=== PATIENT | male | born 1990 | race Caucasian/White ===

== ENCOUNTER 2019-02-05 23:54 | Emergency (ER) | payer OTHER ==
[~2019-02-05] VITALS: Ht 172.7 cm; Wt 85.0 kg
[2019-02-05 23:59] VITALS: BP 125/68
== END 2019-02-06 00:14 | disposition left against medical advice (07) ==
LOC: M ED 23:54
DX: Z53.21 Procedure and treatment not carried out due to patient leaving prior to being seen by health care provider (principal)

== ENCOUNTER 2019-04-03 12:59 | Emergency (ER) | payer OTHER ==
[~2019-04-03] VITALS: Ht 172.7 cm; Wt 79.5 kg
[2019-04-03 12:59] VITALS: BP 148/67
[2019-04-03] MEDS ORDERED: SUBO8MIS SL (13:04)
[2019-04-03] MEDS ORDERED: CLON1TAB8 (13:04)
--- NOTE | 2019-04-03 15:29 | REP ---
ULTRASOUND RIGHT ANTECUBITAL FOSSA: Real-time sonographic evaluation of the right antecubital fossa performed in the area of redness and swelling. There is a complex fluid collection which may represent an abscess in the medial antecubital fossa measuring 2.9 x 2.0 x 4.2 cm. There is surrounding hyperemia with duplex Doppler evaluation. There is compression of the adjacent right basilic vein. Electronically Signed by Ricardo Jimenez MD 04/04/2019 09:14 A
[2019-04-03] MEDS ORDERED: LIDOCAINE 2% MDV 20 ML VIAL SC ONE (15:30)
[2019-04-03] MEDS ORDERED: BACT800T5 PO (15:52)
[2019-04-03] MEDS ORDERED: BACTRIM 160MG/800MG DS TAB PO ONE (16:00)
== END 2019-04-03 16:17 | disposition home or self-care (01) ==
LOC: M ED 12:59
DX: L02.413 Cutaneous abscess of right upper limb (principal); F15.20 Other stimulant dependence, uncomplicated

== ENCOUNTER 2019-05-12 14:38 | Emergency (ER) | payer OTHER ==
[~2019-05-12] VITALS: Ht 172.7 cm; Wt 65.9 kg
[~2019-05-12 14:38] MED LIST: BACT800T5 PO; CLON1TAB8; SUBO8MIS SL
[2019-05-12] MEDS ORDERED: NS 1,000 ML IV ONE ×3 (15:00→18:30)
[2019-05-12 15:06] LABS: HEMATOCRIT 38.4 % (42.0-52.0); HEMOGLOBIN 13.4 g/dl (13.5-17.5); MEAN CORPUSCULAR HEMOGLOBIN 29.6 pg (27.0-33.0); MEAN CORPUSCULAR HGB CONC 34.9 g/dl (32.0-36.5); MEAN CORPUSCULAR VOLUME 84.8 fl (80.0-96.0); PLATELET COUNT, AUTOMATED 201 10^3/uL (150-450); RED BLOOD COUNT 4.53 10^6/uL (4.30-6.10); WHITE BLOOD COUNT 9.5 10^3/uL (4.0-10.0)
[2019-05-12 15:44] LABS: ACETAMINOPHEN LEVEL < 2.0 UG/ML (10.0-30.0); ALBUMIN 3.6 GM/DL (3.2-5.2); ALT/SGPT 51 U/L (12-78); BILIRUBIN,TOTAL 0.6 MG/DL (0.2-1.0); BLOOD UREA NITROGEN 19 MG/DL (7-18); CALCIUM LEVEL 8.2 MG/DL (8.5-10.1); CARBON DIOXIDE LEVEL 31 MEQ/L (21-32); CHLORIDE LEVEL 108 MEQ/L (98-107); CPK CREATINE PHOSPHOKINASE 1388 U/L (39-308); ETHYL ALCOHOL (ETHANOL) < 0.003 % (0.000-0.010); GLOMERULAR FILTRATION RATE > 60.0 (>60); GLUCOSE, FASTING 94 MG/DL (70-100); POTASSIUM SERUM 3.9 MEQ/L (3.5-5.1); SALICYLATE LEVEL < 1.7 MG/DL (5.0-30.0); SODIUM LEVEL 142 MEQ/L (136-145); TOTAL PROTEIN 6.8 GM/DL (6.4-8.2)
[2019-05-12 18:00] VITALS: BP 126/66
[2019-05-12] MEDS ORDERED: METOPROLOL 5 MG/5 ML VIAL IV SCH (18:30)
[2019-05-12] MEDS ORDERED: NITROGLYCERIN 2% OINT 1 GM *U/D* PKT TOP ONE (18:30)
[2019-05-12] MEDS ORDERED: METOPROLOL TART 50 MG TAB PO ONE (18:30)
== END 2019-05-12 21:04 | disposition left against medical advice (07) ==
LOC: M ED 14:38
DX: F19.120 Other psychoactive substance abuse with intoxication, uncomplicated (principal); Z79.899 Other long term (current) drug therapy
CPT/HCPCS: 36415; 80053; 82550; 85027; 99284; G0480

== ENCOUNTER 2019-06-06 19:41 | Inpatient (IN) | payer OTHER ==
[~2019-06-06] VITALS: Ht 177.8 cm; Wt 71.2 kg
[2019-06-06] MEDS ORDERED: NALOXONE INJ 0.4 MG/1 ML VIAL (J2310) IV ONE (20:30)
[2019-06-06 20:47] LABS: BASO % 0.2 % (0.0-1.0); EOS # 0.1 10^3/uL (0.0-0.50); EOS % 0.7 % (0.0-3.0); HEMATOCRIT 37.6 % (42.0-52.0); HEMOGLOBIN 12.6 g/dl (13.5-17.5); LYMPH # 3.6 10^3/uL (1.5-6.5); LYMPH % 36.2 % (24.0-44.0); MEAN CORPUSCULAR HEMOGLOBIN 29.4 pg (27.0-33.0); MEAN CORPUSCULAR HGB CONC 33.5 g/dl (32.0-36.5); MEAN CORPUSCULAR VOLUME 87.6 fl (80.0-96.0); MONO # 0.6 10^3/uL (0.0-0.8); MONO % 5.9 % (0.0-5.0); NEUTROPHILS # 5.6 10^3/uL (1.8-7.7); NEUTROPHILS % 56.4 % (36.0-66.0); PLATELET COUNT, AUTOMATED 171 10^3/uL (150-450); RED BLOOD COUNT 4.29 10^6/uL (4.30-6.10); WHITE BLOOD COUNT 9.9 10^3/uL (4.0-10.0)
[2019-06-06] MEDS ORDERED: NALOXONE INJ 2 MG/2 ML SYRINGE (J2310) IV STA ×2 (20:51→20:58)
[2019-06-06] MEDS ORDERED: NALOXONE INJ 2 MG/2 ML SYRINGE (J2310) As Ordered ONE (20:52)
[2019-06-06 21:26] LABS: ACETAMINOPHEN LEVEL < 2.0 UG/ML (10.0-30.0); ALBUMIN 3.2 GM/DL (3.2-5.2); ALT/SGPT 175 U/L (12-78); BILIRUBIN,DIRECT 0.1 MG/DL (0.0-0.2); BILIRUBIN,TOTAL 0.2 MG/DL (0.2-1.0); BLOOD UREA NITROGEN 10 MG/DL (7-18); CALCIUM LEVEL 8.4 MG/DL (8.5-10.1); CARBON DIOXIDE LEVEL 28 MEQ/L (21-32); CHLORIDE LEVEL 108 MEQ/L (98-107); CPK CREATINE PHOSPHOKINASE 241 U/L (39-308); CREATININE FOR GFR 0.64 MG/DL (0.70-1.30); ETHYL ALCOHOL (ETHANOL) < 0.003 % (0.000-0.010); GLOMERULAR FILTRATION RATE > 60.0 (>60); GLUCOSE, FASTING 104 MG/DL (70-100); POTASSIUM SERUM 3.5 MEQ/L (3.5-5.1); SALICYLATE LEVEL < 1.7 MG/DL (5.0-30.0); SODIUM LEVEL 142 MEQ/L (136-145); TOTAL PROTEIN 6.3 GM/DL (6.4-8.2)
--- NOTE | 2019-06-06 21:55 | REPVR ---
EXAM: CT Head Without Contrast EXAM DATE/TIME: 06/06/19 (9:07pm) CLINICAL HISTORY: 29 year old male. Overdose. Altered mental status. TECHNIQUE: Imaging protocol: Computed tomography images of the head without contrast. Radiation optimization: All CT scans at this facility use at least one of these dose optimization techniques: automated exposure control; mA and/or kV adjustment per patient size (includes targeted exams where dose is matched to clinical indication); or iterative reconstruction. COMPARISON: No relevant prior studies available FINDINGS: Brain: Unremarkable. No acute hemorrhage. Unremarkable white matter. No mass effect. Ventricles: Normal. No ventriculomegaly. Bones/joints: Unremarkable. No acute fracture. Sinuses: No air-fluid levels. Ethmoid sinus membrane thickening. Mastoid air cells: Visualized mastoid air cells are well aerated. No mastoid effusion. Soft tissues: Unremarkable. IMPRESSION: No acute intracranial abnormality. Electronically signed by: Tammie Mark On 06/06/2019 21:55:30 PM
[2019-06-06 21:59] LABS: AMPHETAMINES LEVEL URINE POSITIVE (NEGATIVE); BARBITURATES URINE NEGATIVE (NEGATIVE); BENZODIAZEPINES URINE NEGATIVE (NEGATIVE); CANNABINOIDS URINE POSITIVE (NEGATIVE); COCAINE METABOLITE URINE POSITIVE (NEGATIVE); METHADONE URINE NEGATIVE (NEGATIVE); OPIATES URINE POSITIVE (NEGATIVE); PHENCYCLIDINE URINE NEGATIVE (NEGATIVE)
--- NOTE | 2019-06-06 22:07 | REPVR ---
EXAM: CT Cervical Spine Without Contrast EXAM DATE/TIME: 06/06/19 (9:08pm) CLINICAL HISTORY: 29 year old male. Overdose. Altered mental status. TECHNIQUE: Imaging protocol: Computed tomography images of the cervical spine without contrast. Coronal and sagittal reformatted images were created and reviewed. Radiation optimization: All CT scans at this facility use at least one of these dose optimization techniques: automated exposure control; mA and/or kV adjustment per patient size (includes targeted exams where dose is matched to clinical indication); or iterative reconstruction. COMPARISON: No relevant prior studies available FINDINGS: Vertebrae: No acute fracture. Normal alignment. Discs/Spinal canal/Neural foramina: No spinal stenosis. No neural foraminal narrowing. Soft tissues: Unremarkable. Lungs: Lung apices are normal. IMPRESSION: No acute findings. Electronically signed by: Tammie Mark On 06/06/2019 22:06:37 PM
[2019-06-06] MEDS ORDERED: NALOXONE INJ 2 MG/2 ML SYRINGE (J2310) ONE (23:15)
[2019-06-06] MEDS ORDERED: BUPR300T34 PO (23:17)
[2019-06-06] MEDS ORDERED: SUBO8MIS SL (23:17)
[2019-06-06] MEDS ORDERED: GABA600T4 PO (23:17)
[2019-06-06] MEDS ORDERED: TRAZ-189 PO (23:23)
[2019-06-06 23:45] VITALS: BP 101/55
[2019-06-06] MEDS ORDERED: NALOXONE INJ 2 MG/2 ML SYRINGE (J2310) IV ONE (23:45)
[2019-06-07] VITALS (7 sets, daily range): BP systolic 97–110; BP diastolic 50–60
--- NOTE | 2019-06-07 00:22 | HPEPDOC ---
[facility] Medical History & Physical Date of Admission Jun 06, 2019 Date of Service: Jun 06, 2019 Primary Care Physician: A Attending Physician: SALENA SANCHEZ MD History and Physical TIME OF SERVICE 1140PM CHIEF COMPLAINT: Altered mental status. HISTORY OF PRESENT ILLNESS: This is 29 yr old M who per discussion with the ED attending was brought to the hospital by EMS after he was found on the ground unresponsive. The patient is known to have have a history of polysubstance abuse, but after receiving 3 doses of Narcan the patient has not become more alert. The patient is intermittently arousable and is protecting his airway. REVIEW OF SYSTEMS: Unable to obtain because of patient has altered mental status PAST MEDICAL /SURGICAL HISTORY: Unable to obtain because of patient has altered status , but based on chart review and discussion with the ED attending. He has a history of polysubstance abuse including opiates, amphetamines, cocaine, and cannabinoids SOCIAL HISTORY: Polysubstance abuse FAMILY HISTORY: Unable to obtain because of patient's altered ALLERGIES: Please see below. HOME MEDICATIONS: Please see below. PHYSICAL EXAMINATION: VITAL SIGNS: Temperature 90.1, pulse 69, respiratory rate 16, blood pressure 97/51, pulse oximetry 100% on 2 L by nasal cannula GENERAL APPEARANCE: Well-nourished, well-developed, HEENT: Normocephalic, atraumatic, pupils are pinpoint, there is mild conjunctival injection, but no scleral icterus CARDIOVASCULAR: The heart is regular rate and rhythm. There are no murmurs, rubs or gallops LUNGS: There is normal air entry bilaterally, the lips are not cyanotic, the lungs are clear to auscultation bilaterally ABDOMEN: Bowel sounds are hypoactive, the abdomen is soft MUSCULOSKELETAL: There is no lower extremity edema INTEGUMENT: The patient is slightly diaphoretic and his face is slightly flushed NEUROLOGICAL: pupils are constricted PSYCHIATRIC: asleep but not arousable LABORATORY DATA: CBC is remarkable for hemoglobin of 12.6 with MCV of 87.6. Chemistries remarkable for a chloride of 108, glucose of 104, AST 41, ALT 175, alkaline phosphatase of 228, ammonia 54, and TSH of 4.0 to IMAGING: Chest x-ray is unremarkable CT of the head was unremarkable. CT of the cervical spine was unremarkable MICROBIOLOGY: Please see below. ASSESSMENT: Mr. Epstein is a 29 year old male the past medical history of polysubstance abuse who was admitted for management of altered mental status in the setting of intoxication. PLAN: 1. Altered mental status secondary to polysubstance abuse. Differential includes hepatic encephalopathy bc of elevated ammonia Tox screen reviewed Ammonia elevated Plan: Admit to ICU for frequent neuro checks/aspiration precautions/given additional dose of Narcan / start lactulose/IV fluids / hold Gabapentin 2. Transaminitis. Likely secondary to polysubstance abuse. Acetaminophen levels are normal. Plan: Trend LFTs, follow-up hepatitis panel & liver US. 3.Normocytic normochromic anemia. Possibly 2/2 anemia of chronic dz Plan: Follow-up stool occult and iron studies 4. Elevated TSH. Likely secondary to euthyroid sick syndrome. Plan follow up TFTs in the next 6 weeks with PCP DVT prophylaxis with enoxaparin. Disposition pending clinical course CC time 20 min Vital Signs Vital Signs Date Time Temp Pulse Resp B/P (MAP) Pulse Ox O2 Delivery O2 Flow Rate FiO2 06/06/19 23:15 67 14 99/57 (71) 100 Nasal Cannula 2.0 06/06/19 19:55 97.9 Laboratory Data Labs 24H Laboratory Tests 2 06/06/19 20:39: Immature Granulocyte % (Auto) 0.6, White Blood Count 9.9, Red Blood Count 4.29L, Hemoglobin 12.6L, Hematocrit 37.6L, Mean Corpuscular Volume 87.6, Mean Corpuscular Hemoglobin 29.4, Mean Corpuscular Hemoglobin Concent 33.5, Red Cell Distribution Width 13.2, Platelet Count 171, Neutrophils (%) (Auto) 56.4, Lymphocytes (%) (Auto) 36.2, Monocytes (%) (Auto) 5.9H, Eosinophils (%) (Auto) 0.7, Basophils (%) (Auto) 0.2, Neutrophils # (Auto) 5.6, Lymphocytes # (Auto) 3.6, Monocytes # (Auto) 0.6, Eosinophils # (Auto) 0.1, Basophils # (Auto) 0.0, Nucleated Red Blood Cells % (auto) 0.0, Anion Gap 6L, Glomerular Filtration Rate > 60.0, Calcium Level 8.4L, Aspartate Amino Transf (AST/SGOT) 41H, Alanine Aminotransferase (ALT/SGPT) 175H, Alkaline Phosphatase 228H, Total Bilirubin 0.2, Direct Bilirubin 0.1, Total Creatine Kinase 241, Total Protein 6.3L, Albumin 3.2, Albumin/Globulin Ratio 1.03, Thyroid Stimulating Hormone (TSH) 4.020H, Salicylates Level < 1.7L, Acetaminophen Level < 2.0L, Ethyl Alcohol Level < 0.003 06/06/19 20:57: Bedside Glucose (Misc Panel) 121H 06/06/19 21:03: Urine Color YELLOW, Urine Appearance HAZY, Urine pH 6.0, Urine Specific [place] 1.026, Urine Protein NEGATIVE, Urine Glucose (UA) NEGATIVE, Urine Ketones TRACEH, Urine Blood NEGATIVE, Urine Nitrite NEGATIVE, Urine Bilirubin NEGATIVE, Urine Urobilinogen 2.0H, Urine Leukocyte Esterase NEGATIVE, Urine WBC (Auto) 2, Urine RBC (Auto) 2, Urine Hyaline Casts (Auto) 0, Urine Bacteria (Auto) NEGATIVE, Urine Squamous Epithelial Cells 0, Urine Mucus (Auto) SMALL, Urine S perm (Auto) , Urine Amphetamines Screen POSITIVEH, Urine Benzodiazepines Screen NEGATIVE, Urine Opiates Screen POSITIVEH, Urine Methadone Screen NEGATIVE, Urine Barbiturates Screen NEGATIVE, Urine Phencyclidine Screen NEGATIVE, Urine Cocaine Metabolite Screen POSITIVEH, Urine Cannabinoids Screen POSITIVEH 06/06/19 21:22: POC pH (Misc Panel) 7.344L, POC Base Excess (Misc Panel) 1.0, POC Saturated Percent O2 (Misc) 96, POC pO2 (Misc Panel) 86.0, POC pCO2 (Misc Panel) 48.9H, POC HCO3 (Misc Panel) 26.6H, POC Total CO2 (Misc Panel) 28.0H 06/06/19 22:24: Ammonia 54H CBC/BMP Laboratory Tests 06/06/19 20:39 Red Blood Count 4.29 L, Mean Corpuscular Volume 87.6, Mean Corpuscular Hemoglobin 29.4, Mean Corpuscular Hemoglobin Concent 33.5, Red Cell Distribution Width 13.2, Neutrophils (%) (Auto) 56.4, Lymphocytes (%) (Auto) 36.2, Monocytes (%) (Auto) 5.9 H, Eosinophils (%) (Auto) 0.7, Basophils (%) (Auto) 0.2, Neutrophils # (Auto) 5.6, Lymphocytes # (Auto) 3.6, Monocytes # (Auto) 0.6, Eosinophils # (Auto) 0.1, Basophils # (Auto) 0.0 Home Medications Scheduled Buprenorphine HCl/Naloxone HCl (Suboxone 8 mg-2 mg Sl Film) 1 Each Film, 2 STRIP SL DAILY Bupropion HCl (Bupropion Xl) 300 Mg Tab.er.24h, 300 MG PO DAILY Gabapentin (Gabapentin) 600 Mg Tablet, 600 MG PO BID Scheduled PRN Trazodone HCl (Trazodone HCl) 100 Mg Tablet, 100 MG PO QHS PRN for SLEEP Allergies Coded Allergies: No Known Allergies (Unverified , 02/06/19) A-FIB/CHADSVASC A-FIB History Current/History of A-Fib/PAF?: No Current PO Anticoag Therapy: No SALENA SANCHEZ MD Jun 07, 2019 00:22
--- NOTE | 2019-06-07 00:55 | REP ---
Clinical: Drug overdose . Comparison: 12/23/2011 . Findings: The mediastinum and cardiac silhouette are stable and within normal limits for portable technique. The lung briscoe are clear without acute consolidation, effusion, or pneumothorax. Skeletal structures are intact. Impression: No acute cardiopulmonary process appreciated. Electronically Signed by Amari Lucas MD 06/07/2019 12:46 A
[2019-06-07] MEDS ORDERED: NS 1,000 ML IV SCH (03:15)
[2019-06-07 05:11] LABS: HEMATOCRIT 41.1 % (42.0-52.0); HEMOGLOBIN 13.6 g/dl (13.5-17.5); MEAN CORPUSCULAR HEMOGLOBIN 29.8 pg (27.0-33.0); MEAN CORPUSCULAR HGB CONC 33.1 g/dl (32.0-36.5); MEAN CORPUSCULAR VOLUME 89.9 fl (80.0-96.0); PLATELET COUNT, AUTOMATED 165 10^3/uL (150-450); RED BLOOD COUNT 4.57 10^6/uL (4.30-6.10)
[2019-06-07 08:02] LABS: FREE THYROXINE INDEX 2.8 % (1.4-3.8); THYROID STIMULATING HORMONE 0.857 uIU/ML (0.358-3.740); THYROXINE (T4) 9.2 UG/DL (4.5-12.0)
[2019-06-07 08:18] LABS: ALT/SGPT 163 U/L (12-78); BILIRUBIN,TOTAL 0.3 MG/DL (0.2-1.0); BLOOD UREA NITROGEN 10 MG/DL (7-18); CALCIUM LEVEL 8.4 MG/DL (8.5-10.1); CARBON DIOXIDE LEVEL 28 MEQ/L (21-32); CHLORIDE LEVEL 110 MEQ/L (98-107); CREATININE FOR GFR 0.67 MG/DL (0.70-1.30); FERRITIN 134 NG/ML (26-388); GLOMERULAR FILTRATION RATE > 60.0 (>60); GLUCOSE, FASTING 105 MG/DL (70-100); IRON (FE) 113 UG/DL (65-175); PERCENT SATURATION 48.7 % (19.7-50.0); POTASSIUM SERUM 4.3 MEQ/L (3.5-5.1); SODIUM LEVEL 143 MEQ/L (136-145); TOTAL IRON BINDING CAPACITY 232 UG/DL (250-450)
[2019-06-07] MEDS ORDERED: LACTULOSE 20 GM/30 ML SYRUP UD PO SCH (09:00)
[2019-06-07] MEDS ORDERED: ENOXAPARIN 40 MG/0.4 ML SYRINGE (J1650) SC SCH (09:00)
--- NOTE | 2019-06-07 10:50 | DS.PDOC ---
Discharge Summary General Date of Admission Jun 06, 2019 at 23:05 Date of Discharge 06/07/19 Discharge Summary PROCEDURES PERFORMED DURING STAY: [None]. ADMITTING DIAGNOSES: 1. drug intoxication DISCHARGE DIAGNOSES: 1. polysubstance abuse 2. drug intoxication COMPLICATIONS/CHIEF COMPLAINT: Altered Mental Status. HOSPITAL COURSE: This is 29 yr old M who was brought to the hospital by EMS after he was found on the ground unresponsive. The patient is known to have have a history of polysubstance abuse, but after receiving 3 doses of Narcan the patient still did not improve. The patient was intermittently arousable and was protecting his airway. He was admitted for further evaluation and treatment. O vernight no events were noted on telemetry. He was found to be awake, alert and oriented the following morning. He had not medical complaints. He stated he was 'partying' and then work up to find himself in the hospital. He was encouraged to remain for another day for observation, but opted to leave against medical advice. Risks were explained, and he voiced full understanding. DISCHARGE MEDICATIONS: Please see below. ALLERGIES: Please see below. PHYSICAL EXAM Vital Signs: See below General: NAD, lying comfortably in bed HEENT: NC/AT, EOMI, PERRL Lungs: CTA B/L Heart: +S1S2, RRR Abd: soft, NT, +BS Ext: no edema Neuro: no gross focal deficits Psych: AAOx3 LABORATORY DATA: Please see below. PROGNOSIS: guarded given history of medical non-compliance and substance abuse DISPOSITION: 07 Against Medical Advice. DISCHARGE INSTRUCTIONS: 1. enroll in drug rehab 2. abstain from drug abuse 3. follow up pcp as soon as possible TIME SPENT ON DISCHARGE: 35 minutes. Vital Signs/I&Os Vital Signs Date Time Temp Pulse Resp B/P (MAP) Pulse Ox O2 Delivery O2 Flow Rate FiO2 06/07/19 08:00 98.2 64 14 109/60 (76) 98 06/06/19 23:15 Nasal Cannula 2.0 I&O- Last 24 Hours up to 6 AM 06/07/19 06:00 Output Total 780 ml Balance -780 ml Laboratory Data Labs 24H Laboratory Tests 2 06/06/19 20:39: Immature Granulocyte % (Auto) 0.6, White Blood Count 9.9, Red Blood Count 4.29L, Hemoglobin 12.6L, Hematocrit 37.6L, Mean Corpuscular Volume 87.6, Mean Corpuscular Hemoglobin 29.4, Mean Corpuscular Hemoglobin Concent 33.5, Red Cell Distribution Width 13.2, Platelet Count 171, Neutrophils (%) (Auto) 56.4, Lymphocytes (%) (Auto) 36.2, Monocytes (%) (Auto) 5.9H, Eosinophils (%) (Auto) 0.7, Basophils (%) (Auto) 0.2, Neutrophils # (Auto) 5.6, Lymphocytes # (Auto) 3.6, Monocytes # (Auto) 0.6, Eosinophils # (Auto) 0.1, Basophils # (Auto) 0.0, Nucleated Red Blood Cells % (auto) 0.0, Anion Gap 6L, Glomerular Filtration Rate > 60.0, Calcium Level 8.4L, Aspartate Amino Transf (AST/SGOT) 41H, Alanine Aminotransferase (ALT/SGPT) 175H, Alkaline Phosphatase 228H, Total Bilirubin 0.2, Direct Bilirubin 0.1, Total Creatine Kinase 241, Total Protein 6.3L, Albumin 3.2, Albumin/Globulin Ratio 1.03, Thyroid Stimulating Hormone (TSH) 4.020H, Salicylates Level < 1.7L, Acetaminophen Level < 2.0L, Ethyl Alcohol Level < 0.003 06/06/19 20:57: Bedside Glucose (Misc Panel) 121H 06/06/19 21:03: Urine Color YELLOW, Urine Appearance HAZY, Urine pH 6.0, Urine Specific [place] 1.026, Urine Protein NEGATIVE, Urine Glucose (UA) NEGATIVE, Urine Ketones TRACEH, Urine Blood NEGATIVE, Urine Nitrite NEGATIVE, Urine Bilirubin NEGATIVE, Urine Urobilinogen 2.0H, Urine Leukocyte Esterase NEGATIVE, Urine WBC (Auto) 2, Urine RBC (Auto) 2, Urine Hyaline Casts (Auto) 0, Urine Bacteria (Auto) NEGATIVE, Urine Squamous Epithelial Cells 0, Urine Mucus (Auto) SMALL, Urine Sperm (Auto) , Urine Amphetamines Screen POSITIVEH, Urine Benzodiazepines Screen NEGATIVE, Urine Opiates Screen POSITIVEH, Urine Methadone Screen NEGATIVE, Urine Barbiturates Screen NEGATIVE, Urine Phencyclidine Screen NEGATIVE, Urine Cocaine Metabolite Screen POSITIVEH, Urine Cannabinoids Screen POSITIVEH 06/06/19 21:22: POC pH (Misc Panel) 7.344L, POC Base Excess (Misc Panel) 1.0, POC Saturated Percent O2 (Misc) 96, POC pO2 (Misc Panel) 86.0, POC pCO2 (Misc Panel) 48.9H, POC HCO3 (Misc Panel) 26.6H, POC Total CO2 (Misc Panel) 28.0H 06/06/19 22:24: Ammonia 54H 06/07/19 04:46: Nucleated Red Blood Cells % (auto) 0.0, Anion Gap 5L, Glomerular Filtration Rate > 60.0, Blood Urea Nitrogen 10, Creatinine 0.67L, Sodium Level 143, Potassium Level 4.3#, Chloride Level 110H, Carbon Dioxide Level 28, Calcium Level 8.4L, Aspartate Amino Transf (AST/SGOT) 38H, Alanine Aminotransferase (ALT/SGPT) 163H, Alkaline Phosphatase 237H, Total Bilirubin 0.3, Total Protein 6.0L, Albumin 3.0L, Iron Level 113, Total Iron Binding Capacity 232L, Transferrin % Saturation 48.7, Ferritin 134, Albumin/Globulin Ratio 1.00 06/07/19 07:15: Thyroid Stimulating Hormone (TSH) 0.857, Free Thyroxine Index 2.8, Thyroxine (T4) 9.2, Triiodothyronine (T3) Uptake 30L CBC/BMP Laboratory Tests 06/06/19 20:39 Red Blood Count 4.29 L, Mean Corpuscular Volume 87.6, Mean Corpuscular H emoglobin 29.4, Mean Corpuscular Hemoglobin Concent 33.5, Red Cell Distribution Width 13.2, Neutrophils (%) (Auto) 56.4, Lymphocytes (%) (Auto) 36.2, Monocytes (%) (Auto) 5.9 H, Eosinophils (%) (Auto) 0.7, Basophils (%) (Auto) 0.2, Neutrophils # (Auto) 5.6, Lymphocytes # (Auto) 3.6, Monocytes # (Auto) 0.6, Eosinophils # (Auto) 0.1, Basophils # (Auto) 0.0 06/07/19 04:46 Red Blood Count 4.57, Mean Corpuscular Volume 89.9, Mean Corpuscular Hemoglobin 29.8, Mean Corpuscular Hemoglobin Concent 33.1, Red Cell Distribution Width 13.2, Calcium Level 8.4 L, Aspartate Amino Transf (AST/SGOT) 38 H, Alanine Aminotransferase (ALT/SGPT) 163 H, Alkaline Phosphatase 237 H, Total Bilirubin 0.3, Total Protein 6.0 L, Albumin 3.0 L FSBS Laboratory Tests Test 06/06/19 20:57 Range/Units Bedside Glucose (Misc Panel) 121 70-105 MG/DL Microbiology Microbiology 06/07/19 Blood Culture, Received Pending 06/07/19 Blood Culture, Received Pending Discharge Medications Scheduled Buprenorphine HCl/Naloxone HCl (Suboxone 8 mg-2 mg Sl Film) 1 Each Film, 2 STRIP SL DAILY, (Reported) Bupropion HCl (Bupropion Xl) 300 Mg Tab.er.24h, 300 MG PO DAILY, (Reported) Gabapentin (Gabapentin) 600 Mg Tablet, 600 MG PO BID, (Reported) Scheduled PRN Trazodone HCl (Trazodone HCl) 100 Mg Tablet, 100 MG PO QHS PRN for SLEEP, (Reported) Allergies Coded Allergies: No Known Allergies (Unverified , 02/06/19) PATRICIA WHITE MD Jun 07, 2019 10:50
[2019-06-07 13:08] LABS: VITAMIN B12 LEVEL 1005 PG/ML (247-911)
[2019-06-07 13:09] LABS: FOLATE 17.4 NG/ML (>5.4)
[2019-06-07 13:19] LABS: HEPATITIS B SURFACE ANTIGEN NEGATIVE (NEGATIVE)
[2019-06-07 13:46] LABS: HEPATITIS B CORE ANTIBODY IGM NEGATIVE (NEGATIVE)
[2019-06-07 13:49] LABS: HEPATITIS A ANTIBODY IGM NEGATIVE (NEGATIVE)
[2019-06-07 13:53] LABS: HEPATITIS C VIRUS ABY INDEX > 11.0 INDEX (<0.8)
== END 2019-06-07 08:53 | disposition left against medical advice (07) | DRG 770 ==
LOC: M ED 19:41 → M ED INP 23:05 → M ICU 23:54
PROVIDERS: ADMIT Internal Medicine; ATTEND Internal Medicine
DX: F11.120 Opioid abuse with intoxication, uncomplicated (principal); F14.120 Cocaine abuse with intoxication, uncomplicated; F15.120 Other stimulant abuse with intoxication, uncomplicated; F12.120 Cannabis abuse with intoxication, uncomplicated; D64.9 Anemia, unspecified; E07.81 Sick-euthyroid syndrome; R41.82 Altered mental status, unspecified; Z79.899 Other long term (current) drug therapy

== ENCOUNTER 2019-08-12 19:49 | Emergency (ER) | payer MEDICAID, OTHER ==
[~2019-08-12] VITALS: Ht 172.7 cm; Wt 74.7 kg
[2019-08-12 19:49] VITALS: BP 133/77
[~2019-08-12 19:49] MED LIST changes: +BUPR300T34 PO; +GABA600T4 PO; +TRAZ-189 PO
[2019-08-12] MEDS ORDERED: ADACEL/BOOSTRIX VACCINE (DIPHTH/PERTUSS/ACELL/TETANUS)0.5ML SYR (90715) IM ONE (20:45)
[2019-08-12] MEDS ORDERED: BACT800T5 PO (21:21)
[2019-08-12] MEDS ORDERED: BACTRIM 160MG/800MG DS TAB As Ordered ONE (21:42)
[2019-08-12] MEDS ORDERED: BACTRIM 160MG/800MG DS TAB PO ONE (21:45)
--- NOTE | 2019-08-13 08:37 | REP ---
Left forearm: Two views. History: History of a needle breaking off in the left antecubital fossa area. Findings: Two views of the left forearm demonstrate two tiny metallic foreign bodies projected in the superficial antecubital soft tissues. These measure 6 mm in length each. They are compatible with metallic needle fragments. No soft tissue gas is seen. No bony abnormality is observed. Impression: There are two metallic foreign bodies in the antecubital soft tissues compatible with a broken needle fragments. Electronically Signed by Blair Mccullough MD 08/13/2019 11:26 A
--- NOTE | 2019-08-13 12:36 | ED PDOC ---
Post-Departure Follow-Up dr carpio faxed formal report of left forearm film for fu Kelsy Moncada MD Aug 13, 2019 12:36
== END 2019-08-12 21:58 | disposition home or self-care (01) ==
LOC: M ED 19:49
DX: S40.852A Superficial foreign body of left upper arm, initial encounter (principal); W46.0XXA Contact with hypodermic needle, initial encounter; Y92.9 Unspecified place or not applicable; Y93.89 Activity, other specified; Y99.9 Unspecified external cause status; F15.10 Other stimulant abuse, uncomplicated; F17.200 Nicotine dependence, unspecified, uncomplicated; Z79.899 Other long term (current) drug therapy

== ENCOUNTER 2019-09-04 12:11 | Emergency (ER) | payer MEDICAID ==
[~2019-09-04] VITALS: Ht 172.7 cm; Wt 81.8 kg
[2019-09-04 12:45] VITALS: BP 126/62
== END 2019-09-04 13:28 | disposition left against medical advice (07) ==
LOC: EDBD 12:11 → M ED 12:11
DX: R56.9 Unspecified convulsions (principal); F19.10 Other psychoactive substance abuse, uncomplicated; S00.81XA Abrasion of other part of head, initial encounter; S00.31XA Abrasion of nose, initial encounter; S00.512A Abrasion of oral cavity, initial encounter; W19.XXXA Unspecified fall, initial encounter; Y92.512 Supermarket, store or market as the place of occurrence of the external cause; F17.200 Nicotine dependence, unspecified, uncomplicated; Z79.899 Other long term (current) drug therapy

== ENCOUNTER 2019-09-10 05:14 | Emergency (ER) | payer MEDICAID ==
[~2019-09-10] VITALS: Ht 172.7 cm; Wt 77.3 kg
[2019-09-10 05:14] VITALS: BP 147/72
[~2019-09-10 05:14] MED LIST changes: +ROBA750T4 PO
[2019-09-10] MEDS ORDERED: PREGABALIN 75 MG CAP(LYRICA) PO ONE (06:00)
--- NOTE | 2019-09-10 08:16 | REP ---
Partial lumbar spine series: Three views. History: Pain. Comparison study: October 01, 2011. Findings: Lumbar vertebral body heights are preserved. There is an area of apparent radiolucent bone destruction involving the anterior superior third of the L5 vertebral body. There is degenerative disc disease at L4-5. Bilateral L4 spondylolysis is seen and there is a grade 1 L4-5 5 mm spondylolisthesis. The spondylolisthesis appears slightly more prominent today compared to the prior study although it is not new. The bony destruction in the anterior aspect of the L5 vertebral body is more pronounced. There is reactive sclerosis. The findings are most compatible with a limbus vertebra with intravertebral disc herniation from L4-5 into L5. Gradually progressive degenerative disc change. There is some sclerosis in the inferior endplate of L4 as well. No acute fracture or collapse is seen. Pedicles and posterior elements are intact. Sacrum and SI joints are unremarkable. 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 There is a bilateral L4 spondylolysis and a 5 mm grade 1 L4-5 spondylolisthesis. These changes have progressed since the 2010 prior study. They are not felt to be acute. No acute fracture is seen. Lumbar spine CT and/or MRI scanning would provide additional information about the neural foramina and neural elements. Electronically Signed by Blair Mccullough MD 09/10/2019 09:27 A
--- NOTE | 2019-09-12 17:35 | ED PDOC ---
Post-Departure Follow-Up certified letter sent to patient regarding radiology report Paula Arredondo MD Sep 12, 2019 17:35
== END 2019-09-10 06:15 | disposition home or self-care (01) ==
LOC: M ED 05:14
DX: S39.012A Strain of muscle, fascia and tendon of lower back, initial encounter (principal); X58.XXXA Exposure to other specified factors, initial encounter; Y92.89 Other specified places as the place of occurrence of the external cause; Q06.9 Congenital malformation of spinal cord, unspecified; Z79.891 Long term (current) use of opiate analgesic

== ENCOUNTER 2019-09-11 16:16 | Inpatient (IN) | payer OTHER ==
[~2019-09-11] VITALS: Ht 172.7 cm; Wt 76.0 kg
[2019-09-11 16:22] VITALS: BP 142/71
[2019-09-11] MEDS ORDERED: MAALOX 30 ML SUSP *UDC PO PRN (17:15)
[2019-09-11] MEDS ORDERED: VANCOMYCIN HCL 1 MG in IV FLUID PLACE HOLDER 1 EA IV SCH (17:15)
[2019-09-11] MEDS ORDERED: MOM 30ML SUSPENSION UDC PO PRN (17:15)
[2019-09-11] MEDS ORDERED: KETOROLAC 30 MG/ML VIAL (J1885) IV PRN (17:45)
[2019-09-11] MEDS ORDERED: PERCOCET 5MG/325MG TAB PO PRN (18:00)
--- NOTE | 2019-09-11 18:07 | HPEPDOC ---
[facility] Medical History & Physical Date of Admission Sep 11, 2019 Date of Service: Sep 11, 2019 Attending Physician: BERTO RODRIGUES MD History and Physical CHIEF COMPLAINT: Low back pain, sent by orthopedic HISTORY OF PRESENT ILLNESS: Giacomo Epstein is a 29-year-old male who presented to the hospital as a direct admission from the orthopedic surgery office. Patient states he began to have low back pain about 2-3 days ago when she woke up with. He reports that it's been a 10 out of 10 pain consistently throughout the past few days. He denies any alleviating factors. He states it is aggravated by moving in a direction, straining for bowel movement, and sometimes straining to urinate. He denies any radicular symptoms, including radiating pain down the legs, numbness or tingling down the legs, and paresthesias in the legs. He does state he feels his legs feel somewhat weak because of the pain. He denies any urinary incontinence or bowel incontinence. He states he has never had back pain like this before and denies any prior trauma involving his back. PAST MEDICAL HISTORY: None. PAST SURGICAL HISTORY: None SOCIAL HISTORY: Employment: Currently unemployed Tobacco use: Denies current use, states he "used to smoke years ago" ETOH: Denies current use, states he "used to drink a lot but hasn't in a long time" Illicit drug use: Denies use in the past 2 weeks; recent tox screen on 09/08/19 was positive for amphetamines, cocaine metabolites, and cannabinoids. FAMILY HISTORY: Noncontributory ALLERGIES: Please see below. REVIEW OF SYSTEMS: CONSTITUTIONAL: Denies fevers, chills, night sweats, fatigue, unexpected change in weight. HEENT: Denies change in vision, change in hearing. CARDIOVASCULAR: Denies chest pain, palpitations, shortness of breath, lightheadedness. RESPIRATORY: Denies dyspnea, cough, wheezing. GASTROINTESTINAL: Denies nausea, vomiting, abdominal pain, diarrhea, constipation, blood in stool. GENITOURINARY: Denies dysuria, urinary frequency, urinary urgency. SKIN: Denies rash, lesions. MUSCULOSKELETAL: Endorses lumbar back pain as described above. NEUROLOGICAL: Denies headache, dizziness, weakness. PSYCHIATRIC: Denies change in mood. HOME MEDICATIONS: Please see below. PHYSICAL EXAMINATION: VITAL SIGNS: See below GENERAL: Alert, appears secondary uncomfortable lying flat on the bed, in no ac phillip respiratory distress HEENT: Normocephalic, atraumatic, PERRLA, EOMI, moist mucous membranes NECK: Supple, trachea midline, no lymphadenopathy, no JVD CARDIOVASCULAR: Regular rate and rhythm, normal S1 and S2. No murmurs, rubs, or gallops RESPIRATORY: Clear to auscultation bilaterally with equal air entry bilaterally. No wheezing, rhonchi, or rales. ABDOMEN: Soft, nontender, nondistended, bowel sounds present, no masses or hepatosplenomegaly appreciated EXTREMITIES: No cyanosis or edema. Pulses 2+/4 in bilateral upper and lower extremities. SKIN: [place], warm, dry NEUROLOGIC: Alert and oriented 3 to person, place, and time. Cranial nerves 2- 12 grossly intact. Strength in hip flexion limited by pain bilaterally, otherwise no focal deficits appreciated PSYCHIATRIC: Mood and affect appropriate LABORATORY DATA: See below. IMAGING: Lumbar MRI done at [facility], report is in the patient's chart. MICROBIOLOGY: Please see below. ASSESSMENT: 29-year-old male with a history of IV drug use who presents with 2-3 days of severe low back pain and MRI evidence of discitis and osteomyelitis at the L4-L5 level. PLAN: 1. Low back pain 2/2 discitis and osteomyelitis - lab work pending including CBC and blood cultures x2 - lumbar MRI shows evidence of discitis and osteomyelitis at L4-L5 - start empiric antibiotics with vancomycin and ceftriaxone (day #1) - pain management with Percocet and tylenol, plan to de-escalate as his pain improves - ID consulted, appreciate their input and recommendations 2. Polysubstance abuse - denies use in the past 2 weeks - recent ED visit 09/08/19 for polysubstance abuse with positive tox screen - check urine tox screen and etoh level 3. Hx of Hepatitis C - transaminitis on prior admission (06/07/19), further work up positive for hep atitis C - liver profile pending - outpatient f/u for treatment DVT Prophylaxis: Teds and SCDs Disposition: IV antibiotics and pain control, pending ID consult for further recommendations Vital Signs Vital Signs Date Time Temp Pulse Resp B/P (MAP) Pulse Ox O2 Delivery O2 Flow Rate FiO2 09/11/19 16:22 101.2 81 18 142/71 (94) 100 Room Air Home Medications Scheduled Buprenorphine HCl/Naloxone HCl (Suboxone 8 mg-2 mg Sl Film) 1 Each Film, 2 STRIP SL DAILY Methocarbamol (Robaxin-750) 750 Mg Tablet, 1 TAB PO TID Allergies Coded Allergies: No Known Allergies (Unverified , 09/10/19) ATTENDING NOTE I have personally evaluated and examined the patient. Discussed with residents and student regarding plan of care and agree with the above assessment and plan. Vertebral osteomyelitis likely 2/2 IVDU. c/w IV abx and pain control. Fairly significant pain with movement. A-FIB/CHADSVASC A-FIB History Current/History of A-Fib/PAF?: No DENA TILLMAN PGY-1 Sep 11, 2019 18:07 BERTO RODRIGUES MD Sep 11, 2019 18:25
[2019-09-11 18:12] LABS: HEMATOCRIT 39.2 % (42.0-52.0); HEMOGLOBIN 12.9 g/dl (13.5-17.5); MEAN CORPUSCULAR HEMOGLOBIN 29.7 pg (27.0-33.0); MEAN CORPUSCULAR HGB CONC 32.9 g/dl (32.0-36.5); MEAN CORPUSCULAR VOLUME 90.1 fl (80.0-96.0); PLATELET COUNT, AUTOMATED 203 10^3/uL (150-450); RED BLOOD COUNT 4.35 10^6/uL (4.30-6.10); WHITE BLOOD COUNT 10.3 10^3/uL (4.0-10.0)
[2019-09-11] MEDS: PERCOCET 5MG/325MG TAB PO PRN (18:18)
[2019-09-11 18:35] LABS: ALT/SGPT 139 U/L (12-78); BILIRUBIN,TOTAL 0.3 MG/DL (0.2-1.0); BLOOD UREA NITROGEN 5 MG/DL (7-18); CALCIUM LEVEL 8.4 MG/DL (8.5-10.1); CARBON DIOXIDE LEVEL 24 MEQ/L (21-32); CHLORIDE LEVEL 108 MEQ/L (98-107); CREATININE FOR GFR 0.77 MG/DL (0.70-1.30); GLOMERULAR FILTRATION RATE > 60.0 (>60); GLUCOSE, FASTING 155 MG/DL (70-100); POTASSIUM SERUM 3.2 MEQ/L (3.5-5.1); SODIUM LEVEL 140 MEQ/L (136-145); TOTAL PROTEIN 7.3 GM/DL (6.4-8.2)
[2019-09-11] MEDS: cefTRIAXone SOD 2 GM in D5W MINI-BAG PLUS 50 ML IV SCH (19:08)
[2019-09-11] MEDS ORDERED: POTASSIUM CHLORIDE 10 MEQ SR TABLET PO ONE (19:45)
[2019-09-11 20:00] VITALS: BP 134/58
[2019-09-11] MEDS ORDERED: VANCOMYCIN HCL 1,000 MG, VIAL MATE ADAPTER 1 EACH in D5W 250 ML IV ONE (20:00)
[2019-09-11] MEDS: DOCUSATE SODIUM 100 MG CAP PO SCH (20:03)
[2019-09-11] MEDS: MORPHINE 4 MG/ML 1ML VIAL/SYRINGE (J2270) IV PRN (20:29)
[2019-09-11] MEDS ORDERED: VANCOMYCIN HCL 750 MG, VIAL MATE ADAPTER 1 EACH in D5W 250 ML IV ONE (21:00)
[2019-09-11] MEDS: ANALGESIC BALM CRM 120 GM TOP PRN (21:59)
[2019-09-11] MEDS ORDERED: KETOROLAC 30 MG/ML VIAL (J1885) IV ONE (22:45)
--- NOTE | 2019-09-11 23:27 | PHACANCOPD ---
PHARMACY VANCOMYCIN DOSING Pt Demographics Demographics Patient Age:29 , Weight:74.200 , Gender: male Adjusted Body Weight Events Past 24 Hours Events Past 24 Hours: NO: Dialysis, Diuretic Therapy, Change in CrCl, Fever, Elevation in WBC, Pending Diagnostics, Pending Procedures, Other Vancomycin Vancomycin indication: DISCITIS/OSTEOMYELITIS Vancomycin Target Ranges: 15-20 mcg/ml Vancomycin Load Y/N: Yes Load Dose Date Time Vancomycin Load Dose: 1.75GM Date: 09/11/19 Time: 20:00 Vancomycin Dose Date: 09/12/19. Current Vancomycin Dose: [1GM IV Q6H (02:00)] Intermittent Dosing?: No Labs Labs Laboratory Tests 09/11/19 17:59 Micro Microbiology 09/11/19 Blood Culture, Received Pending 09/11/19 Blood Culture, Received Pending Creatinine Clearance Date:09/11/19. Creatinine Clearance: [>60ml/min]. Pending Labs VANCO TROUGH 09/12/19 20:00 DOSE Assessment and Plan Maintaining Current Dose?: Yes Reason for dose change: No Dose Change Pharmacist Note Pharmacist Note Date: 09/11/19. PharmD note: 1.75GM VANCO LOAD DOSE 20:00 FOLLOWED BY 1GM IV Q6H STARTING AT 2AM 09/12 VANCO TROUGH SCHEDULED PRIOR TO MONDAY'S 20:00 DOSE PATRICIA HUITRON PHARMACY Sep 11, 2019 23:27
[2019-09-11 23:59] VITALS: BP 144/68
[2019-09-12] MEDS: PERCOCET 5MG/325MG TAB PO PRN ×3 (01:37→17:14)
[2019-09-12] MEDS: VANCOMYCIN HCL 1,000 MG, VIAL MATE ADAPTER 1 EACH in D5W 250 ML IV SCH ×4 (01:59→20:03)
[2019-09-12 04:00] VITALS: BP 144/75
[2019-09-12] MEDS: MORPHINE 4 MG/ML 1ML VIAL/SYRINGE (J2270) IV PRN (05:39)
[2019-09-12] MEDS: ANALGESIC BALM CRM 120 GM TOP PRN (05:40)
[2019-09-12 05:58] LABS: HEMATOCRIT 44.8 % (42.0-52.0); HEMOGLOBIN 14.4 g/dl (13.5-17.5); MEAN CORPUSCULAR HEMOGLOBIN 29.6 pg (27.0-33.0); MEAN CORPUSCULAR HGB CONC 32.1 g/dl (32.0-36.5); MEAN CORPUSCULAR VOLUME 92.2 fl (80.0-96.0); PLATELET COUNT, AUTOMATED 216 10^3/uL (150-450); RED BLOOD COUNT 4.86 10^6/uL (4.30-6.10); WHITE BLOOD COUNT 9.5 10^3/uL (4.0-10.0)
[2019-09-12 06:11] LABS: BLOOD UREA NITROGEN 3 MG/DL (7-18); CALCIUM LEVEL 8.8 MG/DL (8.5-10.1); CARBON DIOXIDE LEVEL 22 MEQ/L (21-32); CHLORIDE LEVEL 109 MEQ/L (98-107); GLOMERULAR FILTRATION RATE > 60.0 (>60); GLUCOSE, FASTING 91 MG/DL (70-100); POTASSIUM SERUM 3.9 MEQ/L (3.5-5.1); SODIUM LEVEL 139 MEQ/L (136-145)
[2019-09-12] MEDS: KETOROLAC 30 MG/ML VIAL (J1885) IV PRN ×3 (07:46→22:26)
[2019-09-12] MEDS: DOCUSATE SODIUM 100 MG CAP PO SCH ×2 (07:51→21:00)
[2019-09-12 08:00] VITALS: BP 144/66
[2019-09-12 11:46] VITALS: BP 145/64
--- NOTE | 2019-09-12 11:46 | IPNPDOC ---
Date Seen The patient was seen on 09/12/19. Progress Note SUBJECTIVE: Patient was seen and examined this morning laying comfortable in bed. He states his pain is improved from last night but still bothering him. He does think the K-pad helped as well as the medication overnight. He would like to get up to take a shower. He denies any additional complaints other than the back pain. All questions answered. OBJECTIVE PHYSICAL EXAMINATION: VITAL SIGNS: Please see below. GENERAL: Alert, appears comfortable lying flat on the bed, in no acute respira tory distress HEENT: Normocephalic, atraumatic, PERRLA, EOMI, moist mucous membranes NECK: Supple, trachea midline, no lymphadenopathy, no JVD CARDIOVASCULAR: Regular rate and rhythm, normal S1 and S2. No murmurs, rubs, or gallops RESPIRATORY: Clear to auscultation bilaterally with equal air entry bilaterally. No wheezing, rhonchi, or rales. ABDOMEN: Soft, nontender, nondistended, bowel sounds present, no masses or hepatosplenomegaly appreciated EXTREMITIES: No cyanosis or edema. Pulses 2+/4 in bilateral upper and lower extremities. SKIN: [place], warm, dry NEUROLOGIC: Alert and oriented 3 to person, place, and time. Cranial nerves 2- 12 grossly intact. Strength in hip flexion limited by pain bilaterally, otherwise no focal deficits appreciated PSYCHIATRIC: Mood and affect appropriate LABORATORY DATA, MICROBIOLOGY: Please see below. IMAGING: Lumbar MRI done at [facility], report is in the patient's chart. ASSESSMENT: 29-year-old male with a history of IV drug use who presents with 2-3 days of severe low back pain and MRI evidence of discitis and osteomyelitis at the L4-L5 level. PLAN: 1. Low back pain 2/2 discitis and osteomyelitis - CBC showed slight leukocytosis initially but is improved today, blood cultures x2 pending - lumbar MRI shows evidence of discitis and osteomyelitis at L4-L5 - start empiric antibiotics with vancomycin and ceftriaxone (day #2) - pain management with Percocet, Toradol, tylenol, and k-pad; plan to de- escalate as his pain improves - ID consulted, appreciate their input and recommendations 2. Polysubstance abuse - denies use in the past 2 weeks - recent ED visit 09/08/19 for polysubstance abuse with positive tox screen - etoh level negative, urine tox screen pending 3. Hx of Hepatitis C - transaminitis on prior admission (06/07/19), further work up positive for hepatitis C - liver profile shows elevated ALT and alk phos, continue to trend - outpatient f/u for treatment DVT Prophylaxis: Teds and SCDs Disposition: IV antibiotics and pain control, pending ID consult for further recommendations ATTENDING NOTE I have personally evaluated and examined the patient. Discussed with residents and student regarding plan of care and agree with the above assessment and plan. VS, I&O, 24H, Fishbone Vital Signs/I&O Vital Signs Date Time Temp Pulse Resp B/P (MAP) Pulse Ox O2 Delivery O2 Flow Rate FiO2 09/12/19 09:54 18 09/12/19 08:00 98.5 67 144/66 (92) 97 Room Air I&O- Last 24 Hours up to 6 AM 09/12/19 06:00 Intake Total 2225 ml Output Total 950 ml Balance 1275 ml Laboratory Data 24H LABS Laboratory Tests 2 09/11/19 17:59: Nucleated Red Blood Cells % (auto) 0.0, Anion Gap 8, Glomerular Filtration Rate > 60.0, Calcium Level 8.4L, Total Bilirubin 0.3, Aspartate Amino Transf (AST/SGOT) 34, Alanine Aminotransferase (ALT/SGPT) 139H, Alkaline Phosphatase 124H, Total Protein 7.3, Albumin 3.0L, Albumin/Globulin Ratio 0.70L, Ethyl A lcohol Level < 0.003 09/12/19 05:36: Nucleated Red Blood Cells % (auto) 0.0, Anion Gap 8, Glomerular Filtration Rate > 60.0, Calcium Level 8.8 CBC/BMP Laboratory Tests 09/11/19 17:59 09/12/19 05:36 Microbiology Microbiology 09/11/19 Blood Culture, Received Pending 09/11/19 Blood Culture, Received Pending DENA TILLMAN PGY-1 Sep 12, 2019 11:46 BERTO RODRIGUES MD Sep 12, 2019 13:40
[2019-09-12 12:01] LABS: ALBUMIN 2.9 GM/DL (3.2-5.2); ALT/SGPT 143 U/L (12-78); BILIRUBIN,DIRECT 0.1 MG/DL (0.0-0.2); BILIRUBIN,TOTAL 0.4 MG/DL (0.2-1.0); TOTAL PROTEIN 7.5 GM/DL (6.4-8.2)
[2019-09-12] MEDS: ACETAMINOPHEN TAB 650MG DOSE (2X325MG) PO PRN ×2 (12:31→19:37)
[2019-09-12 16:00] VITALS: BP 129/61
--- NOTE | 2019-09-12 16:32 | ECHO ---
DATE OF PROCEDURE: 09/12/2019 REFERRING PHYSICIAN: Dr. Derick Blair INDICATION: Bacteremia. HEIGHT: 173 cm WEIGHT: 75 kg 2D MEASUREMENTS: Aortic root: 3.1 cm Left atrium: 3.7 cm Left ventricle diastole: 5.0 cm Left ventricle systole: 3.5 cm Ventricular septum: 1.15 cm Posterior wall: 0.99 cm Inferior vena cava: 1.8 cm (more than 50% respiratory variation) DOPPLER MEASUREMENTS: Aortic valve velocity: 166 cm/s LVOT velocity: 141 cm/s LVOT VTI: 28.9 cm Very mild mitral regurgitation. No aortic regurgitation. Mitral E velocity: 98.5 cm/s Mitral A velocity: 52.6 cm/s Mitral deceleration time: 303 milliseconds Trace tricuspid regurgitation. Mild pulmonic regurgitation. Pulmonary acceleration time: 148 milliseconds MITRAL ANNULAR TISSUE DOPPLER: E prime septal: 12.3 cm/s E prime lateral: 16.1 cm/s DESCRIPTION: Rhythm was sinus. Image quality was good. This was a 2D, M-mode, color flow Doppler and pulse wave Doppler examination and included mitral annular tissue Doppler. CONCLUSIONS: 1. Normal echocardiogram Doppler. 2. No vegetations seen. 3. Normal left ventricle systolic function. Left ventricular ejection fraction (LVEF) 69% (3D). Normal LV internal dimensions and wall thickness. No regional wall motion abnormalities of the left ventricle.
[2019-09-12 16:50] LABS: AMPHETAMINES LEVEL URINE NEGATIVE (NEGATIVE); BARBITURATES URINE NEGATIVE (NEGATIVE); BENZODIAZEPINES URINE NEGATIVE (NEGATIVE); CANNABINOIDS URINE POSITIVE (NEGATIVE); COCAINE METABOLITE URINE NEGATIVE (NEGATIVE); METHADONE URINE NEGATIVE (NEGATIVE); OPIATES URINE POSITIVE (NEGATIVE); PHENCYCLIDINE URINE NEGATIVE (NEGATIVE)
[2019-09-12] MEDS: cefTRIAXone SOD 2 GM in D5W MINI-BAG PLUS 50 ML IV SCH (19:01)
[2019-09-12 20:00] VITALS: BP 131/79
--- NOTE | 2019-09-12 23:53 | CR ---
DATE OF CONSULTATION: 09/12/2019 INFECTIOUS DISEASE CONSULTATION Asked to consult by hospitalist service for discitis and intravenous (IV) drug user. HISTORY OF PRESENT ILLNESS: Giacomo is a 29-year-old gentleman with a history of IV drug abuse whose last use was about a week ago, mostly using amphetamines. He developed severe back pain about 3 days prior to admission. The patient came to the emergency room on September 10 complaining of severe back pain. He was given some muscle relaxant, discharged home. The patient stated his pain was so excruciating that he came back. He denied any radicular symptoms. It is at L4-L5 where he has a previous history of fracture from wrestling in 2009. He had fever when admitted to the hospital. He had no urinary incontinence. No bowel incontinence. The patient states the pain is uncontrollable. He has been with his significant other for the past 5 years. She has not been using IV drugs recently, but she is 9 weeks with his kid. PAST MEDICAL HISTORY: Hepatitis C diagnosed in May of 2019. The patient did not know that he tested positive. History of polysubstance abuse, including IV heroin and crystal meth. The patient had not been using heroin because he had Suboxone. He has been to two rehabs in the past 3 months, the last one at [facility]. He left against medical advice. SOCIAL HISTORY: He is unemployed. He does not smoke cigarettes. He quit using alcohol. He uses IV drugs, amphetamines, smokes pot and was on maintenance Suboxone through Dr. Castaneda. FAMILY HISTORY: Nonrevealing. ALLERGIES: No known drug allergies. MEDICATIONS - Suboxone 8/2 mg two strips daily - Robaxin 750 mg by mouth three times a day LABORATORY DATA: He has had elevated liver tests since April of 2019. HIV 2012 was negative, was not recently done. Hepatitis A IgM negative, B surface antigen negative, B core IgM negative. Hepatitis C antibody positive with positive RNA. Urine toxicology (tox) screen was positive for opiates and cannabinoids on 09/12/2019 and was positive for amphetamines and cocaine on 09/08/2019. MRI was positive for discitis at L4-5. That was done at [facility]. Lumbar x-ray showed L4-L5 5 mm spondylolisthesis, more prominent compared to previous exams. Bony destruction in the anterior aspect of the L5 vertebral body with reactive sclerosis. The findings are most compatible with a limbus vertebra and disc herniation. PHYSICAL EXAM: He is a healthy-looking gentleman in moderate discomfort just from walking around and sitting. Maximum temperature (T max) was 101.2 on 09/11/2019. Heart: Normal S1, S2. No murmurs, rubs or gallops. Lungs are clear. No wheezes, rales, or rhonchi. Abdomen is soft, nontender. No hepatosplenomegaly. Extremities: No clubbing, cyanosis or edema. Calves: No tenderness. Skin: No rashes. Multiple tattoos. He has a sclerosed painful tender vein in his right antecubital area. Back: L4-L5 significant tenderness. No paraspinal tenderness. Motor: Extremities upper and lower extremity strength normal. IMPRESSION: This is a 29-year-old IV drug user with a history of hepatitis C, polysubstance abuse including heroin, crystal meth, who presented with acute discitis of L4-L5 with a previous history of lumbar fracture to that same area. The patient has Gram-positive bacteremia with Gram-positive cocci in chains in one out of three blood cultures. The patient is currently on vancomycin and IV Rocephin, which is appropriate coverage. PLAN: Please obtain the report of MRI from [facility]. Obtain CBC, CRP, sed rate. He patient will need 6 weeks of IV antibiotics. He will need a peripherally inserted central catheter (PICC) line placement. Please obtain mental health counseling for drug addiction and anxiety disorder. The patient states that he uses crystal meth due to his severe anxiety. Echocardiogram transthoracic was done. Did not show any vegetations, normal ejection fraction. Add HIV serology, hepatitis A antibody, hepatitis B surface antibody and vaccinate as needed. The patient is a drug user and will need hepatitis A vaccine before discharge. MTDD
--- NOTE | 2019-09-12 23:57 | PHACANCOPD ---
PHARMACY VANCOMYCIN DOSING Pt Demographics Demographics Patient Age:29 , Weight:75.000 , Gender: male Adjusted Body Weight Vancomycin Vancomycin indication: DISCITIS/OSTEOMYELITIS Vancomycin Target Ranges: 15-20 mcg/ml Vancomycin Load Y/N: Yes Load Dose Date Time Vancomycin Load Dose: 1.75GM Date: 09/11/19 Time: 20:00 Vancomycin Dose Date: 09/12/19. Vancomycin Dose: [1GM IV Q6H (14:00)] Intermittent Dosing?: No Labs Labs Laboratory Tests Test 09/12/19 18:46 Vancomycin Level Trough 15.6 UG/ML (10.0-20.0) Laboratory Tests 09/12/19 05:36 Micro Microbiology 09/12/19 Blood Culture, Received Pending 09/11/19 Blood Culture - Preliminary, Resulted 09/11/19 Blood Culture - Preliminary, Resulted No growth after 24 hours . All specim... Creatinine Clearance Date:09/11/19. Creatinine Clearance: [>60ml/min]. Assessment and Plan Maintaining Current Dose?: Yes Reason for dose change: No Dose Change Pharmacist Note Pharmacist Note Date: 09/12/19. PharmD note: VANCOMYCIN 1GM IV Q6H STARTING AT 2AM 09/12/19 RESULTED IN A VANCO TROUGH = 15.6 mcg/ml. WE WILL CONTINUE WITH HIS CURRENT REGIMEN GOAL 15-20 mcg/ml. PATRICIA HUITRON PHARMACY Sep 12, 2019 23:57
[2019-09-13] VITALS: BP 126/56
[2019-09-13] MEDS: VANCOMYCIN HCL 1,000 MG, VIAL MATE ADAPTER 1 EACH in D5W 250 ML IV SCH ×4 (01:59→21:27)
[2019-09-13] MEDS: PERCOCET 5MG/325MG TAB PO PRN ×4 (02:00→20:43)
[2019-09-13 04:00] VITALS: BP 132/60
[2019-09-13] MEDS: KETOROLAC 30 MG/ML VIAL (J1885) IV PRN ×3 (04:42→18:27)
[2019-09-13 05:53] LABS: HEMATOCRIT 39.3 % (42.0-52.0); MEAN CORPUSCULAR HEMOGLOBIN 29.2 pg (27.0-33.0); MEAN CORPUSCULAR HGB CONC 31.6 g/dl (32.0-36.5); MEAN CORPUSCULAR VOLUME 92.5 fl (80.0-96.0); PLATELET COUNT, AUTOMATED 216 10^3/uL (150-450); RED BLOOD COUNT 4.25 10^6/uL (4.30-6.10); WHITE BLOOD COUNT 6.4 10^3/uL (4.0-10.0)
[2019-09-13 06:02] LABS: HEMOGLOBIN 12.4 g/dl (13.5-17.5)
[2019-09-13 06:22] LABS: ERYTHROCYTE SEDIMENTATION RATE 44 mm/hr (0-15)
[2019-09-13 06:26] LABS: BLOOD UREA NITROGEN 9 MG/DL (7-18); C REACTIVE PROTEIN QUANTITATIV 4.94 MG/DL (0.00-0.30); CALCIUM LEVEL 8.3 MG/DL (8.5-10.1); CARBON DIOXIDE LEVEL 30 MEQ/L (21-32); CHLORIDE LEVEL 107 MEQ/L (98-107); CREATININE FOR GFR 0.61 MG/DL (0.70-1.30); GLOMERULAR FILTRATION RATE > 60.0 (>60); GLUCOSE, FASTING 97 MG/DL (70-100); POTASSIUM SERUM 4.5 MEQ/L (3.5-5.1); SODIUM LEVEL 140 MEQ/L (136-145)
[2019-09-13 08:00] VITALS: BP 134/67
[2019-09-13] MEDS: DOCUSATE SODIUM 100 MG CAP PO SCH ×2 (08:15→20:43)
--- NOTE | 2019-09-13 10:00 | IPNPDOC ---
Date Seen The patient was seen on 09/13/19. Progress Note SUBJECTIVE: Patient was seen and examined this morning laying comfortable in bed. He states his pain is improved from last night but still bothering him. He does think the K-pad helped as well as the medication overnight. He would like to get up to take a shower. He denies any additional complaints other than the back pain. All questions answered. OBJECTIVE PHYSICAL EXAMINATION: VITAL SIGNS: Please see below. GENERAL: Alert, appears comfortable lying flat on the bed, in no acute respira tory distress HEENT: Normocephalic, atraumatic, PERRLA, EOMI, moist mucous membranes NECK: Supple, trachea midline, no lymphadenopathy, no JVD CARDIOVASCULAR: Regular rate and rhythm, normal S1 and S2. No murmurs, rubs, or gallops RESPIRATORY: Clear to auscultation bilaterally with equal air entry bilaterally. No wheezing, rhonchi, or rales. ABDOMEN: Soft, nontender, nondistended, bowel sounds present, no masses or hepatosplenomegaly appreciated EXTREMITIES: No cyanosis or edema. Pulses 2+/4 in bilateral upper and lower extremities. SKIN: [place], warm, dry NEUROLOGIC: Alert and oriented 3 to person, place, and time. Cranial nerves 2- 12 grossly intact. Strength in hip flexion limited by pain bilaterally, otherwise no focal deficits appreciated PSYCHIATRIC: Mood and affect appropriate LABORATORY DATA, MICROBIOLOGY: Please see below. IMAGING: Lumbar MRI done at [facility], report is in the patient's chart. ASSESSMENT: 29-year-old male with a history of IV drug use who presents with 2-3 days of severe low back pain and MRI evidence of discitis and osteomyelitis at the L4-L5 level. PLAN: 1. Low back pain 2/2 discitis and osteomyelitis - CBC showed slight leukocytosis initially but is improved today, blood cultures x2 pending - lumbar MRI shows evidence of discitis and osteomyelitis at L4-L5 - continue empiric antibiotics with vancomycin and ceftriaxone (day #3 of 42) - pain management with Percocet, morphine, tylenol, and k-pad; plan to de- escalate as his pain improves - ID consulted, appreciate their input and recommendations - Pt will likely need PICC placement for fpc IV antibiotics 2. Bacteremia - One blood culture positive for gram positive cocci in chains, second blood culture negative at 24 hrs, repeat blood culture pending - Continue vancomycin and ceftriaxone as above - Echocardiogram negative for vegetations 3. Polysubstance abuse - denies use in the past 2 weeks - recent ED visit 09/08/19 for polysubstance abuse with positive tox screen - etoh level negative, urine tox screen positive for cannabinoids and opiates (pt given opiates in hospital prior to urine being collected) - HIV, Hep B, and Hep A labs pending 4. Hx of Hepatitis C - transaminitis on prior admission (06/07/19), further work up positive for hepatitis C - liver profile shows elevated ALT and alk phos, continue to trend - outpatient f/u for treatment - Needs Hep A vaccine prior to discharge DVT Prophylaxis: Teds and SCDs Disposition: IV antibiotics and pain control ATTENDING NOTE I have personally evaluated and examined the patient. Discussed with residents and student regarding plan of care and agree with the above assessment and plan. VS, I&O, 24H, Fishbone Vital Signs/I&O Vital Signs Date Time Temp Pulse Resp B/P (MAP) Pulse Ox O2 Delivery O2 Flow Rate FiO2 09/13/19 08:14 16 Room Air 09/13/19 08:00 97.4 61 134/67 (89) 98 I&O- Last 24 Hours up to 6 AM 09/13/19 06:00 Intake Total 1940 ml Output Total 300 ml Balance 1640 ml Laboratory Data 24H LABS Laboratory Tests 2 09/12/19 16:10: Urine Opiates Screen POSITIVEH, Urine Methadone Screen NEGATIVE, Urine Barbiturates Screen NEGATIVE, Urine Phencyclidine Screen NEGATIVE, Urine Amphetamines Screen NEGATIVE, Urine Benzodiazepines Screen NEGATIVE, Urine Cocaine Metabolite Screen NEGATIVE, Urine Cannabinoids Screen POSITIVEH 09/12/19 18:46: Vancomycin Level Trough 15.6 09/13/19 05:40: Nucleated Red Blood Cells % (auto) 0.0, Erythrocyte Sedimentation Rate 44H, Anion Gap 3L, Glomerular Filtration Rate > 60.0, Calcium Level 8.3L, C-Reactive Protein, Quantitative 4.94H CBC/BMP Laboratory Tests 09/13/19 05:40 Microbiology Microbiology 09/12/19 Blood Culture, Received Pending 09/11/19 Blood Culture - Preliminary, Resulted 09/11/19 Blood Culture - Preliminary, Resulted No growth after 24 hours . All specim... DENA TILLMAN PGY-1 Sep 13, 2019 10:00 BERTO RODRIGUES MD Sep 13, 2019 15:58
[2019-09-13] MEDS ORDERED: SLF 3 ML SYR IV PRN (11:15)
[2019-09-13 12:00] VITALS: BP 132/59
--- NOTE | 2019-09-13 13:07 | IPN ---
DATE: 09/13/2019 Giacomo is doing a little better today. He had no fever today. His back pain continues to be severe. No nausea, vomiting or diarrhea. No abdominal pain. LABS: White count was 10.3 on admission, today was 6.4, hemoglobin 12.4, hematocrit 39.3, platelets 216, ESR 44, sodium 140, potassium 4.5, chloride 107, bicarb 30, BUN 9, creatinine 0.61, glucose 97, calcium 8.3, CRP 4.94. Vancomycin trough is 15.6. Urine drug screen positive for opiates and cannabinoids. Blood culture 1 out of 3 is positive for gram-positive cocci in chains. ID is still pending. MRI was reviewed with Dr. Mccullough and Dr. Garcia and consistent with L4-L5 discitis. No paraspinal or epidural abscess. On physical exam temperature is a 97.4, pulse 61, respirations 18, blood pressure 134/ 67, O2 sat 98% on room air. Heart: Normal S1-S2. No murmurs, rubs or gallops. Lungs are clear. No wheezes, rales, or rhonchi. Abdomen: Soft, nontender. Back: L4-L5 tenderness. Extremities: Normal range of motion. The patient has no urinary incontinence. IMPRESSION: 1. Discitis L4-L5 with gram positive cocci in chains on blood culture. 2. History of IV drug use with recent use about a week ago. 3. Hepatitis C new diagnosis May 2019. Hepatitis A antibody and B surface antibody were obtained to see if the patient needs vaccination for hepatitis A since he is at high risk of hepatitis A as there is an outbreak in [facility]. PLAN: Continue IV vancomycin and Rocephin until results of blood cultures available. We will de-escalate depending on results of blood culture. There is no data on dalbavancin to use with discitis, at this point I would continue with IV antibiotic and further treatment will be challenging with recent history of IV drug use and the need for a PICC line and prolonged IV antibiotic. This will be discussed as the patient clinically improves.
[2019-09-13] MEDS: SLF 3 ML SYR IV SCH ×2 (13:24→20:44)
[2019-09-13] MEDS ORDERED: MORPHINE 4 MG/ML 1ML VIAL/SYRINGE (J2270) IV PRN (14:30)
[2019-09-13 16:00] VITALS: BP 140/65
[2019-09-13] MEDS: ACETAMINOPHEN TAB 650MG DOSE (2X325MG) PO PRN (16:23)
[2019-09-13] MEDS ORDERED: POLYVINYL ALCOHOL OPHTH SOLN 15 ML(LIQUITEARS) OU PRN (17:30)
[2019-09-13] MEDS: cefTRIAXone SOD 2 GM in D5W MINI-BAG PLUS 50 ML IV SCH (17:42)
[2019-09-13 20:00] VITALS: BP 122/64
[2019-09-14] VITALS: BP 116/58
[2019-09-14] MEDS: KETOROLAC 30 MG/ML VIAL (J1885) IV PRN ×4 (00:38→18:12)
[2019-09-14] MEDS: VANCOMYCIN HCL 1,000 MG, VIAL MATE ADAPTER 1 EACH in D5W 250 ML IV SCH ×4 (02:23→19:34)
[2019-09-14] MEDS: PERCOCET 5MG/325MG TAB PO PRN ×4 (02:46→22:20)
[2019-09-14 02:55] VITALS: BP 126/62
[2019-09-14] MEDS: SLF 3 ML SYR IV SCH ×3 (05:23→19:33)
[2019-09-14 06:00] VITALS: BP 125/61
[2019-09-14 06:55] LABS: HEMATOCRIT 38.9 % (42.0-52.0); HEMOGLOBIN 12.5 g/dl (13.5-17.5); MEAN CORPUSCULAR HEMOGLOBIN 29.6 pg (27.0-33.0); MEAN CORPUSCULAR HGB CONC 32.1 g/dl (32.0-36.5); PLATELET COUNT, AUTOMATED 248 10^3/uL (150-450); RED BLOOD COUNT 4.23 10^6/uL (4.30-6.10); WHITE BLOOD COUNT 6.4 10^3/uL (4.0-10.0)
[2019-09-14 07:13] LABS: ERYTHROCYTE SEDIMENTATION RATE 43 mm/hr (0-15)
[2019-09-14 07:20] LABS: BLOOD UREA NITROGEN 8 MG/DL (7-18); C REACTIVE PROTEIN QUANTITATIV 3.98 MG/DL (0.00-0.30); CALCIUM LEVEL 8.5 MG/DL (8.5-10.1); CARBON DIOXIDE LEVEL 30 MEQ/L (21-32); CHLORIDE LEVEL 108 MEQ/L (98-107); GLOMERULAR FILTRATION RATE > 60.0 (>60); GLUCOSE, FASTING 96 MG/DL (70-100); POTASSIUM SERUM 4.3 MEQ/L (3.5-5.1); SODIUM LEVEL 141 MEQ/L (136-145); VANCOMYCIN LEVEL TROUGH 14.3 UG/ML (10.0-20.0)
[2019-09-14] MEDS: DOCUSATE SODIUM 100 MG CAP PO SCH ×2 (07:44→21:00)
--- NOTE | 2019-09-14 10:00 | IPNPDOC ---
Date Seen The patient was seen on 09/14/19. Progress Note SUBJECTIVE: Patient was seen and examined this morning laying comfortable in bed. He states his pain has improved and he feels the Toradol helps the most because it works fast and helps with the swelling. He was somewhat constipated yesterday but was able to have a BM without complication. OBJECTIVE PHYSICAL EXAMINATION: VITAL SIGNS: Please see below. GENERAL: Alert, appears comfortable lying flat on the bed, in no acute respiratory distress HEENT: Normocephalic, atraumatic, PERRLA, EOMI, moist mucous membranes NECK: Supple, trachea midline, no lymphadenopathy, no JVD CARDIOVASCULAR: Regular rate and rhythm, normal S1 and S2. No murmurs, rubs, or gallops RESPIRATORY: Clear to auscultation bilaterally with equal air entry bilaterally. No wheezing, rhonchi, or rales. ABDOMEN: Soft, nontender, nondistended, bowel sounds present, no masses or hepatosplenomegaly appreciated EXTREMITIES: No cyanosis or edema. Pulses 2+/4 in bilateral upper and lower extremities. SKIN: [place], warm, dry NEUROLOGIC: Alert and oriented 3 to person, place, and time. Cranial nerves 2- 12 grossly intact. Strength in hip flexion limited by pain bilaterally, otherwise no focal deficits appreciated PSYCHIATRIC: Mood and affect appropriate LABORATORY DATA, MICROBIOLOGY: Please see below. IMAGING: Lumbar MRI done at [facility], report is in the patient's chart. ASSESSMENT: 29-year-old male with a history of IV drug use who presents with 2-3 days of severe low back pain and MRI evidence of discitis and osteomyelitis at the L4-L5 level. PLAN: 1. 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 Bacteremia - One blood culture positive for gram positive cocci in chains, second blood culture negative at 24 hrs, repeat blood culture pending - Continue vancomycin and ceftriaxone as above - Echocardiogram negative for vegetations 3. Polysubstance abuse - denies use in the past 2 weeks - recent ED visit 09/08/19 for polysubstance abuse with positive tox screen - etoh level negative, urine tox screen positive for cannabinoids and opiates (pt given opiates in hospital prior to urine being collected) - HIV test negative. Hep B and Hep A labs pending - complicates d/c with PICC for nursing home abx use 4. Hx of Hepatitis C - transaminitis on prior admission (06/07/19), further work up positive for hepatitis C - liver profile shows elevated ALT and alk phos, continue to trend - outpatient f/u for treatment - Needs Hep A vaccine prior to discharge DVT Prophylaxis: Teds and SCDs Disposition: IV antibiotics and pain control ATTENDING NOTE I have personally evaluated and examined the patient. Discussed with residents and student regarding plan of care and agree with the above assessment and plan. VS, I&O, 24H, Fishbone Vital Signs/I&O Vital Signs Date Time Temp Pulse Resp B/P (MAP) Pulse Ox O2 Delivery O2 Flow Rate FiO2 09/14/19 08:47 16 09/14/19 06:00 98.4 65 125/61 (82) 99 Room Air I&O- Last 24 Hours up to 6 AM 09/14/19 06:00 Intake Total 1170 ml Output Total 200 ml Balance 970 ml Laboratory Data 24H LABS Laboratory Tests 2 09/14/19 06:45: Nucleated Red Blood Cells % (auto) 0.0, Erythrocyte Sedimentation Rate 43H, Anion Gap 3L, Glomerular Filtration Rate > 60.0, Calcium Level 8.5, C-Reactive Protein, Quantitative 3.98H, Vancomycin Level Trough 14.3 CBC/BMP Laboratory Tests 09/14/19 06:45 Microbiology Microbiology 09/14/19 Blood Culture, Received Pending 09/12/19 Blood Culture - Preliminary, Resulted No growth after 24 hours . All specim... 09/11/19 Blood Culture - Final, Complete Granulicatella Adiacens 09/11/19 Blood Culture - Preliminary, Resulted No Growth after 48 hours. All Specime... DENA TILLMAN PGY-1 Sep 14, 2019 10:00 BERTO RODRIGUES MD Sep 14, 2019 14:28
[2019-09-14] MEDS: ACETAMINOPHEN TAB 650MG DOSE (2X325MG) PO PRN ×2 (10:38→16:14)
[2019-09-14 12:07] LABS: HEPATITIS A IgG TOTAL Positive (Negative)
[2019-09-14 14:00] VITALS: BP 147/68
[2019-09-14] MEDS: cefTRIAXone SOD 2 GM in D5W MINI-BAG PLUS 50 ML IV SCH (18:12)
[2019-09-14 22:00] VITALS: BP 137/62
[2019-09-15] MEDS: VANCOMYCIN HCL 1,000 MG, VIAL MATE ADAPTER 1 EACH in D5W 250 ML IV SCH ×4 (01:35→19:47)
[2019-09-15] MEDS: KETOROLAC 30 MG/ML VIAL (J1885) IV PRN ×2 (02:59→09:45)
[2019-09-15 06:00] VITALS: BP 138/62
[2019-09-15] MEDS: SLF 3 ML SYR IV SCH ×3 (06:23→22:35)
[2019-09-15] MEDS: PERCOCET 5MG/325MG TAB PO PRN ×3 (06:23→19:47)
[2019-09-15 06:37] LABS: HEMOGLOBIN 12.3 g/dl (13.5-17.5); MEAN CORPUSCULAR HEMOGLOBIN 29.5 pg (27.0-33.0); MEAN CORPUSCULAR HGB CONC 32.4 g/dl (32.0-36.5); MEAN CORPUSCULAR VOLUME 91.1 fl (80.0-96.0); PLATELET COUNT, AUTOMATED 272 10^3/uL (150-450); RED BLOOD COUNT 4.17 10^6/uL (4.30-6.10); WHITE BLOOD COUNT 6.9 10^3/uL (4.0-10.0)
[2019-09-15 07:05] LABS: BLOOD UREA NITROGEN 8 MG/DL (7-18); CALCIUM LEVEL 9.1 MG/DL (8.5-10.1); CARBON DIOXIDE LEVEL 31 MEQ/L (21-32); CHLORIDE LEVEL 105 MEQ/L (98-107); CREATININE FOR GFR 0.64 MG/DL (0.70-1.30); GLOMERULAR FILTRATION RATE > 60.0 (>60); GLUCOSE, FASTING 97 MG/DL (70-100); POTASSIUM SERUM 4.2 MEQ/L (3.5-5.1); SODIUM LEVEL 140 MEQ/L (136-145)
[2019-09-15] MEDS: DOCUSATE SODIUM 100 MG CAP PO SCH ×2 (07:38→19:59)
[2019-09-15 14:00] VITALS: BP 137/63
[2019-09-15] MEDS: MORPHINE 2 MG/ML 1ML VIAL (J2270) IV PRN ×3 (14:14→22:34)
[2019-09-15] MEDS: cefTRIAXone SOD 2 GM in D5W MINI-BAG PLUS 50 ML IV SCH (17:14)
--- NOTE | 2019-09-15 17:16 | IPNPDOC ---
Date Seen The patient was seen on 09/15/19. Progress Note SUBJECTIVE: Patient still complains of pain, relieves with morphine. Appear progressively more comfortable each day however. Afebrile overnight, WBC 6.9. OBJECTIVE PHYSICAL EXAMINATION: VITAL SIGNS: Please see below. General: Mild to moderate distress, Alert Eyes: Normal sclera, EOMI, MIKI HENT: Atraumatic, neck supple, moist mucous membranes Cardiovascular: Normal rate, normal rhythm. Pulmonary: Clear to auscultation b/l, no wheezing GI: Soft, nontender, nondistended Skin: Warm and dry Neuro: CN grossly intact. No focal deficits. Strengths equal b/l. Psych: oriented x 3 LABORATORY DATA, IMAGING STUDIES, MICROBIOLOGY: Please see below. DVT prophylaxis ordered?: Lovenox PLAN: 1. Discitis and osteomyelitis - c/w empiric abx. pending culture sensitivity. - ID following. Would need prolong IV abx but home treatment with PICC may not be ideal due to hx IV drug use. - Check with ID regarding Dalvance infusion if possible? - Pain control. ECHO negative for vegetations. 2. Polysubstance abuse - denies use in the past 2 weeks - recent ED visit 09/08/19 for polysubstance abuse with positive tox screen - etoh level negative, urine tox screen positive for cannabinoids and opiates (pt given opiates in hospital prior to urine being collected) 3. Hx of Hepatitis C - transaminitis on prior admission (06/07/19), further work up positive for hepatitis C - liver profile shows elevated ALT and alk phos, continue to trend - outpatient f/u for treatment - Needs Hep A vaccine prior to discharge 4. Hep A ab + - No symptoms suggestive of active infection. - Likely immune due to previous exposure or vaccination? DVT Prophylaxis: Lovenox and SCDs Dispo: Likely can be discharged once pain is controlled and if outpatient treatment can be arranged VS, I&O, 24H, Fishbone Vital Signs/I&O Vital Signs Date Time Temp Pulse Resp B/P (MAP) Pulse Ox O2 Delivery O2 Flow Rate FiO2 09/15/19 14:24 20 09/15/19 14:00 98.5 87 137/63 (87) 98 Room Air I&O- Last 24 Hours up to 6 AM 09/15/19 06:00 Intake Total 3160 ml Output Total 200 ml Balance 2960 ml Laboratory Data 24H LABS Laboratory Tests 2 09/15/19 05:43: Nucleated Red Blood Cells % (auto) 0.0, Anion Gap 4L, Glomerular Filtration Rate > 60.0, Calcium Level 9.1 09/15/19 06:32: Methicillin-Resist S.aureus DNA PCR NOT DETECTED CBC/BMP Laboratory Tests 09/15/19 05:43 Microbiology Microbiology 09/14/19 Blood Culture - Preliminary, Resulted No growth after 24 hours . All specim... 09/12/19 Blood Culture - Preliminary, Resulted No Growth after 72 hours. All specime... 09/11/19 Blood Culture - Final, Complete Granulicatella Adiacens 09/11/19 Blood Culture - Preliminary, Resulted No Growth after 72 hours. All specime... BERTO RODRIGUES MD Sep 15, 2019 17:16
[2019-09-15] MEDS: ENOXAPARIN 40 MG/0.4 ML SYRINGE (J1650) SC SCH (20:00)
[2019-09-15] MEDS: ACETAMINOPHEN TAB 650MG DOSE (2X325MG) PO PRN (21:26)
[2019-09-15 22:00] VITALS: BP 139/61
[2019-09-16] MEDS: ACETAMINOPHEN TAB 650MG DOSE (2X325MG) PO PRN ×2 (01:38→05:52)
[2019-09-16] MEDS: VANCOMYCIN HCL 1,000 MG, VIAL MATE ADAPTER 1 EACH in D5W 250 ML IV SCH ×3 (01:57→14:49)
[2019-09-16] MEDS: MORPHINE 2 MG/ML 1ML VIAL (J2270) IV PRN ×4 (02:45→17:48)
[2019-09-16] MEDS: PERCOCET 5MG/325MG TAB PO PRN ×4 (04:10→23:09)
[2019-09-16] MEDS: SLF 3 ML SYR IV SCH ×3 (05:53→20:08)
[2019-09-16 06:00] VITALS: BP 135/65
[2019-09-16 06:13] LABS: HEMATOCRIT 39.7 % (42.0-52.0); HEMOGLOBIN 12.7 g/dl (13.5-17.5); MEAN CORPUSCULAR HEMOGLOBIN 29.5 pg (27.0-33.0); MEAN CORPUSCULAR VOLUME 92.1 fl (80.0-96.0); PLATELET COUNT, AUTOMATED 290 10^3/uL (150-450); RED BLOOD COUNT 4.31 10^6/uL (4.30-6.10); WHITE BLOOD COUNT 7.9 10^3/uL (4.0-10.0)
[2019-09-16 06:43] LABS: BLOOD UREA NITROGEN 15 MG/DL (7-18); CALCIUM LEVEL 9.4 MG/DL (8.5-10.1); CARBON DIOXIDE LEVEL 31 MEQ/L (21-32); CHLORIDE LEVEL 105 MEQ/L (98-107); CREATININE FOR GFR 0.77 MG/DL (0.70-1.30); GLOMERULAR FILTRATION RATE > 60.0 (>60); GLUCOSE, FASTING 110 MG/DL (70-100); POTASSIUM SERUM 4.2 MEQ/L (3.5-5.1); SODIUM LEVEL 141 MEQ/L (136-145)
[2019-09-16] MEDS: DOCUSATE SODIUM 100 MG CAP PO SCH ×2 (09:00→20:07)
[2019-09-16] MEDS ORDERED: MIRALAX *UNIT DOSE* 17GM PACKET PO PRN (11:00)
--- NOTE | 2019-09-16 11:18 | IPNPDOC ---
Text Note Date of Service The patient was seen on 09/16/19. NOTE SUBJECTIVE: Mr Epstein is seen at bedside, he is up and walking around. He states that his pain was better controlled with Toradol, as the relief he gets from morphine is short-lived. He tolerates physical exam well, and his only complaint is that he is constipated. He would like some miralax. OBJECTIVE PHYSICAL EXAMINATION: VITAL SIGNS: Please see below. General: No acute distress, does seem uncomfortable, is walking around freely. Eyes: Normal sclera, anicteric HEENT: Atraumatic/normocephalic, neck supple, moist mucous membranes Cardiovascular: Regular rate and rhythm, no murmurs/gallops/rubs Pulmonary: Clear to auscultation bilaterally, no wheezes/rhonchi/rubs GI: Hypoactive bowel sounds, soft, nontender, nondistended Skin: Warm and dry Neuro: CN grossly intact. No focal deficits. Strengths equal b/l. Psych: oriented x 3 LABORATORY DATA, IMAGING STUDIES, MICROBIOLOGY: Please see below. DVT prophylaxis ordered: Lovenox, ambulates ad yamilex PLAN: 1. Discitis and osteomyelitis - on vancomycin 1 g q6h, rocephin 2 g q24h - Dr. Vasquez (ID) following. Would need prolong IV abx but home treatment with PICC may not be ideal due to hx IV drug use. - Dominick has no data to support use in discitis - Pain control: Toradol 10 mg TID, Morphine 2 mg q6h prn, Percocet 1-2 tabs q6h prn - ECHO negative for vegetations. 2. Polysubstance abuse - denies use in the past 2 weeks - recent ED visit 09/08/19 for polysubstance abuse with positive tox screen - etoh level negative, urine tox screen positive for cannabinoids and opiates (pt given opiates in hospital prior to urine being collected) - complicating d/c planning 3. Hx of Hepatitis C - transaminitis on prior admission (06/07/19), further work up positive for hepatitis C - liver profile showed elevated transaminases - outpatient f/u for treatment - Needs Hep A vaccine prior to discharge 4. Hep A ab + - No symptoms suggestive of active infection. - Likely immune due to previous exposure or vaccination? Dispo: Likely can be discharged once pain is controlled and if outpatient treatment can be arranged VS,Fishbone, I+O VS, Fishbone, I+O Laboratory Tests 09/16/19 05:46 Vital Signs Date Time Temp Pulse Resp B/P (MAP) Pulse Ox O2 Delivery O2 Flow Rate FiO2 09/16/19 10:34 16 Room Air 09/16/19 06:00 98.2 73 135/65 (88) 99 I&O- Last 24 Hours up to 6 AM 09/16/19 06:00 Intake Total 2750 ml Output Total 1275 ml Balance 1475 ml GME ATTESTATION GME ATTESTATION My faculty preceptor for this patient encounter was physically present during the encounter and was fully available. All aspects of the patient interview, examination, medical decision making process, and medical care plan development were reviewed and approved by the faculty preceptor. The faculty preceptor is aware and concurs with the plan as stated in the body of this note and will attest to such by his/her cosignature. GME ATTESTATION GME ATTESTATION My faculty preceptor for this patient encounter was physically present during the encounter and was fully available. All aspects of the patient interview, examination, medical decision making process, and medical care plan development were reviewed and approved by the faculty preceptor. The faculty preceptor is aware and concurs with the plan as stated in the body of this note and will attest to such by his/her cosignature. ATTENDING NOTE Patient was seen and examined by me this morning with the residents. Agree with the above assessment and plan ZACK DON DO Sep 16, 2019 11:18 SERENA KUMAR MD Sep 16, 2019 17:15
[2019-09-16] MEDS: KETOROLAC TROMETHAMINE 10 MG TAB PO SCH ×3 (12:05→20:08)
[2019-09-16 14:00] VITALS: BP 125/60
[2019-09-16] MEDS: cefTRIAXone SOD 2 GM in D5W MINI-BAG PLUS 50 ML IV SCH (17:03)
[2019-09-16] MEDS: ENOXAPARIN 40 MG/0.4 ML SYRINGE (J1650) SC SCH (20:08)
[2019-09-16] MEDS ORDERED: IBUPROFEN 400 MG TAB PO ONE (20:45)
[2019-09-16 22:00] VITALS: BP 144/65
[2019-09-17] MEDS: MORPHINE 2 MG/ML 1ML VIAL (J2270) IV PRN ×3 (01:09→16:03)
[2019-09-17] MEDS: ACETAMINOPHEN TAB 650MG DOSE (2X325MG) PO PRN ×2 (03:15→17:29)
[2019-09-17] MEDS: SLF 3 ML SYR IV SCH ×3 (05:06→22:23)
[2019-09-17 06:00] VITALS: BP 128/54
[2019-09-17] MEDS: PERCOCET 5MG/325MG TAB PO PRN ×3 (06:18→18:31)
--- NOTE | 2019-09-17 06:24 | IPN ---
DATE OF VISIT: 09/16/2019 Giacoom continues complaining of significant low back pain. He states the pain is slightly better with Toradol but still he is just ambulating around only the room. He also has been constipated and taking MiraLax. He has been afebrile. Temperature is 98.7. He has not had a fever in 48 hours, pulse 78, respirations 17, blood pressure 125/60, O2 sat 99% on room air. HEART: Normal S1-S2. No murmurs, rubs or gallops. LUNGS: Lungs are clear. No wheezes or rhonchi. ABDOMEN: Soft, nontender. No visceromegaly. EXTREMITIES: No clubbing, cyanosis or edema. Motor strength is normal. Lumbosacral tenderness at L4-5. LABORATORY DATA: CRP is 3.98. Blood cultures one out of four had granulated Granulicatella adiacens. IMPRESSION: 1. Acute diskitis at L4-5 on intravenous (IV) Rocephin and vancomycin. The patient will need six weeks of IV antibiotic but is not a candidate for a PICC line. Dalvance may be an option later when the patient is clinically improved but first should rule out also endocarditis. Transthoracic echocardiogram was negative but I would suggest obtaining a transesophageal echocardiogram (MALIHA) in case he would like to de-escalate him to chronic oral antibiotics once clinically stable. 2. Granulicatella bacteremia. This is a nutritional variant Streptococci which has been associated with endocarditis. Suggest obtaining a MALIHA to rule out endocarditis in case we de-escalate him to oral antibiotics and at some point. 3. Polysubstance abuse. Mostly recently with crystal meth but also has a history of heroin abuse. 4. History of hepatitis C with slight abnormalities in liver function tests (LFTs). The patient is hepatitis A and B immune, hepatitis A IgG positive, hepatitis B surface antibody positive and does not need vaccination. PLAN: Obtain transesophageal echocardiogram. Continue IV Rocephin 2 grams every 24. Discontinue IV vancomycin and monitor CBC, CRP, ESR weekly. Further discharge plan will depend on clinical improvement and MALIHA results.
[2019-09-17 06:37] LABS: HEMATOCRIT 38.7 % (42.0-52.0); HEMOGLOBIN 12.3 g/dl (13.5-17.5); MEAN CORPUSCULAR HEMOGLOBIN 28.8 pg (27.0-33.0); MEAN CORPUSCULAR HGB CONC 31.8 g/dl (32.0-36.5); MEAN CORPUSCULAR VOLUME 90.6 fl (80.0-96.0); PLATELET COUNT, AUTOMATED 290 10^3/uL (150-450); RED BLOOD COUNT 4.27 10^6/uL (4.30-6.10)
[2019-09-17] MEDS: KETOROLAC TROMETHAMINE 10 MG TAB PO SCH ×3 (07:57→22:08)
[2019-09-17] MEDS: DOCUSATE SODIUM 100 MG CAP PO SCH ×3 (07:57→21:00)
--- NOTE | 2019-09-17 11:55 | IPNPDOC ---
Text Note Date of Service The patient was seen on 09/17/19. NOTE SUBJECTIVE: Mr Epstein is seen at bedside, he is up and walking around. He states that his pain is better controlled with Toradol/morphine combination. He tolerates physical exam well, and his constipation is relieved with miralax. He will be getting a MALIHA by Dr. Johnson this afternoon, and is NPO right now. OBJECTIVE PHYSICAL EXAMINATION: VITAL SIGNS: Please see below. General: No acute distress, somewhat stiff, is walking around freely. Eyes: Normal sclera, anicteric HEENT: Atraumatic/normocephalic, neck supple, moist mucous membranes Cardiovascular: Regular rate and rhythm, no murmurs/gallops/rubs Pulmonary: Clear to auscultation bilaterally, no wheezes/rhonchi/rubs GI: Hypoactive bowel sounds, soft, nontender, nondistended Skin: Warm and dry Neuro: No focal deficits Psych: cooperative, answering questions appropriately LABORATORY DATA, IMAGING STUDIES, MICROBIOLOGY: Please see below. DVT prophylaxis ordered: Lovenox, ambulates ad yamilex PLAN: 1. Discitis and osteomyelitis - Rocephin 2 g q24h - Dr. Vasquez (ID) following. Would need prolong IV abx but home treatment with PICC may not be ideal due to hx IV drug use. - Dalvance has no data to support use in discitis, but may be considered for outpatient treatment if MALIHA is negative - Pain control: Toradol 10 mg TID, Morphine 2 mg q8h prn, Percocet 1-2 tabs q6h prn - Transthoracic ECHO negative for vegetations, MALIHA this afternoon with Dr. Johnson 2. Polysubstance abuse - denies use in the past 2 weeks - recent ED visit 09/08/19 for polysubstance abuse with positive tox screen - etoh level negative, urine tox screen positive for cannabinoids and opiates (pt given opiates in hospital prior to urine being collected) - complicating d/c planning 3. Hx of Hepatitis C - transaminitis on prior admission (06/07/19), further work up positive for hepatitis C - liver profile showed elevated transaminases - outpatient f/u for treatment - Needs Hep A vaccine prior to discharge 4. Hep A ab + - No symptoms suggestive of active infection. - Likely immune due to previous exposure or vaccination? Dispo: Likely can be discharged once pain is controlled and if outpatient treatment can be arranged VS,Fishbone, I+O VS, Fishbone, I+O Laboratory Tests 09/17/19 05:56 Vital Signs Date Time Temp Pulse Resp B/P (MAP) Pulse Ox O2 Delivery O2 Flow Rate FiO2 09/17/19 08:14 16 09/17/19 06:00 98.2 64 128/54 (78) 98 Room Air I&O- Last 24 Hours up to 6 AM 09/17/19 05:59 Intake Total 2630 ml Output Total 600 ml Balance 2030 ml GME ATTESTATION GME ATTESTATION My faculty preceptor for this patient encounter was physically present during the encounter and was fully available. All aspects of the patient interview, examination, medical decision making process, and medical care plan development were reviewed and approved by the faculty preceptor. The faculty preceptor is aware and concurs with the plan as stated in the body of this note and will attest to such by his/her cosignature. GME ATTESTATION GME ATTESTATION My faculty preceptor for this patient encounter was physically present during the encounter and was fully available. All aspects of the patient interview, examination, medical decision making process, and medical care plan development were reviewed and approved by the faculty preceptor. The faculty preceptor is aw are and concurs with the plan as stated in the body of this note and will attest to such by his/her cosignature. ATTENDING NOTE Patient was seen and examined by me this morning with the residents. Agree with the above assessment and plan ZACK DON D.O. Sep 17, 2019 11:55 SERENA KUMAR MD Sep 17, 2019 13:50
[2019-09-17 14:00] VITALS: BP 126/68
[2019-09-17] MEDS: cefTRIAXone SOD 2 GM in D5W MINI-BAG PLUS 50 ML IV SCH (17:29)
[2019-09-17] MEDS ORDERED: RAMELTEON 8 MG TAB (ROZEREM) PO PRN (19:45)
[2019-09-17] MEDS ORDERED: PROPOFOL 200 MG/20 ML VIAL As Ordered ONE ×2 (19:54→20:22)
[2019-09-17] MEDS ORDERED: LIDOCAINE 2% INJ 100 MG/5 ML SDV (FOR ANES.) As Ordered ONE (19:54)
[2019-09-17] MEDS ORDERED: fentaNYL 100 MCG/2 ML INJECTION (J3010) As Ordered ONE (19:54)
[2019-09-17] MEDS ORDERED: MIDAZOLAM INJ 2 MG/2 ML VIAL (J2250) As Ordered ONE (19:54)
[2019-09-17] MEDS ORDERED: LIDOCAINE VISCOUS 2% SOLN 15ML UDC As Ordered ONE (20:10)
[2019-09-17] MEDS ORDERED: PHENYLephrine HCL 500 MCG/5 ML (100MCG/ML) SYRINGE (J2370) As Ordered ONE (20:28)
[2019-09-17 21:15] VITALS: BP 107/60
[2019-09-17 21:45] VITALS: BP 133/59
[2019-09-17] MEDS: ENOXAPARIN 40 MG/0.4 ML SYRINGE (J1650) SC SCH (22:08)
--- NOTE | 2019-09-17 22:21 | T-ECHO ---
DATE OF PROCEDURE: 09/17/2019 REFERRING PHYSICIAN: Dr. Kimmy Cody INDICATION: Granulicatella adiacens bacteremia. PREPROCEDURE DIAGNOSIS: Granulicatella adiacens bacteremia. POSTPROCEDURE DIAGNOSIS: Granulicatella adiacens bacteremia. FINDINGS: Normal transesophageal echocardiogram. No vegetations. PROCEDURE PERFORMED: Transesophageal echocardiogram. PROCEDURE PERFORMED BY: Geoffrey Johnson MD STONECUTTER HAND: None. IV SEDATION: Propofol IV per ARBORIST. COMPLICATIONS: None. DESCRIPTION OF PROCEDURE: Patient received viscous lidocaine to gargle and swallow at the start of the procedure. After receiving adequate IV sedation with propofol, esophageal intubation was accomplished by Dr. Johnson without difficulty using a Shraddha 3D transesophageal echocardiogram scope. Rhythm was sinus. The left and right ventricles were normal in size and systolic function and without regional wall motion abnormalities. Left ventricle ejection fraction was 60% by visual estimate. Atria appeared normal in size. Atrial septum was intact anatomically and by color flow Doppler. No masses or thrombi were seen within the atria or their appendages. Pulmonary vein flow in the left upper pulmonary vein was normal by pulse wave Doppler. Aortic valve was 3-cusp and was structurally and functionally normal. Mitral and tricuspid valves and pulmonic valves were all structurally and functionally normal. No regurgitation from any of the cardiac valves. No vegetations on any of the cardiac valves. No pericardial effusion. Distal aortic arch and descending thoracic aorta were normal. CONCLUSIONS: 1. Normal transesophageal echocardiogram. 2. No vegetations.
[2019-09-17] MEDS ORDERED: LR 1,000 ML IV SCH (22:45)
[2019-09-17] MEDS ORDERED: ONDANSETRON 4MG/2ML VIAL (J2405) IV PRN (22:45)
[2019-09-17 23:00] VITALS: BP 129/60
[2019-09-18] VITALS (8 sets, daily range): BP systolic 124–135; BP diastolic 58–70
[2019-09-18] MEDS: MORPHINE 2 MG/ML 1ML VIAL (J2270) IV PRN ×3 (00:22→18:27)
[2019-09-18] MEDS: PERCOCET 5MG/325MG TAB PO PRN ×3 (02:56→20:06)
[2019-09-18] MEDS: SLF 3 ML SYR IV SCH ×3 (05:13→20:06)
[2019-09-18 06:26] LABS: HEMATOCRIT 36.9 % (42.0-52.0); HEMOGLOBIN 11.9 g/dl (13.5-17.5); MEAN CORPUSCULAR HEMOGLOBIN 29.8 pg (27.0-33.0); MEAN CORPUSCULAR HGB CONC 32.2 g/dl (32.0-36.5); MEAN CORPUSCULAR VOLUME 92.3 fl (80.0-96.0); PLATELET COUNT, AUTOMATED 305 10^3/uL (150-450); WHITE BLOOD COUNT 7.7 10^3/uL (4.0-10.0)
--- NOTE | 2019-09-18 07:22 | IPNPDOC ---
Text Note Date of Service The patient was seen on 09/18/19. NOTE SUBJECTIVE: Mr Epstein is seen at bedside. He states that he is willing to try ibuprofen with morphine instead of Toradol. He is okay decreasing his Percocet to every 8 hours. He is no longer constipated. MALIHA by Dr. Johnson was negative for vegetations. He was cleared by physical therapy. OBJECTIVE PHYSICAL EXAMINATION: VITAL SIGNS: Please see below. General: No acute distress, somewhat stiff, is walking around freely. Eyes: Normal sclera, anicteric HEENT: Atraumatic/normocephalic, neck supple, moist mucous membranes Cardiovascular: Regular rate and rhythm, no murmurs/gallops/rubs Pulmonary: Clear to auscultation bilaterally, no wheezes/rhonchi/rubs GI: Hypoactive bowel sounds, soft, nontender, nondistended Skin: Warm and dry Neuro: No focal deficits Psych: cooperative, answering questions appropriately LABORATORY DATA, IMAGING STUDIES, MICROBIOLOGY: Please see below. DVT prophylaxis ordered: Lovenox, ambulates ad yamilex PLAN: 1. Discitis and osteomyelitis - MALIHA negative for vegetations - Rocephin 2 g q24h - Dr. Vasquez (ID) following. Would need prolong IV abx but home treatment with PICC may not be ideal due to hx IV drug use. - Dominick prior authorization will have to be done prior to discharge if outpatient therapy is considered - Pain control: Ibuprofen 800 mg TID, Morphine 2 mg q8h prn, Percocet 1-2 tabs q8h prn; trying to wean down narcotics but it is difficult secondary to back pain from discitis 2. Polysubstance abuse - denies use in the past 2 weeks - recent ED visit 09/08/19 for polysubstance abuse with positive tox screen - etoh level negative, urine tox screen positive for cannabinoids and opiates (pt given opiates in hospital prior to urine being collected) - complicating d/c planning, as his pain is currently being controlled with narcotics and he has a history of IV drug abuse 3. Hx of Hepatitis C - transaminitis on prior admission (06/07/19), further work up positive for hepatitis C - liver profile showed elevated transaminases - outpatient f/u for treatment 4. Hep A ab + - No symptoms suggestive of active infection. - Likely immune due to previous exposure or vaccination Dispo: Anticipate extended stay. Likely can be discharged once pain is controlled off narcotics and if outpatient treatment can be arranged VS,Fishbone, I+O VS, Fishbone, I+O Laboratory Tests 09/18/19 05:29 Vital Signs Date Time Temp Pulse Resp B/P (MAP) Pulse Ox O2 Delivery O2 Flow Rate FiO2 09/18/19 06:00 97.9 71 16 135/58 (83) 99 Room Air I&O- Last 24 Hours up to 6 AM0 09/18/19 05:59 Intake Total 1350 ml Output Total 0 ml Balance 1350 ml GME ATTESTATION GME ATTESTATION My faculty preceptor for this patient encounter was physically present during the encounter and was fully available. All aspects of the patient interview, examination, medical decision making process, and medical care plan development were reviewed and approved by the faculty preceptor. The faculty preceptor is aware and concurs with the plan as stated in the body of this note and will attest to such by his/her cosignature. GME ATTESTATION GME ATTESTATION My faculty preceptor for this patient encounter was physically present during the encounter and was fully available. All aspects of the patient interview, examination, medical decision making process, and medical care plan development were reviewed and approved by the faculty preceptor. The faculty preceptor is aware and concurs with the plan as stated in the body of this note and will attest to such by his/her cosignature. ATTENDING NOTE Patient was seen and examined by me this morning with the residents. Agree with the above assessment and plan ZACK DON D.O. Sep 18, 2019 07:22 SERENA KUMAR MD Sep 18, 2019 14:24
[2019-09-18] MEDS: DOCUSATE SODIUM 100 MG CAP PO SCH ×2 (09:00→21:00)
--- NOTE | 2019-09-18 09:27 | IPN ---
DATE: 09/17/2019 He is doing better. He is able to move and get into a sitting position in a much more comfortable manner. He states Toradol and morphine combination works well. His constipation has improved. He has no nausea, vomiting or diarrhea. No fever or chills. No abdominal pain. He is scheduled for transesophageal echocardiogram (MALIHA) today and is starving as he is nothing by mouth (n.p.o.). On physical exam, temperature is 98.6, pulse 71, respirations 18, blood pressure 126/68, oxygen saturation 100% on room air. Heart: Normal S1 and S2. No murmurs, rubs or gallops. Lungs are clear. No wheezes, rales or rhonchi. Abdomen: Soft. Nontender. No hepatosplenomegaly. Extremities: No clubbing, cyanosis or edema. Back: L4-5 tenderness and some paraspinal tenderness as well. Left axillary adenopathy, slightly tender. No boils. No erythema. LABS: White count 7, hemoglobin 12.3, hematocrit 38.7 and platelets 290. Sodium 140, potassium 4.2, chloride 105, bicarbonate 31, BUN 15, creatinine 0.7, glucose 110, calcium 9.4. Blood cultures one out of four positive for Granulicatella. IMPRESSION: 1. L4-5 diskitis with culture positive for Granulicatella on IV Rocephin, currently day #7. 2. Granulicatella bacteremia. MALIHA was scheduled to rule out endocarditis. 3. History of polysubstance abuse, including heroin and crystal meth, but most recently crystal meth has been the problem. 4. Hepatitis C. Will need to be treated as an outpatient. The patient was diagnosed in May 2019. If patient has persistent viremia by November, which would be six months from initial diagnosis, then the patient will be offered treatment. Hepatitis A antibody positive. Does not need vaccination. Hepatitis B antibody positive. HIV negative. PLAN: Continue IV Rocephin. Would suggest at least 2 weeks of IV antibiotics and then may consider doing Dalvance as an outpatient for 2 more doses if transesophageal echocardiogram does not show evidence of endocarditis. MTDD
[2019-09-18] MEDS: IBUPROFEN 800 MG TAB PO PRN ×2 (11:07→20:05)
[2019-09-18] MEDS: ACETAMINOPHEN TAB 650MG DOSE (2X325MG) PO PRN (15:18)
[2019-09-18] MEDS: cefTRIAXone SOD 2 GM in D5W MINI-BAG PLUS 50 ML IV SCH (17:08)
[2019-09-18] MEDS: ENOXAPARIN 40 MG/0.4 ML SYRINGE (J1650) SC SCH (20:04)
[2019-09-18] MEDS ORDERED: diphenhydrAMINE INJ 50MG/ML VIAL (J1200) IV PRN (21:00)
[2019-09-19 02:00] VITALS: BP 117/49
[2019-09-19] MEDS ORDERED: KETOROLAC 30 MG/ML VIAL (J1885) IV ONE (03:15)
[2019-09-19] MEDS: MORPHINE 2 MG/ML 1ML VIAL (J2270) IV PRN ×2 (03:37→11:45)
[2019-09-19] MEDS: IBUPROFEN 800 MG TAB PO PRN ×2 (04:50→15:42)
[2019-09-19] MEDS: SLF 3 ML SYR IV SCH ×3 (04:50→22:11)
[2019-09-19] MEDS: PERCOCET 5MG/325MG TAB PO PRN ×3 (04:58→22:12)
[2019-09-19 06:00] VITALS: BP 130/60
[2019-09-19] MEDS: DOCUSATE SODIUM 100 MG CAP PO SCH ×2 (07:37→22:10)
[2019-09-19] MEDS ORDERED: diphenhydrAMINE 25 MG CAP PO PRN (08:30)
[2019-09-19] MEDS: ACETAMINOPHEN TAB 650MG DOSE (2X325MG) PO PRN (10:12)
--- NOTE | 2019-09-19 11:12 | IPNPDOC ---
Text Note Date of Service The patient was seen on 09/19/19. NOTE SUBJECTIVE: Mr Epstein is seen at bedside. He states his pain is well controlled on his current medication. He denies fevers or chills, he is moving his bowels regularly without diarrhea. He denies shortness of breath. The Benadryl helped him sleep last night. His only complaint is that he feels like his legs are twitching at night. OBJECTIVE PHYSICAL EXAMINATION: VITAL SIGNS: Please see below. General: No acute distress, lying in bedcbc. Eyes: Normal sclera, anicteric HEENT: Atraumatic/normocephalic, neck supple, moist mucous membranes Cardiovascular: Regular rate and rhythm, no murmurs/gallops/rubs Pulmonary: Clear to auscultation bilaterally, no wheezes/rhonchi/rubs GI: Normoactive bowel sounds, soft, nontender, nondistended Skin: Warm and dry Extremities: No clubbing cyanosis or edema. Muscle strength 5 out of 5 bilaterally Neuro: No fasciculations, lower extremity reflexes intact bilaterally, no changes to sensation. Psych: cooperative, answering questions appropriately LABORATORY DATA, IMAGING STUDIES, MICROBIOLOGY: Please see below. DVT prophylaxis ordered: Lovenox, ambulates ad yamilex PLAN: 1. Discitis and osteomyelitis, day #07/13 inpatient antibiotics - MALIHA negative for vegetations - Rocephin 2 g q24h - Dr. Vasquez (ID) following. Would need prolong IV abx but home treatment with PICC may not be ideal due to hx IV drug use. - Dalvance prior authorization will have to be done prior to discharge if outpatient therapy is considered - Pain control: Ibuprofen 800 mg TID, Morphine 2 mg q8h prn, Percocet 1-2 tabs q 8h prn; trying to wean down narcotics but it is difficult secondary to back pain from discitis 2. Polysubstance abuse - denies use in the past 2 weeks - recent ED visit 09/08/19 for polysubstance abuse with positive tox screen - etoh level negative, urine tox screen positive for cannabinoids and opiates (pt given opiates in hospital prior to urine being collected) - complicating d/c planning, as his pain is currently being controlled with narcotics and he has a history of IV drug abuse 3. Hx of Hepatitis C - transaminitis on prior admission (06/07/19), further work up positive for hepatitis C - liver profile showed elevated transaminases - outpatient f/u for treatment 4. Hep A ab + - No symptoms suggestive of active infection. - Likely immune due to previous exposure or vaccination 5. ?restless legs - Will evaluate with CBC, BMP, ferritin, and magnesium to see if there are any abnormalities - Advised to continue stretching, and to see if the restless legs are relieved by getting up and walking around Dispo: Anticipate extended stay. Likely can be discharged once pain is controlled off narcotics and if outpatient treatment can be arranged VS,Fishbone, I+O VS, Fishbone, I+O Vital Signs Date Time Temp Pulse Resp B/P (MAP) Pulse Ox O2 Delivery O2 Flow Rate FiO2 09/19/19 06:00 98.4 85 17 130/60 (83) 99 Room Air I&O- Last 24 Hours up to 6 AM 09/19/19 06:00 Intake Total 2510 ml Balance 2510 ml GME ATTESTATION GME ATTESTATION My faculty preceptor for this patient encounter was physically present during the encounter and was fully available. All aspects of the patient interview, examination, medical decision making process, and medical care plan development were reviewed and approved by the faculty preceptor. The faculty preceptor is aware and concurs with the plan as stated in the body of this note and will attest to such by his/her cosignature. GME ATTESTATION GME ATTESTATION My faculty preceptor for this patient encounter was physically present during the encounter and was fully available. All aspects of the patient interview, examination, medical decision making process, and medical care plan development were reviewed and approved by the faculty preceptor. The faculty preceptor is aware and concurs with the plan as stated in the body of this note and will attest to such by his/her cosignature. ATTENDING NOTE Patient was seen and examined by me this morning with the residents. Agree with the above assessment and plan ZACK DON D.O. Sep 19, 2019 11:12 SERENA KUMAR MD Sep 19, 2019 16:36
[2019-09-19 14:00] VITALS: BP 126/59
[2019-09-19] MEDS: cefTRIAXone SOD 2 GM in D5W MINI-BAG PLUS 50 ML IV SCH (18:19)
[2019-09-19 22:00] VITALS: BP 124/54
[2019-09-19] MEDS: ENOXAPARIN 40 MG/0.4 ML SYRINGE (J1650) SC SCH (22:10)
[2019-09-20] VITALS: BP 124/54
[2019-09-20 02:00] VITALS: BP 124/54
[2019-09-20 02:33] LABS: AMPHETAMINES LEVEL URINE NEGATIVE (NEGATIVE); BARBITURATES URINE NEGATIVE (NEGATIVE); BENZODIAZEPINES URINE POSITIVE (NEGATIVE); CANNABINOIDS URINE NEGATIVE (NEGATIVE); COCAINE METABOLITE URINE NEGATIVE (NEGATIVE); METHADONE URINE NEGATIVE (NEGATIVE); OPIATES URINE POSITIVE (NEGATIVE); PHENCYCLIDINE URINE NEGATIVE (NEGATIVE)
[2019-09-20] MEDS: SLF 3 ML SYR IV SCH ×3 (05:44→21:10)
[2019-09-20] MEDS: IBUPROFEN 800 MG TAB PO PRN ×2 (05:46→13:17)
[2019-09-20 06:00] VITALS: BP 139/84
[2019-09-20 06:03] LABS: HEMATOCRIT 36.1 % (42.0-52.0); HEMOGLOBIN 11.6 g/dl (13.5-17.5); MEAN CORPUSCULAR HEMOGLOBIN 29.6 pg (27.0-33.0); MEAN CORPUSCULAR HGB CONC 32.1 g/dl (32.0-36.5); MEAN CORPUSCULAR VOLUME 92.1 fl (80.0-96.0); PLATELET COUNT, AUTOMATED 337 10^3/uL (150-450); RED BLOOD COUNT 3.92 10^6/uL (4.30-6.10); WHITE BLOOD COUNT 12.6 10^3/uL (4.0-10.0)
[2019-09-20 06:37] LABS: BLOOD UREA NITROGEN 23 MG/DL (7-18); CALCIUM LEVEL 9.6 MG/DL (8.5-10.1); CARBON DIOXIDE LEVEL 28 MEQ/L (21-32); CHLORIDE LEVEL 109 MEQ/L (98-107); CREATININE FOR GFR 0.82 MG/DL (0.70-1.30); FERRITIN 196 NG/ML (26-388); GLOMERULAR FILTRATION RATE > 60.0 (>60); GLUCOSE, FASTING 99 MG/DL (70-100); MAGNESIUM LEVEL 1.8 MG/DL (1.8-2.4); POTASSIUM SERUM 3.9 MEQ/L (3.5-5.1); SODIUM LEVEL 142 MEQ/L (136-145)
[2019-09-20 07:48] LABS: C REACTIVE PROTEIN QUANTITATIV 0.63 MG/DL (0.00-0.30)
[2019-09-20] MEDS: DOCUSATE SODIUM 100 MG CAP PO SCH ×2 (08:00→21:00)
[2019-09-20] MEDS ORDERED: FLUoxetine 10 MG CAP PO SCH (09:00)
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
[2019-09-20] MEDS: PERCOCET 5MG/325MG TAB PO PRN ×2 (09:58→18:09)
[2019-09-20] MEDS ORDERED: MORPHINE 2 MG/ML 1ML VIAL (J2270) IV PRN (11:00)
[2019-09-20] MEDS ORDERED: hydrOXYzine 10 MG TAB PO PRN (11:00)
[2019-09-20 14:00] VITALS: BP 137/70
[2019-09-20] MEDS: GABAPENTIN 300 MG CAP PO SCH ×2 (17:33→21:09)
[2019-09-20] MEDS: buPROPion **XL** TABLET 150MG (WELLBUTRIN XL) PO SCH ×2 (17:33→21:09)
[2019-09-20] MEDS: cefTRIAXone SOD 2 GM in D5W MINI-BAG PLUS 50 ML IV SCH (17:34)
[2019-09-20] MEDS: ENOXAPARIN 40 MG/0.4 ML SYRINGE (J1650) SC SCH (21:00)
[2019-09-20 22:00] VITALS: BP 136/76
[2019-09-21] MEDS: PERCOCET 5MG/325MG TAB PO PRN ×2 (03:36→11:25)
[2019-09-21] MEDS: GABAPENTIN 300 MG CAP PO SCH ×3 (05:51→21:17)
[2019-09-21] MEDS: SLF 3 ML SYR IV SCH ×3 (05:52→21:18)
[2019-09-21 06:00] VITALS: BP 130/59
[2019-09-21] MEDS ORDERED: IBUPROFEN 400 MG TAB PO PRN (09:30)
[2019-09-21] MEDS: IBUPROFEN 400 MG TAB PO PRN ×2 (09:48→21:17)
--- NOTE | 2019-09-21 11:44 | IPNPDOC ---
Text Note Date of Service The patient was seen on 09/21/19. NOTE SUBJECTIVE: Mr Epstein is seen at bedside. He was able to tolerate gabapentin in place of IV morphine overnight. He states that he had a good night's sleep. He would like to starting to decrease his Percocet on Monday. Dr. Williamson from psychiatry will be seeing him today. He denies fevers, chills, cough, sputum production, nausea, vomiting. He has had some loose stools, but no explosive or watery diarrhea. OBJECTIVE PHYSICAL EXAMINATION: VITAL SIGNS: Please see below. General: No acute distress, lying in bed. Eyes: Normal sclera, anicteric HEENT: Atraumatic/normocephalic, neck supple, moist mucous membranes Cardiovascular: Regular rate and rhythm, no murmurs/gallops/rubs Pulmonary: Clear to auscultation bilaterally, no wheezes/rhonchi/rubs GI: Normoactive bowel sounds, soft, nontender, nondistended Skin: Warm and dry Extremities: No clubbing cyanosis or edema. Muscle strength 5 out of 5 bilaterally Neuro: No fasciculations, lower extremity reflexes intact bilaterally, no changes to sensation. Psych: cooperative, answering questions appropriately LABORATORY DATA, IMAGING STUDIES, MICROBIOLOGY: Please see below. DVT prophylaxis ordered: Lovenox, ambulates ad yamilex PLAN: 1. Discitis and osteomyelitis, day #11 inpatient antibiotics - MALIHA negative for vegetations - Rocephin 2 g q24h - Dr. Vasquez (ID) following. Would need prolong IV abx but home treatment with PICC may not be ideal due to hx IV drug use. - Dominick prior authorization will have to be done prior to discharge if outpatient therapy is considered - Pain control: Ibuprofen 400 mg BIDP, Percocet 2 tabs q8h prn; trying to wean down narcotics but it is difficult secondary to back pain from discitis; not a candidate for epidural due to contraindication for discitis; Gabapentin 600 mg TID - Will start with Wellbutrin 300 mg daily at bedtime and gabapentin 600 mg 3 times a day. Should this work, we can start to decrease his Percocet on Monday, and then try to alternate the gabapentin with ibuprofen 2. Polysubstance abuse - denies use in the past 2 weeks - recent ED visit 09/08/19 for polysubstance abuse with positive tox screen - Visitors limited as new UDS positive for opiates and benzodiazepines, repeat U. tox to be done today - complicating d/c planning, as his pain is currently being controlled with narcotics and he has a history of IV drug abuse 3. Hx of Hepatitis C - transaminitis on prior admission (06/07/19), further work up positive for hepatitis C - liver profile showed elevated transaminases - outpatient f/u for treatment 4. Hep A ab + - No symptoms suggestive of active infection. - Likely immune due to previous exposure or vaccination 5. ?restless legs v withdrawal symptoms - CBC, BMP, ferritin, and magnesium within normal limits - Advised to continue stretching 6. Leukocytosis - likely secondary to pain - CRP trending down, on IV rocephin 7. Anxiety - complicated by history of substance abuse - continue gabapentin, wellbutrin, and hydroxyzine - Dr. Williamson from psychiatry consulted, appreciate her help Dispo: Anticipate extended stay. Likely can be discharged once pain is controlled off narcotics and if outpatient treatment can be arranged VS,Fishbone, I+O VS, Fishbone, I+O Vital Signs Date Time Temp Pulse Resp B/P (MAP) Pulse Ox O2 Delivery O2 Flow Rate FiO2 09/21/19 11:25 18 Room Air 09/21/19 06:00 97.7 67 130/59 (82) 96 I&O- Last 24 Hours up to 6 AM 09/21/19 06:00 Intake Total 2642 ml Output Total 0 ml Balance 2642 ml GME ATTESTATION GME ATTESTATION My faculty preceptor for this patient encounter was physically present during the encounter and was fully available. All aspects of the patient interview, examination, medical decision making process, and medical care plan development were reviewed and approved by the faculty preceptor. The faculty preceptor is aware and concurs with the plan as stated in the body of this note and will attest to such by his/her cosignature. GME ATTESTATION E ATTESTATION My faculty preceptor for this patient encounter was physically present during the encounter and was fully available. All aspects of the patient interview, examination, medical decision making process, and medical care plan development were reviewed and approved by the faculty preceptor. The faculty preceptor is aware and concurs with the plan as stated in the body of this note and will attest to such by his/her cosignature. ATTENDING NOTE Patient was seen and examined by me this morning with the residents. Agree with the above assessment and plan ZACK DON D.O. Sep 21, 2019 11:44 SERENA KUMAR MD Sep 21, 2019 14:09
[2019-09-21] MEDS: buPROPion **XL** TABLET 150MG (WELLBUTRIN XL) PO SCH (12:49)
[2019-09-21 14:00] VITALS: BP 120/68
[2019-09-21] MEDS: hydrOXYzine 50 MG TAB PO PRN (15:52)
[2019-09-21] MEDS: ACETAMINOPHEN TAB 650MG DOSE (2X325MG) PO PRN (16:01)
[2019-09-21] MEDS: ACETAMINOPH W/CODEINE #3 TAB UD PO PRN (17:32)
[2019-09-21] MEDS: cefTRIAXone SOD 2 GM in D5W MINI-BAG PLUS 50 ML IV SCH (17:33)
[2019-09-21] MEDS: LACTOBACILLUS ACIDOPHILUS CAP (BACID) PO SCH (17:33)
[2019-09-21] MEDS: ENOXAPARIN 40 MG/0.4 ML SYRINGE (J1650) SC SCH (20:26)
[2019-09-21] MEDS: QUEtiapine FUMARATE 200 MG TAB PO SCH (21:17)
[2019-09-21 22:00] VITALS: BP 121/70
[2019-09-22] MEDS: ACETAMINOPH W/CODEINE #3 TAB UD PO PRN ×2 (00:13→06:25)
[2019-09-22 06:00] VITALS: BP 124/72
[2019-09-22] MEDS: GABAPENTIN 300 MG CAP PO SCH ×3 (06:25→21:02)
[2019-09-22] MEDS: SLF 3 ML SYR IV SCH ×3 (06:25→22:31)
[2019-09-22] MEDS: LACTOBACILLUS ACIDOPHILUS CAP (BACID) PO SCH ×2 (08:10→18:56)
[2019-09-22] MEDS: buPROPion **XL** TABLET 150MG (WELLBUTRIN XL) PO SCH (08:10)
--- NOTE | 2019-09-22 11:37 | IPN ---
DATE OF SERVICE: 09/22/2019 Patient complains of 8/10 pain not alleviated by Tylenol #3. Says that he has chronic pain that usually responds to Tylenol #3 but this does not touch it at all. Patient is requesting for Percocet 2 tablets every 4 hours to be resumed. He also says that he is currently homeless, does not have a job and currently unemployed. His boss says that he can work back at the [employer] shop. Patient was living at [facility] previously and says that, "there is a lot of drug use up there". He says that his mother and her boyfriend are "alcoholics", and does not want to stay with them. His brother just had a baby. He is unsure whether they would want him to be around at their residence. Patient still has 3 more days of antibiotics left for a total of 14 days intravenous antibiotics for discitis with plans for two doses of Dalvance as an outpatient to be arranged by an infusion unit. Patient [facility] (PFS) to be consulted both for being homeless and for emergency housing as well as preauthorization for Dalvance. PHYSICAL EXAMINATION: Temperature 97.6, pulse 76, respiratory rate 18, blood pressure 1124/72, 92% on room air. Generally patient is awake, alert, oriented to person, place and time. Answers questions appropriately. Lungs are clear to auscultation. No wheezing, rales or rhonchi. Heart: S1, S2 sinus rhythm. No murmurs, rubs or gallops. Abdomen is soft, nontender, nondistended. Positive bowel sounds. Extremities: No cyanosis, clubbing or pitting edema. Patient has L3, L4, L5 tenderness on palpation. No gait abnormalities. LABORATORY DATA: 09/20/2019 labs have been reviewed. ASSESSMENT/PLAN: This is a 29-year-old male who presented with low back pain for 2-3 days seen at orthopaedic surgery, was straining for a bowel movement and attempting to urinate. He complains of leg weakness and was found to have fever on admission and discitis at L4-L5 where he had a previous history of fracture from wrestling in 2009. Patient is an IV drug user with history of hepatitis C, polysubstance abuse including heroin and crystal meth, admitted for acute discitis of L4-5, previous history of lumbar fracture in the same area. The patient was on vancomycin currently on IV Rocephin for 2 weeks with plans for IV Dalvance infusion times two as an outpatient. Transesophageal echo was negative. 1. Discitis with blood culture positive for Granulicatella adiacens currently on day #11 of IV ceftriaxone to continue for a total of 14 days. Patient is to have IV Dalvance infusion as an outpatient times two as soon as the transesophageal echo was negative. The patient's pain is not well controlled at this time with Tylenol #3 every 4 hours as needed and is requesting for Percocet to be given. He does have a history of prior IV drug use, heroin abuse in the past. 2. Homelessness: PFS to be consulted to arrange for residence as an outpatient. 3. History of IV drug use: Currently on ibuprofen refusing Tylenol #3. ? MTDD
[2019-09-22] MEDS ORDERED: PERCOCET 5MG/325MG TAB PO ONE (12:00)
[2019-09-22] MEDS: hydrOXYzine 50 MG TAB PO PRN ×2 (13:03→20:52)
[2019-09-22 14:00] VITALS: BP 126/70
[2019-09-22] MEDS: IBUPROFEN 400 MG TAB PO PRN (15:09)
[2019-09-22] MEDS: PERCOCET 5MG/325MG TAB PO PRN ×2 (16:05→20:52)
[2019-09-22] MEDS: cefTRIAXone SOD 2 GM in D5W MINI-BAG PLUS 50 ML IV SCH (18:55)
[2019-09-22] MEDS: ANALGESIC BALM CRM 120 GM TOP PRN (20:51)
[2019-09-22] MEDS: QUEtiapine FUMARATE 200 MG TAB PO SCH (20:52)
[2019-09-22] MEDS: ENOXAPARIN 40 MG/0.4 ML SYRINGE (J1650) SC SCH (20:57)
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
[2019-09-22] MEDS ORDERED: SODIUM CHLORIDE NASAL 0.65% SPRAY BTL (OCEAN) PRN (21:45)
[2019-09-22 22:00] VITALS: BP 128/71
[2019-09-23] MEDS: IBUPROFEN 400 MG TAB PO PRN ×2 (01:36→21:37)
[2019-09-23] MEDS: ANALGESIC BALM CRM 120 GM TOP PRN (01:36)
[2019-09-23] MEDS: PERCOCET 5MG/325MG TAB PO PRN ×5 (02:18→22:53)
[2019-09-23 06:00] VITALS: BP 122/74
[2019-09-23] MEDS: SLF 3 ML SYR IV SCH ×3 (06:01→21:37)
[2019-09-23] MEDS: GABAPENTIN 300 MG CAP PO SCH ×3 (06:32→21:37)
[2019-09-23] MEDS: LACTOBACILLUS ACIDOPHILUS CAP (BACID) PO SCH ×2 (07:52→18:14)
[2019-09-23] MEDS: buPROPion **XL** TABLET 150MG (WELLBUTRIN XL) PO SCH (07:52)
[2019-09-23] MEDS: hydrOXYzine 50 MG TAB PO PRN (07:58)
--- NOTE | 2019-09-23 09:48 | IPNPDOC ---
Text Note Date of Service The patient was seen on 09/23/19. NOTE SUBJECTIVE: Mr Epstein is seen at bedside. He is tolerating percocet 5/325 Q4H PRN, ibuprofen 400 mg twice a day, and gabapentin 600 mg every 8 hours. He rates his pain as a 6 out of 10, but is still able to walk and get around. He would like to start decreasing his Percocet tomorrow to 1 tab 5/325 Q6H, at that time will increase his Motrin again. His anxiety/PTSD is stable with Seroquel 200 mg daily at bedtime, Atarax 50 mg every 6 hours when necessary, gabapentin 600 mg Q8H, and Wellbutrin 300 mg every morning. He denies fevers, chills, cough, sputum production, nausea, vomiting. He has had some loose stools, but no explosive or watery diarrhea. OBJECTIVE PHYSICAL EXAMINATION: VITAL SIGNS: Please see below. General: No acute distress, lying in bed. Eyes: Normal sclera, anicteric HEENT: Atraumatic/normocephalic, neck supple, moist mucous membranes Cardiovascular: Regular rate and rhythm, no murmurs/gallops/rubs Pulmonary: Clear to auscultation bilaterally, no wheezes/rhonchi/rubs GI: Normoactive bowel sounds, soft, nontender, nondistended Skin: Warm and dry Extremities: No clubbing cyanosis or edema. Muscle strength 5 out of 5 bilatera lly Neuro: No fasciculations, lower extremity reflexes intact bilaterally, no changes to sensation. Psych: cooperative, answering questions appropriately LABORATORY DATA, IMAGING STUDIES, MICROBIOLOGY: Please see below. DVT prophylaxis ordered: Lovenox, ambulates ad yamilex PLAN: 1. Discitis and osteomyelitis, day #13 inpatient antibiotics - MALIHA negative for vegetations - Rocephin 2 g q24h - Dr. Vasquez (ID) following. Would need prolong IV abx but home treatment with PICC not be ideal due to hx IV drug use. - Dalvance prior authorization initiated, plan is for 2 weekly doses of Dalvance outpatient to be arranged by the infusion unit - Pain control: Ibuprofen 400 mg BIDP, Percocet 1 tabs q4h prn; trying to wean down narcotics but it is difficult secondary to back pain from discitis; not a candidate for epidural due to contraindication for discitis; Gabapentin 600 mg TID 2. Polysubstance abuse - denies use in the past 2 weeks - recent ED visit 09/08/19 for polysubstance abuse with positive tox screen - Visitors limited as new UDS positive for opiates and benzodiazepines - complicating d/c planning, as his pain is currently being controlled with narcotics and he has a history of IV drug abuse 3. Hx of Hepatitis C - transaminitis on prior admission (06/07/19), further work up positive for hepatitis C - liver profile showed elevated transaminases - outpatient f/u for treatment 4. Hep A ab + - No symptoms suggestive of active infection. - Likely immune due to previous exposure or vaccination 5. ?restless legs v withdrawal symptoms - CBC, BMP, ferritin, and magnesium within normal limits - Advised to continue stretching 6. Leukocytosis - likely secondary to pain - CRP trending down, on IV rocephin 7. Anxiety - complicated by history of substance abuse - continue gabapentin, wellbutrin, and hydroxyzine; Seroquel 200 mg at night - Dr. Williamson from psychiatry consulted, appreciate her help Dispo: Hopefully can be discharged Monday or , pending being able to wean off narcotics and have adequate pain control. PFS working on outpatient [facility] prior authorization MEDICAL ATTENDING PHYSICIAN ADDENDUM: I have independently interviewed and examined the patient, and agree with the physical findings, assessment, and management plan as documented above by my Resident physician. VS,Fishbone, I+O VS, Fishbone, I+O Vital Signs Date Time Temp Pulse Resp B/P (MAP) Pulse Ox O2 Delivery O2 Flow Rate FiO2 09/23/19 07:05 18 09/23/19 06:00 98.0 84 122/74 (90) 100 09/22/19 22:00 Room Air I&O- Last 24 Hours up to 6 AM 09/23/19 06:00 Intake Total 2899 ml Balance 2899 ml GME ATTESTATION GME ATTESTATION My faculty preceptor for this patient encounter was physically present during the encounter and was fully available. All aspects of the patient interview, examination, medical decision making process, and medical care plan development were reviewed and approved by the faculty preceptor. The faculty preceptor is aware and concurs with the plan as stated in the body of this note and will attest to such by his/her cosignature. ZACK DON D.O. Sep 23, 2019 09:48 ALYSON FRIAS MD Sep 23, 2019 16:25
[2019-09-23 14:00] VITALS: BP 123/74
[2019-09-23] MEDS: cefTRIAXone SOD 2 GM in D5W MINI-BAG PLUS 50 ML IV SCH (18:14)
[2019-09-23] MEDS: ENOXAPARIN 40 MG/0.4 ML SYRINGE (J1650) SC SCH (21:00)
[2019-09-23] MEDS: QUEtiapine FUMARATE 200 MG TAB PO SCH (21:37)
[2019-09-23 22:00] VITALS: BP 134/76
[2019-09-24] MEDS: PERCOCET 5MG/325MG TAB PO PRN ×3 (04:28→19:54)
[2019-09-24] MEDS: GABAPENTIN 300 MG CAP PO SCH ×3 (05:39→21:19)
[2019-09-24] MEDS: SLF 3 ML SYR IV SCH ×3 (05:40→21:19)
[2019-09-24 05:45] VITALS: BP 119/60
[2019-09-24] MEDS: buPROPion **XL** TABLET 150MG (WELLBUTRIN XL) PO SCH (07:57)
[2019-09-24] MEDS: LACTOBACILLUS ACIDOPHILUS CAP (BACID) PO SCH ×2 (07:57→17:30)
[2019-09-24] MEDS: ACETAMINOPHEN TAB 650MG DOSE (2X325MG) PO PRN (07:58)
--- NOTE | 2019-09-24 08:58 | IPN ---
DATE: 09/23/2019 Giacomo is doing great. He was seen walking outside his room around the nurses station. He is dressed. He feels anxious to go home. He has been afebrile. No nausea, vomiting or diarrhea. No abdominal pain. He has been afebrile since admission except for one low grade temperature on 09/12/2019. LABORATORY DATA: White count 12.6, hemoglobin 11.6, hematocrit 36.1. Sodium 142, potassium 4.9, chloride 109, bicarb 28, BUN 23, creatinine 0.82, glucose 99, calcium 9.6, magnesium 1.8, ferritin 196, CRP 0.63 down from 4.94. AST and ALT were last done on 09/12/2019 at 37 and 143. IMPRESSION: 1. L4-L5 diskitis with culture positive for Granulicatella on IV Rocephin, doing very well. The patient currently is day number 13 of IV antibiotics. Transesophageal echocardiogram (MALIHA) negative. No evidence of endocarditis. Plan to discharge the patient home by Monday if we can have Dalvance approved at a dose of 1.5 grams IV to be given on 2 days, 09/25 and 10/04, 1.5 grams by 10 days. 2. Hepatitis C with hepatitis A antibody positive, hepatitis B surface antibody positive. The patient immune hepatitis A and B. HIV negative. Further hepatitis C workup will be done as an outpatient. 3. History of IV drug abuse and anxiety disorder, doing much better with bupropion, hydroxyzine and gabapentin, which has also helped with his pain. The patient was seen by mental health, Dr. Williamson. PLAN: Continue with IV Rocephin. Hopefully, the patient can be discharged tomorrow to receive Dalvance on 09/25 and 10/04. Followup labs, CBC, CRP, ESR, basic on those days. Follow up with Dr. Vasquez in 2-3 weeks.
--- NOTE | 2019-09-24 09:51 | IPNPDOC ---
Text Note Date of Service The patient was seen on 09/24/19. NOTE SUBJECTIVE: Mr Epstein is seen at bedside. He is tolerating percocet 5/325 Q4H PRN, ibuprofen 400 mg twice a day, and gabapentin 600 mg every 8 hours. He rates his pain as a 6 out of 10, but is still able to walk and get around. His anxiety/PTSD is stable with Seroquel 200 mg daily at bedtime, Atarax 50 mg every 6 hours when necessary, gabapentin 600 mg Q8H, and Wellbutrin 300 mg every morning. He is sleeping well and has a good appetite. He denies fevers, chills, cough, sputum production, nausea, vomiting. He has had some loose stools, but no explosive or watery diarrhea. He does endorse that his girlfriend visited after visiting hours last night, and he states that she most likely had done meth. She was thrown out of the hospital at 0400 this morning, per nursing staff. He states that he no longer wants to go live with her upon discharge, he admits that he is homeless, and he would like us to find somewhere for him to live. OBJECTIVE PHYSICAL EXAMINATION: VITAL SIGNS: Please see below. General: No acute distress, walking around the room. Then sitting up and eating breakfast. Eyes: Normal sclera, anicteric HEENT: Atraumatic/normocephalic, neck supple, moist mucous membranes Cardiovascular: Regular rate and rhythm, no murmurs/gallops/rubs Pulmonary: Clear to auscultation bilaterally, no wheezes/rhonchi/rubs GI: Normoactive bowel sounds, soft, nontender, nondistended Skin: Warm and dry Extremities: No clubbing cyanosis or edema. Muscle strength 5 out of 5 bilaterally Neuro: No fasciculations, lower extremity reflexes intact bilaterally, no changes to sensation. Psych: cooperative, answering questions appropriately LABORATORY DATA, IMAGING STUDIES, MICROBIOLOGY: Please see below. DVT prophylaxis ordered: Lovenox, ambulates ad yamilex PLAN: 1. Discitis and osteomyelitis, day #14 inpatient antibiotics - MALIHA negative for vegetations - Rocephin 2 g q24h - Dr. Vasquez (ID) following. Would need prolong IV abx but home treatment with PICC not be ideal due to hx IV drug use. - Dalvance prior authorization initiated, plan is for weekly doses of Dalvance outpatient in the infusion unit, hopefully 09/25 and 10/04 if prior authorization can be obtained - Pain control: Ibuprofen 600 mg TIDP, Percocet 1 tabs q8h prn; trying to wean down narcotics but it is difficult secondary to back pain from discitis; not a candidate for epidural due to contraindication for discitis; Gabapentin 600 mg TID; baclofen 5 mg 3 times a day when necessary 2. Polysubstance abuse - denies use in the past 2 weeks - recent ED visit 09/08/19 for polysubstance abuse with positive tox screen - Visitors limited as new UDS positive for opiates and benzodiazepines - complicating d/c planning, as his pain is currently being controlled with narcotics and he has a history of IV drug abuse 3. Hx of Hepatitis C - transaminitis on prior admission (06/07/19), further work up positive for hepatitis C - liver profile showed elevated transaminases - outpatient f/u for treatment 4. Hep A ab + - No symptoms suggestive of active infection. - Likely immune due to previous exposure or vaccination 5. ?restless legs v withdrawal symptoms - CBC, BMP, ferritin, and magnesium within normal limits - Better with Seroquel - Advised to continue stretching 6. Leukocytosis - likely secondary to pain - CRP trending down, on IV rocephin 7. Anxiety - complicated by history of substance abuse - continue gabapentin, wellbutrin, and hydroxyzine; Seroquel 200 mg at night - Dr. Williamson from psychiatry consulted, appreciate her help Dispo: Hopefully can be discharged Monday or , pending being able to wean off narcotics and have adequate pain control. PFS working on outpatient Dalvance prior authorization VS,Fishbone, I+O VS, Fishbone, I+O Vital Signs Date Time Temp Pulse Resp B/P (MAP) Pulse Ox O2 Delivery O2 Flow Rate FiO2 09/24/19 05:45 98.0 84 18 119/60 (79) 96 Room Air I&O- Last 24 Hours up to 6 AM 09/24/19 06:00 Intake Total 1500 ml Balance 1500 ml GME ATTESTATION GME ATTESTATION My faculty preceptor for this patient encounter was physically present during the encounter and was fully available. All aspects of the patient interview, examination, medical decision making process, and medical care plan development were reviewed and approved by the faculty preceptor. The faculty preceptor is aware and concurs with the plan as stated in the body of this note and will attest to such by his/her cosignature. ATTENDING NOTE I have personally evaluated and examined the patient. Discussed with residents and student regarding plan of care and agree with the above assessment and plan. ZACK DON D.O. Sep 24, 2019 09:51 BERTO RODRIGUES MD Sep 24, 2019 18:23
[2019-09-24] MEDS ORDERED: PERCOCET 5MG/325MG TAB PO PRN (12:00)
[2019-09-24] MEDS: hydrOXYzine 50 MG TAB PO PRN ×2 (12:14→20:18)
[2019-09-24] MEDS: IBUPROFEN 600 MG TAB PO PRN ×2 (13:08→22:24)
[2019-09-24 14:00] VITALS: BP 127/73
[2019-09-24] MEDS: BACLOFEN 5MG PER 1/2 TABLET PO PRN ×2 (14:48→22:24)
[2019-09-24] MEDS: cefTRIAXone SOD 2 GM in D5W MINI-BAG PLUS 50 ML IV SCH (17:30)
[2019-09-24] MEDS: ENOXAPARIN 40 MG/0.4 ML SYRINGE (J1650) SC SCH (21:00)
[2019-09-24] MEDS: QUEtiapine FUMARATE 200 MG TAB PO SCH (21:19)
[2019-09-24 22:00] VITALS: BP 130/70
[2019-09-25] MEDS: PERCOCET 5MG/325MG TAB PO PRN (03:54)
[2019-09-25] MEDS: GABAPENTIN 300 MG CAP PO SCH (05:47)
[2019-09-25] MEDS: SLF 3 ML SYR IV SCH (05:47)
[2019-09-25 06:00] VITALS: BP 126/69
[2019-09-25 06:23] LABS: BASO # 0.1 10^3/uL (0.0-0.2); BASO % 0.8 % (0.0-1.0); EOS # 0.2 10^3/uL (0.0-0.5); EOS % 3.2 % (0.0-3.0); HEMOGLOBIN 12.8 g/dl (13.5-17.5); LYMPH # 2.2 10^3/uL (1.5-5.0); MEAN CORPUSCULAR HEMOGLOBIN 29.8 pg (27.0-33.0); MEAN CORPUSCULAR VOLUME 93.2 fl (80.0-96.0); MONO # 0.5 10^3/uL (0.0-0.8); MONO % 8.6 % (0.0-5.0); NEUTROPHILS # 3.1 10^3/uL (1.5-8.5); NEUTROPHILS % 49.9 % (36.0-66.0); PLATELET COUNT, AUTOMATED 305 10^3/uL (150-450); RED BLOOD COUNT 4.29 10^6/uL (4.30-6.10); WHITE BLOOD COUNT 6.2 10^3/uL (4.0-10.0)
[2019-09-25 07:06] LABS: ERYTHROCYTE SEDIMENTATION RATE 27 mm/hr (0-15)
[2019-09-25] MEDS ORDERED: PERCOCET 5MG/325MG TAB PO PRN (08:30)
[2019-09-25] MEDS: buPROPion **XL** TABLET 150MG (WELLBUTRIN XL) PO SCH (09:18)
[2019-09-25] MEDS: LACTOBACILLUS ACIDOPHILUS CAP (BACID) PO SCH (09:18)
[2019-09-25] MEDS: IBUPROFEN 600 MG TAB PO PRN (09:20)
[2019-09-25] MEDS ORDERED: GABA-843 PO (09:27)
[2019-09-25] MEDS ORDERED: QUET200T2 PO (09:27)
[2019-09-25] MEDS ORDERED: HYDR50TA70 PO (09:27)
[2019-09-25] MEDS ORDERED: IBUP-1022 PO (09:27)
[2019-09-25] MEDS ORDERED: BUPR150T3 PO (09:27)
[2019-09-25] MEDS ORDERED: BACL10TA2 PO (09:27)
--- NOTE | 2019-09-25 12:29 | DSES ---
DATE OF ADMISSION: 09/11/2019 DATE OF DISCHARGE: 09/25/2019 DISCHARGE DIAGNOSES: 1. Discitis, potential osteomyelitis. 2. Polysubstance abuse. 3. History of hepatitis C. 4. Hepatitis A antibody positive. 5. Anxiety. CONSULTANTS: 1. Dr. Jeramy Vasquez, infectious disease. 2. Dr. Steve Calles, psychiatry. 3. Pharmacy for vancomycin dosing. HOSPITAL COURSE: This is a 29-year-old male who presented to the hospital as a direct admission from the orthopedic surgery office. He began to have low back pain about two was 3 days prior to admission and reported it to be a 10/10 consistent throughout those days without any alleviating factors. It was aggravated by moving in any direction straining for a bowel movement and sometimes straining to urinate. There were no radicular symptoms, numbness or tingling down the legs, nor paresthesias. He felt somewhat weak in the legs because of the pain but denies any urinary or bowel incontinence. Lumbar MRI done at [facility] showed discitis and osteomyelitis at the L4- 5 level. He was admitted to [facility] for blood cultures and empiric antibiotics with vancomycin and Rocephin as well as pain management. He had a history of hepatitis C from a prior admission so he was subsequently tested for HIV, hepatitis A and hepatitis B. Transthoracic echocardiogram was done and did not show any vegetations, normal ejection fraction. One of his initial blood cultures grew Granulicatella adiacens. Repeat blood cultures were negative. Serology for hepatitis showed a positive hepatitis A antibody, hepatitis B antibody was negative, HIV was not detected and Staphylococcus aureus (MRSA) was not detected. Vancomycin was discontinued as MRSA was not detected. The transesophageal echocardiogram was performed which was negative for vegetations as well. The patient's discharge planning was complicated by his history of drug abuse. He has a history of polysubstance abuse including IV heroin and crystal meth. He also admitted to a history of being addicted to Suboxone. He has been to two rehabs in the last 3 months, the last one was at [facility] where he left against medical advice. He completed a 14-day course of IV antibiotics and prior authorization was obtained for outpatient DALVANCE to be infused weekly for 2 weeks at our IV infusion center. It was deemed because of his history of polysubstance abuse, that he would not be a candidate for outpatient therapy through a peripherally inserted central catheter (PICC) line as there is a risk of IV drug use with that. He is able to be weaned off of head narcotics for pain control and his pain is currently found to be stable on ibuprofen gabapentin and baclofen. Psychiatry was also consulted for his history of addiction as well as severe anxiety. PHYSICAL EXAMINATION: VITALS: Temperature 97.6, pulse 67 and regular, respiratory rate 15, blood pressure 126/69, pulse oximetry 99% on room air. GENERAL: Young adult male in no acute distress, slightly stiff when getting up to walk around the room. Able to move freely. EYES: Normal, sclera anicteric. HEENT: Atraumatic, normocephalic. NECK: Supple, no jugular venous distention (JVD). CARDIOVASCULAR: Regular rate and rhythm. No murmurs, gallops or rubs. LUNGS: Clear to auscultation bilaterally. No wheezes, rhonchi or rales. GI: Normoactive bowel sounds, soft, nontender, nondistended. SKIN: Warm and dry. No rashes or lesions. EXTREMITIES: No clubbing, cyanosis or edema. Muscle strength 5/5 bilaterally. NEURO: No fasciculations, lower extremity reflexes are intact bilaterally. No changes to sensation. PSYCH: Cooperative, answering questions appropriately. Affect full. No agitation noted. LABORATORY DATA: Upon discharge CBC showed a WBC 6.2, hemoglobin 12.8, hematocrit of 40, platelets 305 with an ESR of 27, decreased from his highest on 09/13/2019 at 44. CRP: 0.69 decreased from its highest from 09/11/2019 which was 8.24. Serology: Hepatitis A antibody positive, hepatitis B antigen negative, hepatitis B core IgM antibody negative, hepatitis B surface antibody at 213. HIV antibody and antigen negative, MRSA and not detected. Micro: 1/2 blood cultures from 09/11/2019 positive for Granulicatella adiacens Repeat blood cultures were negative. Echocardiograms, both transthoracic and transesophageal, negative for vegetations. DISCHARGE MEDICATIONS: - baclofen 10 mg by mouth three times a day as needed - Wellbutrin 300 mg by mouth every morning - gabapentin 600 mg by mouth every 8 hours as needed - hydroxyzine 50 mg by mouth every 6 hours as needed for anxiety - Ibuprofen and 600 mg by mouth every 8 hours as needed for pain - quetiapine 100 mg by mouth nightly for sleep. Stop medications include methocarbamol and Suboxone. FOLLOWUP: The patient is to establish with a primary care provider within the next week. He should be seen by Dr. Vasquez in 2 weeks. He was discharge directly to the IV infusion unit for DALVANCE therapy, and has a script for a CBC, CRP and sed rate for both today's visit and next week's visit. He is homeless so he will report after his infusion to department of psychiatric social worker supervisor (DSS) for emergency housing. 35 minutes spent coordinating care for discharge. I have personally evaluated and examined the patient. Discussed with residents and student regarding plan of care and agree with the above assessment and discharge plan. CALISTA
--- NOTE | 2019-09-25 13:58 | IPN ---
DATE: 09/24/2019 Giacomo is doing much better. He is moving better. His pain has decreased. He is taking three Percocet a day along with muscle relaxant and gabapentin 600 mg every 8 hours. He feels his anxiety is better and sleeping well with Seroquel 200 mg at bedtime. He has no nausea, vomiting, diarrhea. No abdominal pain. He has bilateral lower muscular pain around lumbar, L4-5. He is anxious to go home before Thanksgiving. PHYSICAL EXAMINATION: Temperature is 98.9, pulse 79, respirations 20, blood pressure 127/73, oxygen saturation 96% on room air. Heart: Normal S1, S2. No murmurs, rubs, or gallops. Lungs are clear. No wheezes, rales, or rhonchi. Abdomen soft, nontender. No hepatosplenomegaly. Back: Mild lumbosacral and paraspinal tenderness at L4-5. Extremities: No edema. No clubbing or cyanosis. Motor strength normal. Last labs were done on September 20. White count 12.6 and CRP 0.63. IMPRESSION: 1. Discitis, L4-L5 with culture positive for Granulicatella. Patient clinically improved on intravenous (IV) Rocephin 2 grams every 24 hours. Dalvance has been approved through the infusion company, [employer] and could be infused at home on Monday, but the patient wants to be discharged home tomorrow. This could be done at the infusion unit tomorrow or so he does not have to spend another 3 days in the hospital. 2. Polysubstance abuse, currently on Percocet every 8 hours. The patient would like to followup at [facility] for Suboxone. 3. Hepatitis C. This will be treated as an outpatient by the infectious disease clinic. PLAN: The patient could have an appointment at my office in a couple weeks for followup on discitis. He will be discharged home on Dalvance at 1.5 grams to be given the next day after discharge, and the second dose will be given 10 days later. Monitor complete blood count (CBC), C-reactive protein (CRP) in [address] Vasquez's office in 2 weeks. I will not be available for the next 5 days.
== END 2019-09-25 12:47 | disposition home or self-care (01) | DRG 347 ==
LOC: M PCU 16:20 → M MSPAV 09-14 02:53
PROVIDERS: ADMIT Student in an Organized Health Care Education/Training Program; ATTEND Student in an Organized Health Care Education/Training Program
PROC: B246ZZ4 Ultrasonography of Right and Left Heart, Transesophageal (ICD-10-PCS; principal; 2019-09-17 17:00)
DX: M46.46 Discitis, unspecified, lumbar region (principal); M86.9 Osteomyelitis, unspecified; F19.90 Other psychoactive substance use, unspecified, uncomplicated; B19.20 Unspecified viral hepatitis C without hepatic coma; F11.10 Opioid abuse, uncomplicated; F13.10 Sedative, hypnotic or anxiolytic abuse, uncomplicated; R78.81 Bacteremia; F41.9 Anxiety disorder, unspecified; Z59.0 Homelessness; Z79.899 Other long term (current) drug therapy; Z91.82 Personal history of military deployment

== ENCOUNTER → 2019-09-11 | Outpatient (REF) | payer OTHER ==
[2019-09-11 16:13] LABS: BASO % 0.2 % (0.0-1.0); EOS % 0.2 % (0.0-3.0); HEMATOCRIT 42.6 % (42.0-52.0); HEMOGLOBIN 13.7 g/dl (13.5-17.5); LYMPH # 2.3 10^3/uL (1.5-5.0); LYMPH % 20.3 % (24.0-44.0); MEAN CORPUSCULAR HEMOGLOBIN 29.8 pg (27.0-33.0); MEAN CORPUSCULAR HGB CONC 32.2 g/dl (32.0-36.5); MEAN CORPUSCULAR VOLUME 92.6 fl (80.0-96.0); MONO # 1.1 10^3/uL (0.0-0.8); MONO % 9.6 % (0.0-5.0); NEUTROPHILS # 7.9 10^3/uL (1.5-8.5); NEUTROPHILS % 69.3 % (36.0-66.0); PLATELET COUNT, AUTOMATED 226 10^3/uL (150-450); WHITE BLOOD COUNT 11.4 10^3/uL (4.0-10.0)
[2019-09-11 16:39] LABS: ERYTHROCYTE SEDIMENTATION RATE 32 mm/hr (0-15)
== END ==
LOC: M LABDRAW1 15:42
PROVIDERS: ATTEND Orthopaedic Surgery
DX: M54.5 Low back pain (principal)

== ENCOUNTER 2019-09-25 14:49 | Outpatient (CLI) | payer OTHER ==
[~2019-09-25] VITALS: Ht 172.7 cm; Wt 76.0 kg
[~2019-09-25 14:49] MED LIST changes: +BACL10TA2 PO; +BUPR150T3 PO; +GABA-843 PO; +HYDR50TA70 PO; +IBUP-1022 PO; +QUET200T2 PO
[2019-09-25 15:09] VITALS: BP 158/76
[2019-09-25] MEDS ORDERED: DALBAVANCIN 1,500 MG in D5W 250 ML IV ONE (16:00)
[2019-09-25 16:20] VITALS: BP 137/89
== END 2019-09-25 16:20 | disposition home or self-care (01) ==
LOC: M INFU 14:49
PROVIDERS: ATTEND Obstetrics & Gynecology
DX: M46.40 Discitis, unspecified, site unspecified (principal)
CPT/HCPCS: 96365; J0875

== ENCOUNTER → 2019-10-04 | Outpatient (CLI) | payer OTHER | LOC: M OUTALCOH 08:42 | PROVIDERS: ATTEND Psychiatry & Neurology Psychiatry | DX: F11.20 Opioid dependence, uncomplicated (principal) ==

== ENCOUNTER → 2019-10-10 | Outpatient (CLI) | payer OTHER ==
[2019-10-10 14:29] LABS: BASO % 0.3 % (0.0-1.0); EOS # 0.1 10^3/uL (0.0-0.5); EOS % 1.9 % (0.0-3.0); LYMPH % 41.6 % (24.0-44.0); MEAN CORPUSCULAR HEMOGLOBIN 29.9 pg (27.0-33.0); MEAN CORPUSCULAR HGB CONC 33.3 g/dl (32.0-36.5); MEAN CORPUSCULAR VOLUME 89.6 fl (80.0-96.0); MONO # 0.6 10^3/uL (0.0-0.8); MONO % 8.6 % (0.0-5.0); NEUTROPHILS # 3.4 10^3/uL (1.5-8.5); NEUTROPHILS % 47.2 % (36.0-66.0); PLATELET COUNT, AUTOMATED 204 10^3/uL (150-450); RED BLOOD COUNT 4.69 10^6/uL (4.30-6.10); WHITE BLOOD COUNT 7.2 10^3/uL (4.0-10.0)
[2019-10-10 14:50] LABS: ERYTHROCYTE SEDIMENTATION RATE 12 mm/hr (0-15)
[2019-10-10 14:55] LABS: ALBUMIN 3.9 GM/DL (3.2-5.2); ALT/SGPT 231 U/L (12-78); BILIRUBIN,TOTAL 0.3 MG/DL (0.2-1.0); BLOOD UREA NITROGEN 12 MG/DL (7-18); C REACTIVE PROTEIN QUANTITATIV < 0.30 MG/DL (0.00-0.30); CALCIUM LEVEL 9.6 MG/DL (8.5-10.1); CARBON DIOXIDE LEVEL 30 MEQ/L (21-32); CHLORIDE LEVEL 100 MEQ/L (98-107); GLOMERULAR FILTRATION RATE > 60.0 (>60); GLUCOSE, FASTING 100 MG/DL (70-100); POTASSIUM SERUM 4.1 MEQ/L (3.5-5.1); SODIUM LEVEL 139 MEQ/L (136-145); TOTAL PROTEIN 8.1 GM/DL (6.4-8.2)
== END ==
LOC: M PLALAB 11:45
PROVIDERS: ATTEND Internal Medicine Infectious Disease
DX: M46.46 Discitis, unspecified, lumbar region (principal); B19.20 Unspecified viral hepatitis C without hepatic coma

== ENCOUNTER 2019-10-28 08:00 | Outpatient (RCR) | payer OTHER | END 2019-10-29 | LOC: M OUTALCOH 08:00 | PROVIDERS: ATTEND Psychiatry & Neurology Psychiatry | DX: F11.20 Opioid dependence, uncomplicated (principal); F15.20 Other stimulant dependence, uncomplicated; F16.20 Hallucinogen dependence, uncomplicated; F17.200 Nicotine dependence, unspecified, uncomplicated ==

== ENCOUNTER → 2019-11-08 | Outpatient (CLI) | payer OTHER ==
[~2019-11-08] MED LIST changes: -BUPR300T34 PO; +BUPR300T92 PO
== END ==
LOC: M PLALAB 14:18
PROVIDERS: ATTEND Advanced Practice Midwife
DX: Z13.79 Encounter for other screening for genetic and chromosomal anomalies (principal)

== ENCOUNTER 2019-11-21 14:58 | Outpatient (RCR) | payer OTHER | END 2019-11-29 | LOC: M OUTALCOH 14:58 → EEVIPCON 14:58 | PROVIDERS: ATTEND Psychiatry & Neurology Psychiatry | DX: F11.20 Opioid dependence, uncomplicated (principal); F15.20 Other stimulant dependence, uncomplicated; F16.20 Hallucinogen dependence, uncomplicated; F17.200 Nicotine dependence, unspecified, uncomplicated ==

== ENCOUNTER → 2019-12-12 | Outpatient (CLI) | payer OTHER ==
[2019-12-12 18:47] LABS: ALBUMIN 4.9 GM/DL (3.2-5.2); BILIRUBIN,DIRECT 0.1 MG/DL (0.0-0.2); BILIRUBIN,TOTAL 0.3 MG/DL (0.2-1.0); TOTAL PROTEIN 8.3 GM/DL (6.4-8.2)
== END ==
LOC: M PLALAB 14:33
PROVIDERS: ATTEND Internal Medicine Infectious Disease
DX: B18.2 Chronic viral hepatitis C (principal)

== ENCOUNTER → 2020-03-11 | Outpatient (REF) | payer OTHER ==
[2020-03-11 16:00] LABS: ALBUMIN 4.3 GM/DL (3.2-5.2); ALT/SGPT 21 U/L (12-78); BILIRUBIN,TOTAL 0.4 MG/DL (0.2-1.0); BLOOD UREA NITROGEN 13 MG/DL (7-18); CALCIUM LEVEL 9.6 MG/DL (8.5-10.1); CARBON DIOXIDE LEVEL 35 MEQ/L (21-32); CHLORIDE LEVEL 103 MEQ/L (98-107); CREATININE FOR GFR 0.74 MG/DL (0.70-1.30); GLOMERULAR FILTRATION RATE > 60.0 (>60); GLUCOSE, FASTING 92 MG/DL (70-100); POTASSIUM SERUM 4.5 MEQ/L (3.5-5.1); SODIUM LEVEL 140 MEQ/L (136-145); TOTAL PROTEIN 7.6 GM/DL (6.4-8.2)
[2020-03-16 08:08] LABS: HEPATITIS C QUANTITATION HCV Not Detected IU/mL (.)
== END ==
LOC: M SFHCPLAZ 13:44
PROVIDERS: ATTEND Hospitalist
DX: B18.2 Chronic viral hepatitis C (principal)

== ENCOUNTER 2020-08-29 18:39 | Inpatient (IN) | payer OTHER ==
[~2020-08-29] VITALS: Ht 172.7 cm; Wt 71.2 kg
[2020-08-29] MEDS ORDERED: GABA600T4 PO (19:00)
[2020-08-29] MEDS ORDERED: SULF1TAB93 PO (19:00)
[2020-08-29] MEDS ORDERED: CLON1TAB8 PO (19:00)
[2020-08-29] MEDS ORDERED: BUPR1SUB5 SL (19:00)
[2020-08-29 20:24] LABS: AMPHETAMINES LEVEL URINE POSITIVE (NEGATIVE); BARBITURATES URINE NEGATIVE (NEGATIVE); BENZODIAZEPINES URINE POSITIVE (NEGATIVE); CANNABINOIDS URINE POSITIVE (NEGATIVE); COCAINE METABOLITE URINE NEGATIVE (NEGATIVE); METHADONE URINE NEGATIVE (NEGATIVE); OPIATES URINE NEGATIVE (NEGATIVE); PHENCYCLIDINE URINE NEGATIVE (NEGATIVE)
[2020-08-29] MEDS ORDERED: ACETAMINOPHEN TAB 650MG DOSE (2X325MG) PO PRN (21:45)
[2020-08-29] MEDS ORDERED: traZODone 50 MG TAB PO PRN (21:45)
[2020-08-29] MEDS ORDERED: MOM 30ML SUSPENSION UDC PO PRN (21:45)
[2020-08-29] MEDS ORDERED: MAALOX 30 ML SUSP *UDC PO PRN (21:45)
[2020-08-29 22:24] LABS: HEMOGLOBIN 13.6 g/dl (13.5-17.5); MEAN CORPUSCULAR HEMOGLOBIN 29.6 pg (27.0-33.0); MEAN CORPUSCULAR HGB CONC 32.4 g/dl (32.0-36.5); MEAN CORPUSCULAR VOLUME 91.5 fl (80.0-96.0); PLATELET COUNT, AUTOMATED 284 10^3/uL (150-450); RED BLOOD COUNT 4.59 10^6/uL (4.30-6.10); WHITE BLOOD COUNT 9.5 10^3/uL (4.0-10.0)
[2020-08-29 23:03] LABS: ACETAMINOPHEN LEVEL < 2.0 UG/ML (10.0-30.0); ALBUMIN 4.2 GM/DL (3.2-5.2); ALT/SGPT 33 U/L (12-78); BILIRUBIN,DIRECT 0.1 MG/DL (0.0-0.2); BILIRUBIN,TOTAL 0.3 MG/DL (0.2-1.0); BLOOD UREA NITROGEN 15 MG/DL (7-18); CALCIUM LEVEL 8.9 MG/DL (8.5-10.1); CARBON DIOXIDE LEVEL 34 MEQ/L (21-32); CHLORIDE LEVEL 103 MEQ/L (98-107); CREATININE FOR GFR 0.87 MG/DL (0.70-1.30); ETHYL ALCOHOL (ETHANOL) < 0.003 % (0.000-0.010); GLOMERULAR FILTRATION RATE > 60.0 (>60); GLUCOSE, FASTING 65 MG/DL (70-100); POTASSIUM SERUM 4.4 MEQ/L (3.5-5.1); SALICYLATE LEVEL < 1.7 MG/DL (5.0-30.0); SODIUM LEVEL 140 MEQ/L (136-145); TOTAL PROTEIN 7.6 GM/DL (6.4-8.2)
[2020-08-30] MEDS: BUPRENORPHINE/NALOXONE 8-2MG SUBLINGUAL TABLET(SUBOXONE) SL SCH (09:14)
[2020-08-30] MEDS: NICOTINE 21MG/24HR 1 EA TRANSDERMAL TD SCH (09:14)
[2020-08-30] MEDS ORDERED: PILL CUTTER 1 EACH XX PRN (09:30)
[2020-08-30 09:34] VITALS: BP 127/59
--- NOTE | 2020-08-30 10:15 | HPEPDOC ---
[facility] Medical History & Physical Date of Admission Aug 29, 2020 Date of Service: Aug 30, 2020 Primary Care Physician: SAMRA CEBALLOS DO History and Physical CHIEF COMPLAINT: Bizarre behavior and drug abuse HISTORY OF PRESENT ILLNESS: And patient was brought into the emergency department by [facility] Police. Apparently he had been acting bizarrely and yelling at [id number], therefore the police was called. He admits to using crystal meth and taking Ativan yesterday. CODE STATUS: Full code PAST MEDICAL HISTORY: IV Drug abuse Hepatitis C status post treatment with Epclusa Discitis Anxiety Tobacco abuse PAST SURGICAL HISTORY: None SOCIAL HISTORY: Denies alcohol use, but admits to tobacco and illicit drug use FAMILY HISTORY: No pertinent family history REVIEW OF SYSTEMS: Constitutional: Patient denies fevers, chills, night sweats, recent weight gain/loss. HEENT: Patient denies blurred or double vision, transient visual disturbances, postnasal drip, epistaxis, sore throat, difficulty chewing or swallowing food. Cardiovascular: Patient denies chest discomfort/pain, palpitations, exertional dyspnea, orthopnea, edema of the extremities, claudication. Respiratory: Patient denies dyspnea, wheezing, cough, hemoptysis, sputum production. Gastrointestinal: Patient denies nausea, vomiting, diarrhea, constipation, abdominal pain, melena, hematochezia, hematemesis, jaundice. Integument: Complaining of erythema and induration on the left medial elbow, he admits that this is a place of recent IV drug use. PHYSICAL EXAMINATION: General: Awake, alert, oriented 3. He does not appear to be in any acute distress. He does seem to have pressured speech. HEENT: Head normocephalic atraumatic, conjunctiva are pink, sclera are nonicteric, buccal mucosa is pink and moist with no lesions in the oropharynx. Hearing is grossly intact to conversation. Respiratory: Clear to auscultation bilaterally with no wheezes, rales, or rhonchi. Cardiovascular: Regular rate and rhythm, with no rubs, gallops, or murmur. Abdomen: Soft, nontender, nondistended, no hepatosplenomegaly appreciated. Bowel sounds present. Extremities: 2+ pulses in the radial and dorsalis pedis bilaterally. No evidence of clubbing or cyanosis. ASSESSMENT/PLAN: Bizarre behavior, drug abuse -Management per recommendations from the psychiatry team Left elbow cellulitis - Bactrim 160/800 one tab by mouth twice a day initiated as an outpatient on 08/25/2020 with instructions to continue for 7 days. I have put in 3 additional days in [employer], he should get his last dose in the evening of 09/01/2020 Vital Signs Vital Signs Date Time Temp Pulse Resp B/P (MAP) Pulse Ox O2 Delivery O2 Flow Rate FiO2 08/30/20 09:34 98.5 58 18 127/59 (81) 08/29/20 19:24 96 Room Air Laboratory Data Labs 24H Laboratory Tests 2 08/29/20 19:42: Urine Opiates Screen NEGATIVE, Urine Methadone Screen NEGATIVE, Urine Barbiturates Screen NEGATIVE, Urine Phencyclidine Screen NEGATIVE, Urine Amphetamines Screen POSITIVEH, Urine Benzodiazepines Screen POSITIVEH, Urine Cocaine Metabolite Screen NEGATIVE, Urine Cannabinoids Screen POSITIVEH 08/29/20 19:45: Nucleated Red Blood Cells % (auto) 0.0, Anion Gap 3L, Glomerular Filtration Rate > 60.0, Calcium Level 8.9, Total Bilirubin 0.3, Direct Bilirubin 0.1, Aspartate Amino Transf (AST/SGOT) 30, Alanine Aminotransferase (ALT/SGPT) 33, Alkaline Phosphatase 96, Total Protein 7.6, Albumin 4.2, Albumin/Globulin Ratio 1.2, Thyroid Stimulating Hormone (TSH) 2.610, Salicylates Level < 1.7L, Acetaminophen Level < 2.0L, Ethyl Alcohol Level < 0.003 CBC/BMP Laboratory Tests 08/29/20 19:45 Home Medications Scheduled Buprenorphine HCl/Naloxone HCl (Buprenorphin-Naloxon 8-2 mg Sl) 1 Each Tab.subl, 2.5 FILM SL DAILY Gabapentin (Gabapentin) 600 Mg Tablet, 600 MG PO DAILY Sulfamethoxazole/Trimethoprim (Sulfamethoxazole-Tmp Ds Tablet) 1 Each Tablet, 1 TAB PO BID started 08/25/20 x 7 days Scheduled PRN Clonazepam (Clonazepam) 1 Mg Tablet, 1 MG PO BIDP PRN for ANXIETY/AGITATION Allergies Coded Allergies: No Known Allergies (Unverified , 09/10/19) A-FIB/CHADSVASC A-FIB History Current/History of A-Fib/PAF?: No KATLIN BRANDT DO Aug 30, 2020 10:15
[2020-08-30] MEDS: BACTRIM 160MG/800MG DS TAB PO SCH ×2 (10:42→21:25)
[2020-08-30] MEDS: OLANZapine ORAL DISINTEGRATING TAB 5MG PO PRN ×2 (14:03→21:25)
--- NOTE | 2020-08-30 15:01 | MHHPEPDOC ---
[facility] History & Physical History and Physical DATE OF ADMISSION: Aug 29, 2020 at 21:43 HPI: Giacomo was admitted to the inpatient mental health unit after reportedly heckling [id number] on Halloween evening, while high on methamphetamine. He reports to have lost his young child that he had been proud of when seen last several months ago. And since this event, he relapsed into significant drug use. He appeared to be upset as he wasnt met with earlier and stated that he was tired and wanted to sleep. MEDICATIONS: He required treatment for abscesses from various injections. Hes currently not on any medications. There has been some reports that hes taking Adderall and other medications, but unclear if they are prescribed to him. MEDICAL HISTORY: Hes known to be previous addiction patient, which seems to have relapsed on significant methamphetamine. His past medical history consists of significant addiction, no notable history of mental health, and distant interactions with psychiatry. FAMILY HISTORY: His family history is non-contributory. SOCIAL HISTORY - LIVING SITUATION: Hes currently from girlfriend, unclear if employed, and multiple drug use problems, including opioids, methamphetamine, and others. Objective Appearance: Hes sleeping comfortably. Behavior: He appeared to be mildly circumstantial, but otherwise was pleasant. Mildly irritable. Judgement: Unclear. Insight: Unclear. 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 Hes at a higher risk for dying of overdose due to his significant drug use. Observe him without any extra medication. Continue on Buprenorphine once hes sober. Treatment priorities are (1) altered thoughts and (2) substance use. Estimated length of stay is 1-3 days. Vital Signs Vital Signs Date Time Temp Pulse Resp B/P (MAP) Pulse Ox O2 Delivery O2 Flow Rate FiO2 08/30/20 09:34 98.5 58 18 127/59 (81) 08/29/20 19:24 96 Room Air Laboratory Data 24H Labs Laboratory Tests 2 08/29/20 19:42: Urine Opiates Screen NEGATIVE, Urine Methadone Screen NEGATIVE, Urine Barbiturates Screen NEGATIVE, Urine Phencyclidine Screen NEGATIVE, Urine Amphetamines Screen POSITIVEH, Urine Benzodiazepines Screen POSITIVEH, Urine Cocaine Metabolite Screen NEGATIVE, Urine Cannabinoids Screen POSITIVEH 08/29/20 19:45: Nucleated Red Blood Cells % (auto) 0.0, Anion Gap 3L, Glomerular Filtration Rate > 60.0, Calcium Level 8.9, Total Bilirubin 0.3, Direct Bilirubin 0.1, Aspartate Amino Transf (AST/SGOT) 30, Alanine Aminotransferase (ALT/SGPT) 33, Alkaline Phosphatase 96, Total Protein 7.6, Albumin 4.2, Albumin/Globulin Ratio 1.2, Thyroid Stimulating Hormone (TSH) 2.610, Salicylates Level < 1.7L, Acetaminophen Level < 2.0L, Ethyl Alcohol Level < 0.003 CBC/BMP Laboratory Tests 08/29/20 19:45 Medications Scheduled Buprenorphine HCl/Naloxone HCl (Buprenorphin-Naloxon 8-2 mg Sl) 1 Each Tab.subl, 2.5 FILM SL DAILY for addiction Nicotine (Nicotine Patch) 21 Mg Patch.td24, 1 PATCH TD DAILY for tobacco Sulfamethoxazole/Trimethoprim (Sulfamethoxazole-Tmp Ds Tablet) 1 Each Tablet, 1 TAB PO BID for infection started 08/25/20 x 7 days Allergies Coded Allergies: No Known Allergies (Unverified , 09/10/19) VARGHESE EDWARDS DO Aug 30, 2020 15:01
[2020-08-30 16:27] VITALS: BP 134/60
[2020-08-31 06:42] VITALS: BP 117/73
[2020-08-31] MEDS: BACTRIM 160MG/800MG DS TAB PO SCH (09:25)
[2020-08-31] MEDS: NICOTINE 21MG/24HR 1 EA TRANSDERMAL TD SCH (09:25)
[2020-08-31] MEDS: BUPRENORPHINE/NALOXONE 8-2MG SUBLINGUAL TABLET(SUBOXONE) SL SCH (09:26)
--- NOTE | 2020-08-31 10:09 | MHDSPDOC ---
[facility] Discharge Summary Discharge Summary DATE OF ADMISSION: Aug 29, 2020 at 21:43 DATE OF DISCHARGE:Aug 31, 2020 at 13:35 DISCHARGE DIAGNOSES: F43.9 Reaction to severe stress, unspecified F43.20 Adjustment disorder, unspecified F15.10 Other stimulant abuse, uncomplicated CONSULTANTS INVOLVED:[ None (basic hospitalist screening)] REASON FOR ADMISSION & TREATMENT AND PROGRESS ON THE UNIT : The patient was admitted to the inpatient mental health year and after having altered thoughts after using methamphetamine. He still Had some psychotic symptoms in the ER. I was admitted with immense caution. He is observed for 48 hours for his psychosis, spontaneously resolved without any major issues. He returned to his normal mental status exam. He was cooperative for the most part but did not want to sign releases as he felt it felt that it was he was ashamed of his Presentation at didn't want to involve anyone else in his care. MEDICATIONS: He currently sees Dr. Eubanks and a refill of his Buprenorphine was given. DISCHARGE ASSESSMENT:[improved] Legal status considerations: The patient at the time of discharge did not meet criteria for involuntary admission/extension due to having a [normal] mental status exam, [fair] insight into the situation, They are engaged in the discharge process, as well as being friendly and amenable in behavioral control and havent been engaging in any observed concerning behavior or ideation recently. They decline voluntary extension/admission at this time and must be discharged in good racquel, as Im unable to make a case for holding the patient against their will. They may have historical risk factors of admissions and other interactions with psychiatry however, those are not modifiable from a clinical perspective. The patient will need to be discharged in good racquel. MENTAL STATUS EXAMINATION ON DISCHARGE: [General: Well dressed with good hygiene Speech: Spontaneous and fluid Thought processes: Linear and logical Thought content: Future orientated Abstract reasoning, and computation: Intact Description of associations: Intact Description of abnormal or psychotic thoughts:Denies any suicidal or homicidal ideation. Denies any auditory or visual hallucinations. Does not appear to be responding to internal stimuli. Does not appear to be endorsing any bizarre or paranoid ideation. Judgment: fair Insight: fair Orientation: Alert and orientated 3 Recent and remote memory: Intact Attention span and concentration: Intact Fund of knowledge: Adequate Mood: "okay" Affect: Euthymic with a full range] PLAN/FOLLOWUP ARRANGEMENTS: Follow up appointments made (PCP and MH in 5 days of D/C date) and safety plan completed. Safety Planning aspects completed prior to discharge [Medication supplies limited to 7 days with 4 refills to prevent accumulation to OD] Offered to help arrange, however patient 14 does not have many in his life, advocated patient to increase social supports [RN reviewed crisis hotline information and other aspects to empower patient to access care in interim before next appointment.] The amount of time spent in the coordination of care for this patient was a pproximately 30 minutes. Vital Signs/I&Os Vital Signs Date Time Temp Pulse Resp B/P (MAP) Pulse Ox O2 Delivery O2 Flow Rate FiO2 08/31/20 06:42 97.1 64 12 117/73 (88) Room Air 08/29/20 19:24 96 Medications Scheduled Buprenorphine HCl/Naloxone HCl (Buprenorphin-Naloxon 8-2 mg Sl) 1 Each Tab.subl, 2.5 FILM SL DAILY for addiction for 7 Days, #15 Nicotine (Nicotine Patch) 21 Mg Patch.td24, 1 PATCH TD DAILY for tobacco for 30 Days, #30 Sulfamethoxazole/Trimethoprim (Sulfamethoxazole-Tmp Ds Tablet) 1 Each Tablet, 1 TAB PO BID for infection for 2 Days, #4 started 08/25/20 x 7 days Allergies Coded Allergies: No Known Allergies (Unverified , 09/10/19) VARGHESE EDWARDS DO Aug 31, 2020 10:09
[2020-08-31] MEDS ORDERED: SULF1TAB93 PO (10:53)
[2020-08-31] MEDS ORDERED: NICO21PAT TD (10:53)
[2020-08-31] MEDS ORDERED: BUPR1SUB5 SL (10:53)
== END 2020-08-31 13:35 | disposition home or self-care (01) | DRG 755 ==
LOC: M ED 18:39 → M ED INP 21:43 → M PSY 22:53
PROVIDERS: ADMIT Psychiatry & Neurology Addiction Medicine; ATTEND Psychiatry & Neurology Addiction Medicine
DX: F43.20 Adjustment disorder, unspecified (principal); F11.10 Opioid abuse, uncomplicated; F41.9 Anxiety disorder, unspecified; F17.200 Nicotine dependence, unspecified, uncomplicated; L03.114 Cellulitis of left upper limb; F15.10 Other stimulant abuse, uncomplicated; Z79.899 Other long term (current) drug therapy

== ENCOUNTER 2020-10-01 09:03 | Emergency (ER) | payer OTHER ==
[~2020-10-01] VITALS: Ht 172.7 cm; Wt 73.6 kg
[~2020-10-01 09:03] MED LIST changes: +BUPR1SUB5 SL; +CLON1TAB8 PO; +NICO21PAT TD; +SULF1TAB93 PO
[2020-10-01 09:04] VITALS: BP 141/76
[2020-10-01] MEDS ORDERED: SERT25TA21 PO (09:13)
[2020-10-01] MEDS ORDERED: BUPR300T92 PO (09:13)
[2020-10-01] MEDS ORDERED: GABA600T4 PO (09:13)
[2020-10-01] MEDS ORDERED: CLON1TAB8 (09:13)
== END 2020-10-01 09:56 | disposition home or self-care (01) ==
LOC: M ED 09:03
DX: F41.9 Anxiety disorder, unspecified (principal); F19.10 Other psychoactive substance abuse, uncomplicated; F17.200 Nicotine dependence, unspecified, uncomplicated; Z79.899 Other long term (current) drug therapy

== ENCOUNTER 2020-10-01 15:25 | Emergency (ER) | payer OTHER ==
[~2020-10-01] VITALS: Ht 172.7 cm; Wt 77.3 kg
[~2020-10-01 15:25] MED LIST changes: +BUPR300T92; +GABA600T4; +SERT25TA21
[2020-10-01 15:26] VITALS: BP 131/100
== END 2020-10-01 15:39 | disposition left against medical advice (07) ==
LOC: M ED 15:25
DX: Z53.21 Procedure and treatment not carried out due to patient leaving prior to being seen by health care provider (principal)

== ENCOUNTER 2020-10-03 21:00 | Inpatient (IN) | payer OTHER ==
[~2020-10-03] VITALS: Ht 172.7 cm; Wt 75.1 kg
[~2020-10-03 21:00] MED LIST changes: -BUPR300T92; -GABA600T4; -SERT25TA21; +SERT25TA21 PO
[2020-10-03 21:49] LABS: HEMATOCRIT 38.6 % (42.0-52.0); HEMOGLOBIN 13.1 g/dl (13.5-17.5); MEAN CORPUSCULAR HEMOGLOBIN 29.8 pg (27.0-33.0); MEAN CORPUSCULAR HGB CONC 33.9 g/dl (32.0-36.5); MEAN CORPUSCULAR VOLUME 87.9 fl (80.0-96.0); PLATELET COUNT, AUTOMATED 220 10^3/uL (150-450); RED BLOOD COUNT 4.39 10^6/uL (4.30-6.10); WHITE BLOOD COUNT 7.1 10^3/uL (4.0-10.0)
[2020-10-03 22:14] LABS: ACETAMINOPHEN LEVEL < 2.0 UG/ML (10.0-30.0); ALBUMIN 3.8 GM/DL (3.2-5.2); ALT/SGPT 35 U/L (12-78); BILIRUBIN,DIRECT 0.1 MG/DL (0.0-0.2); BILIRUBIN,TOTAL 0.5 MG/DL (0.2-1.0); BLOOD UREA NITROGEN 15 MG/DL (7-18); CALCIUM LEVEL 8.6 MG/DL (8.5-10.1); CARBON DIOXIDE LEVEL 31 MEQ/L (21-32); CHLORIDE LEVEL 106 MEQ/L (98-107); CREATININE FOR GFR 0.76 MG/DL (0.70-1.30); ETHYL ALCOHOL (ETHANOL) < 0.003 % (0.000-0.010); GLOMERULAR FILTRATION RATE > 60.0 (>60); GLUCOSE, FASTING 92 MG/DL (70-100); POTASSIUM SERUM 3.7 MEQ/L (3.5-5.1); SALICYLATE LEVEL < 1.7 MG/DL (5.0-30.0); SODIUM LEVEL 141 MEQ/L (136-145)
[2020-10-03] MEDS ORDERED: BUPRENORPHINE/NALOXONE 8-2MG SUBLINGUAL TABLET(SUBOXONE) SL ONE (22:15)
[2020-10-03 22:24] LABS: AMPHETAMINES LEVEL URINE POSITIVE (NEGATIVE); BARBITURATES URINE NEGATIVE (NEGATIVE); BENZODIAZEPINES URINE NEGATIVE (NEGATIVE); CANNABINOIDS URINE POSITIVE (NEGATIVE); COCAINE METABOLITE URINE NEGATIVE (NEGATIVE); METHADONE URINE NEGATIVE (NEGATIVE); OPIATES URINE NEGATIVE (NEGATIVE); PHENCYCLIDINE URINE NEGATIVE (NEGATIVE)
[2020-10-03] MEDS ORDERED: BUPR1SUB35 PO (22:34)
[2020-10-03] MEDS ORDERED: SUBO8MIS SL (23:31)
[2020-10-03] MEDS ORDERED: MED REC COMMENT (23:33)
[2020-10-04] MEDS ORDERED: MAALOX 30 ML SUSP *UDC PO PRN (00:45)
[2020-10-04] MEDS ORDERED: MOM 30ML SUSPENSION UDC PO PRN (00:45)
[2020-10-04] MEDS ORDERED: traZODone 50 MG TAB PO PRN (00:45)
[2020-10-04] MEDS ORDERED: ACETAMINOPHEN TAB 650MG DOSE (2X325MG) PO PRN (00:45)
[2020-10-04] MEDS ORDERED: OLANZapine ORAL DISINTEGRATING TAB 5MG PO PRN (00:45)
[2020-10-04] MEDS ORDERED: CEPHALEXIN 500 MG CAP PO SCH (01:15)
[2020-10-04] MEDS ORDERED: BOOSTRIX/ADACEL VACCINE (DIPHTH/PERTUSS/ACELL/TETANUS) 0.5ML SYR IM ONE (01:15)
[2020-10-04] MEDS: CEPHALEXIN 500 MG CAP PO ONE ×2 (01:16→02:05)
[2020-10-04 02:28] VITALS: BP 126/62
[2020-10-04] MEDS ORDERED: BUPRENORPHINE/NALOXONE 8-2MG SUBLINGUAL TABLET(SUBOXONE) SL SCH (09:00)
[2020-10-04] MEDS: GABAPENTIN 300 MG CAP PO SCH ×3 (09:43→20:41)
[2020-10-04] MEDS: SERTRALINE HCL 25 MG TABLET PO SCH (09:43)
[2020-10-04] MEDS: NICOTINE 21MG/24HR 1 EA TRANSDERMAL TD SCH (09:44)
[2020-10-04] MEDS: buPROPion **XL** TABLET 150MG (WELLBUTRIN XL) PO SCH (09:44)
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
--- NOTE | 2020-10-04 16:10 | MHIPNPDOC ---
[facility] Progress Note Progress Note DATE OF SERVICE: 10/04/20 The patient is a 30 year old male with h/o anxiety, depression, personal problems ans substance abuse who was admitted last night after he was found to be psychotic at the ED. He is now threatening staff and according to staff he has been inappropriate, he has been venting his anger saying he is going to f.....everyone up. I have spoken with him and told him he is not going to be discharged if he continues to threat other people and because I think he is a threat to himself at this time also. He might be experiencing cravings and for that reason, he probably wants to leave. I had considered letting him go but then I re considered that possibility and I decided not to discharge him. He had signed papers ( PALOMO's) to the Nurses and he had said he could go and stay with Vince, the Nurses spoke with Vince and he said he had o problems having him at home but then, I decided not to let him go because he is very impulsive and he has been threatening others. I have ordered 10 mgs of Haldol, 2 mgs of Ativan and 50 mgs of Benadryl so that he can calm down. Vital Signs Vital Signs Date Time Temp Pulse Resp B/P (MAP) Pulse Ox O2 Delivery O2 Flow Rate FiO2 10/04/20 02:28 97.7 58 16 126/62 (83) 98 Room Air Laboratory Data 24H Labs Laboratory Tests 2 10/03/20 21:25: Nucleated Red Blood Cells % (auto) 0.0, Anion Gap 4L, Glomerular Filtration Rate > 60.0, Calcium Level 8.6, Total Bilirubin 0.5, Direct Bilirubin 0.1, Aspartate Amino Transf (AST/SGOT) 42H, Alanine Aminotransferase (ALT/SGPT) 35, Alkaline Phosphatase 83, Total Protein 7.0, Albumin 3.8, Albumin/Globulin Ratio 1.2, Thyr oid Stimulating Hormone (TSH) 1.350, Salicylates Level < 1.7L, Urine Opiates Screen NEGATIVE, Urine Methadone Screen NEGATIVE, Acetaminophen Level < 2.0L, Urine Barbiturates Screen NEGATIVE, Urine Phencyclidine Screen NEGATIVE, Urine Amphetamines Screen POSITIVEH, Urine Benzodiazepines Screen NEGATIVE, Urine Cocaine Metabolite Screen NEGATIVE, Urine Cannabinoids Screen POSITIVEH, Ethyl Alcohol Level < 0.003 10/03/20 23:29: Coronavirus (COVID-19)(PCR) NEGATIVE CBC/BMP Laboratory Tests 10/03/20 21:25 Current Medications Current Medications Medications (Trade) Dose Ordered Sig/Tiffanie Route PRN Reason Start Time Stop Time Status Last Admin Dose Admin Acetaminophen (Tylenol Tab) 650 mg Q6HP PRN PO HEADACHE or DISCOMFORT 10/04/20 00:45 Al Hydrox/Mg Hydrox/Simethicone (Mylanta) 30 ml Q4HP PRN PO HEARTBURN/INDIGESTION 10/04/20 00:45 Buprenorphine/ Naloxone (Suboxone 8/2mg) 1 tab QAM SL 10/04/20 09:00 10/04/20 09:44 Bupropion HCl (Wellbutrin Xl) 300 mg DAILY PO 10/04/20 09:00 10/04/20 09:44 Cephalexin Monohydrate (Keflex) 500 mg Q6H PO 10/04/20 01:15 Cancel Gabapentin (Neurontin) 600 mg TID PO 10/04/20 09:00 10/04/20 09:43 Home Med (Med Rec Complete!) ASDIRECTED XX 10/03/20 23:45 10/03/20 23:35 DC Magnesium Hydroxide (Milk Of Magnesia) 30 ml DAILYPRN PRN PO CONSTIPATION 10/04/20 00:45 Nicotine (Nicoderm Cq 21mg) 1 patch DAILY TD 10/04/20 09:00 10/04/20 09:44 Olanzapine (ZyPREXA ZYDIS) 5 mg Q6HP PRN PO anxiety/aggitation 10/04/20 00:45 Sertraline HCl (Zoloft) 25 mg DAILY PO 10/04/20 09:00 10/04/20 09:43 Trazodone HCl (Desyrel) 50 mg QHSP PRN PO INSOMNIA 10/04/20 00:45 Allergies Coded Allergies: No Known Allergies (Unverified , 09/10/19) ROSAURA EARLY MD Oct 04, 2020 16:10
[2020-10-04] MEDS ORDERED: diphenhydrAMINE 50MG CAP PO ONE (16:15)
[2020-10-04] MEDS ORDERED: LORazepam 2 MG TAB PO ONE (16:15)
[2020-10-04 17:55] VITALS: BP 137/64
[2020-10-04] MEDS ORDERED: BUPRENORPHINE/NALOXONE 8-2MG SUBLINGUAL TABLET(SUBOXONE) SL ONE (20:15)
[2020-10-05 06:32] VITALS: BP 134/60
[2020-10-05] MEDS: GABAPENTIN 300 MG CAP PO SCH (08:49)
[2020-10-05] MEDS: NICOTINE 21MG/24HR 1 EA TRANSDERMAL TD SCH (08:49)
[2020-10-05] MEDS: buPROPion **XL** TABLET 150MG (WELLBUTRIN XL) PO SCH (08:49)
[2020-10-05] MEDS: SERTRALINE HCL 25 MG TABLET PO SCH (08:50)
[2020-10-05] MEDS ORDERED: BUPRENORPHINE/NALOXONE 8-2MG SUBLINGUAL TABLET(SUBOXONE) SL SCH (09:00)
--- NOTE | 2020-10-05 09:55 | MHIPNPDOC ---
[facility] Progress Note Progress Note DATE OF SERVICE: 10/05/20 HISTORY: . VITAL SIGNS: See below. NEW TEST RESULTS: . CURRENT MEDICATIONS: See below. MENTAL STATUS EXAMINATION: Patient is a -year old male, who is . Speech: Is . Language skills are . Thought processes including: . Thought content: . Abstract reasoning, and computation: . Description of associ ations: . Description of abnormal or psychotic thoughts: . Judgment: . Insight: [very limited, good, fair. poor]. Orientation: . Recent and remote memory: . Attention span and concentration: . Language: . Fund of knowledge: . Mood: . Affect: . DIAGNOSES: 1. . 2. . 3. . ASSESSMENT: MANAGEMENT PLAN: . TIME SPENT: minutes. Vital Signs Vital Signs Date Time Temp Pulse Resp B/P (MAP) Pulse Ox O2 Delivery O2 Flow Rate FiO2 10/05/20 06:32 97.9 54 18 134/60 (84) 10/04/20 17:55 100 Room Air Current Medications Current Medications Medications (Trade) Dose Ordered Sig/Tiffanie Route PRN Reason Start Time Stop Time Status Last Admin Dose Admin Acetaminophen (Tylenol Tab) 650 mg Q6HP PRN PO HEADACHE or DISCOMFORT 10/04/20 00:45 Al Hydrox/Mg Hydrox/Simethicone (Mylanta) 30 ml Q4HP PRN PO HEARTBURN/INDIGESTION 10/04/20 00:45 Buprenorphine/ Naloxone (Suboxone 8/2mg) 1 tab QAM SL 10/04/20 09:00 10/04/20 20:07 DC 10/04/20 09:44 Buprenorphine/ Naloxone (Suboxone 8/2mg) 3 tab QAM SL 10/05/20 09:00 10/05/20 08:50 Bupropion HCl (Wellbutrin Xl) 300 mg DAILY PO 10/04/20 09:00 10/05/20 08:49 Cephalexin Monohydrate (Keflex) 500 mg Q6H PO 10/04/20 01:15 Cancel Gabapentin (Neurontin) 600 mg TID PO 10/04/20 09:00 10/05/20 08:49 Home Med (Med Rec Complete!) ASDIRECTED XX 10/03/20 23:45 10/03/20 23:35 DC Magnesium Hydroxide (Milk Of Magnesia) 30 ml DAILYPRN PRN PO CONSTIPATION 10/04/20 00:45 Nicotine (Nicoderm Cq 21mg) 1 patch DAILY TD 10/04/20 09:00 10/05/20 08:49 Olanzapine (ZyPREXA ZYDIS) 5 mg Q6HP PRN PO anxiety/aggitation 10/04/20 00:45 Sertraline HCl (Zoloft) 25 mg DAILY PO 10/04/20 09:00 10/04/20 09:43 Trazodone HCl (Desyrel) 50 mg QHSP PRN PO INSOMNIA 10/04/20 00:45 Allergies Coded Allergies: No Known Allergies (Unverified , 09/10/19) VARGHESE EDWARDS DO Oct 05, 2020 09:55
[2020-10-05] MEDS ORDERED: VITAMIN D (CHOLECALCIFEROL) 400 INTERNATIONAL UNITS TAB PO ONE (12:00)
[2020-10-05] MEDS ORDERED: BUPR1SUB5 SL (13:21)
--- NOTE | 2020-10-06 08:20 | MHDSPDOC ---
[facility] Discharge Summary Discharge Summary DATE OF ADMISSION: Oct 04, 2020 at 00:36 DATE OF DISCHARGE: Oct 05, 2020 at 13:25 DISCHARGE DIAGNOSES: Adjustment disorder with disruption mood and conduct Substance-induced psychosis Methamphetamine use disorder severe Opioid use disorder severe CONSULTANTS INVOLVED:[ None (basic hospitalist screening)] REASON FOR ADMISSION & TREATMENT AND PROGRESS ON THE UNIT : The patient was admitted to the inpatient mental health unit after injecting Jamee, he had relapsed on stimulants and Jamee as he has done prior. The patient was admitted and started on Suboxone and his home medications he was notably distorted and psychotic likely secondary to his methamphetamine as he has presented prior. He was initially triaged for discharge as he generally resolved but became quite irritable and menacing when his 24 mg of Suboxone was not restarted, once this had been restarted he was generally fairly nice and engaged in had returned to an mental status exam that was approximately normal for him, I had previously treated him in the outpatient addiction clinic and he demonstrated improved insight, engaging with us in safety planning and was able to select a option, I had offered for him to stay longer in order to see about getting him to residential or rehab, however he declined but was open to going straight to [facility] from our unit in order to get engaged with residential such as a half-way house and then go to live with his friend of which we made contact with reporting that he could live with him for short time. The patient definitely has a significant substance abuse history, but it appears that he is returned to a generally engaged person, encourage patient to engage more with treatment as he generally does fairly well when he is sober. DISCHARGE ASSESSMENT[improved] Legal status considerations: The patient at the time of discharge did not meet criteria for involuntary admission/extension due to having a [normal] mental status exam, [fair] insight into the situation, They are engaged in the discharge process, as well as being friendly and amenable in behavioral control and havent been engaging in any observed concerning behavior or ideation recently. They decline voluntary extension/admission at this time and must be discharged in good racquel, as Im unable to make a case for holding the patient against their will. They may have historical risk factors of admissions and other interactions with psychiatry however, those are not modifiable from a clinical perspective. The patient will need to be discharged in good racquel. MENTAL STATUS EXAMINATION ON DISCHARGE: [General: Well dressed with good hygiene Speech: Spontaneous and fluid Thought processes: Linear and logical Thought content: Future orientated Abstract reasoning, and computation: Intact Description of associations: Intact Description of abnormal or psychotic thoughts:Denies any suicidal or homicidal ideation. Denies any auditory or visual hallucinations. Does not appear to be responding to internal stimuli. Does not appear to be endorsing any bizarre or paranoid ideation. Judgment: fair Insight: fair Orientation: Alert and orientated 3 Recent and remote memory: Intact Attention span and concentration: Intact Fund of knowledge: Adequate Mood: "okay" Affect: Euthymic with a full range] PLAN/FOLLOWUP ARRANGEMENTS: Follow up appointments made (PCP and MH in 5 days of D/C date) and safety plan completed. Safety Planning aspects completed prior to discharge [Medication supplies limited to 7 days with 4 refills to prevent accumulation to OD]-7-day supply sent to the Suboxone with the understanding that he would need to follow-up with Dr. Eubanks [Friend contact completed, educated on safe practices, instructed on removal and mitigation of dangerous means] [RN reviewed crisis hotline information and other aspects to empower patient to access care in interim before next appointment.] Straight to [facility] in order to facilitate him getting into a half-way house and engaging in long-term substance use treatment,, continue to advocate for patient to return for further treatment and to even consider long-acting injectable such as Vivitrol and Sublocade due to his difficulties with relapsing. The amount of time spent in the coordination of care for this patient was approximately 30 minutes. Vital Signs/I&Os Vital Signs Date Time Temp Pulse Resp B/P (MAP) Pulse Ox O2 Delivery O2 Flow Rate FiO2 10/05/20 06:32 97.9 54 18 134/60 (84) 10/04/20 17:55 100 Room Air Medications Scheduled Buprenorphine HCl/Naloxone HCl (Suboxone 8 mg-2 mg Sl Film) 1 Each Film, 3 FILM SL QAM, (Reported) Buprenorphine HCl/Naloxone HCl (Buprenorphin-Naloxon 8-2 mg Sl) 1 Each Tab.subl, 3 TAB SL QAM for opioid for 7 Days, #21 Bupropion HCl (Bupropion Xl) 300 Mg Tab.er.24h, 300 MG PO DAILY, (Reported) Gabapentin (Gabapentin) 600 Mg Tablet, 600 MG PO TID, (Reported) Sertraline HCl (Sertraline HCl) 25 Mg Tablet, 25 MG PO DAILY, (Reported) Miscellaneous Medications [Med Rec Comment] , (Reported) USED EXTERNAL MED HISTORY, UNABLE TO VERIFY WITH PATIENT Allergies Coded Allergies: No Known Allergies (Unverified , 09/10/19) VARGHESE EDWARDS DO Oct 06, 2020 08:20
[2020-10-06] MEDS ORDERED: VITAMIN D (CHOLECALCIFEROL) 400 INTERNATIONAL UNITS TAB PO SCH (09:00)
== END 2020-10-05 13:25 | disposition home or self-care (01) | DRG 755 ==
LOC: M ED 21:00 → M ED INP 10-04 00:36 → M PSY 10-04 02:31
PROVIDERS: ADMIT Psychiatry & Neurology Psychiatry; ATTEND Psychiatry & Neurology Addiction Medicine
DX: F43.25 Adjustment disorder with mixed disturbance of emotions and conduct (principal); F15.259 Other stimulant dependence with stimulant-induced psychotic disorder, unspecified; F17.200 Nicotine dependence, unspecified, uncomplicated; F11.20 Opioid dependence, uncomplicated; Z81.1 Family history of alcohol abuse and dependence; Z79.899 Other long term (current) drug therapy

== ENCOUNTER 2020-11-12 12:46 | Inpatient (IN) | payer OTHER ==
[~2020-11-12] VITALS: Ht 172.7 cm; Wt 82.1 kg
[~2020-11-12 12:46] MED LIST changes: -BUPR150T3 PO; +BUPR150T4 PO; +BUPR1SUB35 PO; +GABA-282 PO; -GABA-843 PO; +MED REC COMMENT
[2020-11-12 14:11] LABS: BASO % 0.1 % (0.0-1.0); EOS % 0.2 % (0.0-3.0); HEMOGLOBIN 13.7 g/dl (13.5-17.5); LYMPH # 1.5 10^3/uL (1.5-5.0); LYMPH % 13.7 % (24.0-44.0); MEAN CORPUSCULAR HEMOGLOBIN 30.9 pg (27.0-33.0); MEAN CORPUSCULAR HGB CONC 34.3 g/dl (32.0-36.5); MEAN CORPUSCULAR VOLUME 90.3 fl (80.0-96.0); MONO # 0.9 10^3/uL (0.0-0.8); MONO % 8.4 % (0.0-5.0); NEUTROPHILS # 8.2 10^3/uL (1.5-8.5); NEUTROPHILS % 77.1 % (36.0-66.0); PLATELET COUNT, AUTOMATED 171 10^3/uL (150-450); RED BLOOD COUNT 4.43 10^6/uL (4.30-6.10); WHITE BLOOD COUNT 10.7 10^3/uL (4.0-10.0)
[2020-11-12 15:18] LABS: ERYTHROCYTE SEDIMENTATION RATE 38 mm/hr (0-15)
[2020-11-12] MEDS ORDERED: LIDOCAINE 5% (LIDODERM) PATCH TD ONE (16:15)
[2020-11-12] MEDS ORDERED: KETOROLAC 30 MG/ML 1ML VIAL IV ONE (16:15)
[2020-11-12] MEDS ORDERED: PROHANCE 279.3MG/ML 15ML VIAL As Ordered ONE (18:34)
--- NOTE | 2020-11-12 20:25 | REPVR ---
PROCEDURE INFORMATION: Exam: MR Lumbar Spine Without and With Contrast. Exam date and time: 11/12/2020 7:19 PM Age: 30 years old Clinical indication: Low back pain; Additional info: Low back pain, R/O discitis/osteomyelitis TECHNIQUE: Imaging protocol: Multiplanar magnetic resonance images of the lumbar spine without and with intravenous contrast. Contrast material: PROHANCE; Contrast volume: 15 ml; Contrast route: INTRAVENOUS (IV); COMPARISON: HI Spine, Lumbosacral, partial 09/10/2019 5:36 AM FINDINGS: Limitations: Patient motion. Vertebrae: See "Discs/Spinal canal/Neural foramina" finding. Spinal cord: The conus is poorly assessed but appears to be at the L1 level. Discs/Spinal canal/Neural foramina: There is increased signal on the STIR and T2 weighted sequences in the L4 and L5 vertebral bodies as well as in the anterior aspect of the intervening disc space which is markedly narrowed. There is a grade 1 anterior spondylolisthesis at the L4-L5 level which is due to bilateral L4 pars spondylolysis. There is no spinal canal stenosis or neural foraminal narrowing in the lower thoracic spine through the L3-L4 level. There is also no evidence of neural compromise at L5-S1. There is no significant spinal canal stenosis at the L4-L5 level. The neural foramen appear patent. There appears to be dilatation of the venous plexus in the ventral spinal canal. There is increased signal surrounding the left facet joint. Series 801, image 1 frame 11. There is also increased intensity along the lateral margins of the vertebral bodies at the L4-L5 level/medial margin of both psoas muscles. Series 801, image 1 frame 10. Detail is quite limited due to patient motion. Enhancement is seen in the L4 and L5 vertebra without significant enhancement in the intervening disc. Series 901, image 1 frame 6. There is enhancement along the posterior margin of L4 and to a lesser degree L5 and S1 which could be due to epidural abscess but is more likely due to dilatation of the venous plexus. Soft tissues: As above. IMPRESSION: Findings are likely due to discitis osteomyelitis at the L4-L5 level superimposed on degeneration associated with grade 1 spondylolisthesis due to bilateral L4 pars spondylolysis. There appears to be enhancement along the margins of the L4 and L5 vertebral bodies and medial margins of both psoas muscles. No obvious psoas abscesses however detail is very limited. The increased intensity and enhancement also appears to be in the pre sacral soft tissues and surrounding the left L4-L5 facet joint. The images cannot be adequately assessed for possible epidural abscess however no definite abscess is identified. Electronically signed by: Valery Shelton On 11/12/2020 20:24:56 PM
[2020-11-12] MEDS ORDERED: cefTRIAXone SOD 1 GM in D5W MINI-BAG PLUS 50 ML IV ONE (21:00)
[2020-11-12] MEDS ORDERED: diazePAM 5MG TABLET PO ONE (21:00)
[2020-11-12] MEDS ORDERED: VANCOMYCIN HCL 1,500 MG in D5W 250 ML IV ONE (21:00)
[2020-11-12] MEDS ORDERED: **NOTE PATIENT COMMENT** MISC XX SCH (21:00)
[2020-11-12] MEDS ORDERED: VANCOMYCIN HCL 750 MG, VIAL MATE ADAPTER 1 EACH in D5W 250 ML IV ONE ×6 (22:00)
--- OUTSIDE RECORDS SUMMARY | 2020-11-12 23:42 | CCD ---
Author Author Giacomo Renner Organization Unknown Address [address] [place] [address] Phone Care Team Providers Care Assistant Art Director Name Role Phone Penny Renner PCP Allergies, Adverse Reactions, Alerts No Data in Section Problem List No Data in Section Medications No Data in Section Social History Social History Element Description Concept Effective Date Smoking Status Unknown if ever smoked [id number] Immunizations No Data in Section Vital Signs No Data in Section Procedures Date Concept Id Description Targeted Site Concept Targeted Site Concept Type 09/04/2020 07154 Extended Individual Psychotherapy - 45 min CPT Patient has no history of implantable de vices Encounters Encounter Start Date End Date Encounter Type Description Diagnosis Di agnosis Desc Location Author First Name Author Last Name Npid Taxonomy Cod e Taxonomy Desc Phone Number Location Addr1 Location Addr2 Location [facility] Location Sta te Location Zip [id number] 09/04/2020 09/04/2020 30717 Extended Individual Psych otherapy - [address] 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
--- OUTSIDE RECORDS SUMMARY | 2020-11-12 23:42 | CCD ---
Author Author Giacomo Renner Organization Unknown Address [address] [place] [address] Phone Care Team Providers Care Mineral Resources Inspector Name Role Phone Penny Renner PCP Allergies, Adverse Reactions, Alerts No Data in Section Problem List No Data in Section Medications No Data in Section Social History Social History Element Description Concept Effective Date Smoking Status Unknown if ever smoked [id number] Immunizations No Data in Section Vital Signs No Data in Section Procedures Date Concept Id Description Targeted Site Concept Targeted Site Concept Type 09/04/2020 68479 Extended Individual Psychotherapy - 45 min CPT Patient has no history of implantable de vices Encounters Encounter Start Date End Date Encounter Type Description Diagnosis Di agnosis Desc Location Author First Name Author Last Name Npid Taxonomy Cod e Taxonomy Desc Phone Number Location Addr1 Location Addr2 Location [facility] Location Sta te Location Zip [id number] 09/04/2020 09/04/2020 17099 Extended Individual Psych otherapy - 45 min [facility] Penny [phone] [id number] Sports Editor [phone] [address] [facility] [address] [place] [phone] Plan of Treatment No Data in Section Lab Results No Data in Section Instructions No Data in Section Insurance Providers Insurance Id Policy Effective Date Policy Thru Date Company N [employer] [id number] 2020 FISH - MEDICA ID MANAGED
--- OUTSIDE RECORDS SUMMARY | 2020-11-12 23:42 | CCD | Continuity of Care Document ---
Author Author Giacomo PAIZ NP Organization Unknown Address [address] [place] [address] Phone [phone] Problems Description No Information Available Social History Type Date Description Comments Sex Unknown Tobacco Use Start: Unknown Light tobacco smoker (10 or fewe r cigarettes/day) Smoking Status Reviewed: 10/14/20 Light tobacco smoker (10 or fewer cigarettes/day) Allergies, Adverse Reactions, Alerts Description No Known Drug Allergies Medications Active Medications SIG Qnty Indications Ordering Provide r Date Buprenorphine Hydrochloride/Naloxone Hyd rochloride 8-2mg Film 3 sl every day [id number] 6units F11.20 Estrella Paiz NP 10/14/2020 Nicotine Transdermal System Step 1 21mg/24HR Patches 24HR use every day as directed 14units F17.210 Estrella Paiz NP 10/14/2020 Immunizations Description No Information Available Vital Signs Description No Information Available Results Description No Information Available Procedures Description No Information Available Medical Devices Description No Information Available Encounters Type Date Location Provider Dx Diagnosis Office Visit 10/14/2020 10:20a [facility] Estrella Paiz NP F11.20 Opioid dependence, uncomplicated F17.210 Nicotine dependence, cigaret jonathan, uncomplicated B18.2 Chronic viral hepatitis C Z13.31 Encounter for screening for depression Assessments Date Code Description Provider 10/14/2020 F11.20 Opioid dependence, uncomplicated Estrella Paiz NP 10/14/2020 F17.210 Nicotine dependence, cigarettes, uncomplicated Estrella Paiz NP 10/14/2020 B18.2 Chronic viral hepatitis C Estrella Paiz NP 10/14/2020 Z13.31 Encounter for screening for depr ession Estrella Paiz NP Plan of Treatment 10/14/2020 - Estrella Paiz NP* F11.20 Opioid dependence, uncomplicated* New Medication:* Buprenorphine Hydrochloride/Naloxone Hydrochloride 8-2 mg - 3 sl every day [id number] * Comments:* I spent 15 minutes discussing goals of therapy, short term bridge program, importance of engaging in counseling, having prescriber to transition to, expectation of taking medication as ordered, expectation of not using any substances, weekly visits, weekly urines, engage in therapy, and using coping skills. Plan: outpatient treatment at [facility], daily dose starting 10/16/2020. New patient. Urine was obtained for drug toxicity screen today. Has taken 24 mg of Suboxone per day in the past and has tolerated well without any side effects. My recommendation is to start on Suboxone 24 mg per day for 2 days. Patient was advised to take the Suboxone consistently at the same time every day. Start MAT at [facility] 10/16/2020.Reviewed instructions for use of SL strip. Patient was advised to moisten the mouth with water before inserting strip and to keep the strip under the tongue until it dissolves. Advised to avoid drinking fluids, eating, or smoking for about 20 minutes after dose.ACID FILLER reviewed * F17.210 Nicotine dependence, cigarettes, uncomplicated* New Medication:* Nicotine Transdermal System Step 1 21 mg/24HR - use every day as directed * Comments:* Reports that he has used nicotine replacement patches in the past with some success, would like to try again. Has found that the 21 mg patch to start works best. * B18.2 Chronic viral hepatitis C* Comments:* Encouraged return to regular MAT at [facility] with counseling to resume recovery and avoid another exposure to HepC. * Z13.31 Encounter for screening for depression Functional Status Description No Information Available Mental Status Description No Information Available Referrals Description No Information Available
--- OUTSIDE RECORDS SUMMARY | 2020-11-12 23:42 | CCD | Continuity of Care Document ---
Author Author Giacomo SEAY M.D. Organization Unknown Address [address] [place] [address] Phone [phone] Problems Description No Information Available Social History Type Date Description Comments Sex Unknown Allergies, Adverse Reactions, Alerts Description No Known Drug Allergies Medications Description No Active Medications Immunizations Description No Information Available Vital Signs Date Vital Result Comment 07/29/2019 8:41am BP Systolic 150 mmHg BP Diastolic 78 mmHg Heart Rate 65 /min Respiratory Rate 18 /min Body Temperature 98.4 F Weight 156.00 lb 11/17/2016 9:02am BP Systolic 159 mmHg BP Diastolic 81 mmHg Heart Rate 67 /min Respiratory Rate 18 /min Body Temperature 98.1 F Weight 186.00 lb Results Description No Information Available Procedures Description No Information Available Medical Devices Description No Information Available Encounters Description No Information Available Assessments Description No Information Available Plan of Treatment No Information Available Functional Status Description No Information Available Mental Status Description No Information Available Referrals Description No Information Available
--- OUTSIDE RECORDS SUMMARY | 2020-11-12 23:42 | CCD | Continuity of Care Document ---
Author Author Giacomo DANIELS M.D. Organization Unknown Address [address] [place] [address] Phone [phone] Problems Description No Information Available Social History Type Date Description Comments Sex Unknown Allergies, Adverse Reactions, Alerts Description No Known Drug Allergies Medications Active Medications SIG Qnty Indications Ordering Provide r Date Sertraline HCL 25mg Tablets 1 by mouth every morning 30tabs Geoffrey Daniels M.D. 10/26/2020 Bupropion Hydrochloride ER (XL) 300mg Tablets ER 24HR 1 tab by mouth every day every morning 30tabs Geoffrey Pyle M.D. 10/26/2020 Gabapentin 300mg Capsules 3 caps po bid x 7 days, 2 caps po bid x 7 days, 1 cap po bid x 7 days, 1 cap po daily x 7 days- stop 91caps Geoffrey Daniels M.D. 10/26/2020 Immunizations Description No Information Available Vital Signs Date Vital Result Comment 10/21/2020 8:50am BP Systolic 128 mmHg BP Diastolic 85 mmHg Heart Rate 77 /min Weight 163.00 lb 07/29/2019 8:41am BP Systolic 150 mmHg BP Diastolic 78 mmHg Heart Rate 65 /min Respiratory Rate 18 /min Body Temperature 98.4 F Weight 156.00 lb Results Description No Information Available Procedures Description No Information Available Medical Devices Description No Information Available Encounters Description No Information Available Assessments Description No Information Available Plan of Treatment No Information Available Functional Status Description No Information Available Mental Status Description No Information Available Referrals Description No Information Available
--- OUTSIDE RECORDS SUMMARY | 2020-11-12 23:42 | CCD | Continuity of Care Document ---
Author Author Giacomo PAIZ NP Organization Unknown Address [address] [place] [address] Phone [phone] Problems Description No Information Available Social History Type Date Description Comments Sex Unknown Allergies, Adverse Reactions, Alerts Description No Known Drug Allergies Medications Active Medications SIG Qnty Indications Ordering Provide r Date Buprenorphine Hydrochloride/Naloxone Hyd rochloride 8-2mg Film 3 sl every day [id number] 6units F11.20 Estrella Paiz NP 10/14/2020 Nicotine [...] Description No Information Available Plan of Treatment 10/14/2020 - Estrella Paiz NP* All * New Medication:* Buprenorphine Hydrochloride/Naloxone Hydrochloride 8-2 mg - 3 sl every day [id number] * Nicotine Transdermal System Step 1 21 mg/24HR - use every day as directed Functional Status Description No Information Available Mental Status Description No Information Available Referrals Description No Information Available
--- OUTSIDE RECORDS SUMMARY | 2020-11-12 23:42 | CCD | Continuity of Care Document ---
Author Author Giacomo DANIELS M.D. Organization Unknown Address [address] [place] [address] Phone [phone] Problems Description No Information Available Social History [...] Available Vital Signs Date Vital Result Comment 10/28/2020 10:06am BP Systolic 152 mmHg BP Diastolic 90 mmHg Heart Rate 70 /min Respiratory Rate 18 /min Body Temperature 99.3 F Weight 163.00 lb 10/21/2020 8:50am BP Systolic 128 mmHg BP Diastolic 85 mmHg Heart Rate 77 /min Weight 163.00 lb Results Description No Information Available Procedures Description No Information Available Medical Devices Description No Information Available Encounters Description No Information Available Assessments Description No Information Available Plan of Treatment No Information Available Functional Status Description No Information Available Mental Status Description No Information Available Referrals Description No Information Available
--- OUTSIDE RECORDS SUMMARY | 2020-11-12 23:42 | CCD ---
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 Active 13194417 Problem Hx MRSA infection Z86.14 Active 043716796 Problem Depression, unspecified depression type F32.9 Active 49259177 Problem Cigarette nicotine dependence without complication F17.210 Active 24381044 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 Active 1461 118473721 Problem Chronic hepatitis C without hepatic coma B18.2 Active 723437627 Problem Anxiety F41.9 Active 93161472 Problem Acute hepatitis C virus infection without hepatic coma B17.10 Active 98033399 ALLERGIES No Known Allergies ENCOUNTERS from 1990 to 2020-09-04 Encounter Location Date Provider Diagnosis [facility] Resident [address] [place] [address] Aug, Felipe Bush IMMUNIZATIONS No Information SOCIAL HISTORY Tobacco Use: Social History Observation Description Date Details (start date - stop date) Current Smoker Sex Assigned At : Social History Observation Description Sex Assigned At Unknown Education: Question Answer Notes Level of Education: Finished High School Audit Question Answer Notes Total Score: 0 Interpretation: Alcohol Education Language: Question Answer Notes Languages spoken: Congolese Yazdanism: Question Answer Notes Yazdanism 08 Rastafari Sexual Hx: Question Answer Notes Had sex in the last 12 months (vaginal, oral, or anal)? Yes with Women only Drug and Alcohol Question Answer Notes Total Score: 0 Interpretation: No problems reported Alcohol Screening: Question Answer Notes Did you have a drink containing alcohol in the past year? No Points 0 Interpretation Negative Tobacco Use: Question Answer Notes Are you a: current smoker Patient counseled on the dangers of tobacco use and urged to quit: 12/24/2019 How many cigarettes a day do you smoke? 11-20 Are you interested in quitting? Not ready to quit Counseled the patient on smoking effects, education provided 12/24/2019 REASON FOR REFERRAL No Information VITAL SIGNS No information MEDICATIONS Medication SIG (Take, Route, Frequency, Duration) Start Date En d Date Status Venlafaxine HCl 75 MG 1 tablet with food Orally Once a day February, Active Clonazepam 0.5 MG 1 tablet Orally bid prn MDD #2 for 14 day(s) 18 2019 Active Venlafaxine HCl 37.5 MG 1 tablet with food Orally Once a day for 7 day(s) February, Active Gabapentin 600 MG 1 tablet Orally Once a day for 30 day(s) Active PROCEDURES No Information RESULTS No Results REASON FOR VISIT no showed MEDICAL (GENERAL) HISTORY Type Description Date Medical History Hepatitis C chronic treated with Epclusa for 12 weeks Medical History Discitis Medical History Hx IVDU Medical History Anxiety Medical History Tobacco Abuse Surgical History No Surgical history information Hospitalization History Discitis 08/2019 Goals Section No Information Health Concerns No Information MEDICAL EQUIPMENT No Information MENTAL STATUS No Information FUNCTIONAL STATUS No Information ASSESSMENTS No Information PLAN OF TREATMENT No Information Insurance Providers Payer Name Payer Address Payer Phone Insured Name Patient Relati onship to Insured Coverage Start Date Coverage End Date [facility] CORPOR[facility]S [facility] [id number] [phone] GILDA HAMEED self
--- OUTSIDE RECORDS SUMMARY | 2020-11-12 23:43 | CCD ---
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 99929989 Problem Hx MRSA infection Z86.14 Active 379296817 Problem Depression, unspecified depression type F32.9 Active 25462410 Problem Cigarette nicotine dependence without complication F17.210 Active 52553453 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 Active 1461 817246847 Problem Chronic hepatitis C without hepatic coma B18.2 Active 802512063 Problem Anxiety F41.9 Active 70096163 Problem Acute hepatitis C virus infection without hepatic coma B17.10 Active 51033764 ALLERGIES No Known Allergies ENCOUNTERS from 1990 to 2020-09-01 Encounter Location Date Provider Diagnosis [address] [address] Jul, Felipe Bush Screening for STD (sexually transmitted disease) Z11.3 IMMUNIZATIONS No Information SOCIAL HISTORY Tobacco Use: Social History Observation Description Date Details (start date - stop date) Current Smoker Sex Assigned At : Social History Observation Description Sex Assigned At Unknown Education: Question Answer Notes Level of Education: Finished High School Audit Question Answer Notes Total Score: 0 Interpretation: Alcohol Education Language: Question Answer Notes Languages spoken: Italian Rastafarian: Question Answer Notes Rastafarian 08 Muslim Sexual Hx: Question Answer Notes Had sex [...] food Orally Once a day February, Active Venlafaxine HCl 37.5 MG 1 tablet with food Orally Once a day for 7 day(s) February, Active Gabapentin 600 MG 1 tablet Orally Once a day for 30 day(s) Active Clonazepam 0.5 MG 1 tablet Orally bid prn MDD #2 for 14 day(s) 18 2019 Active PROCEDURES No Information RESULTS No Results REASON FOR VISIT lab order MEDICAL (GENERAL) HISTORY Type Description Date Medical History Hepatitis C chronic treated with Epclusa for 12 weeks Medical History Discitis Medical History Hx IVDU Medical History Anxiety Medical History Tobacco Abuse Surgical History No Surgical history information Hospitalization History Discitis 08/2019 Goals Section No Information Health Concerns No Information MEDICAL EQUIPMENT No Information MENTAL STATUS No Information FUNCTIONAL STATUS No Information ASSESSMENTS Encounter Date Diagnosis Notes Jul, Screening for STD (sexually transmitted disease) (ICD-10 - Z11.3) PLAN OF TREATMENT Medication Medication Name Sig Start Date Stop Date Venlafaxine HCl 75 MG 1 tablet with food Orally Once a day 2019 Gabapentin 600 MG 1 tablet Orally Once a day for 30 day(s) Clonazepam 0.5 MG 1 tablet Orally bid prn MDD #2 for 14 day(s) 1 Apr, Treatment Notes Test Name Order Date HIV 1&2 ANTIBODY SCREEN 2020-09-01 Next Appt Details Provider Name:Felipe Bsuh, 03:00:00 PM, [address] [facility], [place], [address], Insurance Providers Payer Name Payer Address Payer Phone Insured Name Patient Relati onship to Insured Coverage Start Date Coverage End Date [facility] [employer] DE[employer] [address] [place], [place] [id number] GILDA HAMEED self
--- OUTSIDE RECORDS SUMMARY | 2020-11-12 23:43 | CCD ---
Author Author [facility] Organization [facility] Address Unknown Phone Unavailable Care Team Providers Care Claim Administrator Name Role Phone PATRICIA, L CARLYN IT SECURITY MANAGER Unavailable Unavailable PATRICIA, L CARLYN IT SECURITY MANAGER Unavailable Unavailable PATRICIA, L CARLYN IT SECURITY MANAGER Unavailable Unavailable PATRICIA, L CARLYN IT SECURITY MANAGER Unavailable Unavailable PATRICIA, L CARLYN IT SECURITY MANAGER Unavailable Unavailable PATRICIA, L CARLYN IT SECURITY MANAGER Unavailable Unavailable PATRICIA, L CARLYN IT SECURITY MANAGER Unavailable Unavailable PATRICIA, L CARLYN IT SECURITY MANAGER Unavailable Unavailable PATRICIA, L CARLYN IT SECURITY MANAGER Unavailable Unavailable PATRICIA, L CARLYN IT SECURITY MANAGER Unavailable Unavailable PATRICIA, L CARLYN IT SECURITY MANAGER Unavailable Unavailable PATRICIA, L CARLYN IT SECURITY MANAGER Unavailable Unavailable PATRICIA, L CARLYN IT SECURITY MANAGER Unavailable Unavailable PATRICIA, L CARLYN IT SECURITY MANAGER Unavailable Unavailable PATRICIA, L CARLYN IT SECURITY MANAGER Unavailable Unavailable PETROFF, DEXTER PA Unavailable Unavailable PETROFF, DEXTER PA Unavailable Unavailable PETROFF, DEXTER PA Unavailable Unavailable PETROFF, DEXTER PA Unavailable Unavailable PETROFF, DEXTER PA Unavailable Unavailable PETROFF, DEXTER PA Unavailable Unavailable PETROFF, DEXTER PA Unavailable Unavailable PETROFF, DEXTER PA Unavailable Unavailable Scordo, M Christiana PA Unavailable Unavailable Scordo, M Christiana PA Unavailable Unavailable Scordo, M Christiana PA Unavailable Unavailable Scordo, M Christiana PA Unavailable Unavailable Scordo, M Christiana PA Unavailable Unavailable Scordo, M Christiana PA Unavailable Unavailable Scordo, M Christiana PA Unavailable Unavailable Scordo, M Christiana PA Unavailable Unavailable Scordo, M Christiana PA Unavailable Unavailable Scordo, M Christiana PA Unavailable Unavailable Scordo, M Christiana PA Unavailable Unavailable Scordo, M Christiana PA Unavailable Unavailable Scordo, M Christiana PA Unavailable Unavailable Scordo, M Christiana PA Unavailable Unavailable Scordo, M Christiana PA Unavailable Unavailable Scordo, M Christiana PA Unavailable Unavailable Scordo, M Christiana PA Unavailable Unavailable Scordo, M Christiana PA Unavailable Unavailable Scordo, M Christiana PA Unavailable Unavailable Scordo, M Christiana PA Unavailable Unavailable Scordo, M Christiana PA Unavailable Unavailable Scordo, M Christiana PA Unavailable Unavailable Scordo, M Christiana PA Unavailable Unavailable Scordo, M Christiana PA Unavailable Unavailable Scordo, M Christiana PA Unavailable Unavailable Scordo, M Christiana PA Unavailable Unavailable Scordo, M Christiana PA Unavailable Unavailable Scordo, M Christiana PA Unavailable Unavailable Scordo, M Christiana PA Unavailable Unavailable Scordo, M Christiana PA Unavailable Unavailable Scordo, M Christiana PA Unavailable Unavailable Scordo, M Christiana PA Unavailable Unavailable Scordo, M Christiana PA Unavailable Unavailable Scordo, M Christiana PA Unavailable Unavailable Scordo, M Christiana PA Unavailable Unavailable Scordo, M Christiana PA Unavailable Unavailable Scordo, M Christiana PA Unavailable Unavailable Scordo, M Christiana PA Unavailable Unavailable Scordo, M Christiana PA Unavailable Unavailable Scordo, M Christiana PA Unavailable Unavailable CEBALLOS, T SAMRA DO Unavailable Unavailable CEBALLOS, T SAMRA DO Unavailable Unavailable CEBALLOS, T SAMRA DO Unavailable Unavailable CEBALLOS, T SAMRA DO Unavailable Unavailable CEBALLOS, T SAMRA DO Unavailable Unavailable CEBALLOS, T SAMRA DO Unavailable Unavailable CEBALLOS, T SAMRA DO Unavailable Unavailable CEBALLOS, T SAMRA DO Unavailable Unavailable CEBALLOS, T SAMRA DO Unavailable Unavailable CEBALLOS, T SAMRA DO Unavailable Unavailable CEBALLOS, T SAMRA DO Unavailable Unavailable CEBALLOS, T SAMRA DO Unavailable Unavailable CEBALLOS, T SAMRA DO Unavailable Unavailable CEBALLOS, T SAMRA DO Unavailable Unavailable Berry, E Estrella Unavailable Unavailable Berry, E Estrella Unavailable Unavailable Berry, E Estrella Unavailable Unavailable Berry, E Estrella Unavailable Unavailable Berry, E Estrella Unavailable Unavailable Berry, E Estrella Unavailable Unavailable Berry, E Estrella Unavailable Unavailable Berry, E Estrella Unavailable Unavailable Berry, E Estrella Unavailable Unavailable Berry, E Estrella Unavailable Unavailable Berry, E Estrella Unavailable Unavailable Berry, E Estrella Unavailable Unavailable Berry, E Estrella Unavailable Unavailable Berry, E Estrella Unavailable Unavailable Berry, E Estrella Unavailable Unavailable Penny Redmond Unavailable JERROD, LEVY GRIGGSIC PA Unavailable Unavailable JERROD, LEVY SHON PA Unavailable Unavailable JERROD, LEVY SHON PA Unavailable Unavailable JERROD, LEVY SHON PA Unavailable Unavailable JERROD, LEVY SHON PA Unavailable Unavailable JERROD, LEVY SHON PA Unavailable Unavailable JERROD, LEVY SHON PA Unavailable Unavailable JERROD, LEVY SHON PA Unavailable Unavailable JERROD, LEVY SHON PA Unavailable Unavailable JERROD, LEVY SHON PA Unavailable Unavailable JERROD, LEVY SHON PA Unavailable Unavailable JERROD, LEVY SHON PA Unavailable Unavailable JERROD, LEVY SHON PA Unavailable Unavailable JERROD, LEVY SHON PA Unavailable Unavailable JERROD, LEVY SHON PA Unavailable Unavailable JERROD, LEVY SHON PA Unavailable Unavailable JERROD, LEVY SHON PA Unavailable Unavailable JERROD, LEVY SHON PA Unavailable Unavailable JERROD, LEVY SHON PA Unavailable Unavailable JERROD, LEVY SHON PA Unavailable Unavailable JERROD, LEVY SHON PA Unavailable Unavailable Jarad Vasquez MD Unavailable Unavailable Jarad Vasquez MD Unavailable Unavailable Jarad Vasquez MD Unavailable Unavailable Jarad Vasquez MD Unavailable Unavailable Jarad Vasquez MD Unavailable Unavailable Jarad Vasquez MD Unavailable Unavailable Jarad Vasquez MD Unavailable Unavailable Jarad Vasquez MD Unavailable Unavailable Jarad Vasquez MD Unavailable Unavailable Jarad Vasquez MD Unavailable Unavailable Jarad Vasquez MD Unavailable Unavailable Jarad Vasquez MD Unavailable Unavailable Jarad Vasquez MD Unavailable Unavailable Jarad Vasquez MD Unavailable Unavailable Jarad Vasquez MD Unavailable Unavailable Jarad Vasquez MD Unavailable Unavailable Jaard Vasquez MD Unavailable Unavailable Jarad Vasquez MD Unavailable Unavailable Jarad Vasquez MD Unavailable Unavailable Jarad Vasquez MD Unavailable Unavailable Jarad Vasquez MD Unavailable Unavailable Jarad Vasquez MD Unavailable Unavailable Jarad Vasquez MD Unavailable Unavailable Jarad Vasquez MD Unavailable Unavailable Jarad Vasquez MD Unavailable Unavailable Jarad Vasquez MD Unavailable Unavailable Jarad Vasquez MD Unavailable Unavailable Jarad Vasquez MD Unavailable Unavailable Jarad Vasquez MD Unavailable Unavailable Jarad Vasquez MD Unavailable Unavailable Jarad Vasquez MD Unavailable Unavailable Jarad Vasquez MD Unavailable Unavailable Jarad Vasqeuz MD Unavailable Unavailable Jarad Vasquez MD Unavailable Unavailable Jarad Vasquez MD Unavailable Unavailable Jarad Vasquez MD Unavailable Unavailable Jarad Vasquez MD Unavailable Unavailable Jarad Vasquez MD Unavailable Unavailable Jarad Vasquez MD Unavailable Unavailable Jarad Vasquez MD Unavailable Unavailable Jarad Vasquez MD Unavailable Unavailable Jarad Vasquez MD Unavailable Unavailable Jarad Vasquez MD Unavailable Unavailable Jarad Vasquez MD Unavailable Unavailable Jarad Vasquez MD Unavailable Unavailable Jarad Vasquez MD Unavailable Unavailable Jarad Vasquez MD Unavailable Unavailable Jarad Vasquez MD Unavailable Unavailable Jarad Vasquez MD Unavailable Unavailable Jarad Vasquez MD Unavailable Unavailable Jarad Vasquez MD Unavailable Unavailable Jarad Vasquez MD Unavailable Unavailable Jarad Vasquez MD Unavailable Unavailable VALDES, M HELENA Unavailable Unavailable Scordo, M Christiana PA Unavailable Unavailable Scordo, M Christiana PA Unavailable Unavailable Scordo, M Christiana PA Unavailable Unavailable Scordo, M Christiana PA Unavailable Unavailable Scordo, M Christiana PA Unavailable Unavailable Scordo, M Christiana PA Unavailable Unavailable Scordo, M Christiana PA Unavailable Unavailable Scordo, M Christiana PA Unavailable Unavailable Scordo, M Christiana PA Unavailable Unavailable Scordo, M Christiana PA Unavailable Unavailable Scordo, M Christiana PA Unavailable Unavailable Scordo, M Christiana PA Unavailable Unavailable Scordo, M Christiana PA Unavailable Unavailable Scordo, M Christiana PA Unavailable Unavailable Scordo, M Christiana PA Unavailable Unavailable Scordo, M Christiana PA Unavailable Unavailable Scordo, M Christiana PA Unavailable Unavailable Scordo, M Christiana PA Unavailable Unavailable Scordo, M Christiana PA Unavailable Unavailable Scordo, M Christiana PA Unavailable Unavailable Scordo, M Christiana PA Unavailable Unavailable Scordo, M Christiana PA Unavailable Unavailable Scordo, M Christiana PA Unavailable Unavailable Scordo, M Christiana PA Unavailable Unavailable Scordo, M Christiana PA Unavailable Unavailable Scordo, M Christiana PA Unavailable Unavailable Scordo, M Christiana PA Unavailable Unavailable Scordo, M Christiana PA Unavailable Unavailable Scordo, M Christiana PA Unavailable Unavailable Scordo, M Christiana PA Unavailable Unavailable Scordo, M Christiana PA Unavailable Unavailable Scordo, M Christiana PA Unavailable Unavailable Scordo, M Christiana PA Unavailable Unavailable Scordo, M Christiana PA Unavailable Unavailable Scordo, M Christiana PA Unavailable Unavailable Scordo, M Christiana PA Unavailable Unavailable Scordo, M Christiana PA Unavailable Unavailable Scordo M Christiana PA Unavailable Unavailable Scordo M Christiana PA Unavailable Unavailable Jarred M Christiana PA Unavailable Unavailable Zayda KIM MD Unavailable Unavailable Zayda KIM MD Unavailable Unavailable Zayda KIM MD Unavailable Unavailable Zayda KIM MD Unavailable Unavailable Zayda KIM MD Unavailable Unavailable Zayda KIM MD Unavailable Unavailable Zayda KIM MD Unavailable Unavailable Zayda KIM MD Unavailable Unavailable Zayda KIM MD Unavailable Unavailable Zayda KIM MD Unavailable Unavailable Zayda KIM MD Unavailable Unavailable Zayda KIM MD Unavailable Unavailable Zayda KIM MD Unavailable Unavailable Zayda KIM MD Unavailable Unavailable Zayda KIM MD Unavailable Unavailable Zayda KIM MD Unavailable Unavailable Zayda KIM MD Unavailable Unavailable Zayda KIM MD Unavailable Unavailable Zayda KIM MD Unavailable Unavailable Zayda KIM MD Unavailable Unavailable Zayda KIM MD Unavailable Unavailable Zayda KIM MD Unavailable Unavailable Zayda KIM MD Unavailable Unavailable Zayda KIM MD Unavailable Unavailable Zayda KIM MD Unavailable Unavailable Zayda KIM MD Unavailable Unavailable Zayda KIM MD Unavailable Unavailable Zayda KIM MD Unavailable Unavailable Zayda KIM MD Unavailable Unavailable Zayda KIM MD Unavailable Unavailable Zayda KIM MD Unavailable Unavailable Zayda KIM MD Unavailable Unavailable Zayda KIM MD Unavailable Unavailable Zayda KIM MD Unavailable Unavailable Zayda KIM MD Unavailable Unavailable Zayda KIM MD Unavailable Unavailable Zayda KIM MD Unavailable Unavailable Zayda KIM MD Unavailable Unavailable Zayda KIM MD Unavailable Unavailable Zayda KIM MD Unavailable Unavailable Zayda KIM MD Unavailable Unavailable Zayda KIM MD Unavailable Unavailable Zayda KIM MD Unavailable Unavailable Zayda KIM MD Unavailable Unavailable Zayda KIM MD Unavailable Unavailable Zayda KIM MD Unavailable Unavailable Zayda KIM MD Unavailable Unavailable Zayda KIM MD Unavailable Unavailable Zayda KIM MD Unavailable Unavailable Zayda KIM MD Unavailable Unavailable Zayda KIM MD Unavailable Unavailable Zayda KIM MD Unavailable Unavailable Zayda KIM MD Unavailable Unavailable Zayda KIM MD Unavailable Unavailable Zayda KIM MD Unavailable Unavailable Zayda KIM MD Unavailable Unavailable Zayda KIM MD Unavailable Unavailable Zayda KIM MD Unavailable Unavailable Zayda KIM MD Unavailable Unavailable Zayda KIM MD Unavailable Unavailable Zayda KIM MD Unavailable Unavailable Zayda KIM MD Unavailable Unavailable Zayda KIM MD Unavailable Unavailable Zayda KIM MD Unavailable Unavailable Zayda KIM MD Unavailable Unavailable Zayda KIM MD Unavailable Unavailable Zayda KIM MD Unavailable Unavailable Zayda KIM MD Unavailable Unavailable Zayda KIM MD Unavailable Unavailable Zayda KIM MD Unavailable Unavailable Zayda KIM MD Unavailable Unavailable Zayda KIM MD Unavailable Unavailable Zayda KIM MD Unavailable Unavailable Zayda KIM MD Unavailable Unavailable Zayda KIM MD Unavailable Unavailable Zayda KIM MD Unavailable Unavailable Zayda KIM MD Unavailable Unavailable Zayda KIM MD Unavailable Unavailable Zayda KIM MD Unavailable Unavailable Zayda KIM MD Unavailable Unavailable Zayda KIM MD Unavailable Unavailable Zayda KMI MD Unavailable Unavailable Zayda KIM MD Unavailable Unavailable TURRIN, JERRY Unavailable Unavailable TURRIN, JERRY Unavailable Unavailable TURRIN, JERRY Unavailable Unavailable TURRIN, JERRY Unavailable Unavailable PATRICIA, D CARLYN DO Unavailable Unavailable PATRICIA, D CARLYN DO Unavailable Unavailable PATRICIA, D CARLYN DO Unavailable Unavailable PATRICIA, D CARLYN DO Unavailable Unavailable PATRICIA, D CARLYN DO Unavailable Unavailable PATRICIA, D CARLYN DO Unavailable Unavailable PATRICIA, D CARLYN DO Unavailable Unavailable PATRICIA, D CARLYN DO Unavailable Unavailable PATRICIA, D CARLYN DO Unavailable Unavailable PATRICIA, D CARLYN DO Unavailable Unavailable PATRICIA, D CARLYN DO Unavailable Unavailable PATRICIA, D CARLYN DO Unavailable Unavailable PATRICIA, D CARLYN DO Unavailable Unavailable PATRICIA, D CARLYN DO Unavailable Unavailable PATRICIA, D CARLYN DO Unavailable Unavailable PATRICIA, D CARLYN DO Unavailable Unavailable PATRICIA, D CARLYN DO Unavailable Unavailable PATRICIA, D CARLYN DO Unavailable Unavailable PATRICIA, D CARLYN DO Unavailable Unavailable PATRICIA, D CARLYN DO Unavailable Unavailable PATRICIA, D CARLYN DO Unavailable Unavailable PTARICIA, D CARLYN DO Unavailable Unavailable Link, Jair PA Unavailable Unavailable Link, Jair PA Unavailable Unavailable Link, Jair PA Unavailable Unavailable Link, Jair PA Unavailable Unavailable Link, Jair PA Unavailable Unavailable Link, Jair PA Unavailable Unavailable Link, Jair PA Unavailable Unavailable Link, Jair PA Unavailable Unavailable Link, Jair PA Unavailable Unavailable Link, Jair PA Unavailable Unavailable Link, Jair PA Unavailable Unavailable Link, Jair PA Unavailable Unavailable Re-disclosure Warning The records that you are about to access may contain information from federally-assisted alcohol or drug abuse programs. If such information is present, then the following federally mandated warning applies: This information has been disclosed to you from records protected by federal confidentiality rules (42 CFR part 2). The federal rules prohibit you from making any further disclosure of this information unless further disclosure is expressly permitted by the written consent of the person to whom it pertains or as otherwise permitted by 42 CFR part 2. A general authorization for the release of medical or other information is NOT sufficient for this purpose. The Federal rules restrict any use of the information to criminally investigate or prosecute any alcohol or drug abuse patient.The records that you are about to access may contain highly sensitive health information, the redisclosure of which is protected by Article 27-F of the [facility] Public Health law. If you continue you may have access to information: Regarding HIV / AIDS; Provided by facilities licensed or operated by the [facility] Office of Mental Health; or Provided by the [facility] Office for People With Developmental Disabilities. If such information is present, then the following [facility] mandated warning applies: This information has been disclosed to you from confidential records which are protected by state law. State law prohibits you from making any further disclosure of this information without the specific written consent of the person to whom it pertains, or as otherwise permitted by law. Any unauthorized further disclosure in violation of state law may result in a fine or fdc sentence or both. A general authorization for the release of medical or other information is NOT sufficient authorization for further disc losure. Encounters Encounter Providers Location Date Indications Data Source(s ) Outpatient Attender: Estrella Diaz 10/14/2020 09:20:00 AM EST [facility] ([facility]) Outpatient Attender: CARLYN PATRICIA DOAttender: CARLYN KIM IT SECURITY MANAGER ER-LAB-PNP 09/19/2020 12:51:00 PM [facility] Emergency Attender: SHON GONG EMERGENCY ROOM-ER 09/11/2020 11:57:00 AM EST - 09/11/2020 12:35:00 PM [facility] Patient discharged. Extended Individual Psychotherapy - 45 min Attender: Eliza Redmond [facility] 09/04/2020 09:00:00 AM EST - 09/04/2020 09:00:00 AM EST [facility] ([facility] Outpatient Attender: MACKENZIE LEON 09/04/2020 12:02:04 A M EST [facility] Attender: Penny Redmond 09/04/2020 12:00:00 AM EST [facility] ([facility]) Unknown [address] [facility] [address] 09/03/2020 12:00:00 AM EST [facility]1 ([facility]) Unknown [address] [facility] [place] [address] 08/28/2020 12:00:00 AM EDT eCW1 ([facility]) Emergency Attender: JERRY Manningant: SAMRA SOLIMAN DO 08/25/2020 06:05:00 AM EDT - 08/25/2020 06:55:00 AM EDT [facility] Patient discharged. Outpatient Attender: HELENA VALDES 07/16/2020 11:00:00 AM [facility] Emergency Attender: DEXTER GONG 2019 05:29:00 PM EDT - 06/13/2020 05:59:00 PM EDT [facility] Patient discharged. Unknown [address] [facility] [place] [address] 05/21/2020 12:00:00 AM EDT eCW1 ([facility]) Unknown [address] [facility] [place] [address] 05/18/2020 12:00:00 AM EDT eCW1 ([facility]) [facility] [address] [facility] [address] 05/18/2020 12:00:00 AM EDT [facility]CW1 ([facility]) Unknown [address] [facility] [place] [address] 05/16/2020 12:00:00 AM EDT [facility]CW1 ([facility]) Unknown [address] [facility] [place] [address] 05/11/2020 12:00:00 AM EDT eCW1 ([facility]) Outpatient Attender: MACKENZIE LEON 04/07/2020 07:38:46 P M EDT [facility] Unknown [address] [facility] [address] 03/31/2020 12:00:00 AM EDT eCW1 ([facility]) [facility] Resident [address] [place] [phone] 03/26/2020 12:00:00 AM EDT eCW1 ([facility]) [facility] [address] [place] [address] N [place] [address] 03/20/2020 12:00:00 AM EDT eCW1 ([facility]) [facility] [address] [place] [address] Y [address] 03/18/2020 12:00:00 AM EDT eCW1 ([facility]) [facility] G[facility] Resident [address] [place] [phone] 03/06/2020 12:00:00 AM EDT eCW1 ([facility]) [facility] G[facility] Resident [address] [place] [phone] 02/27/2020 12:00:00 AM EDT eCW1 ([facility]) [facility] [address] [place] [address] Y [address] 02/20/2020 12:00:00 AM EDT eCW1 ([facility]) [address] [place] [address] 02/20/2020 12:00:00 AM EDT eCW1 ([facility]) [facility] GME Resident [address] [place] [phone] 02/12/2020 12:00:00 AM EDT eCW1 ([facility]) [facility] [address] [facility] [address] 02/10/2020 12:00:00 AM EDT eCW1 ([facility]) [facility] [address] [place] [address] Y [address] 02/10/2020 12:00:00 AM EDT eCW1 ([facility]) [facility] GME Resident [address] [place] [phone] 02/06/2020 12:00:00 AM EDT eCW1 ([facility]) [facility] [address] [facility] [address] 01/31/2020 12:00:00 AM EDT eCW1 ([facility]) [facility] [address] [place] [address] Y [address] 01/31/2020 12:00:00 AM EDT eCW1 ([facility]) [facility] GME Resident [address] [place] [phone] 01/17/2020 12:00:00 AM EDT eCW1 ([facility]) Outpatient Attender: Jeramy Brooks tender: Jair Link PAConsultant: SAMRA CEBALLOS DO 12/31/2019 10:20:00 AM EST - 12/31/2019 11:2 0:00 AM EST [facility] [address] [facility] [place] [address] 12/24/2019 12:00:00 AM EST eCW1 ([facility]) Outpatient Attender: MACKENZIE LEON 12/03/2019 04:08:01 P M EST [facility] [address] [facility] [place] [address] 12/03/2019 12:00:00 AM EST eCW1 ([facility]) [facility] [place] [address] [facility], [facility] [address] 12/03/2019 12:00:00 AM EST eCW1 ([facility]) Outpatient Attender: Jair GONG 11/26 12:06:00 PM EST - 11/26/2019 12:06:00 PM [facility] Outpatient Attender: MACKENZIE KIM MD FP 11/25/2019 02:41:01 P [facility] [place] [address] [facility] [address] 11/25/2019 12:00:00 AM EST eCW1 ([facility]) [facility] [address] [place] [address] 11/21/2019 12:00:00 AM EST eCW1 ([facility]) Outpatient Attender: MACKENZIE KIM MD 11/15/2019 03:28:00 P M [facility] Outpatient Attender: Christiana GONG 11/11 05:20:00 PM EST - 11/11/2019 05:20:00 PM [facility] Outpatient Attender: Christiana GONG [facility] 11/11 04:15:00 PM EST [facility] Outpatient Attender: MACKENZIE LEON 11/08/2019 02:39:00 P M [facility] [place] [address] [facility] [address] 11/05/2019 12:00:00 AM EST eCW1 ([facility]) Outpatient Attender: Christiana GONG 11/04 04:32:00 PM EST - 11/04/2019 04:32:00 PM [facility] Outpatient Attender: Christiana GONG [facility] 11/04 03:45:00 PM EST [facility] ([facility] Outpatient Attender: MACKENZIE LEON 11/04/2019 10:21:00 A M [facility] Outpatient Attender: MACKENZIE KIM MD 10/31/2019 09:13:00 A [facility] [address] [facility] [address] 10/31/2019 12:00:00 AM EST eCW1 ([facility]) [facility] [address] [facility] [place] [address] 10/10/2019 12:00:00 AM EST eCW1 ([facility]) [facility] [address] [place] [address], [place] [address] 10/07/2019 12:00:00 AM EST eCW1 ([facility]) Outpatient Attender: MACKENZIE KIM MD 10/06/2019 12:00:[address] [facility] Outpatient Attender: MACKENZIE KIM MD 10/06/2019 12:00:[address] [facility] Outpatient Attender: MACKENZIE KIM MD 10/06/2019 11:46:[address] [facility] Outpatient Attender: MACKENZIE KIM MD 10/04/2019 04:21:[address] [facility] Outpatient Attender: MACKENZIE KIM MD 10/04/2019 02:08:[address] [facility] Outpatient Attender: MACKENZIE KIM MD 10/04/2019 02:07:[address] [facility] Outpatient Attender: MACKENZIE KIM MD 10/04/2019 01:50:[address] [facility] Outpatient Attender: MACKENZIE KIM MD 10/04/2019 01:48:[address] [facility] Outpatient Attender: MACKENZIE KIM MD 10/04/2019 01:45:[address] [facility] Outpatient Attender: MACKENZIE KIM MD 10/02/2019 10:32:[address] [facility] Outpatient Attender: MACKENZIE KIM MD 09/20/2019 08:02:[address] [facility] Medications Medication Brand Name Start Date Product Form Dose Route Admi nistrative Instructions Pharmacy Instructions Status Indications Reaction Description Data Source(s) 24 HR Bupropion Hydrochloride 300 MG Extended Release Oral Tablet Bupropion Hydrochloride ER (XL) 10/26/2020 12:00:00 AM EST ORAL a ctive MED[facility] ([facility]) Sertraline 25 MG Oral Tablet Sertraline HCL 10/26/2020 12:00:00 AM EST ORAL active [facility] ([facility]) gabapentin 300 MG Oral Capsule Gabapentin 10/26/2020 12:00:00 AM EST ORAL active [facility] ([facility]) 21 mg/24 hr 10/14/2020 12:00:00 AM EST patch 24 hour 14 APPLY ONE PATCH TO THE SKIN EVERY DAY DIRECTED APPLY ONE PATCH TO THE SKIN EVERY DAY DIRECTED SOLD: 10/14/2020 [facility] 24 HR Nicotine 0.875 MG/HR Transdermal Patch Nicotine Transd ermal System Step 1 10/14/2020 12:00:00 AM EST active MED[facility] ([facility]) Buprenorphine 8 MG / Naloxone 2 MG Oral Strip Buprenor phine Hydrochloride/Naloxone Hydrochloride 10/14/2020 12:00:00 AM EST SUBLINGUAL active MED[facility] ([facility]) 8-2 mg 10/14/2020 12:00:00 AM EST film 6 PLACE THREE FILMS UNDER THE TONGUE EVERY DAY MAXIMUM DAILY DOSE = 3 PLACE THREE FILMS UNDER THE TONGUE EVERY DAY MAXIMUM DAILY DOSE = 3 SOLD: 10/14/2020 [facility] 8-2 mg 10/05/2020 12:00:00 AM EST tablet, sublingual 21 PLACE THREE TABLETS UNDER THE TONGUE EVERY MORNING MAXIMUM DAILY DOSE = THREE TABLETS PLACE THREE TABLETS UNDER THE TONGUE EVERY MORNING MAXIMUM DAILY DOSE = THREE TABLETS SOLD: 10/05/2020 [facility] 24 HR Bupropion Hydrochloride 300 MG Extended Release Oral T ablet BUPROPION HCL 09/25/2020 12:00:00 AM EST tablet extended release 24 hr 10 TAKE ONE TABLET BY MOUTH EVERY DAY IN THE MORNING TAKE ONE TABLET BY MOUTH EVERY DAY IN MORNING SOLD: 09/26/2020 [facility] 8-2 mg 09/25/2020 12:00:00 AM EST film 30 PLACE THREE FILMS UNDER THE TONGUE EVERY DAY IN THE MORNING MAXIMUM DAILY DOSE = 3 PLACE THREE FILMS UNDER THE TONGUE EVERY DAY IN THE MORNING MAXIMUM DAILY DOSE = 3 SOLD: 09/26/2020 [facility] 600 mg 09/25/2020 12:00:00 AM EST tablet 30 TAKE ONE TABLET BY MOUTH THREE TIMES A DAY TAKE ONE TABLET BY MOUTH THREE TIMES A DAY SOLD: 09/26/2020 [facility] 8-2 mg 09/15/2020 12:00:00 AM EST film 17 PLACE TWO AND ONE-HALF FILMS UNDER THE TONGUE EVERY DAY MAXIMUM DAILY DOSE = 2 & 1/[address] TWO AND ONE-HALF FILMS UNDER THE TONGUE EVERY DAY MAXIMUM DAILY DOSE = 2 & 1/2 FILMS SOLD: 09/15/2020 [facility] 1 mg 09/03/2020 12:00:00 AM EST tablet 10 TAKE ONE TABLET BY MOUTH TWICE A DAY - MAXIMUM DAILY DOSE = 2 TAKE ONE TABLET BY MOUTH TWICE A DAY - M AXIMUM DAILY DOSE = 2 SOLD: 09/04/[address] [facility] 8-2 mg 08/27/2020 12:00:00 AM EDT film 17 PLACE 2 AND 1/2 FILM STRIPS UNDER THE TONGUE TO DISSOLVE MAXIMUM DAILY DOSE = 2 AND 1/[address] 2 AND 1/2 FILM STRIPS UNDER THE TONGUE TO DISSOLVE MAXIMUM DAILY DOSE = 2 AND 1/2 FILMS SOLD: 08/27/2020 [facility] Sulfamethoxazole 800 MG / Trimethoprim 160 MG Oral Tab let 800-160 mg SULFAMETHOXAZOLE/TRIMETHOPRIM 08/25/2020 12:00:00 AM EDT tablet 14 TAKE ONE TABLET BY MOUTH TWICE A DAY TAKE ONE TABLET BY MOUTH TWICE A DAY SOLD: 08/25/2020 [facility] 1 mg 07/29/2020 12:00:00 AM EDT tablet 28 TAKE ONE TABLET BY MOUTH TWICE A DAY , MAXIMUM DAILY DOSE = 2 TABLETS TAKE ONE TABLET BY MOUTH TWICE A DAY , MAXIMUM DAILY DOSE = 2 TABLETS SOLD: 07/29/2020 [facility] 8-2 mg 07/29/2020 12:00:00 AM EDT film 70 DISSOLVE 2 & 1/2 FILM STRIPS UNDER THE TONGUE ONCE DAILY , MAXIMUM DAILY DOSE = 2 & 1/2 FILM STRIPS DISSOLVE 2 & 1/2 FILM STRIPS UNDER THE TONGUE ONCE DAILY , MAXIMUM DAILY DOSE = 2 & 1/2 FILM STRIPS SOLD: 07/29/2020 [facility] 8-2 mg 07/01/2020 12:00:00 AM EDT film 70 PLACE 2 & 1/2 FILMS UNDER THE TONGUE EVERY DAY - MAXIMUM DAILY DOSE = 2 & 1/[address] 2 & 1/2 FILMS UNDER THE TONGUE EVERY DAY - MAXIMUM DAILY DOSE = 2 & 1/2 FILMS SOLD: 07/01/2020 [facility] 2 mg 07/01/2020 12:00:00 AM EDT tablet 28 TAKE ONE TABLET BY MOUTH TWICE A DAY - MAXIMUM DAILY DOSE = 2 TAKE ONE TABLET BY MOUTH TWICE A DAY - M ELENA DAILY DOSE = 2 SOLD: 07/01/[address] [facility] 1 mg 06/08/2020 12:00:00 AM EDT tablet 12 TAKE 1/2 TABLET BY MOUTH TWO TIMES A DAY NEEDED , MAXIMUM DAILY DOSE = 1 TABLET TAKE 1/2 TABLET BY MOUTH TWO TIMES A DAY NEEDED , MAXIMUM DAILY DOSE = 1 TABLET SOLD: 06/08/2020 [facility] 8-2 mg 06/03/2020 12:00:00 AM EDT film 70 PLACE 2 & 1/2 FILMS UNDER THE TONGUE EVERY DAY - MAXIMUM DAILY DOSE = 2 & 1/[address] 2 & 1/2 FILMS UNDER THE TONGUE EVERY DAY - MAXIMUM DAILY DOSE = 2 & 1/2 FILMS SOLD: 06/03/2020 [facility] 0.5 mg 05/17/2020 12:00:00 AM EDT tablet 28 TAKE ONE TABLET BY MOUTH TWICE A DAY NEEDED MAXIMUM DAILY DOSE = 2 TAKE ONE TABLET BY MOUTH TWICE A DAY NEEDED MAXIMUM DAILY DOSE = 2 SOLD: 05/17/2020 [facility] Clonazepam 0.5 MG Oral Tablet Clonazepam 0.5 MG 05/16/2020 12:00:00 AM EDT 1.0 {tablet} active Clonazepam 0.5 MG eCW1 ([facility]) Clonazepam 0.5 MG Oral Tablet Clonazepam 0.5 MG 05/16/2020 12:00:00 AM EDT 1.0 {tablet} active Clonazepam 0.5 MG eCW1 ([facility]) Clonazepam 0.5 MG Oral Tablet Clonazepam 0.5 MG 05/16/2020 12:00:00 AM EDT 1.0 {tablet} active Clonazepam 0.5 MG eCW1 ([facility]) Clonazepam 0.5 MG Oral Tablet Clonazepam 0.5 MG 05/16/2020 12:00:00 AM EDT 1.0 {tablet} active Clonazepam 0.5 MG eCW1 ([facility]) Clonazepam 0.5 MG Oral Tablet Clonazepam 0.5 MG 05/16/2020 12:00:00 AM EDT 1.0 {tablet} active Clonazepam 0.5 MG eCW1 ([facility]) Clonazepam 0.5 MG Oral Tablet Clonazepam 0.5 MG 05/16/2020 12:00:00 AM EDT 1.0 {tablet} active Clonazepam 0.5 MG eCW1 ([facility]) 0.25 mg 05/12/2020 12:00:00 AM EDT tablet,disintegrating [address] ONE TABLET ON TONGUE AND ALLOW TO DISSOLVE 30 MINUTES BEFORE BEDTIME TWO TIMES DAILY - MAXIMUM DAILY DOSE = [address] ONE TABLET ON TONGUE AND ALLOW TO DISSOLVE 30 MINUTES BEFORE BEDTIME TWO TIMES DAILY - MAXIMUM DAILY DOSE = 2 TABLETS SOLD: 05/12/2020 [facility] 8-2 mg 05/07/2020 12:00:00 AM EDT film 70 DISSOLVE TWO AND ONE-HALF FILMS UNDER THE TONGUE ONCE DAILY MAXIMUM DAILY DOSE = 2 & 1/2 DISSOLVE TWO AND ONE- HALF FILMS UNDER THE TONGUE ONCE DAILY MAXIMUM DAILY DOSE = 2 & 1/2 SOLD: 05/07/2020 [facility] 600 mg 05/01/2020 12:00:00 AM EDT tablet 30 TAKE ONE TABLET BY MOUTH EVERY DAY TAKE ONE TABLET BY MOUTH EVERY DAY SOLD: 08/12/2020 [facility] 600 mg 05/01/2020 12:00:00 AM EDT tablet 30 TAKE ONE TABLET BY MOUTH EVERY DAY TAKE ONE TABLET BY MOUTH EVERY DAY SOLD: 05/01/2020 [facility] Clonazepam 0.25 MG Disintegrating Oral Tablet Clonazepam 0.2 5 MG 04/09/2020 12:00:00 AM EDT active Clonazep am 0.25 MG eCW1 ([facility]) 0.25 mg 04/09/2020 12:00:00 AM EDT tablet,disintegrating [address] ONE TABLET UNDER THE TONGUE AND ALLOW TO DISSOLVE , 30 MINUTES BEFORE BEDTIME TWO TIMES A DAY NEEDED MAXIMUM DAILY DOSE = [address] ONE TABLET UNDER THE TONGUE AND AL LOW TO DISSOLVE , 30 MINUTES BEFORE BEDTIME TWO TIMES A DAY NEEDED MAXIMUM DAILY DOSE = 1 SOLD: 04/13/2020 [facility] 8-2 mg 04/09/2020 12:00:00 AM EDT film 70 PLACE TWO AND ONE-HALF FILMS UNDER TONGUE ONCE DAILY MAXIMUM DAILY DOSE = 2&1/[address] TWO AND ONE-HALF FILMS UNDER TONGUE ONCE DAILY MAXIMUM DAILY DOSE = 2&1/2 FILMS SOLD: 04/09/2020 [facility] venlafaxine 75 MG Oral Tablet VENLAFAXINE HCL 04/02/2020 12:00:00 A M EDT tablet 30 TAKE ONE TABLET BY MOUTH EVERY DAY WITH FOOD TAKE ONE TABLET BY MOUTH EVERY DAY WITH FOOD SOLD: 04/02/2020 [facility] 600 mg 04/02/2020 12:00:00 AM EDT tablet 30 TAKE ONE TABLET BY MOUTH EVERY DAY TAKE ONE TABLET BY MOUTH EVERY DAY SOLD: 04/02/2020 [facility] 8-2 mg 03/13/2020 12:00:00 AM EDT film 70 DISSOLVE 2 & 1/2 FILMS IN MOUTH ONCE DAILY MAXIMUM DAILY DOSE = 2 & 1/2 DISSOLVE 2 & 1/2 FILMS IN MOUTH ONCE DAILY MAXIMUM DAILY DOSE = 2 & 1/2 SOLD: 03/13/2020 [facility] venlafaxine 37.5 MG Oral Tablet VENLAFAXINE HCL 03/07/2020 12:00 :00 AM EDT tablet 7 TAKE ONE TABLET BY MOUTH EVERY D AY WITH FOOD TAKE ONE TABLET BY MOUTH EVERY DAY WITH FOOD SOLD: 03/11/2020 [facility] venlafaxine 75 MG Oral Tablet VENLAFAXINE HCL 03/07/2020 12:00:00 A M EDT tablet 30 TAKE ONE TABLET BY MOUTH EVERY DAY WITH FOOD TAKE ONE TABLET BY MOUTH EVERY DAY WITH FOOD SOLD: 03/11/2020 [facility] venlafaxine 37.5 MG Oral Tablet Venlafaxine HCl 37.5 MG Venl afaxine HCl 37.5 MG 03/06/2020 12:00:00 AM EDT 1.0 {tablet_with_food} active Venlafaxine HCl 37.5 MG eCW1 ([facility]) venlafaxine 37.5 MG Oral Tablet Venlafaxine HCl 37.5 MG Venl afaxine HCl 37.5 MG 03/06/2020 12:00:00 AM EDT 1.0 {tablet_with_food} active Venlafaxine HCl 37.5 MG eCW1 ([facility]) venlafaxine 75 MG Oral Tablet Venlafaxine HCl 75 MG Venlafax ine HCl 75 MG 03/06/2020 12:00:00 AM EDT 1.0 {tablet_with_food} active Venlafaxine HCl 75 MG eCW1 ([facility]) venlafaxine 37.5 MG Oral Tablet Venlafaxine HCl 37.5 MG Venl afaxine HCl 37.5 MG 03/06/2020 12:00:00 AM EDT 1.0 {tablet_with_food} active Venlafaxine HCl 37.5 MG eCW1 ([facility]) venlafaxine 75 MG Oral Tablet Venlafaxine HCl 75 MG Venlafax ine HCl 75 MG 03/06/2020 12:00:00 AM EDT 1.0 {tablet_with_food} active Venlafaxine HCl 75 MG eCW1 ([facility]) venlafaxine 75 MG Oral Tablet Venlafaxine HCl 75 MG Venlafax ine HCl 75 MG 03/06/2020 12:00:00 AM EDT 1.0 {tablet_with_food} active Venlafaxine HCl 75 MG eCW1 ([facility]) venlafaxine 75 MG Oral Tablet Venlafaxine HCl 75 MG Venlafax ine HCl 75 MG 03/06/2020 12:00:00 AM EDT active 1 tablet with food eCW1 ([facility]) venlafaxine 37.5 MG Oral Tablet Venlafaxine HCl 37.5 MG Venl afaxine HCl 37.5 MG 03/06/2020 12:00:00 AM EDT active 1 tablet with food eCW1 ([facility]) venlafaxine 37.5 MG Oral Tablet Venlafaxine HCl 37.5 MG Venl afaxine HCl 37.5 MG 03/06/2020 12:00:00 AM EDT 1.0 {tablet_with_food} active Venlafaxine HCl 37.5 MG eCW1 ([facility]) venlafaxine 37.5 MG Oral Tablet Venlafaxine HCl 37.5 MG Venl afaxine HCl 37.5 MG 03/06/2020 12:00:00 AM EDT 1.0 {tablet_with_food} active Venlafaxine HCl 37.5 MG eCW1 ([facility]) venlafaxine 75 MG Oral Tablet Venlafaxine HCl 75 MG Venlafax ine HCl 75 MG 03/06/2020 12:00:00 AM EDT 1.0 {tablet_with_food} active Venlafaxine HCl 75 MG eCW1 ([facility]) venlafaxine 75 MG Oral Tablet Venlafaxine HCl 75 MG Venlafax ine HCl 75 MG 03/06/2020 12:00:00 AM EDT 1.0 {tablet_with_food} active Venlafaxine HCl 75 MG eCW1 ([facility]) venlafaxine 37.5 MG Oral Tablet Venlafaxine HCl 37.5 MG Venl afaxine HCl 37.5 MG 03/06/2020 12:00:00 AM EDT 1.0 {tablet_with_food} active Venlafaxine HCl 37.5 MG eCW1 ([facility]) venlafaxine 75 MG Oral Tablet Venlafaxine HCl 75 MG Venlafax ine HCl 75 MG 03/06/2020 12:00:00 AM EDT 1.0 {tablet_with_food} active Venlafaxine HCl 75 MG eCW1 ([facility]) venlafaxine 75 MG Oral Tablet Venlafaxine HCl 75 MG Venlafax ine HCl 75 MG 03/06/2020 12:00:00 AM EDT 1.0 {tablet_with_food} active Venlafaxine HCl 75 MG eCW1 ([facility]) venlafaxine 37.5 MG Oral Tablet Venlafaxine HCl 37.5 MG Venl afaxine HCl 37.5 MG 03/06/2020 12:00:00 AM EDT 1.0 {tablet_with_food} active Venlafaxine HCl 37.5 MG eCW1 ([facility]) 600 mg 03/03/2020 12:00:00 AM EDT tablet 30 TAKE ONE TABLET BY MOUTH EVERY DAY TAKE ONE TABLET BY MOUTH EVERY DAY SOLD: 03/03/2020 [facility] 8-2 mg 02/17/2020 12:00:00 AM EDT film 70 TAKE TWO AND ONE-HALF FILMS BY MOUTH ONCE DAILY MAXIMUM DAILY DOSE = 2 & 1/2 TAKE TWO AND ONE-HALF FILMS BY MOUTH ONCE DAILY MAXIMUM DAILY DOSE = 2 & 1/2 SOLD: 02/17/2020 [facility] 12 HR Bupropion Hydrochloride 150 MG Ext ended Release Oral Tablet [Wellbutrin] Wellbutrin SR 150 MG Wellbutrin SR 150 MG 02/12/2020 12:00:00 AM EDT active 1 tablet eCW1 ([facility]) 150 mg 02/12/2020 12:00:00 AM EDT tablet sustained-releas e 12 hr 60 TAKE ONE TABLET BY MOUTH TWICE A DAY TAKE ONE TABLET BY MOUTH TWICE A DAY SOLD: 02/12/2020 [facility] 4 mg 02/03/2020 12:00:00 AM EDT tablet,disintegrating 3 0 DISSOLVE ONE TABLET ON TONGUE AND ALLOW TO DISSOLVE DISSOLVE ONE TABLET ON TONGUE AND ALLOW TO DISSOLVE SOLD: 02/03/2020 [facility] 600 mg 02/03/2020 12:00:00 AM EDT tablet 30 TAKE ONE TABLET BY MOUTH EVERY DAY TAKE ONE TABLET BY MOUTH EVERY DAY SOLD: 02/03/2020 [facility] 4 mg 02/03/2020 12:00:00 AM EDT tablet,disintegrating 3 0 DISSOLVE ONE TABLET ON TONGUE AND ALLOW TO DISSOLVE DISSOLVE ONE TABLET ON TONGUE AND ALLOW TO DISSOLVE SOLD: 04/02/2020 [facility] 8-2 mg 01/21/2020 12:00:00 AM EDT film 70 DISSOLVE 2 & 1/2 FILM STRIPS ONCE DAILY , MAXIMUM DAILY DOSE = 2 & 1/2 FILM STRIPS DISSOLVE 2 & 1/2 FILM STRIPS ONCE DAILY , MAXIMUM DAILY DOSE = 2 & 1/2 FILM STRIPS SOLD: 01/21/2020 [facility] 200 mg 01/15/2020 12:00:00 AM EDT capsule 30 TAKE ONE CAPSULE BY MOUTH EVERY DAY WITH FOOD TAKE ONE CAPSULE BY MOUTH EVERY DAY WITH FOOD SOLD: 01/17/2020 [facility] 600 mg 01/04/2020 12:00:00 AM EST tablet 30 TAKE ONE TABLET BY MOUTH EVERY DAY TAKE ONE TABLET BY MOUTH EVERY DAY SOLD: 01/04/2020 [facility] 8-2 mg 12/25/2019 12:00:00 AM EST film 70 PLACE 2 AND 1/2 FILMS UNDER THE TONGUE ONCE DAILY MAXIMUM DAILY DOSE = 2 AND 1/[address] 2 AND 1/2 FILMS UNDER THE TONGUE ONCE DAILY MAXIMUM DAILY DOSE = 2 AND 1/2 FILMS SOLD: 12/25/2019 [facility] 8-2 mg 12/11/2019 12:00:00 AM EST film 28 PLACE 2 FILMS UNDER THE TONGUE ONCE DAILY MAXIMUM DAILY DOSE = 2 PLACE 2 FILMS UNDER THE TONGUE ONCE STEPHEN Y MAXIMUM DAILY DOSE = 2 SOLD: 12/11/2019 [facility] 4 mg 12/07/2019 12:00:00 AM EST tablet,disintegrating 3 0 ALLOW TO DISSOLVE ON THE TONGUE ONCE DAILY ALLOW TO DISSOLVE ON THE TONGUE ONCE DAILY SOLD: 12/09/2019 [facility] 600 mg 12/04/2019 12:00:00 AM EST tablet 30 TAKE ONE TABLET BY MOUTH EVERY DAY TAKE ONE TABLET BY MOUTH EVERY DAY SOLD: 12/04/2019 [facility] 1.1 % 11/28/2019 12:00:00 AM EST cream 51 BRUSH TEETH WITH DIME-SIZED AMOUNT IN PLACE OF REGULAR TOOTHPASTE TWO TIMES A DAY BRUSH TEETH WITH DIME-SIZED AMOUNT IN PLACE OF REGULAR TOOTHPASTE TWO TIMES A DAY SOLD: 11/29/2019 [facility] 8.6-2.1 mg 11/28/2019 12:00:00 AM EST tablet, sublingual 14 PLACE ONE TABLET UNDER THE TONGUE EVERY DAY MAXIMUM DAILY DOSE = 1 PLACE ONE TABLET UNDER THE TONGUE EVERY DAY MAXIMUM DAILY DOSE = 1 SOLD: 11/28/2019 [facility] Escitalopram 20 MG Oral Tablet Escitalopram Oxalate 20 MG Escitalopram Oxalate 20 MG 11/25/2019 12:00:00 AM EST active 1 tablet eCW1 ([facility]) Escitalopram 20 MG Oral Tablet ESCITALOPRAM OXALATE 11/25/2019 1 2:00:00 AM EST tablet 30 TAKE ONE TABLET BY MOUTH EVERY D AY TAKE ONE TABLET BY MOUTH EVERY DAY SOLD: 12/04/2019 [facility] 8.6-2.1 mg 11/22/2019 12:00:00 AM EST tablet, sublingual 7 PLACE ONE TABLET UNDER THE TONGUE EVERY DAY MAXIMUM DAILY DOSE = ONE TABLET PLACE ONE TABLET UNDER THE TONGUE EVERY DAY MAXIMUM DAILY DOSE = ONE TABLET SOLD: 11/22/2019 [facility] Escitalopram Oxalate 10 MG UNK 11/22/2019 12:00:00 AM EST active 2 tablet eCW1 ([facility]) 8-2 mg 11/14/2019 12:00:00 AM EST film 7 PLACE ONE FILM UNDER THE TONGUE EVERY DAY, MAXIMUM DAILY DOSE = [address] ONE FILM UNDER THE TONGUE EVERY DAY, MAXIMUM DAILY DOSE = 1 FILM SOLD: 11/14/2019 [facility] 200 mg 11/08/2019 12:00:00 AM EST capsule 30 TAKE ONE CAPSULE BY MOUTH EVERY DAY WITH FOOD TAKE ONE CAPSULE BY MOUTH EVERY DAY WITH FOOD SOLD: 11/08/2019 [facility] 8-2 mg 11/07/2019 12:00:00 AM EST film 7 PLACE ONE FILM UNDER THE TONGUE EVERY DAY, MAXIMUM DAILY DOSE = [address] ONE FILM UNDER THE TONGUE EVERY DAY, MAXIMUM DAILY DOSE = 1 FILM SOLD: 11/07/2019 [facility] 600 mg 11/05/2019 12:00:00 AM EST tablet 30 TAKE ONE TABLET BY MOUTH EVERY DAY TAKE ONE TABLET BY MOUTH EVERY DAY SOLD: 11/05/2019 [facility] Sofosbuvir-Velpatasvir 400-100 MG Sofosbuvir-Velpatasvir 400 -100 MG 11/05/2019 12:00:00 AM EST active 1 tablet eCW1 ([facility]) 4 mg 11/05/2019 12:00:00 AM EST tablet 14 TAKE 1 TABLET BY MOUTH UP TO TWO TIMES A DAY TAKE 1 TABLET BY MOUTH UP TO TWO TIMES A DAY SOLD: 11/05/2019 [facility] Ondansetron 4 MG Disintegrating Oral Tablet Ondansetron 4 MG 11/05/2019 12:00:00 AM EST active 1 tablet on the tongue and allow to dissolve eCW1 ([facility]) Sofosbuvir-Velpatasvir 400-100 MG UNK 11/05/2019 12:00:00 AM EST active 1 tablet eCW1 ([facility]) Ondansetron 4 MG UNK 11/05/2019 12:00:00 AM EST active 1 tablet on the tongue and allow to dissolve eCW1 ([facility]) gabapentin 600 MG Oral Tablet Gabapentin 600 MG Gabapentin 6 00 MG 11/05/2019 12:00:00 AM EST active 1 tablet eCW1 ([facility]) Ondansetron 4 MG Oral Tablet Ondansetron HCL 11/04/2019 12:00:[address] ORAL active MEDENT ([facility]) 10 mg 11/01/2019 12:00:00 AM EST cartridge 336 INHALE 3 PUFFS DIRECTED EVERY 4 HOURS WHILE AWAKE NEEDED INHALE 3 PUFFS DIRECTED EVERY 4 HOURS WHILE AWAKE NEEDED SOLD: 11/04/2019 [facility] 4-1 mg 10/31/2019 12:00:00 AM EST film 14 PLACE ONE FILM UNDER THE TONGUE TWICE A DAY, MAXIMUM DAILY DOSE = [address] ONE FILM UNDER THE TONGUE TWICE A DAY, MAXIMUM DAILY DOSE = 2 FILMS SOLD: 10/31/2019 [facility] nabumetone 750 MG Oral Tablet Nabumetone 750 MG Nabumetone 7 50 MG 10/10/2019 12:00:00 AM EST active as direc michaela eCW1 ([facility]) dalbavancin 20 MG/ML Injectable Solution [Dalvance] Da lvance 500 MG Dalvance 500 MG 10/07/2019 12:00:00 AM EST active as directed eCW1 ([facility]) celecoxib 200 MG Oral Capsule [Celebrex] Celebrex 200 MG Bonnie ebrex 200 MG 10/07/2019 12:00:00 AM EST active 1 capsule with food eCW1 ([facility]) Insurance Providers Payer name Policy type / Coverage type Policy ID Covered democrat ID Covered democrat's relationship to rubin Policy Rubin Plan Information FUENTES [id number] SP [id number] [employer] MEDICAID [id number] S [id number] [employer] CARE MEDICAID [id number] S [id number] [employer] CARE MEDICAID [id number] S [id number] SELF PAY UNAVAILABLE S UNAVAILA BLE Managed Care Fuentes P [id number] S [id number] Medicaid S [id number] S [id number] [facility] CARE MEDICAID [id number] S [id number] [place] [id number] SP [id number] [facility] [id number] MEDICAID -PHYSICIAN [id number] 1 [id number] Managed Care [place] P [id number] S [id number] [place] [id number] SP [id number] UNK [facility]K [facility] UNK SP UN K MEDICAID [id number] SP [id number] COMMUNITY PLAN MCDO [id number] SP [id number] BCBS EMPIRE JAMAR DIV [id number] [id number] EMPIRE ([facility]) P [id number] C [id number] MEDICAID S [id number] S [id number] MEDICAID -O/P EMERGENCY ROOM [id number] Self Pay P UNAVAILABLE S UNAVAILA BLE Medicaid P [id number] S [id number] [facility] COMMUNITY PLAN MCDO [id number] SP [id number] F[facility]ES CARE [id number] S [id number] [place] [id number] S [id number] F[facility]ENTES [facility] [place] [id number] SP [id number] MEDICAID [id number] SP [id number] Medicaid P [id number] S [id number] Managed [facility] [place] S [id number] S [id number] Problems, Conditions, and Diagnoses Code Display Name Description Problem Type Effective Dates Data Source(s) F17.210 [id number] Cigarette nicotine dependence without com plication Problem 02/12/2020 12:00:00 AM EDT eCW1 ([facility]) F32.9 80392256 Depression, unspecified depression type P roblem 02/12/2020 12:00:00 AM EDT eCW1 ([facility]) F17.210 11863379 Cigarette nicotine dependence without com plication Problem 02/12/2020 12:00:00 AM EDT eCW1 ([facility]) F32.9 [id number] Depression, unspecified depression type P roblem 02/12/2020 12:00:00 AM EDT eCW1 ([facility]) B17.10 [id number] Acute hepatitis C virus infection without hepatic coma Problem 11/22/2019 12:00:00 AM EST eCW1 ([facility]) F41.9 60499867 Anxiety Problem 11/22/2019 12:00:00 AM ES T eCW1 ([facility]) B17.10 72972159 Acute hepatitis C virus infection without hepatic coma Problem 11/22/2019 12:00:00 AM EST eCW1 ([facility]) F41.9 11325064 Anxiety Problem 11/22/2019 12:00:00 AM ES T eCW1 ([facility]) B18.2 565093413 Chronic hepatitis C without hepatic coma Problem 11/05/2019 12:00:00 AM EST eCW1 ([facility]) F19.21 [id number] Drug addiction in remission Problem 11/05/2019 12:00:00 AM EST eCW1 ([facility]) B18.2 163053925 Chronic hepatitis C without hepatic coma Problem 11/05/2019 12:00:00 AM EST eCW1 ([facility]) F19.21 [id number] Drug addiction in remission Problem 11/05/2019 12:00:00 AM EST eCW1 ([facility]) Z86.14 256188163 Hx MRSA infection Problem 10/07/2019 12:00:0 0 AM EST eCW1 ([facility]) F15.20 92466680 Amphetamine addiction Problem 10/07/2019 12: 00:00 AM EST eCW1 ([facility]) M46.46 414509804 Discitis of lumbar region Problem 10/07/2019 12:00:00 AM EST eCW1 ([facility]) Z86.14 794242918 Hx MRSA infection Problem 10/07/2019 12:00:0 0 AM EST eCW1 ([facility]) F15.20 80015944 Amphetamine addiction Problem 10/07/2019 12: 00:00 AM EST eCW1 ([facility]) M46.46 292771569 Discitis of lumbar region Problem 10/07/2019 12:00:00 AM EST eCW1 ([facility]) B19.20 77601297 Hepatitis C virus in fection without hepatic coma, unspecified chronicity Problem 10/07/2019 12:00:00 AM EST eCW1 ([facility]) 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, in remission Psychoactive substance dependence in remission 10/06/2019 11:59:09 AM [facility] B19.20 Unspecified viral hepatitis C without hepatic coma Hep atitis C 10/06/2019 11:59:09 AM [facility] Z13.228 Encounter for screening for other metabo lic disorders Encounter for screening for other metabolic disorders 10/06/2019 11:59:09 AM [facility] V74.5 Screening examination for venereal disea se Screening examination for venereal disease 10/06/2019 11:59:09 AM [facility] M46.47 Discitis, unspecified, lumbosacral region Discit is of lumbosacral spine 10/06/2019 11:59:09 AM [facility] 724.2 Low back pain Low back pain 10/06/2019 11:44:12 AM [facility] F15.20 Other stimulant dependence, uncomplicate d OTHER STIMULANT DEPENDENCE, UNCOMPLICATED Diagnosis 09/19/2020 12:51:00 PM EST [facility] 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 [employer] (CURRENT) DRUG THERAPY Diagnosis 09/11/2020 11:57:00 AM [facility] F17.210 Nicotine dependence, cigarettes, uncompl icated NICOTINE DEPENDENCE, CIGARETTES, UNCOMPLICATED Diagnosis 09/11/2020 11:57:00 AM [facility] F41.9 Anxiety disorder, unspecified ANXIETY DISORDER, UNSPEC IFIED Diagnosis 09/11/2020 11:57:00 AM [facility] Z76.0 Encounter for issue of repeat prescripti on ENCOUNTER FOR ISSUE OF REPEAT PRESCRIPTION Diagnosis 09/11/2020 11:57:00 AM [facility] [id number] Nicotine dependence, cigarettes, uncompl icated Nicotine dependence, cigarettes, uncomplicated Diagnosis 08/25/2020 06:05:00 AM EDT [facility] [id number] 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 Diagnosis 08/25/2020 06:05:00 AM ED T [facility] [id number] Other stimulant abuse with stimulant-ind uced anxiety disorder Other stimulant abuse with stimulant-induced anxiety disorder Diagnosis 08/25/2020 06:05:00 AM EDT [facility] [id number] Cutaneous abscess of left upper limb Cut aneous abscess of left upper limb Diagnosis 08/25/2020 06:05:00 AM EDT [facility] [id number] Furuncle of left upper limb Furuncle of left upper huerta b Diagnosis 08/25/2020 06:05:00 AM EDT [facility] F19.90 Other psychoactive substance use, unspec ified, uncomplicated OTHER PSYCHOACTIVE SUBSTANCE USE, UNSPECIFIED, UNCOMPLICATED Diagnosis 07/16/2020 11:00:00 AM [facility] Z53.21 Procedure and treatment not carried out due to patient leaving prior to being seen by health care provider PROC/TRTMT NOT CRD OUT D/T PT LV BEF SEE N BY HLTH CARE PROV Diagnosis 06/13/2020 05:58:00 PM EDT [facility] N5089 Other specified disorders of the male ge nital organs Other specified disorders of the male genital organs Diagnosis 12/31/2019 10:20:00 AM [facility] J069 Acute upper respiratory infection, unspe cified Acute upper respiratory infection, unspecified Diagnosis 11/26/2019 12:06:00 PM [facility] R197 Diarrhea, unspecified Diarrhea, unspecified Diagnosis 11/11/2019 05:20:00 PM [facility] R1110 Vomiting, unspecified Vomiting, unspecified Diagnosis 11/04/2019 04:32:00 PM [facility] Surgeries/Procedures Procedure Description Date Indications Data Source(s) Extended Individual Psychotherapy - 45 min 09/04/2020 12:00:00 AM EST - 09/04/2020 12:00:00 AM EST [facility] ([facility]) Extended Individual Psychotherapy - 45 min 0 12:00:00 AM EST [facility] ([facility]) PHYSICIAN TELEPHONE EVALUATION 11-20 MIN 03/06/2020 12 :00:00 AM EDT eCW1 ([facility]) BEHAV CHNG SMOKING 3-10 MIN 02/12/2020 12:00:00 AM EDT eCW1 ([facility]) Results ID Date Data Source [id number] 10/03/2020 11:29:00 PM EST [facility] Name Value Range Interpretation Code Description Data Flory rce(s) Supporting Document(s) SARS coronavirus 2 RNA [Presence] in Res piratory specimen by REINALDO with probe detection [facility] This lab was ordered by [facility] a nd reported by [facility]. ID Date Data Source [id number] 09/23/2020 11:08:00 AM EST [facility] Performed at: RN - [facility] [address] [place], [place] [id number] Director: Felicita Del Toro MD, Phone: [phone] Name Value Range Interpretation Code Description Data Flory rce(s) Supporting Document(s) HIV 4TH GEN. Non Reactive Non Reactive [facility] ID Date Data Source [id number] 09/23/2020 11:08:00 AM EST [facility] Performed at: [facility] [address] [place] [id number] Director: Felicita Del Toro MD, Phone: [phone] Name Value Range Interpretation Code Description Data Flory rce(s) Supporting Document(s) HEPATITIS C QNT HCV Not Detected IU/mL . [facility] TEST INFO: Comment . [facility] The quantitative range of this assay is 15 IU/mL to 100million IU/mL. ID Date Data Source [id number] 09/23/2020 11:08:00 AM EST [facility]formed at: [facility] [address] [place] [address] [id number] Director: Felicita Del Toro MD, Phone: [phone] Name Value Range Interpretation Code Description Data Flory rce(s) Supporting Document(s) COMMENT: Comment . [facility] Strong reactive antibody screen (s/c rat io >10.9) isconsistent with past or present HCV infection. Follow-uptesting by HCV, Quantitative, Real time PCR (#[id number]) isrecommended to determine viral load/diagnosis of currentHCV infection. HCV AB >11.0 0.0-0.9 [facility] Result Units: s/co ratio ID Date Data Source [id number] 09/23/2020 11:08:00 AM EST [facility] Performed at: [facility] [place], [place] [id number] Director: Felicita Del Toro MD, Phone: [phone] Name Value Range Interpretation Code Description Data Flory rce(s) Supporting Document(s) HEP B CORE IgM Negative Negative [facility] ID Date Data Source [id number] 09/23/2020 11:08:00 AM EST [facility]formed [facility]: [facility] [address] [place] [id number] Director: Felicita Del Toro MD, Phone: [phone] Name Value Range Interpretation Code Description Data Flory rce(s) Supporting Document(s) HEP.A AB, IGM Negative Negative [facility] ID Date Data Source [id number] 09/19/2020 05:34:00 PM EST [facility] Name Value Range Interpretation Code Description Data Flory rce(s) Supporting Document(s) VITAMIN D 25 33 ng/mL 30-100 [facility] ID Date Data Source [id number] 09/19/2020 05:34:00 PM EST [facility] Name Value Range Interpretation Code Description Data Flory rce(s) Supporting Document(s) HEP C Reactive-Prelimin. Nonreactive [facility] The test result is interpreted as PRELIM INARY POSITIVE forHepatitis C antibodies.*Confirmatory testing will followConfirmatory results must be considered in making adiagnosis related to HCV infection* ID Date Data Source [id number] 09/19/2020 05:34:00 PM EST [facility] Name Value Range Interpretation Code Description Data Flory rce(s) Supporting Document(s) HBsAG NEGATIVE NEGATIVE [facility] ID Date Data Source [id number] 09/19/2020 05:34:00 PM EST [facility] Name Value Range Interpretation Code Description Data Flory rce(s) Supporting Document(s) SYPHILIS Nonreactive Nonreactive [facility] Result indicates nonreactive for syphili s T.pallidumantibodies. ID Date Data Source [id number] 09/19/2020 01:45:00 PM EST [facility] Name Value Range Interpretation Code Description Data Flory rce(s) Supporting Document(s) FT4 1.00 ng/dL 0.76-1.46 [facility] ID Date Data Source [id number] 09/19/2020 01:45:00 PM EST [facility] Name Value Range Interpretation Code Description Data Flory rce(s) Supporting Document(s) USTSH 2.99 uIU/mL 0.270-4.200 [facility] ID Date Data Source [id number] 09/19/2020 01:38:00 PM EST [facility] Name Value Range Interpretation Code Description Data Flory rce(s) Supporting Document(s) GLU 73 mg/dL 70-110 [facility] Patients taking Sulfasalazine may have f alsely depressedGlucose levels. Patients taking Sulfapyridine may havefalsely elevated Glucose levels. Patients should be drawnfor Glucose before the initial administration of eitherdrug. BUN 16 mg/dL 7-23 [facility] CRE 0.637 mg/dL 0.500-1.300 [facility] GFR > 60 mL/min [facility] CHLORIDE 103 mmol/L 99-110 [facility] NA 140 mmol/L 136-147 [facility] POTASSIUM 4.5 mmol/L 3.5-5.1 [facility] TCO2 33 mmol/L 20-33 [facility] ANION GAP 8.5 10.0-20.0 [facility] CA 9.0 mg/dL 8.3-10.7 [facility] ALKALINE PHOS 84 U/L 45-117 [facility] TP 7.4 g/dL 6.0-7.8 [facility] ALB 4.0 g/dL 3.5-5.0 [facility] ESRD Dialysis patient Albumin reference range: 2.9-4.4 g/dL GL 3.4 g/dL 2.3-3.5 [facility] A/G 1.2 1.0-2.5 [facility] T. BILIRUBIN 0.2 mg/dL 0.1-1.1 [facility] The Dimension Bulger Total Bilirubin is n ot recommended forpatients undergoing treatment with eltrombopag (Promacta)due to the potential for falsely elevated results. ALTI 22 U/L 6-54 [facility] Patients taking Sulfasalazine and/or Sul fapyridine may havefalsely depressed ALT levels. Patients should be drawn forALT before the initial administration of either drug. AST 23 U/L 8-40 [facility] Patients taking Sulfasalazine and/or Sul fapyridine may havefalsely depressed AST levels. Patients should be drawn forAST before the initial administration of either drug. ID Date Data Source [id number] 09/19/2020 01:17:00 PM EST [facility] Name Value Range Interpretation Code Description Data Flory rce(s) Supporting Document(s) WBC 7.53 x10E3/uL 4.0-10.5 [facility] RBC 4.91 x10E6/uL 4.70-6.00 [facility] Hemoglobin 14.5 g/dL 14.0-18.0 [facility] Hematocrit 44.0 % 42.0-52.0 [facility] MCV 89.6 fL 81.0-99.0 [facility] MCH 29.5 pg 27.0-31.0 [facility] MCHC 33.0 g/dL 32.7-35.6 [facility] RDW 11.8 % 11.5-14.0 [facility] Platelet count 240 x10E3/uL 150-450 [facility] ital MPV 10.5 fl 6.9-9.5 [facility] Neutrophils 46.8 % 34-64 [facility] Lymphocytes 46.7 % 25-45 [facility] Monocytes 4.0 % 1.7-10.6 [facility] Eosinophils 1.6 % 0.4-7.0 [facility] Basophils 0.4 % 0.1-2.0 [facility] Imm. Gran. 0.5 % 0.1-2.0 [facility] Abs. Neutro. 3.52 x10E3/uL 1.2-7.6 [facility] Abs. Lymph. 3.52 x10E3/uL 1.0-3.5 [facility] Abs. [place]. 0.30 x10E3/uL 0.1-1.0 [facility] Abs. Eosin. 0.12 x10E3/uL 0.1-0.7 [facility] Abs. Baso. 0.03 x10E3/uL 0.0-0.1 [facility] Abs. Imm. Gran. 0.04 x10E3/uL 0.0-0.1 [facility] spital ANRBC% 0 % 0 [facility] ID Date Data Source [id number] 09/14/2020 06:05:00 AM EST [facility] Patient: GILDA HAMEED Observation Repor t - [facility].VisitID: [id number] [place] [address] [phone], MRegistration Date/Time: 09/11/2020 11:38 Weight:70.3 kg (S). Height/Length:68 inches (S). BMI:23.6 PAST HISTORYProblems:History of drug dependence.Osteomyelitis of vertebra. (1 1/2 years ago). Additional Surgeries:Hernia Repair. (Left inguinal). Medications:Suboxone Sublingual (Film 8-2 mg) 2.5 strips, daily. Allergies:No Known Drug Allergy. FAMILY HISTORYNo significant family medical history. (Electronically signed by Shon Bates P.A. 09/11/2020 13:17) Name Value Range Interpretation Code Description Data Flory rce(s) Supporting Document(s) ID Date Data Source [id number] 09/11/2020 12:19:00 PM EST [facility] TSYSORDER [id number] Name Value Range Interpretation Code Description Data Flory rce(s) Supporting Document(s) URINE AMPHETAMINES POSITIVE <1000 ng/mL [facility] pital THC,URINE NEGATIVE <50 ng/mL [facility] MDMA NEGATIVE <500 ng/mL [facility] URINE BARBITURATES NEGATIVE <300 ng/mL [facility] ital PCP,URINE NEGATIVE <25 ng/mL [facility] PROPOXYPHENE NEGATIVE <300 ng/mL [facility] COCAINE, URINE NEGATIVE <300 ng/mL [facility] URINE,OPIATES NEGATIVE <300 ng/mL [facility] OXYCODONE URINE NEGATIVE <100 ng/mL [facility] URINE,TCA NEGATIVE <1000 ng/mL [facility] IF A NEGATIVE RESULT IS OBTAINED AND ING ESTION OF TRICYCLICANTIDEPRESSANTS IS SUSPECTED, A SERUM SAMPLE SHOULD BEOBTAINED AND TESTED USING AN APPROPRIATE METHOD. URINE BENZODIAZEPINES NEGATIVE <300 ng/mL [facility] THESE TESTS ARE PERFORMED USING AN IMMU NOASSAY FOR THEQUALITATIVE DETERMINATION OF THE PRESENCE OF THE MAJORMETABOLITES OF DRUGS OF ABUSE. THESE TESTS ARE ONLY ASCREENING AND NOT CONFIRMATORY. CLINICAL CONSIDERATION ANDPROFESSIONAL JUDGMENT MUST BE APPLIED TO ANY DRUG OF ABUSETEST RESULT. ID Date Data Source [id number] 08/25/2020 06:05:00 AM EDT [facility] 1 OrderSheet [facility] Emergency Department [address] [place] [address] Phone #: ext- [phone] 08/25/2020 06:05 Patient: GILDA HAMEED Sex: M : 1990 Age: 30yWEIGHT:74.8 kg (S) HEIGHT:68 inches (S) BMI:25.1ALLERGIES: No Known Drug AllergyCHIEF COMPLAINT: boilDIAGNOSIS: Abscess, Drug abuseLAB ORDERSOrder Description Priority Entered Acknowledged InitialedCulture, Wound STAT 06:32 08/25/2020 06:32 Chad(Abscess) Jerry Ramires R.N., M.D.;DIAGNOSTIC STUDY ORDERSOrder Description Priority Entered Acknowledged InitialedMEDICATION/IV/DRIP/FLUID ORDERSOrder Description Priority Entered Acknowledged InitialedcefTRIAXone IM 06:31 08/25/2020 06:40 Chad,1000 mg Jerry Ramires R.N., M.D.;Bactrim DS PO 1 06:31 08/25/2020 06:40 Chad,tab Jerry Ramires R.N., M.D.;GENERAL ORDERSOrder Description Priority Entered Acknowledged Initialed[Electronically signed by Roya Bonilla R.N. (06:55 08/25/2020)][Electronically signed by Jerry Ramires M.D. (06:59 08/25/2020)][Electronically locked by Roya Bonilla R.N. (06:55 08/25/2020)] Name Value Range Interpretation Code Description Data Flory rce(s) Supporting Document(s) ID Date Data Source [id number] 08/25/2020 06:05:00 AM EDT [facility] 1 Medication Reconciliation Report [facility] Emergency Department [address] [place] [address] Phone #: ext- [phone] 08/25/2020 06:05 Patient: GILDA HAMEED Sex: M : 1990 Age: 30yWeight: 74.8 kgHeight/Length: 68 in.BMI: 25.1ALLERGIES: No Known Drug AllergyThe patient's Home Medications are listed below:CONTINUE TAKING THE FOLLOWING MEDICATIONS: Clonipine Suboxone Sublingual 8 mg, 2x a dayThe source(s) of the original Home Medication information:Not obtained.The following Medications were given to the patient in the Emergency Department:Ceftriaxone [IM] IM 1 gm, administered: 08/25/2020 6:40:00 AMBactrim DS [PO] PO 1 tab, administered: 08/25/2020 6:40:00 AMThe following Medications were prescribed to the patient:Bactrim DS 800 mg-160 mg tablet Take 1 tablet twice a day for 7 days -- Dispense 14 tablet. Refills: 0.Substitution permitted.Pharmacy - [id number] - [address] [place] [address] ; [place], [place] [id number]. . -- Jerry Ramires M.D. Name Value Range Interpretation Code Description Data Flory rce(s) Supporting Document(s) ID Date Data Source [id number] 08/25/2020 06:05:00 AM EDT [facility] 1 Medication Administration Record [facility] Emergency Department [address] [place] [address] Phone #: ext [phone] 08/25/2020 06:05 Patient: GILDA HAMEED Sex: M : 1990 Age: 30yWeight: 74.8 kgHeight/Length: 68 inBMI: 25.1ALLERGIES: No Known Drug Allergy Date/Time Medication Administered Medication OrderedGiven CEFTRIAXONE [IM] cefTRIAXone IM 1000 mg06:40 08/25/2020 Dose: 1 gm Roya Jiménez R.N.Given BACTRIM DS [PO] Bactrim DS PO 1 tab06:40 08/25/2020 (SULFAMETHOXAZOLE-TMP DS)Roya Bonilla R.N. Dose: 1 tab PO Name Value Range Interpretation Code Description Data Flory rce(s) Supporting Document(s) ID Date Data Source [id number] 08/25/2020 06:05:00 AM EDT [facility] 1 General Instructions [facility] Emergency Department [address] [place] [address] Phone #: ext- [phone] 08/25/2020 06:05 Patient: GILDA HAMEED Sex: M : 1990 Age: 30ySingle superficial abscess to the left upper extremity with incision and drainage.Chronic substance abuse- marijuana, methamphetamines with anxiety.INSTRUCTIONSDo not smoke. No alcohol.Warnings: Further evaluation is necessary. It is very important to follow up with a healthcare provider.GENERAL WARNINGS: Return or contact your physician immediately if your condition worsens orchanges unexpectedly, if not improving as expected, or if other problems arise. Specifically return if pain,vomiting, bleeding, breathing difficulty or fever greater than 102 degrees F and not controlled byacetaminophen or ibuprofen worsens.Your Current Medications: Your current home medications have been reviewed.CONTINUE TAKING THE FOLLOWING MEDICATIONS:Clonipine*.Suboxone Sublingual : 8 mg 2x a day.Prescription Medications:Bactrim DS 800 mg-160 mg tablet Take 1 tablet twice a day for 7 days -- Dispense 14 tablet. Refills: 0.Substitution permitted.Pharmacy - [id number] - [address] [place], [place] [id number]. .Follow-up:Return to the emergency department as needed. Follow up with your healthcare provider in three days ifnot better. Call for an appointment. Reason for referral: evaluation and treatment. Summary of careprovided to patient via paper.Understanding of the discharge instructions verbalized by patient. Expected course of injury, dischargeinstructions, activity level, diet, prescriptions x1, follow-up appointment and risks and benefits of treatmentreviewed with patient and understanding verbalized. Agrees to plan of care. ADDITIONAL INFORMATIONAbscess (Incision Drainage) 2 General Instructions [facility] Emergency Department [address] [place] [address] Phone #: ext- [phone] 08/25/2020 06:05 Patient: GILDA HAMEED Sex: M : 1990 Age: 30yAn abscess is sometimes called a boil. It happens when bacteria get trapped under the skin and startto grow. Pus forms inside the abscess as the body responds to the bacteria. An abscess can happenwith an insect bite, ingrown hair, blocked oil gland, pimple, cyst, or puncture wound.Your healthcare provid er has drained the pus from your abscess. If the abscess pocket was large,your healthcare provider may have put in gauze packing. Your provider will need to remove it on yournext visit. He or she may also replace it at that time. You may not need antibiotics to treat a simpleabscess, unless the infection is spreading into the skin around the wound (cellulitis).The wound will take about 1 to 2 weeks to heal, depending on the size of the abscess. Healthy tissuewill grow from the bottom and sides of the opening until it seals over.Home careThese tips can help your wound heal: The wound may drain for the first 2 days. Cover the wound with a clean dry dressing. Change the dressing if it becomes soaked with blood or pus. If a gauze packing was placed inside the abscess pocket, you may be told to remove it yourself. You may do this in the shower. Once the packing is removed, you should wash the area in the shower, or clean the area as directed by your provider. Continue to do this until the skin opening has closed. Make sure you wash your hands after changing the packing or cleaning the wound. If you were prescribed antibiotics, take them as directed until they are all gone. You may use acetaminophen or ibuprofen to control pain, unless another pain medicine was prescribed. If you have liver disease or ever had a stomach ulcer, talk with your doctor before using these medicines.Follow-up careFollow up with your healthcare provider, or as advised. If a gauze packing was put in your wound, itshould be removed in 1 to 2 days. Check your wound every day for any signs that the infection isgetting worse. The signs are listed below.When to seek medical adviceCall your healthcare provider right away if any of these occur: Increasing redness or swelling Red streaks in the skin leading away from the wound Increasing local pain or swelling 3 General Instructions [facility] Emergency Department [address] [place] [address] Phone #: ext- [phone] 08/25/2020 06:05 Patient: GILDA HAMEED Sex: M : 1990 Age: 30y Continued pus draining from the wound 2 days after treatment Fever of 100.4F (38C) or higher, or as directed by your healthcare provider Boil returns when you are at home [phone] [employer]. [address] [place] [address], [place] [id number]. All rights reserved. This information is not intended as asubstitute for professional medical care. Always follow your healthcare professional's instructions.Drug AbuseUse and abuse of drugs like marijuana, amphetamines (speed, crank), cocaine, heroin or prescriptionpain medicines, sedatives and sleeping pills, MDMA, ecstasy, bath salts, PCP, mescaline and LSDmay lead to addiction or dependence. Once this happens, you are at greater risk for any of thefollowing:Social and personal problems Craving for the drug and not able to stop using even though you think you want to stop (psychological addiction) Drug withdrawal symptoms if you stop taking the drug (physical dependence) Loss of job or your family Arrest, conviction, and fdc sentence for possession of an illegal substance or for driving under the influenceHealth problems Strokes, heart attacks, kidney failure Accidental injuries to yourself or others while you are under the influence of the drug (in a car or at home) HIV infection (much greater risk if you use IV drugs) Skin infections Other sexually transmitted disease (STDs such as herpes, chlamydia, gonorrhea, and others) Severe and fatal infection of the heart valves (if you use IV drugs) Hepatitis B or C [place] [address] General Instructions [facility] Emergency Department [address] [place] [address] Phone #: ext- [phone] 08/25/2020 06:05 Patient: GILDA HAMEED Sex: M : 1990 Age: 30yThe following suggestions can help you care for yourself at home: Admit you have a drug problem. Ask for help from your family and close friends. Seek professional help. This could be in the form of individual psychotherapy or counseling. There are also outpatient, inpatient, and residential drug treatment programs. Join a self-help group for drug abuse. Stay away from friends who abuse drugs or tempt you to continue abusing drugs. Eat a balanced diet and start a regular exercise program.Follow-up careFollow up with your healthcare provider, or as advised. Contact one of the resources below for help: National [place] on Alcoholism and Drug Dependence www.ncadd.org 143-424-2986 Narcotics Anonymous www.na.org 694-767-2137 National Alcohol and Substance Abuse Information Center (for referral to treatment programs) www.[employer] 659-018-3551Yago [address] [place] [address] if any of the following occur: Seizure Hard time breathing or slow, irregular breathing Chest pain Sudden weakness on one side of your body or sudden trouble speaking Very drowsy or trouble awakening Fainting or loss of consciousness Rapid heart rate Very slow heart rateWhen to seek medical adviceCall your healthcare provider right away if any of these occur: Agitation, anxiety, unable to sleep 5 General Instructions [facility] Emergency Department [address] [place] [address] Phone #: ext- [phone] 08/25/2020 06:05 Patient: GILDA HAMEED Sex: M : 1990 Age: 30y Unintended weight loss (more than 10 to 15 pounds over 3 months) Fever of 100.4F (38C) or higher, or as directed by your healthcare provider Shortness of breath Cough with colored sputum Redness, swelling, or tenderness at an injection site [id number] [employer]. [address] [place] [address]. All rights reserved. This information is not intended as asubstitute for professional medical care. Always follow your healthcare professional's instructions. You have been given the following additional information: Abscess, Incision And Drainage Drug Abuse(Electronically signed by Jerry Ramires M.D. 08/25/2020 06:59) Name Value Range Interpretation Code Description Data Flory rce(s) Supporting Document(s) ID Date Data Source [id number] 08/25/2020 06:05:00 AM EDT [facility] 1 Clinical Report - Nurses [facility] Emergency Department [address] [place] [address] Phone #: ext- [phone] 08/25/2020 06:05 Patient: GILDA HAMEED Sex: M : 1990 Age: 30yTRIAGEArrived by private vehicle. Historian: patient. Accompanied by friend.Acuity: LEVEL 4.Chief Complaint: (abscess to left forearm).Alert. No acute distress.Onset. (1 week). ( Pt reports about 4 days ago he "shot up some drugs" and developed the abscess acouple days after. Pt reports hx of abscesses in the past. Pt states he did use heroin 4 days ago and is onsuboxone. Red swollen area noted to left forearm.).Treatment NOVELTY DIPPER:None. --06:13 08/25/20 Roya Bonilla R.N.06:06 08/25/20. BP: 165/91. MAP: 115. HR: 114. RR: 18. O2 saturation: 99% on room air. Temp: 98.2 F.Pain level now: 05/08. --06:13 08/25/20 Roya Bonilla R.N.Weight: 74.8 kg stated. Height/Length: 68 inches Per Patient. BMI: 25.1. --06:06 08/25/20 Roya Bonilla R.N.MedicationsSuboxone Sublingual 8 mg, 2x a day. --06:07 08/25/20 Roya Bonilla R.N. Clonipine. --06:07 08/25/20 Roya Bonilla R.N.AllergiesNo Known Drug Allergy. --06:07 08/25/20 Roya Bonilla R.N.PROBLEMS:Osteomyelitis of vertebra. --06:08 08/25/20 Roya Bonilla R.N.ADDITIONAL SURGERIES:Hernia Repair. --06:08 08/25/20 Roya Bonilla R.N.HistoryPAST MEDICAL HX: Immunizations: up-to-date.SOCIAL HX: Light tobacco smoker (cigarette)- less than 1/2 a pack per day. History of occasional druguse: heroin, marijuana. No alcohol use. He was offered HIV testing but declined. Patient education wasprovided. He was offered hepatitis C testing but declined. Patient education was provided. He has nottraveled outside the [place]Infectious disease exposure: No infectious disease exposure. Patient is a known carrier of MRSA. Patientis not a known carrier of tuberculosis, hepatitis, HIV, VRE or CRE. 2 Clinical Report - Nurses [facility] Emergency Department [address] [place] [address] Phone #: ext- [phone] 08/25/2020 06:05 Patient: GILDA HAMEED Sex: M : 1990 Age: 30y SELF HARM ASSESSMENT: Self harm assessment was performed. The patient answered "no" to the question(s) "Have you recently felt down, depressed, or hopeless?", "Do you have thoughts of harming or killing yourself?", "Do you have a plan for harming or killing yourself?" and "Have you recently had thoughts about harming or killing others?". ABUSE ASSESSMENT: Abuse assessment. The patient had positive responses to the question(s) "Do you feel safe in your home?", "Are you afraid to go home?" and "Has anyone hurt you or threatened to hurt you?". Abuse denied. NUTRITIONAL RISK ASSESSMENT: The nutritional risk assessment revealed no deficiencies. FUNCTIONAL ASSESSMENT: Functional assessment: no impairments noted. LEARNING NEEDS ASSESSMENT: The learning needs assessment revealed no barriers. FALL RISK ASSESSMENT: Fall risk assessment completed. No risk factors identified. SKIN INTEGRITY ASSESSMENT: Skin integrity risk assessment completed. No skin integrity risk identified. --06:08/25/20 Roya Bonilla R.N. Interventions Identification band on patient. To treatment room. --06:08/25/20 Roya Bonilla R.N.PHYSICAL ASSESSMENTAmbulatory to room.GENERAL / NEURO / PSYCH: Alert. Oriented X 4. Appears in no acute distress.HEENT: Pupils equal, round and reactive to light. No facial asymmetry noted. Mucous membranes arepink.RESPIRATORY: Respirations not labored. Chest nontender. Breath sounds within normal limits.CVS: Normal sinus rhythm noted. Capillary refill less than 2 seconds. Pulses within normal limits.GI / : Abdomen soft and nontender and normal bowel sounds.SKIN: Skin intact. Skin is warm and dry. Normal skin turgor. ( abscess to left forearm, noted to be redand swollen.). --06:14 08/25/20 Roya Bonilla R.N.NURSING PROGRESS NOTESReassurance given. Two patient identifiers checked. Call light pl aced in reach. Side rails up x 2. Bedplaced in lowest position. Brakes of bed on. --06:13 08/25/20 Roya Bonilla R.N. 06:40 08/25/2020 Ceftriaxone IM 1 gm given. Given in the left ventral gluteus. Allergies verified and confirmed 5 rights. Information reviewed with patient. Verbalizes understanding. --06:40 08/25/20 Roya Bonilla R.N. 06:40 08/25/2020 Bactrim DS (Sulfamethoxazole- TMP DS) PO 1 tab given. Allergies verified and 3 Clinical Report - Nurses [facility] Emergency Department [address] [place] [address] Phone #: ext- [phone] 08/25/2020 06:05 Patient: GILDA HAMEED Sex: M : 1990 Age: 30y confirmed 5 rights. Information reviewed with patient. Verbalizes understanding. --06:40 08/25/20 Roya Bonilla R.N.DISPOSITION / DISCHARGE No learning barriers present. Discharge instructions provided and reviewed with the patient. Reviewed warnings. Reviewed medication(s). Treatments reviewed. Reviewed referrals. Patient verbalized understanding. Written instructions provided in [place]. The patient was discharged home and accompanied by geodetic computator. He left ambulatory and via private vehicle. Jail Keeper driving. --06:55 08/25/20 Roya Bonilla R.N. 06:54 08/25/20. BP: 160/85. MAP: 110. HR: 101. RR: 18. O2 saturation: 98% on room air. Temp: 98.2 F. Pain level now: 04/08. --06:55 08/25/20 Roya Bonilla R.N.Locked/Released at 08/25/2020 06:55 by Roya Bonilla R.N. Name Value Range Interpretation Code Description Data Flory rce(s) Supporting Document(s) ID Date Data Source [id number] 08/25/2020 06:05:00 AM EDT [facility] 1 Clinical Report - Physicians/Mid Levels [facility] Emergency Department [address] [place] [address] Phone #: ext- [phone] 08/25/2020 06:05 Patient: GILDA HAMEED Sex: M : 1990 Age: 30y Time Seen: 06:06 08/25/2020; initial patient contact. Arrived- By private vehicle. Historian- patient. Disposition decision: 06:46 08/25/2020.HISTORY OF PRESENT ILLNESS Chief Complaint: BOIL. This started 1 weeks ago and is still present and worsening. It was gradual in onset and has been constant. It is described as painful. It has been located on the left elbow. A cause has been identified. (pt is iv drug user; "shot up some drugs", especially meth. 7 days ago; abscess has formed since getting worse; no fever). Similar symptoms previously. Patient has had similar symptoms once. Recent medical care: Not recently seen/assessed.REVIEW OF SYSTEMSNo fever, chills, sore throat, cough or difficulty breathing. No hoarseness, lump in throat, enlarged lymphnodes, headache or eye irritation. No chest pain, abdominal pain, nausea, diarrhea or difficulty withurination. No joint pain or vomiting. All other systems reviewed and are negative.PAST HISTORYSee nurses notes. Problems: IV drug use. Osteomyelitis of vertebra. Additional Surgeries: Hernia Repair. Medications: Clonipine. Suboxone Sublingual 8 mg, 2x a day. Allergies: No Known Drug Allergy.SOCIAL HISTORYLight tobacco smoker- less than 1/2 a pack per day. History of heavy drug use: methamphetamines,marijuana. No alcohol use.ADDITIONAL NOTES 2 Clinical Report - Physicians/Mid Levels [facility] Emergency Department [address] [place] [address] Phone #: ext- [phone] 08/25/2020 06:05 Patient: GILDA HAMEED Sex: M : 1990 Age: 30y The nursing notes have been reviewed with agreement regarding the chief complaint, HPI, ROS, PMH and patient medications and allergies.PHYSICAL EXAMVital Signs: 08/25/2020 06:06 BP: 165/91. MAP: 115. HR: 114. RR: 18. O2 saturation: 99% on room air.Temp: 98.2 F. Pain level now: 7/10. Have been reviewed. Oxygen saturation normal.Appearance: Alert. Oriented X3. Anxious. Appears to be in pain.Eyes: Pupils equal, round and reactive to light. Conjunctivae and eyelids normal.ENT: Nose normal.Neck: Neck supple.CVS: Normal heart rate and rhythm. Heart sounds normal.Respiratory: No respiratory distress. Breath sounds normal. Chest nontender.Abdomen: Nontender. No organomegaly.Skin: Skin warm and dry. No rash. Single medium abscess with pointing to left elbow (width:3 cm).Neuro: Oriented X 3. No motor deficit. No sensory deficit.PROGRESS AND PROCEDURESIncision Drainage of Abscess: Time: 06:29 08/25/2020. The abscess is located in the left elbow. Therisks of the procedure, benefits and alternatives were explained. Skin cleansed with Betadine. Theabscess was incised with a #11 surgical blade. A large amount of pus was drained. Sample obtained forcultures. ( abscess was initially poked w 18 ga needle x 4 then pt requested incision w scalpel bladewhich I did). Patient counseled in person. Disposition: Condition: good and stable. Discharge decision based on the following: patient's condition is stable; patient's condition is improved; patient is ambulatory; patient is active; patient drinking fluids; patient's pain is controlled; patient's exam is improved; improving condition on repeat evaluation; social support is good; transportation is available; follow-up is available; clinical impression is consistent with outpatient treatment.CLINICAL IMPRESSION Single superficial abscess to the left upper extremity with incision and drainage. Chronic substance abuse- marijuana, methamphetamines with anxiety.INSTRUCTIONS Do not smoke. No alcohol. Warnings: Further evaluation is necessary. It is very important to follow up with a healthcare provider. GENERAL WARNINGS: Return or contact your physician immediately if your condition worsens or 3 Clinical Report - Physicians/Mid Levels [facility] Emergency Department [address] [place] [address] Phone #: ext- [phone] 08/25/2020 06:05 Patient: GILDA HAMEED Sex: M : 1990 Age: 30y changes unexpectedly, if not improving as expected, or if other problems arise. Specifically return if pain, vomiting, bleeding, breathing difficulty or fever greater than 102 degrees F and not controlled by acetaminophen or ibuprofen worsens. Your Current Medications: Your current home medications have been reviewed. CONTINUE TAKING THE FOLLOWING MEDICATIONS: Clonipine*. Suboxone Sublingual : 8 mg 2x a day. Prescription Medications: Bactrim DS 800 mg-160 mg tablet Take 1 tablet twice a day for 7 days -- Dispense 14 tablet. Refills: 0. Substitution permitted. Pharmacy - [id number] - [address], [place] [id number]. . Follow- up: Return to the emergency department as needed. Follow up with your healthcare provider in three days if not better. Call for an appointment. Reason for referral: evaluation and treatment. Summary of care provided to patient via paper. Understanding of the discharge instructions verbalized by patient. Expected course of injury, discharge instructions, activity level, diet, prescriptions x1, follow-up appointment and risks and benefits of treatment reviewed with patient and understanding verbalized. Agrees to plan of care.(Electronically signed by Jerry Ramires M.D. 08/25/2020 06:59) Name Value Range Interpretation Code Description Data Flory rce(s) Supporting Document(s) ID Date Data Source [id number] 08/28/2020 02:05:00 PM EDT [facility] Name Value Range Interpretation Code Description Data [facility] rce(s) Supporting Document(s) CULTURE WOUND [facility] spital _CULTURE WOUND_$$[id number]$$[id number]$$[id number]$$[id number] DATE/TIME: 08/28/2020 11:06Culture: CULTURE WOUND Status: FinalIsolate 1 Streptococcus intermedius Flag: A . . . . . . .6Heavy growthSusceptibility not normally performed on this organism. Previous result entered on 08/27/2020 16:43 ET Microbiological testing to rule out the presence of possible pathogensis in progress. Previous result entered on 08/27/2020 06:13 ET No growth after 18-24 hours.Aerobic Bacterial Culture: C1Fakgzjtwmpsjy intermedius Flag: AP1 Test performed by: Reggie MITCHELL #: [id number] [address] [place] [address] [id number] [facility] [id number] Director : Alverto Perez MD NPI #: -- Continued on next page --Patient: YOSEPH VO Order: [id number] Page 2Culture: CULTURE WOUND Status: Final ====Zoogler : 08/27/20.0738.XMT.SENT REF 08/27/20.1749.XMT.SENT REF 08/28/20.1405.XMT.SENT REF ID Date Data Source [id number] 01/01/2020 09:57:00 AM EST [facility] [address] [place] [address] PHONE: [phone] FAX: [phone] Name .................. : YOSEPH Norwood Acct Number.................. : [id number] ROOM. ................. : Number ................... : [id number] Stay type ............. : O/P Discharge Date......... ... : 12/31/19 Admit Date ......... : 12/31/19 Admit Phys .................... : OSCARTAYLA STERLING Date of ....... : 1990 Family Phys ................... : CEBALLOS M Phone .................. : [phone] Age ................................ : 29 Film# .................. .:[id number] Sex ................................. : M Unsigned transcriptions are preliminary reports and do not represent a medical or legal document SCROTAL [id number] COMPLETE:12/31/19 11:00 KNB [id number] (REASON FOR TESTING: MASS SCROTAL ULTRASOUND: HISTORY: Mass. FINDINGS: The testicles are normal in size and echogenicity. No masses are seen. Normal blood flow is noted. The epididymal structures are intact. IMPRESSION: Normal examination. Electronically Reviewed and Signed By Vince Butler MD , 01/01/20 09:57, [facility] Transcribe Initials: DZ , Transcribe Date: 12/31/19 22:13, Dictation Date: Copy for: OSCAR ALSTON via fax Copy for: [address] [place] [address] REC Page 1 of 1 Name Value Range Interpretation Code Description Data Flory rce(s) Supporting Document(s) ID Date Data Source ERYTHROCYTE SEDIMENTATION RATE 10/10/2019 12:00:00 AM EST eC W1 ([facility]) Name Value Range Interpretation Code Description Data Flory rce(s) Supporting Document(s) 12 0-15 ERYTHROCYTE SEDIMENTATION RATE eCW1 ([facility]) ID Date Data Source C REACTIVE PROTEIN QUANTITATIV (At [facility]) 10/10/2019 12:00 :00 AM EST eCW1 ([facility]) Name Value Range Interpretation Code Description Data Flory rce(s) Supporting Document(s) < 0.30 0.00-0.30 C REACTIVE PROTEIN QUANTI TATIV eCW1 ([facility]) ID Date Data Source Comprehensive Metabolic Profile (CMP) 10/10/2019 12:00:00 AM EST eCW1 ([facility]) Name Value Range Interpretation Code Description Data Flory rce(s) Supporting Document(s) 12 7-18 BLOOD UREA NITROGEN eCW1 ([facility]) 100 70-100 GLUCOSE, FASTING eCW1 ([facility]) 0.80 0.70-1.30 CREATININE FOR GFR eCW1 ([facility]) 4.1 3.5-5.1 POTASSIUM SERUM eCW1 ([facility]) 100 98-107 CHLORIDE LEVEL eCW1 ([facility]) 139 136-145 SODIUM LEVEL eCW1 ([facility]) > 60.0 >60 GLOMERULAR FILTRATION RATE eCW 1 ([facility]) 231 12-78 ALT/SGPT eCW1 ([facility]) 30 21-32 CARBON DIOXIDE LEVEL eCW1 ([facility]) 9.6 8.5-10.1 CALCIUM LEVEL eCW1 ([facility]) 126 7-37 AST/SGOT eCW1 ([facility]) 3.9 3.2-5.2 ALBUMIN eCW1 ([facility]) 149 45-117 ALKALINE PHOSPHATASE eCW1 ([facility]) 8.1 6.4-8.2 TOTAL PROTEIN eCW1 ([facility]) 0.3 0.2-1.0 BILIRUBIN,TOTAL eCW1 ([facility]) 0.93 1.00-1.93 ALBUMIN/GLOBULIN RATIO eCW1 ([facility]) ID Date Data Source CBC with Differential 10/10/2019 12:00:00 AM EST eCW1 ([facility]) Name Value Range Interpretation Code Description Data Flory rce(s) Supporting Document(s) 4.69 4.30-6.10 RED BLOOD COUNT eCW1 ([facility]) 7.2 4.0-10.0 WHITE BLOOD COUNT eCW1 ([facility]) 89.6 80.0-96.0 MEAN CORPUSCULAR VOLUME e CW1 ([facility]) 29.9 27.0-33.0 MEAN CORPUSCULAR HEMOGLOB IN eCW1 ([facility]) 42.0 42.0-52.0 HEMATOCRIT eCW1 ([facility]) 14.0 13.5-17.5 HEMOGLOBIN eCW1 ([facility]) 204 150-450 PLATELET COUNT, AUTOMATED eCW1 ([facility]) 13.1 11.5-14.5 RED CELL DISTRIBUTION WID TH eCW1 ([facility]) 33.3 32.0-36.5 MEAN CORPUSCULAR HGB CONC eCW1 ([facility]) 47.2 36.0-66.0 NEUTROPHILS % eCW1 ([facility]) 41.6 24.0-44.0 LYMPH % eCW1 ([facility]) 8.6 0.0-5.0 MONO % eCW1 ([facility]) 1.9 0.0-3.0 EOS % eCW1 ([facility]) 0.3 0.0-1.0 BASO % eCW1 ([facility]) 3.0 1.5-5.0 LYMPH # eCW1 ([facility]) 3.4 1.5-8.5 NEUTROPHILS # eCW1 ([facility]) 0.6 0.0-0.8 MONO # eCW1 ([facility]) 0.1 0.0-0.5 EOS # eCW1 ([facility]) 0.0 0.0-0.2 BASO # eCW1 ([facility]) ID Date Data Source [id number] 10/04/2019 01:54:21 PM [facility] Measurements & CalculationsHeight: 68 inches (5 ft. 8 in.) 172.72 cm Weight: 180.0 pounds 81.82 kg Body Mass Index (BMI): 27.47BMI Interpretation: OverweightBody Surface Area (BSA): 1.96Weight Management Education Done (Nutrition/Physical Activity)Vital SignsTemperature: 98.7F oral Pulse Rate: 79 beats/minuteRespiratory Rate: 17 respirations/minuteBlood Pressure: 163/94 left arm sitting automaticO2 Saturation: 97% room airVital Signs performed by: Cindy Pretty LPN, October 04, 2019 2:16 PMInitial Intake Information from: patientRoom #: 15Infectious Disease- Travel Have you or your sexual partner travelled outside of the [facility] recently? NoSmoking, Tobacco or Smoke Exposure StatusSmoke Status: current every day smokerTobacco Use: YesAdv to Quit: YesPassive Smoke Exposure: YesHealthcare HistorySince your last office visit...Have you been admitted to the hospital? Yes - [facility] back painHospital admission date reported today: 09/11/2019Have you been to an emergency room (ER) or urgent care clinic? NoHave you seen another healthcare provider? NoHave you seen a dentist? Yes - ncfhdIntake performed by: Cindy Pretty LPN, October 04, 2019 2:04 PMRate Your HealthIn general, would you say your health is? Very GoodPain AssessmentAre you currently having any pain which... You would like your provider to address? Yes Affects your activity level? YesDepression Screening - PHQ-2Over the last two weeks, have you... Had little interest or pleasure in doing things? Not at all Been feeling down, depressed, or hopeless? Not at all PHQ-2 Score: 0Anxiety Screening - LAUREN-2Over the last two weeks, have you been... Feeling nervous, anxious, or on edge? Not at all Unable to stop or control worrying? Not at all LAUREN-2 Score: 0Pain AssessmentPain ScaleNumeric Rating Scale: 7 / 10Location: lower backDuration: monthCharacter/Quality: sharp, throbbing and pinchingIs the pain radiating? YesTo what body part(s) is the pain radiating? right legScreening, Brief Intervention, & Referral to Treatment (SBIRT)Pre-Screening Questions How many times have you have 5 or more drinks in a day? 0How many times have you used an illegal drug or used a prescription medication for a non-medical reason? 0Performed by: Cindy Pretty LPN, October 04, 2019 2:05 PMPatient History Med ical History:no known Surgical History:no surgeries Family History:Cancer - Colorectal (Father)Cancer - Colorectal (Paternal Grandfather)Social/Personal History: Smoking Status: current every day smokerAdvised to Quit/Tobacco Education: YesChief ComplaintHD back painHistory of Present Illness (HPI)29 yo male here for HD for back pain, 8/10 in severity, worse with movmeent, better with rest, non- radiating not asocieated with weaknees, with discitis, ? 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 Hx of opioid addiction to Suboxone in past as well- took these while in retirement. Pt states it is not feeling any better. Pt states he would also like to get his blood drawn to see if he needs to be treated for his hep c- wants CPE labs as well as STD labsTransitions of Care InboundProblem ReviewProblem List was reviewed and/or updated during this visit.Medication Reconciliation & ReviewMedication List was reviewed and/or updated during this visit, including review of any nqti-sqc-yalfxko medications, herbal therapies, and/or supplements.Allergy ReviewAllergy List was reviewed and/or updated during this visit.Adult Preventive CareProvider Calculated and Reviewed all Clinical Protocols for patient today. Screening Tobacco Screening: Smoking Status: current every day smoker (10/04/2019) Advised to Quit: Yes (10/04/2019)Labs/Meds/Other Counseling-Nutrition and Physical Activity:BMI Interpretation: Overweight (10/04/2019) Counseling: Done (10/04/2019) Physical Activity: Done (10/04/2019)Review of Systems General: GEN: No night sweats, weight loss, fevers, chillsEyes: No vision changesEars: No hearing lossNose: No sinus painThroat: No sore throatResp: No sob, wheezingCV: No chest painGI: No abdominal painGU: No dysuria, urinary frequencyMusculoskeletal: + myalgias, arthralgiasNeuro: No LOBO, unilateral paresthesias, weaknessLympatics: No Lymph node swellingEndocrine: No polydipsia, polyuriaPhysical ExamGeneral Appearance: well nourished, well hydrated, no acute distressEyes, External: conjunctivae and lids normal, EOMIExternal Ears: normal, no lesions or deformitiesHearing: grossly intactOtoscopy: canals clear, tympanic membranes intact, no fluid, light reflex intact bilaterallyExternal Nose: normal, no lesions or deformitiesNasal: mucosa, septum, and turbinates normal, nares patentLips/Teeth/Gums: normal dentition, no gingival inflammation, no labial lesionsPharynx: tongue normal, posterior pharynx without erythema or exudate, no thrush/aphthous ulcerRespiratory, Auscultation: clear to auscultation bilaterally; no rales, rhonchi, or wheezesRespiratory, Effort: no intercostal retractions or use of accessory musclesCardiovascular, Auscultation: S1, S2 audible; no murmur, rub, or gallop; RRRPeripheral Circulation: no clubbing, cyanosis, edema, or varicositiesAbdomen: soft, non-tender, no masses, bowel sounds normalGait & Station: normalBack: Spinous processes NTTP. + paralumbar spasms FROM with pain. MNVI. SLR positive to 30 degrees. Gait intactSkin, Inspection: no rashes, lesions, or ulcerationsOrientation: oriented to time, place, and personMood & Affect: no depression, anxiety, or agitationJudgment & Insight: intactCare Management Plan Transitions of CareInboundRate Your HealthIn general, would you say your health is? Very GoodAssessment & Plan Problems:Added: Low back pain (ICD-724.2) (OYS06-I14.5) Assessment: Instructions: Counseled patient on all diagnoses/ treatments. Return to clinic/ ER for any worsening symptoms or concernsMedication issuedScreening examination for venereal disease (ICD-V74.5) (DAH92-S67.3) Assessment: Instructions: Counseled patient on all diagnoses/ treatments. Return to clinic/ ER for any worsening symptoms or concernsLabs orderedEncounter for screening for other me tabolic disorders (JSS19-V89.228) Assessment: Instructions: Counseled patient on all diagnoses/ treatments. Return to clinic/ ER for any worsening symptoms or concernsLabs orderedHepatitis C (ICD-070.70) (LZI39-M21.20) Assessment: Instructions: Counseled patient on all diagnoses/ treatments. Return to clinic/ ER for any worsening symptoms or concernsLabs orderedAppt made with KatePsychoactive substance dependence in remission (ICD-304.93) (ICD10- F19.21) Assessment: Instructions: Counseled patient on all diagnoses/ treatments. Return to clinic/ ER for any worsening symptoms or concernsMH referralsDiscitis of lumbosacral spine (ICD-722.93) (XKV78-Q59.47) Assessment: Instructions: Counseled patient on all diagnoses/ treatments. Return to clinic/ ER for any worsening symptoms or concernscont f/u with OrthoAssessed:Opioid dependence, in remission (ICD-304.03) (QVR55-S97.21) Assessment: Instructions: Counseled patient on all diagnoses/ treatments. Return to clinic/ ER for any worsening symptoms or concernsCont f/u with MHPatient Instructions/Care Plan: Low back pain: Counseled patient on all diagnoses/ treatments. Return to clinic/ ER for any worsening symptoms or conc ernsMedication issuedOpioid dependence- in remission: Counseled patient on all diagnoses/ treatments. Return to clinic/ ER for any worsening symptoms or concernsCont f/u with MHScreening examination for venereal disease: Counseled patient on all diagnoses/ treatments. Return to clinic/ ER for any worsening symptoms or concernsLabs orderedEncounter for screening for other metabolic disorders: Counseled patient on all diagnoses/ treatments. Return to clinic/ ER for any worsening symptoms or concernsLabs orderedHepatitis C: Counseled patient on all diagnoses/ treatments. Return to clinic/ ER for any worsening symptoms or concernsLabs orderedAppt made with KatePsychoactive substance dependence in remission: Counseled patient on all diagnoses/ treatments. Return to clinic/ ER for any worsening symptoms or concernsMH referralsDiscitis of lumbosacral spine: Counseled patient on all diagnoses/ treatments. Return to clinic/ ER for any worsening symptoms or concernscont f/u with Ortho Plan developed in collaboration with patient and/or familyMedications:SEROQUEL 200 MG ORAL TABLETIBUPROFEN 600 MG ORAL TABLETBACLOFEN 10 MG ORAL TABLETMedication Changes:Added: BACLOFEN 10 MG ORAL TABLET-1 tab every [id number] 600 MG ORAL TABLET-1 tab q4h prn for painSEROQUEL 200 MG [facility] TABLET[facility]:EFFEXOR XR 37.5 MG ORAL CAPSULE EXTENDED RELEASE 24 HOUR-One tablet by mouth every day, SUBOXONE 8- 2 MG SUBLINGUAL FILM-One and one half once daily. MDD 1 and 1/2. BRITTANY [id number]. Dx F11.21Allergies:No Known Allergies (updated 05/01/2018) Orders:Adult - Ofc Vst, EST, Level IV [CPT-20215] COMP METABOLIC PANEL [CPT-14738] CBC W/DIFF [CPT- 92728] HgBA1c [CPT-64201] LIPID PANEL [CPT-56405] TSH [CPT-71868] T-4 free [CPT- 15619] Vitamin D 250H Unspecified [CPT-32862] URINALYSIS [CPT-30661] Urine - Gonorrhea [CPT-41929] Urine - Chlamydia [CPT-43596] Ultrasound-Liver/Gallbladder [CPT-10883] HepA IgG [CPT-75907] HBsAg [CPT-33420] HEPATITIS B SURF ANTIBODY HBSAB [CPT-47212] HEPATITIS B CORE ANTIBODY HBCAB TOTAL [CPT-09318] Hepatitis C Viral Load [CPT-76261] HCV Genotype [CPT-20828] HCV Antibody To RNA Reflex Test [CPT-17799] HEPATITIS ANTIBODY HAAB TOTAL [CPT-04008] HIV Antibody [CPT-12412] RPR/VDRL [CPT-87018] Herpes Simplex Antibody [CPT-68518] Psychology Consult [CPT-67323] Telepsychiatry Consult [CPT-93370] Adult - Ofc Vst, NEW, Level IV [CPT-52718] Follow-Up Return to clinic: in 30 days for f/uAdditional Follow-Up: Counseled patient on all diagnoses/ treatments. Return to clinic/ ER for any worsening symptoms or concernsClinical Visit Summary Declined Name Value Range Interpretation Code Description Data Flory rce(s) Supporting Document(s) Procedure Social History Code Duration Value Status Description Data Source(s ) Smoking 09/04/2020 12:00:00 AM EST Unknown if ever smoked comp leted Unknown if ever smoked [facility] ([facility]) Smoking 09/03/2020 12:00:00 AM EST Current Smoker completed Curre nt Smoker eCW1 ([facility]) Smoking 04/09/2020 12:00:00 AM EDT Current Smoker completed Curre nt Smoker eCW1 ([facility]) Smoking 04/09/2020 12:00:00 AM EDT Current Smoker completed Curre nt Smoker eCW1 ([facility]) Smoking 04/09/2020 12:00:00 AM EDT Current Smoker completed Curre nt Smoker eCW1 ([facility]) Smoking 04/09/2020 12:00:00 AM EDT Current Smoker completed Curre nt Smoker eCW1 ([facility]) Smoking 04/09/2020 12:00:00 AM EDT Current Smoker completed Curre nt Smoker eCW1 ([facility]) Smoking 04/09/2020 12:00:00 AM EDT Current Smoker completed Curre nt Smoker eCW1 ([facility]) Vital Signs ID Date Data Source UNK Name Value Range Interpretation Code Description Data Source(s) Body weight 163.00 [lb_av] 163.00 [lb_av] MEDEN T ([facility]) Body temperature 99.3 [degF] 99.3 [degF] MEDENT ([facility]) Respiratory rate 18 /min 18 /min MEDENT ( [facility]) Heart rate 70 /min 70 /min MEDENT ([facility]) Diastolic blood pressure 90 mm[Hg] 90 mm[Hg] MEDENT ([facility]) Systolic blood pressure 152 mm[Hg] 152 mm[Hg] M EDENT ([facility]) Body weight 163.00 [lb_av] 163.00 [lb_av] MEDEN T ([facility]) Heart rate 77 /min 77 /min MEDENT ([facility]) Diastolic blood pressure 85 mm[Hg] 85 mm[Hg] MEDENT ([facility]) Systolic blood pressure 128 mm[Hg] 128 mm[Hg] M EDENT ([facility]) Diastolic blood pressure 60 mm[Hg] 60 mm[Hg] eCW1 ([facility]) Systolic blood pressure 124 mm[Hg] 124 mm[Hg] e CW1 ([facility]) Body temperature 98.3 [degF] 98.3 [degF] eCW1 ( [facility]) Respiratory rate 18 /min 18 /min eCW1 ([facility]) Heart rate 66 /min 66 /min eCW1 ([facility]) Body mass index (BMI) [Ratio] 25.06 kg/m2 25.06 kg/m2 eCW1 ([facility]) Body height 68 [in_us] 68 [in_us] eCW1 ([facility]) Body weight Measured 164.8 [lb_av] 164.8 [lb_av ] eCW1 ([facility]) Respiratory rate 18 /min 18 /min eCW1 ([facility]) Heart rate 66 /min 66 /min eCW1 ([facility]) Body mass index (BMI) [Ratio] 26.30 kg/m2 26.30 kg/m2 eCW1 ([facility]) Body height 68 [in_us] 68 [in_us] eCW1 ([facility]) Body weight Measured 173 [lb_av] 173 [lb_av] eC W1 ([facility]) Diastolic blood pressure 76 mm[Hg] 76 mm[Hg] eCW1 ([facility]) Systolic blood pressure 136 mm[Hg] 136 mm[Hg] e CW1 ([facility]) Body temperature 98.3 [degF] 98.3 [degF] eCW1 ( [facility]) Body weight 79.834 kg 79.834 kg MEDENT ([facility]) Body weight 176.00 [lb_av] 176.00 [lb_av] MEDEN T ([facility]) Oxygen saturation in Arterial blood by Pulse oximetry 99 % 99 % MEDENT ([facility]) Respiratory rate 18 /min 18 /min MEDENT ( [facility]) Body temperature 99.1 [degF] 99.1 [degF] MEDENT ([facility]) Heart rate 77 /min 77 /min MEDENT ([facility]) Diastolic blood pressure 80 mm[Hg] 80 mm[Hg] MEDENT ([facility]) Systolic blood pressure 130 mm[Hg] 130 mm[Hg] M EDENT ([facility]) Diastolic blood pressure 80 mm[Hg] 80 mm[Hg] eCW1 ([facility]) Systolic blood pressure 130 mm[Hg] 130 mm[Hg] e CW1 ([facility]) Body temperature 98.4 [degF] 98.4 [degF] eCW1 ( [facility]) Respiratory rate 20 /min 20 /min eCW1 ([facility]) Heart rate 82 /min 82 /min eCW1 ([facility]) Body mass index (BMI) [Ratio] 26.76 kg/m2 26.76 kg/m2 eCW1 ([facility]) Body height 68 [in_us] 68 [in_us] eCW1 ([facility]) Body weight Measured 176 [lb_av] 176 [lb_av] eC W1 ([facility]) Body weight 80.004 kg 80.004 kg MEDENT ([facility]) Body weight 176.38 [lb_av] 176.38 [lb_av] MEDEN T ([facility]) Oxygen saturation in Arterial blood by Pulse oximetry 97 % 97 % MEDENT ([facility]) Respiratory rate 16 /min 16 /min MEDENT ( [facility]) Body temperature 98.7 [degF] 98.7 [degF] MEDENT ([facility]) Heart rate 82 /min 82 /min MEDENT ([facility]) Diastolic blood pressure 70 mm[Hg] 70 mm[Hg] MEDENT ([facility]) Systolic blood pressure 112 mm[Hg] 112 mm[Hg] M EDENT ([facility]) Diastolic blood pressure 78 mm[Hg] 78 mm[Hg] eCW1 ([facility]) Systolic blood pressure 138 mm[Hg] 138 mm[Hg] e CW1 ([facility]) Body temperature 98.5 [degF] 98.5 [degF] eCW1 ( [facility]) Respiratory rate 20 /min 20 /min eCW1 ([facility]) Heart rate 96 /min 96 /min eCW1 ([facility]) Body mass index (BMI) [Ratio] 26.82 kg/m2 26.82 kg/m2 eCW1 ([facility]) Body height 68 [in_us] 68 [in_us] eCW1 ([facility]) Body weight Measured 176.4 [lb_av] 176.4 [lb_av ] eCW1 ([facility]) Body weight 80.004 kg 80.004 kg MEDENT ([facility]) Body weight 176.38 [lb_av] 176.38 [lb_av] MEDEN T ([facility]) Oxygen saturation in Arterial blood by Pulse oximetry 97 % 97 % MEDENT ([facility]) Respiratory rate 18 /min 18 /min MEDENT ( [facility]) Body temperature 97.6 [degF] 97.6 [degF] MEDENT ([facility]) Heart rate 84 /min 84 /min MEDENT ([facility]) Diastolic blood pressure 79 mm[Hg] 79 mm[Hg] MEDENT ([facility]) Systolic blood pressure 129 mm[Hg] 129 mm[Hg] M EDENT ([facility]) Diastolic blood pressure 92 mm[Hg] 92 mm[Hg] eCW1 ([facility]) Systolic blood pressure 148 mm[Hg] 148 mm[Hg] e CW1 ([facility]) Body temperature 98.6 [degF] 98.6 [degF] eCW1 ( [facility]) Respiratory rate 18 /min 18 /min eCW1 ([facility]) Heart rate 125 /min 125 /min eCW1 ([facility]) Body mass index (BMI) [Ratio] 27.21 kg/m2 27.21 kg/m2 eCW1 ([facility]) Body height 68 [in_us] 68 [in_us] eCW1 ([facility]) Body weight Measured 179 [lb_av] 179 [lb_av] eC W1 ([facility]) Patient Treatment Plan of Care Planned Activity Planned Date Details Description Data Source (s) Clonazepam 0.5 MG Oral Tablet 05/16/2020 12:00:00 AM EDT eCW1 ([facility]) Clonazepam 0.5 MG Oral Tablet 05/16/2020 12:00:00 AM EDT eCW1 ([facility]) Clonazepam 0.5 MG Oral Tablet 05/16/2020 12:00:00 AM EDT eCW1 ([facility]) Clonazepam 0.5 MG Oral Tablet 05/16/2020 12:00:00 AM EDT eCW1 ([facility]) Clonazepam 0.5 MG Oral Tablet 05/16/2020 12:00:00 AM EDT eCW1 ([facility]) Clonazepam 0.25 MG Disintegrating Oral Tablet 04/09/2020 12:00:00 A M EDT eCW1 ([facility]) venlafaxine 75 MG Oral Tablet 03/06/2020 12:00:00 AM EDT eCW1 ([facility]) venlafaxine 75 MG Oral Tablet 03/06/2020 12:00:00 AM EDT eCW1 ([facility]) venlafaxine 75 MG Oral Tablet 03/06/2020 12:00:00 AM EDT eCW1 ([facility]) venlafaxine 75 MG Oral Tablet 03/06/2020 12:00:00 AM EDT eCW1 ([facility]) venlafaxine 75 MG Oral Tablet 03/06/2020 12:00:00 AM EDT eCW1 ([facility]) venlafaxine 75 MG Oral Tablet 03/06/2020 12:00:00 AM EDT eCW1 ([facility]) venlafaxine 37.5 MG Oral Tablet 03/06/2020 12:00:00 AM EDT eCW1 ([facility]) venlafaxine 75 MG Oral Tablet 03/06/2020 12:00:00 AM EDT eCW1 ([facility]) 12 HR Bupropion Hydrochloride 150 MG Extended Release Oral Tablet [Wellbutrin] 02/12/2020 12:00:00 AM EDT eCW1 ([facility]) Escitalopram 20 MG Oral Tablet 11/25/2019 12:00:00 AM EST eCW1 ([facility]) Escitalopram Oxalate 10 MG 11/22/2019 12:00:00 AM EST eCW1 ([facility]) gabapentin 600 MG Oral Tablet 11/05/2019 12:00:00 AM EST eCW1 ([facility]) Ondansetron 4 MG Disintegrating Oral Tablet 11/05/2019 12:00:00 AM EST eCW1 ([facility]) Sofosbuvir-Velpatasvir 400-100 MG 11/05/2019 12:00:00 AM EST eCW1 ([facility]) nabumetone 750 MG Oral Tablet 10/10/2019 12:00:00 AM EST eCW1 ([facility]) dalbavancin 20 MG/ML Injectable Solution [Dalvance] 10/07/20 19 12:00:00 AM EST eCW1 ([facility]) celecoxib 200 MG Oral Capsule [Celebrex] 10/07/2019 12:00:00 AM EST eCW1 ([facility])
--- NOTE | 2020-11-12 23:57 | HPEPDOC ---
General Date of Admission Nov 12, 2020 at 23:23 Date of Service: Nov 12, 2020 Chief Complaint The patient is a 30-year-old male admitted with a reason for visit of Drug Abuse,Lumbar Discitis,Osteomyelitis Lumbar Sp. Source: Patient History of Present Illness Mr. Epstein is a 30 year old male with polysubstance abuse and history of L4-L5 discitis with culture positive for Granulicatella in Aug 2019 here with back pain secondary to discitis. He was doing well until 2 days ago when he woke up with back pain. It is located in the lower back, approximately around L4-L5. It is a sharp, 7 out of 10 pain that radiates down his legs bilaterally. It felt similar to last him he had discitis. He came into the ED for evaluation. While in the ED, he had a fever of 100.4 and leukocytosis. MRI was suggestive of discitis osteomyelitis at L4-L5. They did a rapid bedside echocardiogram which was negative for vegetations. Otherwise he denied any chest pain, dyspnea, or abdominal pain. He does tell me that he has been using recreational drugs. Last used 3 days ago. Denies using IV drugs. He used cocaine, meth, and amphetamines. Patient will be admitted for discitis. Home Medications Scheduled Buprenorphine HCl/Naloxone HCl (Suboxone 8 mg-2 mg Sl Film) 1 Each Film, 4 FILM SL QAM, (Reported) Bupropion HCl (Bupropion Xl) 300 Mg Tab.er.24h, 300 MG PO DAILY, (Reported) Gabapentin (Gabapentin) 600 Mg Tablet, 600 MG PO TID, (Reported) Allergies Coded Allergies: No Known Allergies (Unverified , 09/10/19) Past Medical History Medical History 1. Polysubstance abuse 2. Depression and anxiety 3. Hepatitis C 4. History of discitis with Granulicatella Surgical History None Family History Father: Colon cancer Mother: Cirrhosis secondary to alcoholism Social History * Smoker: former Smoker (quit smoking 2 days ago) Alcohol: Denies Drugs: cocaine, other (meth, amphetamines) A-FIB/CHADSVASC A-FIB History Current/History of A-Fib/PAF?: No Review of Systems Constitutional: Reports: Fever Eyes: Denies: Vision change ENT: Denies: Sore Throat Skin: Reports: Rash (has some erythema underneath eyes) Pulmonary: Denies: Dyspnea Cardiovascular: Denies: Chest Pain Gastrointestinal: Denies: Nausea, Abdominal Pain Genitourinary: Denies: Dysuria Hematologic: Denies: Bruising Musculoskeletal: Reports: Back Pain Neurological: Reports: Other Symptoms (paresthesias in arms bilaterally) Psych: Reports: Anxiety, Depression Physical Examination General Exam: Positive: Alert, Cooperative Eye Exam: Positive: EOMI; Negative: Sclera icteric ENT Exam: Positive: Atraumatic Neck Exam: Positive: Supple Chest Exam: Positive: Clear to auscultation; Negative: Rales, Rhonchi, Wheezing Heart Exam: Positive: Rate Normal, Regular Rhythm, Murmurs (Not new) Abdomen Exam: Positive: Normal bowel sounds, Soft; Negative: Tenderness Extremity Exam: Negative: Edema Neuro Exam: Positive: Strength at 5/5 X4 ext, Cranial Nerves 3-12 NL Psych Exam: Positive: Anxiety Vital Signs Vital Signs Date Time Temp Pulse Resp B/P (MAP) Pulse Ox O2 Delivery O2 Flow Rate FiO2 11/12/20 23:15 98.5 83 18 136/86 (103) 97 Room Air Laboratory Data Labs 24H Laboratory Tests 2 11/12/20 13:48: Immature Granulocyte % (Auto) 0.5, Neutrophils (%) (Auto) 77.1H, Lymphocytes (%) (Auto) 13.7L, Monocytes (%) (Auto) 8.4H, Eosinophils (%) (Auto) 0.2, Basophils (%) (Auto) 0.1, Neutrophils # (Auto) 8.2, Lymphocytes # (Auto) 1.5, Monocytes # (Auto) 0.9H, Eosinophils # (Auto) 0.0, Basophils # (Auto) 0.0, Nucleated Red Blood Cells % (auto) 0.0, Erythrocyte Sedimentation Rate 38H, C-Reactive Protein, Quantitative 13.80H CBC/BMP Laboratory Tests 11/12/20 13:48 Microbiology Microbiology 11/12/20 Respiratory Virus Panel (PCR) ([facility]) - Final, Complete 11/12/20 Blood Culture, Received Pending 11/12/20 Blood Culture, Received Pending Assessment/Plan Mr. Epstein is a 30 year old male with polysubstance abuse and history of L4-L5 discitis with culture positive for Granulicatella in Aug 2019 here with back pain secondary to discitis. Patient tells me that he continues to use recreational drugs, but denies use of IV drugs. But if he did use IV drugs, and may be the cause of his discitis. Other possibility would be a vegetation a cardiac valve. The bedside echocardiogram performed by the ED did not demonstrate vegetations. We'll order a formal echocardiogram as well, the patient may need a MALIHA if he has positive blood cultures. Otherwise, pending blo od culture results. Patient will be on vancomycin. Would recommend touching base with infectious disease, Dr. Vasquez in the daytime. Plan / VTE VTE Prophylaxis Ordered?: Yes Plan Plan 1. Discitis Seen on MRI at L4-L5 Similar to his previous event in August [address] Vasquez in the past, would recommend touching base with infectious disease in the daytime IV vancomycin We'll order an official TTE, but patient may need a MALIHA if blood culture turn positive Pending blood culture results 2. Polysubstance abuse Patient admits to cocaine and amphetamine use 3 days prior We'll order a urine tox screen Patient denies IV drug use 3. Tobacco use Patient tells me that he's stopped smoking recently He's been using the nicotine gum We'll put him on nicotine patch while here 4. Depression/anxiety Continue Bupropion 5. DVT prophylaxis TOPHER Montesinos DO Nov 12, 2020 23:57
[2020-11-13 00:05] LABS: ALBUMIN 3.5 GM/DL (3.2-5.2); ALT/SGPT 60 U/L (12-78); BILIRUBIN,TOTAL 0.4 MG/DL (0.2-1.0); BLOOD UREA NITROGEN 13 MG/DL (7-18); CALCIUM LEVEL 9.2 MG/DL (8.5-10.1); CARBON DIOXIDE LEVEL 32 MEQ/L (21-32); CHLORIDE LEVEL 101 MEQ/L (98-107); CREATININE FOR GFR 0.72 MG/DL (0.70-1.30); GLOMERULAR FILTRATION RATE > 60.0 (>60); GLUCOSE, FASTING 110 MG/DL (70-100); POTASSIUM SERUM 3.5 MEQ/L (3.5-5.1); SODIUM LEVEL 138 MEQ/L (136-145)
[2020-11-13] MEDS: GABAPENTIN 300 MG CAP PO SCH ×4 (01:25→21:28)
[2020-11-13] MEDS: ACETAMINOPHEN TAB 650MG DOSE (2X325MG) PO PRN ×2 (01:26→08:47)
[2020-11-13] MEDS ORDERED: **NOTE PATIENT COMMENT** MISC XX ONE (04:15)
[2020-11-13] MEDS: VANCOMYCIN HCL 1,000 MG, VIAL MATE ADAPTER 1 EACH in D5W 250 ML IV SCH ×3 (06:05→21:28)
[2020-11-13 06:22] LABS: HEMATOCRIT 36.6 % (42.0-52.0); HEMOGLOBIN 12.3 g/dl (13.5-17.5); MEAN CORPUSCULAR HEMOGLOBIN 30.4 pg (27.0-33.0); MEAN CORPUSCULAR HGB CONC 33.6 g/dl (32.0-36.5); MEAN CORPUSCULAR VOLUME 90.4 fl (80.0-96.0); PLATELET COUNT, AUTOMATED 164 10^3/uL (150-450); RED BLOOD COUNT 4.05 10^6/uL (4.30-6.10); WHITE BLOOD COUNT 8.4 10^3/uL (4.0-10.0)
[2020-11-13 06:50] LABS: BLOOD UREA NITROGEN 7 MG/DL (7-18); CARBON DIOXIDE LEVEL 29 MEQ/L (21-32); CHLORIDE LEVEL 103 MEQ/L (98-107); CREATININE FOR GFR 0.63 MG/DL (0.70-1.30); GLOMERULAR FILTRATION RATE > 60.0 (>60); GLUCOSE, FASTING 136 MG/DL (70-100); POTASSIUM SERUM 3.2 MEQ/L (3.5-5.1); SODIUM LEVEL 138 MEQ/L (136-145)
[2020-11-13] MEDS ORDERED: POTASSIUM CHLORIDE 10 MEQ SR TABLET PO ONE (08:00)
[2020-11-13 08:14] LABS: MAGNESIUM LEVEL 2.1 MG/DL (1.8-2.4)
[2020-11-13] MEDS ORDERED: SUBO4MIS SL (08:28)
[2020-11-13] MEDS: buPROPion **XL** TABLET 150MG (WELLBUTRIN XL) PO SCH (08:41)
[2020-11-13] MEDS: ENOXAPARIN 40MG/0.4ML SYRINGE (J1650 PER 10MG) SC SCH (08:43)
[2020-11-13] MEDS: NICOTINE 21MG/24HR 1 EA TRANSDERMAL TD SCH (08:43)
[2020-11-13] MEDS: BUPRENORPHINE/NALOXONE 8-2MG SUBLINGUAL TABLET(SUBOXONE) SL SCH (08:48)
[2020-11-13] MEDS: KETOROLAC 30 MG/ML 1ML VIAL IV PRN ×2 (10:33→16:50)
[2020-11-13] MEDS: LIDOCAINE 5% (LIDODERM) PATCH TD SCH (10:33)
--- NOTE | 2020-11-13 12:28 | ECHO ---
DATE OF PROCEDURE: 11/12/2020 Age: 30 Gender: Male Height: 68 inches Weight: 166 pounds REFERRING PHYSICIAN: Gordon Faye PA-C INDICATION: Cardiac murmur, unspecified; fever, IV drug user. MEASUREMENTS: 2D Measurements: Were not acquired by the technical administrative assistant. Doppler Measurements: No aortic regurgitation Aortic valve velocity 165 cm/s LVOT velocity 146 cm/s LVOT VTI 28.1 cm Mild mitral regurgitation Mitral E velocity 109 cm/s Mitral A velocity 57.5 cm/s Mitral deceleration time 224 msec Very mild tricuspid regurgitation Trace pulmonic regurgitation Pulmonary artery acceleration time 137 msec MITRAL ANNULAR TISSUE DOPPLER E prime septal 12.3 cm/s, E prime lateral 16.2 cm/s DESCRIPTION: Rhythm was sinus. Image quality was good. This was a 2D, M-mode, color flow Doppler, and pulsed wave Doppler examination including mitral annular tissue Doppler. CONCLUSIONS: 1. Normal echocardiogram Doppler. 2. Normal appearing cardiac valves with mild mitral regurgitation, very mild tricuspid regurgitation, and trace pulmonic regurgitation within normal limits. No vegetations identified of any cardiac valves. 3. Appearance of normal left ventricle size and wall thickness. Normal regional LV wall motion and wall thickening. Normal LV systolic function. LVEF 70% by visual estimate. Right ventricle appears normal in size and systolic function. Pulmonary artery systolic pressure not elevated. 4. No pericardial effusion. 5. Suggestive of normal central venous pressure. A verbal report of this study was provided by telephone to emergency room physician, Dr. Geoffrey Winston. [facility]
[2020-11-13] MEDS: VANCOMYCIN HCL 500 MG in D5W MINI-BAG PLUS 100 ML IV SCH ×2 (14:24→22:42)
[2020-11-13 15:25] VITALS: BP 143/73
--- NOTE | 2020-11-13 16:52 | REP ---
INDICATION: fever 04/06/2019. COMPARISON: None. TECHNIQUE: PA/Lateral FINDINGS: Lungs: Clear, no infiltrate. Heart: Normal in size. Mediastinum: Mediastinal silhouette unremarkable. Pleural angles: Unremarkable.. Bones and soft tissues: Unremarkable. IMPRESSION: No acute pulmonary disease. <Electronically signed by Ricardo Jimenez > 11/13/20 [id number]
--- NOTE | 2020-11-13 17:21 | IPNPDOC ---
Subjective Date Seen The patient was seen on 11/13/20. Subjective Chief Complaint/HPI Mr. Epstein is a 30 year old male with polysubstance abuse and history of L4-L5 discitis with culture positive for Granulicatella in Aug 2019 here with back pain secondary to discitis. Today, he continues to have back pain. Denies chest pain or dyspnea. Spoke with ID, recommended adding ceftriaxone to vancomycin. Objective Physical Examination General Exam: Positive: Alert, Cooperative Eye Exam: Positive: EOMI; Negative: Sclera icteric ENT Exam: Positive: Atraumatic Neck Exam: Positive: Supple Chest Exam: Positive: Clear to auscultation; Negative: Rales, Rhonchi, Wheezing Heart Exam: Positive: Rate Normal, Regular Rhythm, Murmurs (Not new) Abdomen Exam: Positive: Normal bowel sounds, Soft; Negative: Tenderness Extremity Exam: Negative: Edema Neuro Exam: Positive: Strength at 5/5 X4 ext, Cranial Nerves 3-12 NL Psych Exam: Positive: Anxiety Assessment /Plan Assessment Mr. Epstein is a 30 year old male with polysubstance abuse and history of L4-L5 discitis with culture positive for Granulicatella in Aug 2019 here with back pain secondary to discitis. Patient tells me that he continues to use recreational drugs, but denies use of IV drugs. But if he did use IV drugs, and may be the cause of his discitis. Other possibility would be a vegetation a car diac valve. The bedside echocardiogram performed by the ED did not demonstrate vegetations. We'll order a formal echocardiogram as well, the patient may need a MALIHA if he has positive blood cultures. Otherwise, pending blood culture results. Contacted ID, Dr. Vasquez, recommendations appreciated. On Vancomycin and Rocephin Plan/VTE VTE Prophylaxis Ordered?: Yes Plan 1. Discitis Seen on MRI at L4-L5 Similar to his previous event in August 2019 -ID consulted, recommendations appreciated IV vancomycin and ceftriaxone We'll order an official TTE, but patient may need a MALIHA if blood culture turn positive Pending blood culture results 2. Polysubstance abuse Patient admits to cocaine and amphetamine use 3 days prior We'll order a urine tox screen Patient denies IV drug use 3. Tobacco use Patient tells me that he's stopped smoking recently He's been using the nicotine gum We'll put him on nicotine patch while here 4. Depression/anxiety Continue Bupropion 5. DVT prophylaxis Lovenox VS, I&O, 24H, Fishbone Vital Signs/I&O Vital Signs Date Time Temp Pulse Resp B/P (MAP) Pulse Ox O2 Delivery O2 Flow Rate FiO2 11/13/20 16:33 98.4 83 18 107/53 (71) 99 Room Air I&O- Last 24 Hours up to 6 AM 11/13/20 06:00 Intake Total 600 ml Balance 600 ml Laboratory Data 24H LABS Laboratory Tests 2 11/13/20 05:48: Nucleated Red Blood Cells % (auto) 0.0, Anion Gap 6L, Glomerular Filtration Rate > 60.0, Calcium Level 8.0L, Magnesium Level 2.1, C-Reactive Protein, Quantitative 11.50H 11/13/20 13:04: Vancomycin Level Trough 4.4L CBC/BMP Laboratory Tests 11/13/20 05:48 Microbiology Microbiology 11/12/20 Respiratory Virus Panel (PCR) ([facility]) - Final, Complete 11/12/20 Blood Culture - Preliminary, Resulted No growth after 24 hours . All specim... 11/12/20 Blood Culture - Preliminary, Resulted No growth after 24 hours . All specim... TOPHER MACDONALD DO Nov 13, 2020 17:21
[2020-11-13] MEDS: cefTRIAXone SOD 1 GM in D5W MINI-BAG PLUS 50 ML IV SCH (17:38)
[2020-11-13] MEDS: **NOTE PATIENT COMMENT** MISC XX SCH (21:29)
[2020-11-13 22:00] VITALS: BP 134/71
[2020-11-14] MEDS: KETOROLAC 30 MG/ML 1ML VIAL IV PRN ×4 (00:08→18:22)
[2020-11-14 05:31] LABS: HEMATOCRIT 37.6 % (42.0-52.0); HEMOGLOBIN 12.1 g/dl (13.5-17.5); MEAN CORPUSCULAR HEMOGLOBIN 30.4 pg (27.0-33.0); MEAN CORPUSCULAR HGB CONC 32.2 g/dl (32.0-36.5); MEAN CORPUSCULAR VOLUME 94.5 fl (80.0-96.0); PLATELET COUNT, AUTOMATED 161 10^3/uL (150-450); RED BLOOD COUNT 3.98 10^6/uL (4.30-6.10); WHITE BLOOD COUNT 8.6 10^3/uL (4.0-10.0)
[2020-11-14] MEDS: VANCOMYCIN HCL 1,000 MG, VIAL MATE ADAPTER 1 EACH in D5W 250 ML IV SCH ×4 (05:33→23:29)
[2020-11-14 06:00] VITALS: BP 132/72
[2020-11-14 06:04] LABS: BLOOD UREA NITROGEN 11 MG/DL (7-18); C REACTIVE PROTEIN QUANTITATIV 9.07 MG/DL (0.00-0.30); CALCIUM LEVEL 8.1 MG/DL (8.5-10.1); CARBON DIOXIDE LEVEL 30 MEQ/L (21-32); CHLORIDE LEVEL 101 MEQ/L (98-107); CREATININE FOR GFR 0.64 MG/DL (0.70-1.30); GLOMERULAR FILTRATION RATE > 60.0 (>60); GLUCOSE, FASTING 130 MG/DL (70-100); POTASSIUM SERUM 3.9 MEQ/L (3.5-5.1); SODIUM LEVEL 136 MEQ/L (136-145); VANCOMYCIN LEVEL TROUGH 6.7 UG/ML (10.0-20.0)
[2020-11-14] MEDS: VANCOMYCIN HCL 500 MG in D5W MINI-BAG PLUS 100 ML IV SCH (06:47)
[2020-11-14] MEDS: NICOTINE 21MG/24HR 1 EA TRANSDERMAL TD SCH (08:32)
[2020-11-14] MEDS: GABAPENTIN 300 MG CAP PO SCH ×3 (08:32→20:10)
[2020-11-14] MEDS: LIDOCAINE 5% (LIDODERM) PATCH TD SCH (08:32)
[2020-11-14] MEDS: BUPRENORPHINE/NALOXONE 8-2MG SUBLINGUAL TABLET(SUBOXONE) SL SCH (08:32)
[2020-11-14] MEDS: buPROPion **XL** TABLET 150MG (WELLBUTRIN XL) PO SCH (08:42)
[2020-11-14] MEDS: ENOXAPARIN 40MG/0.4ML SYRINGE (J1650 PER 10MG) SC SCH (08:54)
[2020-11-14] MEDS ORDERED: INFLUENZA QUADRIVALENT PF VACCINE 0.5ML SYRINGE IM ONE (09:00)
[2020-11-14] MEDS: DOCUSATE SODIUM 100MG CAPSULE PO SCH ×2 (12:45→20:11)
[2020-11-14 14:00] VITALS: BP 135/71
--- NOTE | 2020-11-14 14:46 | IPNPDOC ---
Subjective Date Seen The patient was seen on 11/14/20. Subjective Chief Complaint/HPI Mr. Epstein is a 30 year old male with polysubstance abuse and history of L4-L5 discitis with culture positive for Granulicatella in Aug 2019 here with back pain secondary to discitis. Afebrile since 11/12/2020. Back pain better but sill present. Denies chest pain or dyspnea Objective Physical Examination General Exam: Positive: Alert, Cooperative Eye Exam: Positive: EOMI; Negative: Sclera icteric ENT Exam: Positive: Atraumatic Neck Exam: Positive: Supple Chest Exam: Positive: Clear to auscultation; Negative: Rales, Rhonchi, Wheezing Heart Exam: Positive: Rate Normal, Regular Rhythm, Murmurs (Not new) Abdomen Exam: Positive: Normal bowel sounds, Soft; Negative: Tenderness Extremity Exam: Negative: Edema Neuro Exam: Positive: Strength at 5/5 X4 ext, Cranial Nerves 3-12 NL Psych Exam: Positive: Anxiety Assessment /Plan Assessment Mr. Epstein is a 30 year old male with polysubstance abuse and history of L4-L5 discitis with culture positive for Granulicatella in Aug 2019 here with back pain secondary to discitis. Patient tells me that he continues to use recreational drugs, but denies use of IV drugs. But if he did use IV drugs, and may be the cause of his discitis. Other possibility would be a vegetation a cardiac valve. The bedside echocardiogram performed by the ED did not demonstrate vegetations. We'll order a formal echocardiogram as well, the patient may need a MALIHA if he has positive blood cultures. Otherwise, pending blood culture results. Contacted ID, Dr. Vasquez, recommendations appreciated. On Vancomycin and Rocephin Plan/VTE VTE Prophylaxis Ordered?: Yes Plan 1. Discitis Seen on MRI at L4-L5 Similar to his previous event in August 2019 -ID consulted, recommendations appreciated IV vancomycin and ceftriaxone No vegetations on TTE Pending blood culture results 2. Polysubstance abuse Patient admits to cocaine and amphetamine use 3 days prior We'll order a urine tox screen Patient denies IV drug use 3. Tobacco use Patient tells me that he's stopped smoking recently He's been using the nicotine gum We'll put him on nicotine patch while here 4. Depression/anxiety Continue Bupropion 5. DVT prophylaxis Lovenox VS, I&O, 24H, [place] Vital Signs/I&O Vital Signs Date Time Temp Pulse Resp B/P (MAP) Pulse Ox O2 Delivery O2 Flow Rate FiO2 11/14/20 06:00 98.6 90 16 132/72 (92) 94 Room Air l I&O- Last 24 Hours up to 6 AM 11/14/20 06:00 Intake Total 2440 ml Output Total 0 ml Balance 2440 ml Laboratory Data 24H LABS Laboratory Tests 2 11/14/20 05:27: Nucleated Red Blood Cells % (auto) 0.0, Anion Gap 5L, Glomerular Filtration Rate > 60.0, Calcium Level 8.1L, C-Reactive Protein, Quantitative 9.07H, Vancomycin Level Trough 6.7L 11/14/20 11:14: CBC/BMP Laboratory Tests 11/14/20 05:27 Microbiology Microbiology 11/14/20 Blood Culture, Received Pending 11/14/20 Blood Culture, Received Pending 11/12/20 Respiratory Virus Panel (PCR) ([facility]) - Final, Complete 11/12/20 Blood Culture - Preliminary, Resulted No Growth after 48 hours. All Specime... 11/12/20 Blood Culture - Preliminary, Resulted TOPHER MACDONALD DO Nov 14, 2020 14:46
[2020-11-14] MEDS: cefTRIAXone SOD 1 GM in D5W MINI-BAG PLUS 50 ML IV SCH (15:51)
[2020-11-14] MEDS: MIRALAX *UNIT DOSE* 17GM PACKET PO PRN (15:54)
[2020-11-14] MEDS: RAMELTEON 8 MG TAB (ROZEREM) PO SCH (20:10)
[2020-11-14] MEDS: **NOTE PATIENT COMMENT** MISC XX SCH (20:11)
[2020-11-14 22:00] VITALS: BP 128/79
[2020-11-15] MEDS: VANCOMYCIN HCL 1,000 MG, VIAL MATE ADAPTER 1 EACH in D5W 250 ML IV SCH ×4 (05:40→23:56)
[2020-11-15 06:00] VITALS: BP 123/72
[2020-11-15 07:28] LABS: HEMATOCRIT 37.1 % (42.0-52.0); HEMOGLOBIN 12.1 g/dl (13.5-17.5); MEAN CORPUSCULAR HEMOGLOBIN 30.3 pg (27.0-33.0); MEAN CORPUSCULAR HGB CONC 32.6 g/dl (32.0-36.5); MEAN CORPUSCULAR VOLUME 92.8 fl (80.0-96.0); PLATELET COUNT, AUTOMATED 207 10^3/uL (150-450); WHITE BLOOD COUNT 6.3 10^3/uL (4.0-10.0)
[2020-11-15 07:55] LABS: BLOOD UREA NITROGEN 7 MG/DL (7-18); C REACTIVE PROTEIN QUANTITATIV 7.52 MG/DL (0.00-0.30); CALCIUM LEVEL 8.3 MG/DL (8.5-10.1); CARBON DIOXIDE LEVEL 31 MEQ/L (21-32); CHLORIDE LEVEL 102 MEQ/L (98-107); CREATININE FOR GFR 0.54 MG/DL (0.70-1.30); GLOMERULAR FILTRATION RATE > 60.0 (>60); GLUCOSE, FASTING 143 MG/DL (70-100); POTASSIUM SERUM 3.9 MEQ/L (3.5-5.1); SODIUM LEVEL 137 MEQ/L (136-145)
[2020-11-15] MEDS: ENOXAPARIN 40MG/0.4ML SYRINGE (J1650 PER 10MG) SC SCH (09:00)
[2020-11-15] MEDS: SENNA 8.6 MG TAB (SENOKOT) PO SCH (09:03)
[2020-11-15] MEDS: DOCUSATE SODIUM 100MG CAPSULE PO SCH ×2 (09:03→21:28)
[2020-11-15] MEDS: buPROPion **XL** TABLET 150MG (WELLBUTRIN XL) PO SCH (09:03)
[2020-11-15] MEDS: GABAPENTIN 300 MG CAP PO SCH ×3 (09:04→21:28)
[2020-11-15] MEDS: NICOTINE 21MG/24HR 1 EA TRANSDERMAL TD SCH (09:04)
[2020-11-15] MEDS: LIDOCAINE 5% (LIDODERM) PATCH TD SCH (09:04)
[2020-11-15] MEDS: BUPRENORPHINE/NALOXONE 2-0.5MG SUBLINGUAL TABLET(SUBOXONE) PO SCH (09:04)
[2020-11-15] MEDS: KETOROLAC 30 MG/ML 1ML VIAL IV PRN ×3 (10:03→23:55)
--- NOTE | 2020-11-15 12:06 | CR ---
CONSULTATION DATE: 11/13/2020 TIME: 6 p.m. REASON FOR CONSULTATION: I was asked to consult by Dr. Josiah Morley for evaluation of L4-L5 discitis. HISTORY OF PRESENT ILLNESS: Giacomo is a 30-year-old gentleman with a history of history of polysubstance abuse, IV Jamee, who was hospitalized in August of 2019 with L4-L5 discitis with culture positive for Granulicatella on blood cultures. The patient was in the hospital for a couple weeks and then treated with outpatient Dalvance. He comes back with worsening back pain, low grade, inability to touch his toes or bend over. He states the pain is about the same as when he was hospitalized about a year ago. It is sharp, 7/10, radiating to both legs. He had an MRI of the lumbar spine which was not compared to the one done a year ago in [facility] as it was not available, showing discitis with osteomyelitis at L4-L5. Echocardiogram transthoracic was negative for vegetation. He denied having any chest pain, dyspnea, shortness of breath, nausea, vomiting, diarrhea. He relapsed using IV Jamee after his son from SIDS at one month. His mother also from an overdose and alcoholism. He used Jamee three days prior to admission. MEDICATIONS: 1. Buprenorphine. 2. Naloxone sublingual. 3. Bupropion XL 300 mg p.o. daily. 4. Gabapentin 600 mg p.o. t.i.d. 5. Vancomycin 1 gm IV q.6 hours. 6. Ceftriaxone 1 gm q.24 hours. 7. Ketorolac 30 mg IV q.6 hours. 8. Enoxaparin 40 mg subcu daily. 9. Lidocaine patch, one patch, low back daily. ALLERGIES: No known drug allergies. PAST MEDICAL HISTORY: 1. Polysubstance abuse especially cocaine, Jamee. 2. Depression, anxiety. 3. History of discitis, L4-L5 with Granulicatella. PAST SURGICAL HISTORY: None. REVIEW OF SYSTEMS: She denies nausea, vomiting or diarrhea. He does complain of being anxious and depressed from recent loss of son. He is no longer with the mother of the child who . He has a mild sore throat, a mild rash underneath his eyes. No chest pain, no upper or lower extremity weakness but has back pain. PHYSICAL EXAMINATION: He is a pleasant gentleman in no acute distress. He is walking around his room without any difficulty. Heart: Normal S1, S2, no murmurs, rubs or gallops. Lungs: Clear. No wheezes, rales or rhonchi. Abdomen: Soft, nontender, no hepatosplenomegaly. Extremities: No clubbing, cyanosis or edema. Back: Mild lumbosacral tenderness at L4-L5. He has difficulty touching his toes. He cannot move from a laying position to a sitting. He rolls over in the bed. Motor strength is normal. LABORATORY DATA: White count on admission was 10.7, today was 8.4, hemoglobin of 12.3, hematocrit 36.6, platelets 164. ESR 38. Sodium 138, potassium 3.2, chloride 103, bicarb 29, BUN 7, creatinine 0.63, glucose 136, calcium 8, magnesium 2.1. CRP 11.5, down from 13.8. AST 68, ALT 60, alk phos 76, total protein 7, albumin 3.5. MRSA screen not detected. Blood cultures, two sets drawn on November 12: No growth so far. Respiratory panel was negative. Transthoracic echocardiogram done in the emergency room showed no aortic regurgitation. Rhythm was normal, normal appearing cardiac valve with mild mitral regurgitation, trace pulmonic regurgitation, trace pulmonic regurgitation and no vegetations on valve, the ejection fraction 70%. IMPRESSION: This is a 30-year-old gentleman with a history of continued IV drug abuse, previously admitted for discitis at L4-L5 now presents with similar symptoms with low grade fever, elevated ESR and CRP with increasing back pain, concerning for reinfection. PLAN: We will have to obtain his MRI from [facility] and compare to current MRI. Recommend IV antibiotics with vancomycin and ceftriaxone to cover for gram positives and gram negatives. Repeat HIV testing as the patient has not had an HIV test in a year. We will increase the dose of ceftriaxone to 2 gm daily.
[2020-11-15 14:00] VITALS: BP 128/82
[2020-11-15] MEDS ORDERED: VANCOMYCIN HCL 1,000 MG, VIAL MATE ADAPTER 1 EACH in D5W 250 ML IV ONE (14:00)
[2020-11-15] MEDS: MIRALAX *UNIT DOSE* 17GM PACKET PO PRN (14:22)
[2020-11-15] MEDS ORDERED: cefTRIAXone SOD 2 GM VIAL (J0696 PER 250MG) IM SCH (16:00)
[2020-11-15] MEDS: cefTRIAXone SOD 2 GM in D5W MINI-BAG PLUS 50 ML IV SCH (16:03)
--- NOTE | 2020-11-15 18:59 | IPNPDOC ---
Subjective Date Seen The patient was seen on 11/15/20. Subjective Chief Complaint/HPI Mr. Epstein is a 30 year old male with polysubstance abuse and history of L4-L5 discitis with culture positive for Granulicatella in Aug 2019 here with back pain secondary to discitis. Afebrile since 11/12/2020. He reports left abdominal pain which he attributes to constipation. No BM for the past 2 days. Otherwise he has been having trouble sleeping. Will try Rozerem Objective Physical Examination General Exam: Positive: Alert, Cooperative Eye Exam: Positive: EOMI; Negative: Sclera icteric ENT Exam: Positive: Atraumatic Neck Exam: Positive: Supple Chest Exam: Positive: Clear to auscultation; Negative: Rales, Rhonchi, Wheezing Heart Exam: Positive: Rate Normal, Regular Rhythm, Murmurs (Not new) Abdomen Exam: Positive: Normal bowel sounds, Soft; Negative: Tenderness Extremity Exam: Negative: Edema Neuro Exam: Positive: Strength at 5/5 X4 ext, Cranial Nerves 3-12 NL Psych Exam: Positive: Anxiety Assessment /Plan Assessment Mr. Epstein is a 30 year old male with polysubstance abuse and history of L4-L5 discitis with culture positive for Granulicatella in Aug 2019 here with back pain secondary to discitis. Patient tells me that he continues to use recr eational drugs, but denies use of IV drugs. But if he did use IV drugs, and may be the cause of his discitis. Other possibility would be a vegetation a cardiac valve. The bedside echocardiogram performed by the ED did not demonstrate vegetations. We'll order a formal echocardiogram as well, the patient may need a MALIHA if he has positive blood cultures. Otherwise, pending blood culture results. Contacted ID, Dr. Vasquez, recommendations appreciated. On Vancomycin and Rocephin Plan/VTE VTE Prophylaxis Ordered?: Yes Plan 1. Discitis Seen on MRI at L4-L5 Similar to his previous event in August 2019 -ID consulted, recommendations appreciated IV vancomycin and ceftriaxone No vegetations on TTE Pending blood culture results 2. Polysubstance abuse Patient admits to cocaine and amphetamine use 3 days prior We'll order a urine tox screen Patient denies IV drug use 3. Tobacco use Patient tells me that he's stopped smoking recently He's been using the nicotine gum We'll put him on nicotine patch while here 4. Depression/anxiety Continue Bupropion 5. DVT prophylaxis Lovenox Disposition: Pending blood culture results VS, I&O, 24H, Fishbone Vital Signs/I&O Vital Signs Date Time Temp Pulse Resp B/P (MAP) Pulse Ox O2 Delivery O2 Flow Rate FiO2 11/15/20 14:00 98.6 96 18 128/82 (97) 98 Room Air I&O- Last 24 Hours up to 6 AM 11/15/20 06:00 Intake Total 2640 ml Output Total 300 ml Balance 2340 ml Laboratory Data 24H LABS Laboratory Tests 2 11/15/20 06:51: Nucleated Red Blood Cells % (auto) 0.0, Anion Gap 4L, Glomerular Filtration Rate > 60.0, Calcium Level 8.3L, C-Reactive Protein, Quantitative 7.52H 11/15/20 11:18: Vancomycin Level Trough 8.5L CBC/BMP Laboratory Tests 11/15/20 06:51 Microbiology Microbiology 11/14/20 Blood Culture - Preliminary, Resulted No growth after 24 hours . All specim... 11/14/20 Blood Culture - Preliminary, Resulted No growth after 24 hours . All specim... 11/12/20 Respiratory Virus Panel (PCR) ([facility]) - Final, Complete 11/12/20 Blood Culture - Preliminary, Resulted 11/12/20 Blood Culture - Preliminary, Resulted TOPHER MACDONALD DO Nov 15, 2020 18:59
[2020-11-15] MEDS: RAMELTEON 8 MG TAB (ROZEREM) PO SCH (21:28)
[2020-11-15] MEDS: **NOTE PATIENT COMMENT** MISC XX SCH (21:28)
[2020-11-15 22:00] VITALS: BP 125/74
[2020-11-16] MEDS: VANCOMYCIN HCL 1,000 MG, VIAL MATE ADAPTER 1 EACH in D5W 250 ML IV SCH ×2 (05:32→12:13)
[2020-11-16 06:00] VITALS: BP 127/72
[2020-11-16 06:21] LABS: HEMATOCRIT 36.5 % (42.0-52.0); HEMOGLOBIN 11.7 g/dl (13.5-17.5); MEAN CORPUSCULAR HEMOGLOBIN 30.7 pg (27.0-33.0); MEAN CORPUSCULAR HGB CONC 32.1 g/dl (32.0-36.5); MEAN CORPUSCULAR VOLUME 95.8 fl (80.0-96.0); PLATELET COUNT, AUTOMATED 222 10^3/uL (150-450); RED BLOOD COUNT 3.81 10^6/uL (4.30-6.10); WHITE BLOOD COUNT 8.7 10^3/uL (4.0-10.0)
[2020-11-16 06:48] LABS: BLOOD UREA NITROGEN 5 MG/DL (7-18); CALCIUM LEVEL 8.6 MG/DL (8.5-10.1); CARBON DIOXIDE LEVEL 30 MEQ/L (21-32); CHLORIDE LEVEL 102 MEQ/L (98-107); CREATININE FOR GFR 0.71 MG/DL (0.70-1.30); GLOMERULAR FILTRATION RATE > 60.0 (>60); GLUCOSE, FASTING 163 MG/DL (70-100); POTASSIUM SERUM 3.6 MEQ/L (3.5-5.1); SODIUM LEVEL 138 MEQ/L (136-145)
[2020-11-16] MEDS: ENOXAPARIN 40MG/0.4ML SYRINGE (J1650 PER 10MG) SC SCH ×2 (08:58→09:00)
[2020-11-16] MEDS: LIDOCAINE 5% (LIDODERM) PATCH TD SCH (08:59)
[2020-11-16] MEDS: GABAPENTIN 300 MG CAP PO SCH ×3 (08:59→22:06)
[2020-11-16] MEDS: NICOTINE 21MG/24HR 1 EA TRANSDERMAL TD SCH (08:59)
[2020-11-16] MEDS: SENNA 8.6 MG TAB (SENOKOT) PO SCH (09:00)
[2020-11-16] MEDS: DOCUSATE SODIUM 100MG CAPSULE PO SCH ×2 (09:00→21:00)
[2020-11-16] MEDS: BUPRENORPHINE/NALOXONE 2-0.5MG SUBLINGUAL TABLET(SUBOXONE) PO SCH (09:00)
[2020-11-16] MEDS ORDERED: LACTULOSE 20 GM/30 ML SYRUP UD PO SCH (09:00)
[2020-11-16] MEDS: buPROPion **XL** TABLET 150MG (WELLBUTRIN XL) PO SCH (09:00)
[2020-11-16] MEDS: KETOROLAC 30 MG/ML 1ML VIAL IV PRN ×3 (09:32→22:06)
[2020-11-16] MEDS ORDERED: PROHANCE 279.3MG/ML 15ML VIAL As Ordered ONE (10:41)
[2020-11-16] MEDS ORDERED: PROHANCE 279.3MG/ML 5ML VIAL As Ordered ONE (10:41)
--- NOTE | 2020-11-16 11:42 | REP ---
INDICATION: Has discitis/osteomyelitis of spine, now left hip pain. COMPARISON: None. TECHNIQUE: Coronal T1, STIR through the pelvis, axial, coronal, sagittal T2 fat sat, post gadolinium (16 cc ProHance) axial T1 fat sat, coronal T1 fat sat, left hip. FINDINGS: There is mild marrow edema in the lateral aspect of the right femoral head. There is no abnormal bone marrow signal or enhancement in the region of the left hip, including the proximal left femur or acetabulum. There appears to be a superior labral tear at the left hip. There is no paralabral cyst. There is a small joint effusion. There is ill-defined edema and enhancement in the inferior left gluteus medius and sierra muscles and tendons, likely representing either tendinitis or inflammation/cellulitis. Several lymph nodes are seen in the left inguinal region which are upper limits of normal in size. No abscess collection is seen. IMPRESSION: Mild marrow edema incidentally noted in the lateral aspect of the right femoral head. This may be related to stress related change possibly secondary to femoroacetabular impingement of the right hip. No evidence of osteomyelitis of the left hip. Edema and enhancement in the inferior left gluteus medius and sierra muscles and tendons suggests either tendinitis or inflammation/cellulitis. No abscess. Small joint effusion. I suspect a left superior labral tear. <Electronically signed by Ricardo Jimenez > 11/16/20 [id number]
[2020-11-16] MEDS ORDERED: VANCOMYCIN HCL 1,000 MG, VIAL MATE ADAPTER 1 EACH in D5W 250 ML IV ONE (13:15)
[2020-11-16 14:00] VITALS: BP 138/88
[2020-11-16] MEDS: cefTRIAXone SOD 2 GM in D5W MINI-BAG PLUS 50 ML IV SCH (15:45)
--- NOTE | 2020-11-16 17:53 | IPN ---
PROGRESS NOTE DATE: 11/16/2020 SUBJECTIVE: Giacomo is doing well. He is in the shower that is taking more than 15 minutes. He states he had some abdominal pain, which he thought was related to constipation. He had no bowel movement for two days. He has no nausea, vomiting, or diarrhea. He has had trouble sleeping. OBJECTIVE: GENERAL APPEARANCE: Healthy looking gentleman in no acute distress. HEENT: Anicteric. Oropharynx is clear. LUNGS: Clear with no wheezes, rales, or rhonchi. ABDOMEN: Soft and nontender with no hepatosplenomegaly. HEART: Normal S1, S2 with a systolic ejection murmur 2/6. EXTREMITIES: No clubbing, cyanosis, or edema. BACK: Mild lumbosacral spine tenderness at L5-S1. NEUROLOGIC: Moves all extremities. Walks without a problem. LABORATORY DATA: White count 8.7, hemoglobin 11.7, hematocrit 36.5, platelets 222,000. ESR 38, sodium 138, potassium 3.6, chloride 102, bicarb 30, BUN 5, creatinine 0.71, glucose 163, calcium 8.6, CRP 7.2 down from 13.8. Blood cultures two sets were positive for Streptococcus sanguinis on 11/12/2020, by 30 minutes. Repeat blood cultures on 11/14 two sets were negative. Susceptibilities are still pending. IMAGING: Transthoracic echocardiogram done on 11/12/2020, showed no vegetation. MRI of the lumbar spine reviewed with Dr. Mccullough and compared to 08/2019, when the patient came with L4-L5 discitis there does not seem to be any change with findings or edema. Possibly this is not the source of infection. IMPRESSION: 1. Fever with Streptococcus sanguinis bacteremia concerning for endocarditis. The patient will have a transesophageal echocardiogram scheduled as a transthoracic echo was negative. 2. L4-L5 discitis diagnosed in 08/2019, persistent on MRI, but may not be new. 3. Chronic hepatitis C with undetectable viral load 03/11/2020. HIV negative 11/15/2020. PLAN: Discontinue intravenous (IV) vancomycin. The patient does not have methicillin-resistant Staphylococcus aureus (MRSA) on blood cultures. Continue IV Rocephin 2 grams q. 24 hours. Schedule MALIHA in the next couple of days. Case has been discussed with Dr. Morley who agrees with the plan. [facility]
[2020-11-16] MEDS ORDERED: VANCOMYCIN HCL 1,000 MG, VIAL MATE ADAPTER 1 EACH in D5W 250 ML IV SCH ×2 (20:00→21:00)
--- NOTE | 2020-11-16 20:19 | IPNPDOC ---
Subjective Date Seen The patient was seen on 11/16/20. Subjective Chief Complaint/HPI Mr. Epstein is a 30 year old male with polysubstance abuse and history of L4-L5 discitis with culture positive for Granulicatella in Aug 2019 here with back pain secondary to discitis. Last fever on 11/12/2020. No events overnight. This morning, he denied chest pain or dyspnea. He continued to complain of left hip pain. His blood culture return positive for Streptococcus sanguis Objective Physical Examination General Exam: Positive: Alert, Cooperative Eye Exam: Positive: EOMI; Negative: Sclera icteric ENT Exam: Positive: Atraumatic Neck Exam: Positive: Supple Chest Exam: Positive: Clear to auscultation; Negative: Rales, Rhonchi, Wheezing Heart Exam: Positive: Rate Normal, Regular Rhythm, Murmurs (Not new) Abdomen Exam: Positive: Normal bowel sounds, Soft; Negative: Tenderness Extremity Exam: Negative: Edema Neuro Exam: Positive: Strength at 5/5 X4 ext, Cranial Nerves 3-12 NL Psych Exam: Positive: Anxiety Assessment /Plan Assessment Mr. Epstein is a 30 year old male with polysubstance abuse and history of L4-L5 discitis with culture positive for Granulicatella in Aug 2019 here with back pain secondary to discitis. Patient tells me that he continues to use recreational drugs, but denies use of IV drugs. Blood cultures returned positive for Streptococcus sanguis. Patient will need a MALIHA. Placed order for MALIHA in system. ID following and managing antibiotics. Recommendations appreciated. Otherwise, patient reports hip pain. Ordered MRI since he has gram positive bacteremia. MRI negative for osteomyelitis. Demonstrates possible left superior labral tear. Plan/VTE VTE Prophylaxis Ordered?: Yes Plan 1. Discitis Seen on MRI at L4-L5 Similar to his previous event in August 2019 -ID consulted, recommendations appreciated IV ceftriaxone No vegetations on TTE Blood cultures grew Streptococcus Sanguis -MALIHA ordered 2. Polysubstance abuse Patient admits to cocaine and amphetamine use 3 days prior to admission Patient denies IV drug use 3. Tobacco use Patient tells me that he's stopped smoking recently He's been using the nicotine gum We'll put him on nicotine patch while here 4. Depression/anxiety Continue Bupropion 5. DVT prophylaxis Lovenox Disposition: MALIHA ordered. Pending results VS, I&O, 24H, Fishbone Vital Signs/I&O Vital Signs Date Time Temp Pulse Resp B/P (MAP) Pulse Ox O2 Delivery O2 Flow Rate FiO2 11/16/20 14:00 99.2 94 19 138/88 (105) 97 Room Air I&O- Last 24 Hours up to 6 AM 11/16/20 06:00 Intake Total 1980 ml Output Total 0 ml Balance 1980 ml Laboratory Data 24H LABS Laboratory Tests 2 11/16/20 06:07: Nucleated Red Blood Cells % (auto) 0.0, Anion Gap 6L, Glomerular Filtration Rate > 60.0, Calcium Level 8.6, C-Reactive Protein, Quantitative 7.20H 11/16/20 12:13: Vancomycin Level Trough 8.4L CBC/BMP Laboratory Tests 11/16/20 06:07 Microbiology Microbiology 11/14/20 Blood Culture - Preliminary, Resulted No Growth after 48 hours. All Specime... 11/14/20 Blood Culture - Preliminary, Resulted No Growth after 48 hours. All Specime... 11/12/20 Respiratory Virus Panel (PCR) ([facility]) - Final, Complete 11/12/20 Blood Culture - Preliminary, Resulted 11/12/20 Blood Culture - Preliminary, Resulted Streptococcus Sanguis TOPHER MACDONALD DO Nov 16, 2020 20:19
[2020-11-16] MEDS: **NOTE PATIENT COMMENT** MISC XX SCH (21:00)
[2020-11-16 22:00] VITALS: BP 138/68
[2020-11-16] MEDS: RAMELTEON 8 MG TAB (ROZEREM) PO SCH (22:06)
[2020-11-17] MEDS: KETOROLAC 30 MG/ML 1ML VIAL IV PRN ×3 (04:19→18:44)
[2020-11-17 06:00] VITALS: BP 107/70
[2020-11-17 07:12] LABS: HEMATOCRIT 36.8 % (42.0-52.0); HEMOGLOBIN 11.9 g/dl (13.5-17.5); MEAN CORPUSCULAR HEMOGLOBIN 30.3 pg (27.0-33.0); MEAN CORPUSCULAR HGB CONC 32.3 g/dl (32.0-36.5); MEAN CORPUSCULAR VOLUME 93.6 fl (80.0-96.0); PLATELET COUNT, AUTOMATED 252 10^3/uL (150-450); RED BLOOD COUNT 3.93 10^6/uL (4.30-6.10); WHITE BLOOD COUNT 7.4 10^3/uL (4.0-10.0)
[2020-11-17 07:39] LABS: BLOOD UREA NITROGEN 6 MG/DL (7-18); C REACTIVE PROTEIN QUANTITATIV 7.27 MG/DL (0.00-0.30); CARBON DIOXIDE LEVEL 36 MEQ/L (21-32); CHLORIDE LEVEL 103 MEQ/L (98-107); GLOMERULAR FILTRATION RATE > 60.0 (>60); GLUCOSE, FASTING 103 MG/DL (70-100); POTASSIUM SERUM 4.8 MEQ/L (3.5-5.1); SODIUM LEVEL 140 MEQ/L (136-145)
[2020-11-17] MEDS: DOCUSATE SODIUM 100MG CAPSULE PO SCH ×2 (08:30→21:00)
[2020-11-17] MEDS: NICOTINE 21MG/24HR 1 EA TRANSDERMAL TD SCH (08:30)
[2020-11-17] MEDS: GABAPENTIN 300 MG CAP PO SCH ×3 (08:30→21:03)
[2020-11-17] MEDS: buPROPion **XL** TABLET 150MG (WELLBUTRIN XL) PO SCH (08:30)
[2020-11-17] MEDS: BUPRENORPHINE/NALOXONE 2-0.5MG SUBLINGUAL TABLET(SUBOXONE) PO SCH (08:30)
[2020-11-17] MEDS: LIDOCAINE 5% (LIDODERM) PATCH TD SCH (08:31)
[2020-11-17] MEDS: ENOXAPARIN 40MG/0.4ML SYRINGE (J1650 PER 10MG) SC SCH (08:31)
[2020-11-17] MEDS ORDERED: ACETAMINOPHEN 500 MG TAB PO ONE (10:45)
[2020-11-17] MEDS ORDERED: traMADol 50 MG TAB PO ONE (10:45)
--- NOTE | 2020-11-17 11:09 | IPNPDOC ---
Date Seen The patient was seen on 11/17/20. Progress Note SUBJECTIVE: Patient was seen and examined at the bedside. Chart has been reviewed. He complains of back pain 7 out of 10 on a pain scale despite when necessary Toradol every 6 hourly And Lidoderm patch. He denies lower extremity weakness, but Complaint of right thigh numbness. He denied any saddle anesthesia, Changes in bowel or urinary habits.. No fever or chills OBJECTIVE PHYSICAL EXAMINATION: VITAL SIGNS: Please see below. GENERAL: Awake, alert, oriented to person, place and time. Anicteric. No jaundice HEENT: No JVD, no thyromegaly, no cervical lymphadenopathy. Moist mucous membra shayna CARDIOVASCULAR: S1, S2 regular rate rhythm RESPIRATORY: Clear to auscultation. No wheezing or rales ABDOMINAL: Soft nontender nondistended positive bowel sounds 4 quadrants EXTREMITIES: No cyanosis, clubbing or pitting edema. Lidoderm patch over L3, L4. NEUROLOGICAL: Motor function 5 out of 54 extremities. No focal deficit LABORATORY DATA, IMAGING STUDIES, MICROBIOLOGY: Please see below. Exam: MR Lumbar Spine Without and With Contrast. Exam date and time: 11/12/2020 7:19 PM Age: 30 years old Clinical indication: Low back pain; Additional info: Low back pain, R/O discitis/osteomyelitis TECHNIQUE: Imaging protocol: Multiplanar magnetic resonance images of the lumbar spine without and with intravenous contrast. Contrast material: PROHANCE; Contrast volume: 15 ml; Contrast route: INTRAVENOUS (IV); COMPARISON: [place] Spine, Lumbosacral, partial 09/10/2019 5:36 AM FINDINGS: Limitations: Patient motion. Vertebrae: See "Discs/Spinal canal/Neural foramina" finding. Spinal cord: The conus is poorly assessed but appears to be at the L1 level. Discs/Spinal canal/Neural foramina: There is increased signal on the STIR and T2 weighted sequences in the L4 and L5 vertebral bodies as well as in the anterior aspect of the intervening disc space which is markedly narrowed. There is a grade 1 anterior spondylolisthesis at the L4-L5 level which is due to bilateral L4 pars spondylolysis. There is no spinal canal stenosis or neural foraminal narrowing in the lower thoracic spine through the L3-L4 level. There is also no evidence of neural compromise at L5-S1. There is no significant spinal canal stenosis at the L4-L5 level. The neural foramen appear patent. There appears to be dilatation of the venous plexus in the ventral spinal canal. There is increased signal surrounding the left facet joint. Series 801, image 1 frame 11. There is also increased intensity along the lateral margins of the vertebral bodies at the L4-L5 level/medial margin of both psoas muscles. Series 801, image 1 frame 10. Detail is quite limited due to patient motion. Enhancement is seen in the L4 and L5 vertebra without significant enhancement in the intervening disc. Series 901, image 1 frame 6. There is enhancement along the posterior margin of L4 and to a lesser degree L5 and S1 which could be due to epidural abscess but is more likely due to dilatation of the venous plexus. Soft tissues: As above. IMPRESSION: Findings are likely due to discitis osteomyelitis at the L4-L5 level superimposed on degeneration associated with grade 1 spondylolisthesis due to bilateral L4 pars spondylolysis. There appears to be enhancement along the margins of the L4 and L5 vertebral bodies and medial margins of both psoas muscles. No obvious psoas abscesses however detail is very limited. The increased intensity and enhancement also appears to be in the pre sacral soft tissues and surrounding the left L4-L5 facet joint. The images cannot be adequately assessed for possible epidural abscess however no definite abscess is identified. Electronically signed by: Alyson Shelton On 11/12/2020 20:24:56 PM MRI HIP Coronal T1, STIR through the pelvis, axial, coronal, sagittal T2 fat sat, post gadolinium (16 cc ProHance) axial T1 fat sat, coronal T1 fat sat, left hip. FINDINGS: There is mild marrow edema in the lateral aspect of the right femoral head. There is no abnormal bone marrow signal or enhancement in the region of the left hip, including the proximal left femur or acetabulum. There appears to be a superior labral tear at the left hip. There is no pa ralabral cyst. There is a small joint effusion. There is ill-defined edema and enhancement in the inferior left gluteus medius and sierra muscles and tendons, likely representing either tendinitis or inflammation/cellulitis. Several lymph nodes are seen in the left inguinal region which are upper limits of normal in size. No abscess collection is seen. IMPRESSION: Mild marrow edema incidentally noted in the lateral aspect of the right femoral head. This may be related to stress related change possibly secondary to femoroacetabular impingement of the right hip. No evidence of osteomyelitis of the left hip. Edema and enhancement in the inferior left gluteus medius and sierra muscles and tendons suggests either tendinitis or inflammation/cellulitis. No abscess. Small joint effusion. I suspect a left superior labral tear. <Electronically signed by Ricardo Jimenez > 11/16/20 1138 2D ECHOCARDIOGRAM DATE OF PROCEDURE: 11/12/2020 Age: 30 Gender: Male Height: 68 inches Weight: 166 pounds REFERRING PHYSICIAN: Gordon Faye PA-C INDICATION: Cardiac murmur, unspecified; fever, IV drug user. MEASUREMENTS: 2D Measurements: Were not acquired by the dental hygienist. Doppler Measurements: No aortic regurgitation Aortic valve velocity 165 cm/s LVOT velocity 146 cm/s LVOT VTI 28.1 cm Mild mitral regurgitation Mitral E velocity 109 cm/s Mitral A velocity 57.5 cm/s Mitral deceleration time 224 msec Very mild tricuspid regurgitation Trace pulmonic regurgitation Pulmonary artery acceleration time 137 msec MITRAL ANNULAR TISSUE DOPPLER E prime septal 12.3 cm/s, E prime lateral 16.2 cm/s DESCRIPTION: Rhythm was sinus. Image quality was good. This was a 2D, M-mode, color flow Doppler, and pulsed wave Doppler examination including mitral annulartissue Doppler. CONCLUSIONS: 1. Normal echocardiogram Doppler. 2. Normal appearing cardiac valves with mild mitral regurgitation, very mild tricuspid regurgitation, and trace pulmonic regurgitation within normal limits. No vegetations identified of any cardiac valves. 3. Appearance of normal left ventricle size and wall thickness. Normal regionalLV wall motion and wall thickening. Normal LV systolic function. LVEF 70% by visual estimate. Right ventricle appears normal in size and systolic function. Pulmonary artery systolic pressure not elevated. 4. No pericardial effusion. 5. Suggestive of normal central venous pressure. A verbal report of this study was provided by telephone to emergency room physician, Dr. Geoffrey Winston. DD: Geoffrey Johnson MD [facility] 11/12/20 6915 ASSESSMENT AND PLAN: 30-year-old IV drug user with polysubstance abuse on Suboxone, gabapentin, bupropion as outpatient with history of L4-L5 discitis with culture positive for GRANULICATELLA in August 2019 , presented to the emergency room on 11/12/2020 with radicular pain, found to have osteomyelitis of the L4-L5 area with low- grade fever 100.4 2-D echocardiogram was negative for endocarditis. Dr. Geraldine Vasquez infectious disease specialist was consulted for management. L4-L5 discitis/osteomyelitis with lumbar radiculopathy -Patient was admitted on 11/12/2020 and was found to have a low-grade temperature of 100.4, white count of 10.7, sedimentation rate of 38, C-reactive protein of 13.8. -MRI of the lumbar spine shows L4, L5 osteomyelitis/discitis - Blood cultures on 11/12/2020 showed Streptococcus sanguinous sensitive to ceftriaxone -He was started on vancomycin 1 g intravenously every 8 hourly, on 11/12/2020 managed by pharmacy. -Vancomycin was discontinued on 11/16/2020. -Infectious disease specialist, Dr. Geraldine Vasquez recommended intravenous ceftriaxone which was started on 11/16/2020 -For pain control,Patient was given intravenous Toradol as needed With daily creatinine monitoring to prevent acute kidney injury. -On gabapentin 600 mg 3 times a day -On 11/17/2020, He was given 1 g of Tylenol and tramadol 100 mg for pain. -Transesophageal echocardiogram was ordered on 11/17/2020 to rule out endocarditis -Decreasing CRP from admission of 13.8-7.27 on 11/17/2020 Streptococcus sanguinous bacteremia -Transesophageal echocardiogram was ordered on 11/17/2020 to rule out endocarditis -He has remained afebrile with no white count. Since admission -He received intravenous vancomycin from 11/12/2020 to 11/16/2020 -On intravenous ceftriaxone which was started on 11/16/2020. Chronic hepatitis C -HIV negative, 11/15/2020 -Undetectable viral load. 03/11/2020 Polysubstance abuse -On Suboxone Depression and anxiety/ insomnia -Continued on bupropion 300 mg daily -On Rozerem Anemia of chronic disease -Hemoglobin ranges between 11.7-12.3 -No acute symptoms of anemia -Does not require blood transfusion Chronic constipation -On Colace 100 mg twice a day -MiraLAX 1 packet daily as needed DVT prophylaxis -On Lovenox 40 mg subcutaneous daily .Tobacco abuse -Smoking cessation counseling has been provided -on nicotine replacement therapy Disposition: Awaiting transesophageal echocardiogram VS, I&O, 24H, Fishbone Vital Signs/I&O Vital Signs Date Time Temp Pulse Resp B/P (MAP) Pulse Ox O2 Delivery O2 Flow Rate FiO2 11/17/20 06:00 97.8 74 18 107/70 (82) 97 Room Air I&O- Last 24 Hours up to 6 AM 11/17/20 06:00 Intake Total 3382 ml Output Total 0 ml Balance 3382 ml Laboratory Data 24H LABS Laboratory Tests 2 11/16/20 12:13: Vancomycin Level Trough 8.4L 11/17/20 06:48: Nucleated Red Blood Cells % (auto) 0.0, Anion Gap 1L, Glomerular Filtration Rate > 60.0, Calcium Level 9.0, C-Reactive Protein, Quantitative 7.27H CBC/BMP Laboratory Tests 11/17/20 06:48 Microbiology Microbiology 11/14/20 Blood Culture - Preliminary, Resulted No Growth after 72 hours. All specime... 11/14/20 Blood Culture - Preliminary, Resulted No Growth after 72 hours. All specime... 11/12/20 Respiratory Virus Panel (PCR) ([facility]) - Final, Complete 11/12/20 Blood Culture - Preliminary, Resulted Streptococcus Sanguinis 11/12/20 Blood Culture - Preliminary, Resulted Streptococcus Sanguinis ALYSON FRIAS MD Nov 17, 2020 11:09
[2020-11-17 14:00] VITALS: BP 140/78
[2020-11-17] MEDS: cefTRIAXone SOD 2 GM in D5W MINI-BAG PLUS 50 ML IV SCH (15:05)
--- NOTE | 2020-11-17 16:24 | IPN ---
INFECTIOUS DISEASE PROGRESS NOTE DATE: 11/17/2020 SUBJECTIVE: Giacomo is doing better, his back pain has improved. He also had some leg pain yesterday and numbness which has improved as well. He would like to get back on his Suboxone. He usually gets 24 mg daily at [facility] but his dose has been decreased here. He was switched from Toradol to Tramadol. He also tells me that he was exposed to gonorrhea, his girlfriend had it and he would like to get tested. He has had no fever or chills. PHYSICAL EXAMINATION: Heart is normal S1 and S2 with a systolic ejection murmur at the left upper sternal border, 2/6. Lungs are clear. No wheezes, rales or rhonchi. Abdomen is soft, nontender. No hepatosplenomegaly. Back: No CVA tenderness. Mild tenderness at L4 and L5 and paraspinal tenderness. Extremities: No clubbing, cyanosis or edema. No calf tenderness. Motor strength is 5/5. LABS: White count 7.4, hemoglobin 11.9, hematocrit 36.8, platelets are 252,000. Sodium is 140, potassium is 4.8, chloride is 103, bicarbonate is 36, BUN is 6, creatinine 0.6, glucose is 103, calcium is 9, CRP is 7.27. HIV negative. Hepatitis C RNA pending. Blood cultures negative on 11/14/2020. Blood cultures from [facility] ampicillin 0.5 and penicillin-G 0.25 which is intermediate, sensitive to Ceftriaxone. IMPRESSION: 1. History of L4-L5 discitis with worsening back pain and MRI findings consistent with L4-L5 but not changed compared to a year ago. 2. History of heart murmur with bacteremia from streptococcus sanguinis concerning for endocarditis. Patient is scheduled for MALIHA tomorrow. 3. History of hepatitis C treated with Epclusa last year, repeat hepatitis C RNA was done since the patient had relapsed using IV drugs. 4. History of heroin and Jamee abuse, patient was on Suboxone 24 mg daily, will discuss with primary team whether they would increase his dose. 5. Gonorrhea exposure, will obtain a urine gonorrhea and chlamydia but the patient is on treatment for gonorrhea with Rocephin. The only thing he would need treatment with Zithromax 1 gram or Doxycycline along with it if he was positive. PLAN : MALIHA tomorrow. Patient is anxious to get home. He had been treated in the past with Dalvance which could be an option once we have results of his MALIHA. CALISTA
[2020-11-17] MEDS: BUPRENORPHINE/NALOXONE 2-0.5MG SUBLINGUAL TABLET(SUBOXONE) SL SCH (21:01)
[2020-11-17] MEDS: RAMELTEON 8 MG TAB (ROZEREM) PO SCH (21:01)
[2020-11-17] MEDS: **NOTE PATIENT COMMENT** MISC XX SCH (21:03)
[2020-11-17 22:00] VITALS: BP 125/74
[2020-11-18] MEDS: KETOROLAC 30 MG/ML 1ML VIAL IV PRN (02:34)
[2020-11-18 06:00] VITALS: BP 122/72
[2020-11-18 06:34] LABS: BASO % 0.3 % (0.0-1.0); EOS # 0.3 10^3/uL (0.0-0.5); EOS % 3.6 % (0.0-3.0); HEMATOCRIT 37.7 % (42.0-52.0); HEMOGLOBIN 12.2 g/dl (13.5-17.5); LYMPH # 2.4 10^3/uL (1.5-5.0); LYMPH % 34.8 % (24.0-44.0); MEAN CORPUSCULAR HEMOGLOBIN 30.3 pg (27.0-33.0); MEAN CORPUSCULAR HGB CONC 32.4 g/dl (32.0-36.5); MEAN CORPUSCULAR VOLUME 93.5 fl (80.0-96.0); MONO # 0.5 10^3/uL (0.0-0.8); MONO % 6.7 % (0.0-5.0); NEUTROPHILS # 3.7 10^3/uL (1.5-8.5); NEUTROPHILS % 53.6 % (36.0-66.0); PLATELET COUNT, AUTOMATED 303 10^3/uL (150-450); RED BLOOD COUNT 4.03 10^6/uL (4.30-6.10); WHITE BLOOD COUNT 6.9 10^3/uL (4.0-10.0)
[2020-11-18 07:05] LABS: BLOOD UREA NITROGEN 14 MG/DL (7-18); C REACTIVE PROTEIN QUANTITATIV 5.42 MG/DL (0.00-0.30); CARBON DIOXIDE LEVEL 32 MEQ/L (21-32); CHLORIDE LEVEL 103 MEQ/L (98-107); GLOMERULAR FILTRATION RATE > 60.0 (>60); GLUCOSE, FASTING 106 MG/DL (70-100); POTASSIUM SERUM 4.4 MEQ/L (3.5-5.1); SODIUM LEVEL 141 MEQ/L (136-145)
[2020-11-18] MEDS: DOCUSATE SODIUM 100MG CAPSULE PO SCH ×2 (09:00→21:00)
[2020-11-18] MEDS: LIDOCAINE 5% (LIDODERM) PATCH TD SCH (09:34)
[2020-11-18] MEDS: NICOTINE 21MG/24HR 1 EA TRANSDERMAL TD SCH (09:34)
[2020-11-18] MEDS: GABAPENTIN 300 MG CAP PO SCH ×3 (09:35→21:12)
[2020-11-18] MEDS: ENOXAPARIN 40MG/0.4ML SYRINGE (J1650 PER 10MG) SC SCH (09:35)
[2020-11-18] MEDS: BUPRENORPHINE/NALOXONE 2-0.5MG SUBLINGUAL TABLET(SUBOXONE) SL SCH ×3 (09:35→21:12)
[2020-11-18] MEDS: buPROPion **XL** TABLET 150MG (WELLBUTRIN XL) PO SCH (09:35)
[2020-11-18 10:02] LABS: CHLAMYDIA DNA AMPLIFICATION NEGATIVE (NEGATIVE); GC DNA AMPLIFICATION NEGATIVE (NEGATIVE)
[2020-11-18] MEDS ORDERED: IBUPROFEN 800 MG TAB PO ONE (10:15)
[2020-11-18 10:30] LABS: ERYTHROCYTE SEDIMENTATION RATE 63 mm/hr (0-15)
--- NOTE | 2020-11-18 11:35 | IPNPDOC ---
Date Seen The patient was seen on 11/18/20. Progress Note SUBJECTIVE: c/o lower back discomfort 04/08 .suboxone changed to tid from bid yesterday. no fever or chills. npo for MALIHA today w Dr. Burr after 130pm. no other c/o . denies saddle anesthesis, urinary or bowel changes. OBJECTIVE PHYSICAL EXAMINATION: VITAL SIGNS: Please see below. GENERAL: Awake, alert, oriented to person, place and time. No distress. Speaks in full sentences Anicteric. No jaundice HEENT: No JVD, no thyromegaly, no cervical lymphadenopathy. Moist mucous membranes CARDIOVASCULAR: S1, S2 regular rate rhythm. Nondisplaced maximal impulse RESPIRATORY: Clear to auscultation. No wheezing or rales . No adventitious breath sounds ABDOMINAL: Soft nontender nondistended positive bowel sounds 4 quadrants EXTREMITIES: No cyanosis, clubbing or pitting edema. Lidoderm patch over L3, L4. NEUROLOGICAL: Motor function 5 out of 54 extremities. No focal deficit LABORATORY DATA, IMAGING STUDIES, MICROBIOLOGY: Please see below. Exam: MR Lumbar Spine Without and With Contrast. Exam date and time: 11/12/2020 7:19 PM Age: 30 years old Clinical indication: Low back pain; Additional info: Low back pain, R/O discitis/osteomyelitis TECHNIQUE: Imaging protocol: Multiplanar magnetic resonance images of the lumbar spine without and with intravenous contrast. Contrast material: PROHANCE; Contrast volume: 15 ml; Contrast route: INTRAVENOUS (IV); COMPARISON: [place] Spine, Lumbosacral, partial 09/10/2019 5:36 AM FINDINGS: Limitations: Patient motion. Vertebrae: See "Discs/Spinal canal/Neural foramina" finding. Spinal cord: The conus is poorly assessed but appears to be at the L1 level. Discs/Spinal canal/Neural foramina: There is increased signal on the STIR and T2 weighted sequences in the L4 and L5 vertebral bodies as well as in the anterior aspect of the intervening disc space which is markedly narrowed. There is a grade 1 anterior spondylolisthesis at the L4-L5 level which is due to bilateral L4 pars spondylolysis. There is no spinal canal stenosis or neural foraminal narrowing in the lower thoracic spine through the L3-L4 level. There is also no evidence of neural compromise at L5-S1. There is no significant spinal canal stenosis at the L4-L5 level. The neural foramen appear patent. There appears to be dilatation of the venous plexus in the ventral spinal canal. There is increased signal surrounding the left facet joint. Series 801, image 1 frame 11. There is also increased intensity along the lateral margins of the vertebral bodies at the L4-L5 level/medial margin of both psoas muscles. Series 801, image 1 frame 10. Detail is quite limited due to patient motion. Enhancement is seen in the L4 and L5 vertebra without significant enhancement in the intervening disc. Series 901, image 1 frame 6. There is enhancement along the posterior margin of L4 and to a lesser degree L5 and S1 which could be due to epidural abscess but is more likely due to dilatation of the venous plexus. Soft tissues: As above. IMPRESSION: Findings are likely due to discitis osteomyelitis at the L4-L5 level superimposed on degeneration associated with grade 1 spondylolisthesis due to bilateral L4 pars spondylolysis. There appears to be enhancement along the margins of the L4 and L5 vertebral bodies and medial margins of both psoas muscles. No obvious psoas abscesses however detail is very limited. The increased intensity and enhancement also appears to be in the pre sacral soft tissues and surrounding the left L4-L5 facet joint. The images cannot be adequately assessed for possible epidural abscess however no definite abscess is identified. Electronically signed by: Alyson Shelton On 11/12/2020 20:24:56 PM MRI HIP Coronal T1, STIR through the pelvis, axial, coronal, sagittal T2 fat sat, post gadolinium (16 cc ProHance) axial T1 fat sat, coronal T1 fat sat, left hip. FINDINGS: There is mild marrow edema in the lateral aspect of the right femoral head. There is no abnormal bone marrow signal or enhancement in the region of the left hip, including the proximal left femur or acetabulum. There appears to be a superior labral tear at the left hip. There is no paralabral cyst. There is a small joint effusion. There is ill-defined edema and enhancement in the inferior left gluteus medius and sierra muscles and tendons, likely representing either tendinitis or inflammation/cellulitis. Several lymph nodes are seen in the left inguinal region which are upper limits of normal in size. No abscess colle ction is seen. IMPRESSION: Mild marrow edema incidentally noted in the lateral aspect of the right femoral head. This may be related to stress related change possibly secondary to femoroacetabular impingement of the right hip. No evidence of osteomyelitis of the left hip. Edema and enhancement in the inferior left gluteus medius and sierra muscles and tendons suggests either tendinitis or inflammation/cellulitis. No abscess. Small joint effusion. I suspect a left superior labral tear. <Electronically signed by Ricardo Tony > 11/16/20 1138 2D ECHOCARDIOGRAM DATE OF PROCEDURE: 11/12/2020 Age: 30 Gender: Male Height: 68 inches Weight: 166 pounds REFERRING PHYSICIAN: Gordon Faye PA-C INDICATION: Cardiac murmur, unspecified; fever, IV drug user. MEASUREMENTS: 2D Measurements: Were not acquired by the clinical abstractor. Doppler Measurements: No aortic regurgitation Aortic valve velocity 165 cm/s LVOT velocity 146 cm/s LVOT VTI 28.1 cm Mild mitral regurgitation Mitral E velocity 109 cm/s Mitral A velocity 57.5 cm/s Mitral deceleration time 224 msec Very mild tricuspid regurgitation Trace pulmonic regurgitation Pulmonary artery acceleration time 137 msec MITRAL ANNULAR TISSUE DOPPLER E prime septal 12.3 cm/s, E prime lateral 16.2 cm/s DESCRIPTION: Rhythm was sinus. Image quality was good. This was a 2D, M-mode, color flow Doppler, and pulsed wave Doppler examination including mitral annulartissue Doppler. CONCLUSIONS: 1. Normal echocardiogram Doppler. 2. Normal appearing cardiac valves with mild mitral regurgitation, very mild tricuspid regurgitation, and trace pulmonic regurgitation within normal limits. No vegetations identified of any cardiac valves. 3. Appearance of normal left ventricle size and wall thickness. Normal regionalLV wall motion and wall thickening. Normal LV systolic function. LVEF 70% by visual estimate. Right ventricle appears normal in size and systolic fu nction. Pulmonary artery systolic pressure not elevated. 4. No pericardial effusion. 5. Suggestive of normal central venous pressure. A verbal report of this study was provided by telephone to emergency room physician, Dr. Geoffrey Winston. DD: Geoffrey Johnson MD [facility] 11/12/20 2855 ASSESSMENT AND PLAN: 30-year-old IV drug user with polysubstance abuse on Suboxone, gabapentin, bupropion as outpatient with history of L4-L5 discitis with culture positive for GRANULICATELLA in August 2019 , presented to the emergency room on 11/12/2020 with radicular pain, found to have osteomyelitis of the L4-L5 area with low- grade fever 100.4 2-D echocardiogram was negative for endocarditis. Dr. Geraldine Vasquez infectious disease specialist was consulted for management. L4-L5 discitis/osteomyelitis with lumbar radiculopathy -Patient was admitted on 11/12/2020 and was found to have a low-grade temperature of 100.4, white count of 10.7, sedimentation rate of 38, C-reactive protein of 13.8. -MRI of the lumbar spine shows L4, L5 osteomyelitis/discitis - Blood cultures on 11/12/2020 showed Streptococcus sanguinous sensitive to ceftriaxone -He was started on vancomycin 1 g intravenously every 8 hourly, on 11/12/2020 managed by pharmacy. -Vancomycin was discontinued on 11/16/2020. -Infectious disease specialist, Dr. Geraldine Vasquez recommended intravenous ceftriaxone which was started on 11/16/2020 -For pain control,Patient was given intravenous Toradol as needed for 5 days Maximum dosage and was discontinued 11/17/20 -On gabapentin 600 mg 3 times a day -On 11/17/2020, He was given 1 g of Tylenol and tramadol 100 mg for pain. -Transesophageal echocardiogram to rule out endocarditis to be done by Dr. Burr 11/18/20. -Decreasing CRP from admission of 13.8-7.27 on 11/17/2020 Streptococcus sanguinous bacteremia -Transesophageal echocardiogram 11/18/20 -He has remained afebrile with no white count. Since admission -He received intravenous vancomycin from 11/12/2020 to 11/16/2020 -On intravenous ceftriaxone which was started on 11/16/2020. -ID to decide on abx changes after MALIHA. Chronic hepatitis C -HIV negative, 11/15/2020 -Undetectable viral load. 03/11/2020 Polysubstance abuse -On Suboxone changed from bid to tid 11/17/20 Depression and anxiety/ insomnia -Continued on bupropion 300 mg daily -On Rozerem Anemia of chronic disease -Hemoglobin ranges between 11.7-12.3 -No acute symptoms of anemia -Does not require blood transfusion Chronic constipation -On Colace 100 mg twice a day -MiraLAX 1 packet daily as needed DVT prophylaxis -On Lovenox 40 mg subcutaneous daily .Tobacco abuse -Smoking cessation counseling has been provided -on nicotine replacement therapy Disposition: Awaiting transesophageal echocardiogram. Depending on MALIHA results, ID to recommend any abx changes. VS, I&O, 24H, Fishbone Vital Signs/I&O Vital Signs Date Time Temp Pulse Resp B/P (MAP) Pulse Ox O2 Delivery O2 Flow Rate FiO2 11/18/20 06:00 97.7 71 17 122/72 (89) 98 Room Air I&O- Last 24 Hours up to 6 AM 11/18/20 06:00 Intake Total 2400 ml Output Total 0 ml Balance 2400 ml Laboratory Data 24H LABS Laboratory Tests 2 11/18/20 06:07: Immature Granulocyte % (Auto) 1.0, Neutrophils (%) (Auto) 53.6, Lymphocytes (%) (Auto) 34.8, Monocytes (%) (Auto) 6.7H, Eosinophils (%) (Auto) 3.6H, Basophils (%) (Auto) 0.3, Neutrophils # (Auto) 3.7, Lymphocytes # (Auto) 2.4, Monocytes # (Auto) 0.5, Eosinophils # (Auto) 0.3, Basophils # (Auto) 0.0, Nucleated Red Blood Cells % (auto) 0.0, Erythrocyte Sedimentation Rate 63H, Anion Gap 6L, Glomerular Filtration Rate > 60.0, Calcium Level 9.0, C-Reactive Protein, Quantitative 5.42H 11/18/20 07:15: Chlamydia trachomatis DNA ([facility]) NEGATIVE, Neisseria gonorrhoeae DNA ([facility]) NEGATIVE CBC/BMP Laboratory Tests 11/18/20 06:07 Microbiology Microbiology 11/14/20 Blood Culture - Preliminary, Resulted No Growth after 72 hours. All specime... 11/14/20 Blood Culture - Preliminary, Resulted No Growth after 72 hours. All specime... 11/12/20 Respiratory Virus Panel (PCR) ([facility]) - Final, Complete 11/12/20 Blood Culture - Final, Complete Streptococcus Sanguinis 11/12/20 Blood Culture - Final, Complete Streptococcus Sanguinis ALYSON FRIAS MD Nov 18, 2020 11:35
[2020-11-18 14:00] VITALS: BP 131/73
[2020-11-18] MEDS: ACETAMINOPHEN TAB 650MG DOSE (2X325MG) PO PRN (14:26)
[2020-11-18] MEDS ORDERED: propofoL 200 MG/20 ML VIAL As Ordered ONE ×2 (15:21→16:39)
[2020-11-18] MEDS ORDERED: MIDAZOLAM INJ 2MG/2ML VIAL (J2250 PER 1MG) As Ordered ONE (15:21)
[2020-11-18] MEDS ORDERED: LIDOCAINE 2% 100MG/5ML SDV (FOR ANES.) As Ordered ONE (15:21)
[2020-11-18] MEDS ORDERED: fentaNYL 100 MCG/2 ML INJECTION (J3010) As Ordered ONE (15:23)
[2020-11-18] MEDS ORDERED: CETACAINE SPRAY 5GM As Ordered ONE (15:52)
[2020-11-18] MEDS ORDERED: LIDOCAINE VISCOUS 2% SOLN 15ML UDC As Ordered ONE (15:53)
[2020-11-18] MEDS ORDERED: ONDANSETRON 4MG/2ML VIAL IV PRN (17:00)
[2020-11-18] MEDS ORDERED: LR 1,000 ML IV SCH (17:00)
[2020-11-18 17:30] VITALS: BP 127/57
[2020-11-18] MEDS: cefTRIAXone SOD 2 GM in D5W MINI-BAG PLUS 50 ML IV SCH (17:45)
[2020-11-18] MEDS: RAMELTEON 8 MG TAB (ROZEREM) PO SCH (21:12)
[2020-11-18] MEDS: **NOTE PATIENT COMMENT** MISC XX SCH (21:13)
[2020-11-18 22:00] VITALS: BP 145/77
[2020-11-19 06:00] VITALS: BP 140/68
[2020-11-19 06:49] LABS: BASO % 0.6 % (0.0-1.0); EOS # 0.2 10^3/uL (0.0-0.5); EOS % 2.7 % (0.0-3.0); HEMATOCRIT 41.5 % (42.0-52.0); HEMOGLOBIN 13.3 g/dl (13.5-17.5); LYMPH # 2.6 10^3/uL (1.5-5.0); LYMPH % 38.7 % (24.0-44.0); MEAN CORPUSCULAR HEMOGLOBIN 29.7 pg (27.0-33.0); MEAN CORPUSCULAR VOLUME 92.6 fl (80.0-96.0); MONO # 0.4 10^3/uL (0.0-0.8); MONO % 6.3 % (0.0-5.0); NEUTROPHILS # 3.4 10^3/uL (1.5-8.5); NEUTROPHILS % 50.8 % (36.0-66.0); PLATELET COUNT, AUTOMATED 369 10^3/uL (150-450); RED BLOOD COUNT 4.48 10^6/uL (4.30-6.10); WHITE BLOOD COUNT 6.7 10^3/uL (4.0-10.0)
[2020-11-19 07:19] LABS: BLOOD UREA NITROGEN 15 MG/DL (7-18); CALCIUM LEVEL 9.2 MG/DL (8.5-10.1); CARBON DIOXIDE LEVEL 32 MEQ/L (21-32); CHLORIDE LEVEL 101 MEQ/L (98-107); GLOMERULAR FILTRATION RATE > 60.0 (>60); GLUCOSE, FASTING 97 MG/DL (70-100); POTASSIUM SERUM 4.6 MEQ/L (3.5-5.1); SODIUM LEVEL 141 MEQ/L (136-145)
--- NOTE | 2020-11-19 07:39 | T-ECHO ---
TRANSESOPHAGEAL ECHO DATE: 11/18/2020 REFERRING PHYSICIAN: Valery Estrella MD INDICATIONS: 1. Infective endocarditis ([place] valve). 2. Streptococcus sanguinis bacteremia. DESCRIPTION OF PROCEDURE: The patient received Cetacaine spray to the back of the pharynx. IV sedation was administered by the ADOBE LAYER. A bite block was placed at the onset of the procedure. After receiving adequate sedation, esophageal intubation was accomplished by Dr. Johnson using a three-dimensional transesophageal echocardiogram probe without difficulty. Rhythm was sinus. The left ventricle appeared to be normal in size and systolic function without regional wall motion abnormalities. Left ventricular ejection fraction was 60% by visual estimate. The right ventricle appeared normal in size and systolic function. Atria were normal in size by visual assessment and no masses were seen within the atria or their appendages. Atrial septum was intact anatomically and by color flow Doppler. All of the cardiac valves were structurally and functionally normal and without vegetations. No aortic regurgitation. Mild mitral regurgitation within normal limits. Very mild tricuspid regurgitation within normal limits. No pulmonic regurgitation. No pericardial effusion. Distal aortic arch and descending thoracic aorta were normal. CONCLUSIONS: 1. Normal transesophageal echocardiogram. 2. No vegetations on any of the cardiac valves. Structurally and functionally normal cardiac valves. 3. Normal left ventricle size and systolic function. Left ventricular ejection fraction (LVEF) 60% by visual estimate.
[2020-11-19] MEDS: ENOXAPARIN 40MG/0.4ML SYRINGE (J1650 PER 10MG) SC SCH (09:00)
[2020-11-19] MEDS: DOCUSATE SODIUM 100MG CAPSULE PO SCH ×3 (09:00→21:04)
[2020-11-19] MEDS: NICOTINE 21MG/24HR 1 EA TRANSDERMAL TD SCH (09:15)
[2020-11-19] MEDS: LIDOCAINE 5% (LIDODERM) PATCH TD SCH (09:16)
[2020-11-19] MEDS: GABAPENTIN 300 MG CAP PO SCH ×3 (09:16→21:04)
[2020-11-19] MEDS: buPROPion **XL** TABLET 150MG (WELLBUTRIN XL) PO SCH (09:16)
[2020-11-19] MEDS: ACETAMINOPHEN TAB 650MG DOSE (2X325MG) PO PRN (09:16)
[2020-11-19] MEDS: BUPRENORPHINE/NALOXONE 2-0.5MG SUBLINGUAL TABLET(SUBOXONE) SL SCH (09:16)
--- NOTE | 2020-11-19 11:31 | IPNPDOC ---
Date Seen The patient was seen on 11/19/20. Progress Note SUBJECTIVE: no fever chills and negative MALIHA for endocarditis requesting increased dose of suboxone. pain is controlled. no neurologic c/o. OBJECTIVE PHYSICAL EXAMINATION: VITAL SIGNS: Please see below. GENERAL: aaox3 HEENT: moist mm CARDIOVASCULAR: S1, S2 regular rate rhythm. no m/r/g RESPIRATORY: Clear to auscultation. ABDOMINAL: Soft nontender nondistended positive bowel sounds 4 quadrants EXTREMITIES: No cyanosis, clubbing or pitting edema. Lidoderm patch over L3, L4. tattoes b/l extremities UE NEUROLOGICAL: Motor function 5 out of 54 extremities. No focal deficit LABORATORY DATA, IMAGING STUDIES, MICROBIOLOGY: Please see below. Exam: MR Lumbar Spine Without and With Contrast. Exam date and time: 11/12/2020 7:19 PM Age: 30 years old Clinical indication: Low back pain; Additional info: Low back pain, R/O discitis/osteomyelitis TECHNIQUE: Imaging protocol: Multiplanar magnetic resonance images of the lumbar spine without and with intravenous contrast. Contrast material: PROHANCE; Contrast volume: 15 ml; Contrast route: INTRAVENOUS (IV); COMPARISON: RI Spine, Lumbosacral, partial 09/10/2019 5:36 AM FINDINGS: Limitations: Patient motion. Vertebrae: See "Discs/Spinal canal/Neural foramina" finding. Spinal cord: The conus is poorly assessed but appears to be at the L1 level. Discs/Spinal canal/Neural foramina: There is increased signal on the STIR and T2 weighted sequences in the L4 and L5 vertebral bodies as well as in the anterior aspect of the intervening disc space which is markedly narrowed. There is a grade 1 anterior spondylolisthesis at the L4-L5 level which is due to bilateral L4 pars spondylolysis. There is no spinal canal stenosis or neural foraminal narrowing in the lower thoracic spine through the L3-L4 level. There is also no evidence of neural compromise at L5-S1. There is no significant spinal canal stenosis at the L4-L5 level. The neural foramen appear patent. There appears to be dilatation of the venous plexus in the ventral spinal canal. There is increased signal surrounding the left facet joint. Series 801, image 1 frame 11. There is also increased intensity along the lateral margins of the vertebral bodies at the L4-L5 level/medial margin of both psoas muscles. Series 801, image 1 frame 10. Detail is quite limited due to patient motion. Enhancement is seen in the L4 and L5 vertebra without significant enhancement in the intervening disc. Series 901, image 1 frame 6. There is enhancement along the posterior margin of L4 and to a lesser degree L5 and S1 which could be due to epidural abscess but is more likely due to dilatation of the venous plexus. Soft tissues: As above. IMPRESSION: Findings are likely due to discitis osteomyelitis at the L4-L5 level superimposed on degeneration associated with grade 1 spondylolisthesis due to bilateral L4 pars spondylolysis. There appears to be enhancement along the margins of the L4 and L5 vertebral bodies and medial margins of both psoas muscles. No obvious psoas abscesses however detail is very limited. The increased intensity and enhancement also appears to be in the pre sacral soft tissues and surrounding the left L4-L5 facet joint. The images cannot be adequately assessed for possible epidural abscess however no definite abscess is identified. Electronically signed by: Alyson Shelton On 11/12/2020 20:24:56 PM MRI HIP Coronal T1, STIR through the pelvis, axial, coronal, sagittal T2 fat sat, post gadolinium (16 cc ProHance) axial T1 fat sat, coronal T1 fat sat, left hip. FINDINGS: There is mild marrow edema in the lateral aspect of the right femoral head. There is no abnormal bone marrow signal or enhancement in the region of the left hip, including the proximal left femur or acetabulum. There appears to be a superior labral tear at the left hip. There is no paralabral cyst. There is a small joint effusion. There is ill-defined edema and enhancement in the inferior left gluteus medius and sierra muscles and tendons, likely representing either tendinitis or inflammation/cellulitis. Several lymph nodes are seen in the left inguinal region which are upper limits of normal in size. No abscess donal ection is seen. IMPRESSION: Mild marrow edema incidentally noted in the lateral aspect of the right femoral head. This may be related to stress related change possibly secondary to femoroacetabular impingement of the right hip. No evidence of osteomyelitis of the left hip. Edema and enhancement in the inferior left gluteus medius and sierra muscles and tendons suggests either tendinitis or inflammation/cellulitis. No abscess. Small joint effusion. I suspect a left superior labral tear. <Electronically signed by Ricardo Jimenez > 11/16/20 6513 2D ECHOCARDIOGRAM DATE OF PROCEDURE: 11/12/2020 Age: 30 Gender: Male Height: 68 inches Weight: 166 pounds REFERRING PHYSICIAN: Gordon Faye PA-C INDICATION: Cardiac murmur, unspecified; fever, IV drug user. MEASUREMENTS: 2D Measurements: Were not acquired by the bulb planter. Doppler Measurements: No aortic regurgitation Aortic valve velocity 165 cm/s LVOT velocity 146 cm/s LVOT VTI 28.1 cm Mild mitral regurgitation Mitral E velocity 109 cm/s Mitral A velocity 57.5 cm/s Mitral deceleration time 224 msec Very mild tricuspid regurgitation Trace pulmonic regurgitation Pulmonary artery acceleration time 137 msec MITRAL ANNULAR TISSUE DOPPLER E prime septal 12.3 cm/s, E prime lateral 16.2 cm/s DESCRIPTION: Rhythm was sinus. Image quality was good. This was a 2D, M-mode, color flow Doppler, and pulsed wave Doppler examination including mitral annulartissue Doppler. CONCLUSIONS: 1. Normal echocardiogram Doppler. 2. Normal appearing cardiac valves with mild mitral regurgitation, very mild tricuspid regurgitation, and trace pulmonic regurgitation within normal limits. No vegetations identified of any cardiac valves. 3. Appearance of normal left ventricle size and wall thickness. Normal regionalLV wall motion and wall thickening. Normal LV systolic function. LVEF 70% by visual estimate. Right ventricle appears normal in size and systolic f unction. Pulmonary artery systolic pressure not elevated. 4. No pericardial effusion. 5. Suggestive of normal central venous pressure. A verbal report of this study was provided by telephone to emergency room physician, Dr. Geoffrey Winston. DD: Geoffrey Johnson MD [facility] 11/12/20 3597 ASSESSMENT AND PLAN: 30-year-old IV drug user with polysubstance abuse on Suboxone, gabapentin, bupropion as outpatient with history of L4-L5 discitis with culture positive for GRANULICATELLA in August 2019 , presented to the emergency room on 11/12/2020 with radicular pain, found to have osteomyelitis of the L4-L5 area with low- grade fever 100.4 2-D echocardiogram was negative for endocarditis. Dr. Geraldine Vasquez infectious disease specialist was consulted for management. L4-L5 discitis/osteomyelitis Streptococcus sanguinous bacteremia NEG for endocarditis Chronic hepatitis C Polysubstance abuse Depression and anxiety/ insomnia Anemia of chronic disease Chronic constipation Tobacco abuse PLAN: dc soon. awaiting prior authorization for dalvance. ID recommends 2 more doses of dalvance as outpt. PFS consulted for assistance. VS, I&O, 24H, Fishbone Vital Signs/I&O Vital Signs Date Time Temp Pulse Resp B/P (MAP) Pulse Ox O2 Delivery O2 Flow Rate FiO2 11/19/20 06:00 98.0 94 18 140/68 (92) 98 Room Air I&O- Last 24 Hours up to 6 AM 11/19/20 06:00 Intake Total 1770 ml Output Total 0 ml Balance 1770 ml Laboratory Data 24H LABS Laboratory Tests 2 11/19/20 05:58: Immature Granulocyte % (Auto) 0.9, Neutrophils (%) (Auto) 50.8, Lymphocytes (%) (Auto) 38.7, Monocytes (%) (Auto) 6.3H, Eosinophils (%) (Auto) 2.7, Basophils (%) (Auto) 0.6, Neutrophils # (Auto) 3.4, Lymphocytes # (Auto) 2.6, Monocytes # (Auto) 0.4, Eosinophils # (Auto) 0.2, Basophils # (Auto) 0.0, Nucleated Red Blood Cells % (auto) 0.0, Anion Gap 8, Glomerular Filtration Rate > 60.0, Calcium Level 9.2 CBC/BMP Laboratory Tests 11/19/20 05:58 Microbiology Microbiology 11/14/20 Blood Culture - Final, Complete NO GROWTH AFTER 5 DAYS 11/14/20 Blood Culture - Final, Complete NO GROWTH AFTER 5 DAYS 11/12/20 Respiratory Virus Panel (PCR) ([facility]) - Final, Complete 11/12/20 Blood Culture - Final, Complete Streptococcus Sanguinis 11/12/20 Blood Culture - Final, Complete Streptococcus Sanguinis ALYSON FRIAS MD Nov 19, 2020 11:31
[2020-11-19] MEDS: BUPRENORPHINE/NALOXONE 8-2MG SUBLINGUAL TABLET(SUBOXONE) SL SCH ×2 (11:48→21:04)
[2020-11-19 14:00] VITALS: BP 142/76
[2020-11-19 15:09] LABS: HEPATITIS C QUANTITATION HCV Not Detected IU/mL (.)
[2020-11-19] MEDS: cefTRIAXone SOD 2 GM in D5W MINI-BAG PLUS 50 ML IV SCH (15:43)
[2020-11-19] MEDS ORDERED: IBUPROFEN 800 MG TAB PO PRN (16:30)
[2020-11-19] MEDS: **NOTE PATIENT COMMENT** MISC XX SCH (21:04)
[2020-11-19] MEDS: RAMELTEON 8 MG TAB (ROZEREM) PO SCH (21:04)
--- NOTE | 2020-11-19 21:32 | IPN ---
INFECTIOUS DISEASE PROGRESS NOTE DATE: 11/19/2020 SUBJECTIVE: Giacomo seems to be doing better. He complains of some weakness of his right leg with some numbness of the calf and the foot. He has some back pain, but that has improved. No fever or chills. No nausea, vomiting or diarrhea. He is on Suboxone twice a day with improvement, and would like some Ibuprofen to help with his pain. He is currently on Rocephin 2 grams I.V. every 24 hours (day #8 of I.V. antibiotics). PHYSICAL EXAMINATION: VITAL SIGNS: Temperature 98.2, pulse 85, respirations 18, blood pressure 142/76, O2 sat 95% on room air. HEART: Normal S1, S2 with a systolic ejection murmur 2/6; unchanged. LUNGS: Clear. No wheezes, rales or rhonchi. ABDOMEN: Soft, nontender, no hepatosplenomegaly. BACK: No CVA tenderness. Mild LS tenderness with numbness along the calf. IMAGING STUDIES: Hip MRI showed a small hip effusion with a possible left superior labral tear, mild edema in the lateral aspect of the right femoral head, maybe related to stress, possibly secondary to femoral acetabular impingement of the right hip. No evidence of osteomyelitis on the left side. There is ill defined edema and enhancement in the inferior gluteus on the left side and medius and sierra, possibly tendonitis or cellulitis. Chest x-ray was negative. Transesophageal echocardiogram done by Dr. Johnson on 11/19/2020 shows no vegetation on any of the cardiac values with normal ejection fraction. LABORATORY DATA: White count 6.7, hemoglobin 13.3, hematocrit 41.5, platelets 369,000. ESR 63. Sodium 141, potassium 4.6, chloride 101, bicarb 32, BUN 15, creatinine 0.7, glucose 97, calcium 9.2. CRP 5.42. IMPRESSION: 1. L4, L5 discitis with Streptococcus sanguinis bacteremia, [facility] to penicillin intermediate on I.V. Rocephin (day #8). 2. Heart murmur with negative transesophageal echocardiogram in the setting of Strep sanguinis bacteremia. Endocarditis has been ruled out. 3. History of Hepatitis C; treated last year with undetected Hep C and negative HIV. 4. Gonorrhea exposure; gonorrhea and Chlamydia done were negative. PLAN: Will repeat CBC, ESR, CRP tomorrow. Patient hopefully can be discharged home with Dalvance 1,500 mg I.V. times two doses ten days apart on 11/20/2020 and 12/01/2020. He should follow-up in my office in two weeks. Prior authorization of Dalvance through his insurance should be done by PFS. This needs to be done at the infusion unit and not at home.
[2020-11-19 22:00] VITALS: BP 149/79
[2020-11-20 06:00] VITALS: BP 111/69
[2020-11-20 07:53] LABS: BASO % 0.5 % (0.0-1.0); EOS # 0.1 10^3/uL (0.0-0.5); HEMATOCRIT 39.1 % (42.0-52.0); HEMOGLOBIN 12.6 g/dl (13.5-17.5); LYMPH # 2.7 10^3/uL (1.5-5.0); LYMPH % 41.7 % (24.0-44.0); MEAN CORPUSCULAR HEMOGLOBIN 29.9 pg (27.0-33.0); MEAN CORPUSCULAR HGB CONC 32.2 g/dl (32.0-36.5); MEAN CORPUSCULAR VOLUME 92.9 fl (80.0-96.0); MONO # 0.4 10^3/uL (0.0-0.8); MONO % 6.4 % (0.0-5.0); NEUTROPHILS # 3.1 10^3/uL (1.5-8.5); NEUTROPHILS % 47.9 % (36.0-66.0); PLATELET COUNT, AUTOMATED 390 10^3/uL (150-450); RED BLOOD COUNT 4.21 10^6/uL (4.30-6.10); WHITE BLOOD COUNT 6.5 10^3/uL (4.0-10.0)
[2020-11-20 08:09] LABS: BLOOD UREA NITROGEN 18 MG/DL (7-18); C REACTIVE PROTEIN QUANTITATIV 1.89 MG/DL (0.00-0.30); CALCIUM LEVEL 9.1 MG/DL (8.5-10.1); CARBON DIOXIDE LEVEL 33 MEQ/L (21-32); CHLORIDE LEVEL 102 MEQ/L (98-107); CREATININE FOR GFR 0.71 MG/DL (0.70-1.30); GLOMERULAR FILTRATION RATE > 60.0 (>60); GLUCOSE, FASTING 95 MG/DL (70-100); POTASSIUM SERUM 4.3 MEQ/L (3.5-5.1); SODIUM LEVEL 138 MEQ/L (136-145)
[2020-11-20 08:13] LABS: ERYTHROCYTE SEDIMENTATION RATE 49 mm/hr (0-15)
[2020-11-20] MEDS: ENOXAPARIN 40MG/0.4ML SYRINGE (J1650 PER 10MG) SC SCH (09:00)
[2020-11-20] MEDS: DOCUSATE SODIUM 100MG CAPSULE PO SCH (09:00)
[2020-11-20] MEDS: NICOTINE 21MG/24HR 1 EA TRANSDERMAL TD SCH (10:15)
[2020-11-20] MEDS: buPROPion **XL** TABLET 150MG (WELLBUTRIN XL) PO SCH (10:15)
[2020-11-20] MEDS: LIDOCAINE 5% (LIDODERM) PATCH TD SCH (10:15)
[2020-11-20] MEDS: GABAPENTIN 300 MG CAP PO SCH (10:15)
[2020-11-20] MEDS: BUPRENORPHINE/NALOXONE 8-2MG SUBLINGUAL TABLET(SUBOXONE) SL SCH (10:16)
[2020-11-20] MEDS ORDERED: LIDO5TD TD (11:35)
[2020-11-20] MEDS ORDERED: NICO21PAT TD (11:35)
[2020-11-20] MEDS ORDERED: BUPR300T92 PO (12:36)
[2020-11-20] MEDS ORDERED: GABA600T4 PO (12:36)
--- NOTE | 2020-11-20 12:52 | DS.PDOC ---
Discharge Summary General Date of Admission Nov 12, 2020 at 23:23 Date of Discharge 11/20/20 Discharge Summary DISCHARGE DIAGNOSES: Streptococcus sanguinis bacteremia-negative MALIHA Gonorrhea exposure; gonorrhea and Chlamydia done were negative. L4-L5 discitis/osteomyelitis Streptococcus sanguinous bacteremia NEG for endocarditis Chronic hepatitis C Polysubstance abuse on chronic suboxone([facility]) Depression and anxiety/ insomnia Anemia of chronic disease Chronic constipation Tobacco abuse DISCHARGE MEDICATIONS: SEE BELOW DISCHARGE INSTRUCTIONS: Dalvance 1,500 mg I.V. times two doses ten days apart on 11/21/2020nd 12/02/[address] Christina ontiveros appt within 1-2 wks. PCP within 5days. HOSPITAL COURSE: 30-year-old IV drug user with polysubstance abuse on Suboxone, gabapentin, bupropion as outpatient with history of L4-L5 discitis with culture positive for GRANULICATELLA in August 2019 , presented to the emergency room on 11/12/2020 with radicular pain, found to have osteomyelitis of the L4-L5 area with low- grade fever 100.4 2-D echocardiogram was negative for endocarditis. Dr. Geraldine Vasquez infectious disease specialist was consulted for management. He received 9days of IV antibiotics, ceftriaxone. Blood cx: strep sanguinis. MALIHA negative for endocarditis. Pt is scheduled to have Dalvance on 11/21/20 in the outpt infusion unit, and a repeat dose on 12/01/20. He had a lidoderm patch, prn toradol for pain, nicotine patch. He requested increasing doses of suboxone, and new prescription for wellbutrin and gabapentin. only 5day supply was given for gabapentin and wellbutrin. pcp to manage all outpt needs. DISCHARGE PHYSICAL EXAMINATION: VITAL SIGNS: Please see below. GENERAL: aaox3 HEENT: moist mm CARDIOVASCULAR: S1, S2 regular rate rhythm. no m/r/g RESPIRATORY: Clear to auscultation. ABDOMINAL: Soft nontender nondistended positive bowel sounds 4 quadrants EXTREMITIES: No cyanosis, clubbing or pitting edema. Lidoderm patch over L3, L4. tattoes b/l extremities UE NEUROLOGICAL: Motor function 5 out of 54 extremities. No focal deficit DISCHARGE LABORATORY DATA, IMAGING STUDIES, MICROBIOLOGY: Please see below. Exam: MR Lumbar Spine Without and With Contrast. Exam date and time: 11/12/2020 7:19 PM Age: 30 years old Clinical indication: Low back pain; Additional info: Low back pain, R/O discitis/osteomyelitis TECHNIQUE: Imaging protocol: Multiplanar magnetic resonance images of the lumbar spine without and with intravenous contrast. Contrast material: PROHANCE; Contrast volume: 15 ml; Contrast route: INTRAVENOUS (IV); COMPARISON: RI Spine, Lumbosacral, partial 09/10/2019 5:36 AM FINDINGS: Limitations: Patient motion. Vertebrae: See "Discs/Spinal canal/Neural foramina" finding. Spinal cord: The conus is poorly assessed but appears to be at the L1 level. Discs/Spinal canal/Neural foramina: There is increased signal on the STIR and T2 weighted sequences in the L4 and L5 vertebral bodies as well as in the anterior aspect of the intervening disc space which is markedly narrowed. There is a grade 1 anterior spondylolisthesis at the L4-L5 level which is due to bilateral L4 pars spondylolysis. There is no spinal canal stenosis or neural foraminal narrowing in the lower thoracic spine through the L3-L4 level. There is also no evidence of neural compromise at L5-S1. There is no significant spinal canal stenosis at the L4-L5 level. The neural foramen appear patent. There appears to be dilatation of the venous plexus in the ventral spinal canal. There is increased signal surrounding the left facet joint. Series 801, image 1 frame 11. There is also increased intensity along the lateral margins of the vertebral bodies at the L4-L5 level/medial margin of both psoas muscles. Series 801, image 1 frame 10. Detail is quite limited due to patient motion. Enhancement is seen in the L4 and L5 vertebra without significant enhancement in the intervening disc. Series 901, image 1 frame 6. There is enhancement along the posterior margin of L4 and to a lesser degree L5 and S1 which could be due to epidural abscess but is more likely due to dilatation of the venous plexus. Soft tissues: As above. IMPRESSION: Findings are likely due to discitis osteomyelitis at the L4-L5 level superimposed on degeneration associated with grade 1 spondylolisthesis due to bilateral L4 pars spondylolysis. There appears to be enhancement along the margins of the L4 and L5 vertebral bodies and medial margins of both psoas muscles. No obvious psoas abscesses however detail is very limited. The increased intensity and enhancement also appears to be in the pre sacral soft tissues and surrounding the left L4-L5 facet joint. The images cannot be adequately assessed for possible epidural abscess however no definite abscess is identified. Electronically signed by: Alyson Shelton On 11/12/2020 20:24:56 PM MRI HIP Coronal T1, STIR through the pelvis, axial, coronal, sagittal T2 fat sat, post gadolinium (16 cc ProHance) axial T1 fat sat, coronal T1 fat sat, left hip. FINDINGS: There is mild marrow edema in the lateral aspect of the right femoral head. There is no abnormal bone marrow signal or enhancement in the region of the left hip, including the proximal left femur or acetabulum. There appears to be a superior labral tear at the left hip. There is no paralabral cyst. There is a small joint effusion. There is ill-defined edema and enhancement in the inferior left gluteus medius and sierra muscles and tendons, likely representing either tendinitis or inflammation/cellulitis. Several lymph nodes are seen in the left inguinal region which are upper limits of normal in size. No abscess collection is seen. IMPRESSION: Mild marrow edema incidentally noted in the lateral aspect of the right femoral head. This may be related to stress related change possibly secondary to femoroacetabular impingement of the right hip. No evidence of osteomyelitis of the left hip. Edema and enhancement in the inferior left gluteus medius and sierra muscles and tendons suggests either tendinitis or inflammation/cellulitis. No abscess. Small joint effusion. I suspect a left superior labral tear. <Electronically signed by Ricardo Jimenez > 11/16/20 1138 2D ECHOCARDIOGRAM DATE OF PROCEDURE: 11/12/2020 Age: 30 Gender: Male Height: 68 inches Weight: 166 pounds REFERRING PHYSICIAN: Gordon Faye PA-C INDICATION: Cardiac murmur, unspecified; fever, IV drug user. MEASUREMENTS: 2D Measurements: Were not acquired by the recruiting assistant. Doppler Measurements: No aortic regurgitation Aortic valve velocity 165 cm/s LVOT velocity 146 cm/s LVOT VTI 28.1 cm Mild mitral regurgitation Mitral E velocity 109 cm/s Mitral A velocity 57.5 cm/s Mitral deceleration time 224 msec Very mild tricuspid regurgitation Trace pulmonic regurgitation Pulmonary artery acceleration time 137 msec MITRAL ANNULAR TISSUE DOPPLER E prime septal 12.3 cm/s, E prime lateral 16.2 cm/s DESCRIPTION: Rhythm was sinus. Image quality was good. This was a 2D, M-mode, color flow Doppler, and pulsed wave Doppler examination including mitral annulartissue Doppler. CONCLUSIONS: 1. Normal echocardiogram Doppler. 2. Normal appearing cardiac valves with mild mitral regurgitation, very mild tricuspid regurgitation, and trace pulmonic regurgitation within normal limits. No vegetations identified of any cardiac valves. 3. Appearance of normal left ventricle size and wall thickness. Normal regionalLV wall motion and wall thickening. Normal LV systolic function. LVEF 70% by visual estimate. Right ventricle appears normal in size and systolic function. Pulmonary artery systolic pressure not elevated. 4. No pericardial effusion. 5. Suggestive of normal central venous pressure. A verbal report of this study was provided by telephone to emergency room physician, Dr. Geoffrey Winston. DD: Geoffrey Johnson MD [facility] 11/12/202137 TRANSESOPHAGEAL ECHO DATE: 11/18/2020 REFERRING PHYSICIAN: Alyson Frias MD INDICATIONS: 1. Infective endocarditis ([place] valve). 2. Streptococcus sanguinis bacteremia. DESCRIPTION OF PROCEDURE: The patient received Cetacaine spray to the back of the pharynx. IV sedation was administered by the FENDER MECHANIC. A bite block was placed at the onset of the procedure. After receiving adequate sedation, esophageal intubation was accomplished by Dr. Johnson using a three-dimensional transesophageal echocardiogram probe without difficulty. Rhythm was sinus. The left ventricle appeared to be normal in size and systolic function without regional wall motion abnormalities. Left ventricular ejection fraction was 60% by visual estimate. The right ventricle appeared normal in size and systolic function. Atria were normal in size by visual assessment and no masses were seen within the atria or their appendages. Atrial septum was intact anatomically and by color flow Doppler. All of the cardiac valves were structurally and functionally normal and without vegetations. No aortic regurgitation. Mild mitral regurgitation within normal limits. Very mild tricuspid regurgitation within normal limits. No pulmonic regurgitation. No pericardial effusion. Distal aortic arch and descending thoracic aorta were normal. CONCLUSIONS: 1. Normal transesophageal echocardiogram. 2. No vegetations on any of the cardiac valves. Structurally and functionally normal cardiac valves. 3. Normal left ventricle size and systolic function. Left ventricular ejection fraction (LVEF) 60% by visual estimate. DD: Geoffrey Johnson MD [facility] 11/18/20 1463 TIME SPENT ON DISCHARGE: 30 MINUTES Vital Signs/I&Os Vital Signs Date Time Temp Pulse Resp B/P (MAP) Pulse Ox O2 Delivery O2 Flow Rate FiO2 11/20/20 06:00 97.5 81 17 111/69 (83) 99 Room Air I&O- Last 24 Hours up to 6 AM 11/20/20 06:00 Intake Total 2360 ml Output Total 0 ml Balance 2360 ml Laboratory Data Labs 24H Laboratory Tests 2 11/20/20 07:07: Immature Granulocyte % (Auto) 1.5, Neutrophils (%) (Auto) 47.9, Lymphocytes (%) (Auto) 41.7, Monocytes (%) (Auto) 6.4H, Eosinophils (%) (Auto) 2.0, Basophils (%) (Auto) 0.5, Neutrophils # (Auto) 3.1, Lymphocytes # (Auto) 2.7, Monocytes # (Auto) 0.4, Eosinophils # (Auto) 0.1, Basophils # (Auto) 0.0, Nucleated Red Blood Cells % (auto) 0.0, Erythrocyte Sedimentation Rate 49H, Anion Gap 3L, Glomerular Filtration Rate > 60.0, Calcium Level 9.1, C-Reactive Protein, Qu antitative 1.89H CBC/BMP Laboratory Tests 11/20/20 07:07 Microbiology Microbiology 11/14/20 Blood Culture - Final, Complete NO GROWTH AFTER 5 DAYS 11/14/20 Blood Culture - Final, Complete NO GROWTH AFTER 5 DAYS 11/12/20 Respiratory Virus Panel (PCR) ([facility]) - Final, Complete 11/12/20 Blood Culture - Final, Complete Streptococcus Sanguinis 11/12/20 Blood Culture - Final, Complete Streptococcus Sanguinis Discharge Medications Scheduled Buprenorphine HCl/Naloxone HCl (Suboxone 4 mg-1 mg Sl Film) 1 Each Film, 1 STRIP SL DAILY, (Reported) VERIFIED WITH [facility] AT [facility] Bupropion HCl (Bupropion Xl) 300 Mg Tab.er.24h, 300 MG PO DAILY, (Reported) Bupropion HCl (Bupropion Xl) 300 Mg Tab.er.24h, 300 MG PO DAILY Gabapentin (Gabapentin) 600 Mg Tablet, 600 MG PO TID, (Reported) Gabapentin (Gabapentin) 600 Mg Tablet, 600 MG PO TID Nicotine (Nicotine Patch) 21 Mg Patch.td24, 1 PATCH TD DAILY Allergies Coded Allergies: No Known Allergies (Unverified , 09/10/19) ALYSON FRIAS MD Nov 20, 2020 12:46
--- NOTE | 2020-11-22 10:48 | IPN ---
PROGRESS NOTE DATE: 11/20/2020 Giacomo is being discharged today. He is doing much better. He still has difficulty bending over and tying his shoelaces. He has no fever, chills, cough or shortness of breath. He has been afebrile for the past week. His only fever was November 12, 2020. Temperature is 97.5, pulse 81, respirations 17, blood pressure 111/69, oxygen saturation 99% on room air. HEART: Normal S1, S2 with a systolic ejection murmur left upper sternal border. LUNGS: Clear. No wheezes, rales or rhonchi. ABDOMEN: Soft, nontender. No hepatosplenomegaly. BACK: Mild lumbosacral (LS) tenderness. No paraspinal tenderness. EXTREMITIES: No clubbing, cyanosis or edema. Motor strength is normal. LABORATORIES: White count 6.5, hemoglobin 12.6, hematocrit 39.1, platelets 390. Erythrocyte sedimentation rate (ESR) 49, down from 63. Sodium 138, potassium 4.3, chloride 102, bicarbonate 33, BUN 18, creatinine 0.71, glucose 95, calcium 9.1 C-reactive protein (CRP) 1.89, down from 5.4 on November 18, 2020. Blood cultures negative on November 14, 2020. Streptococcus sanguinis on November 12, 2020. Transesophageal echocardiogram ([facility]) negative for vegetation. Normal valves. IMPRESSION: L4-L5 diskitis with Streptococcus sanguinis bacteremia on intravenous (IV) Rocephin. Patient has received nine days of antibiotics in the hospital and will be receiving two doses of Dalvance on November 21, 2020 and December 01, 2020, ten days apart. PLAN: He will follow up at Dr. Vasquez's office on December 07, 2020. The patient needs prescriptions for gabapentin, Wellbutrin and Motrin refilled. He will be going to [facility] for his Suboxone refill tomorrow, Monday. Patient was reminded to remain abstinent of drugs, not miss IV dalvance appt ,as he is at very high risk of epidural abscess and endocarditis. [facility]
== END 2020-11-20 13:09 | disposition home or self-care (01) | DRG 347 ==
LOC: M ED 12:46 → M ED INP 23:23 → M MSPAV 11-13 16:41
PROVIDERS: ADMIT Internal Medicine; ATTEND General Practice
PROC: B246ZZ4 Ultrasonography of Right and Left Heart, Transesophageal (ICD-10-PCS; principal; 2020-11-18 15:30)
DX: M46.46 Discitis, unspecified, lumbar region (principal); R78.81 Bacteremia; F14.10 Cocaine abuse, uncomplicated; F15.10 Other stimulant abuse, uncomplicated; F32.9 Major depressive disorder, single episode, unspecified; F41.9 Anxiety disorder, unspecified; D63.8 Anemia in other chronic diseases classified elsewhere; K59.09 Other constipation; B18.2 Chronic viral hepatitis C; G47.00 Insomnia, unspecified; B95.4 Other streptococcus as the cause of diseases classified elsewhere; Z20.2 Contact with and (suspected) exposure to infections with a predominantly sexual mode of transmission; Z79.899 Other long term (current) drug therapy; Z87.891 Personal history of nicotine dependence

== ENCOUNTER 2020-11-28 12:33 | Emergency (ER) | payer OTHER ==
[~2020-11-28] VITALS: Ht 172.7 cm; Wt 72.3 kg
[~2020-11-28 12:33] MED LIST changes: +LIDO5TD TD; +SUBO4MIS SL
--- OUTSIDE RECORDS SUMMARY | 2020-11-28 12:40 | CCD ---
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 Name Role Phone PATRICIA, L CARLYN [employer] Unavailable Unavailable PATRICIA, L [employer] Unavailable Unavailable PATRICIA, L [employer] Unavailable Unavailable PATRICIA, L [employer]LYN [employer] Unavailable Unavailable PATRICIA, L [employer] Unavailable Unavailable PATRICIA, L [employer] Unavailable Unavailable PATRICIA, L [employer]LY[employer] Unavailable Unavailable PATRICIA, L CARLYN [employer] Unavailable Unavailable PATRICIA, L [employer] Unavailable Unavailable PATRICIA, L [employer] Unavailable Unavailable PATRICIA, L [employer]LYN [employer] Unavailable Unavailable PATRICIA, L CARLYN [employer] Unavailable Unavailable PATRICIA, L [employer] Unavailable Unavailable PATRICIA, L [employer] Unavailable Unavailable PATRICIA, L [employer] Unavailable Unavailable PETROFF, DEXTER PA Unavailable Unavailable [...] M Christiana PA Unavailable Unavailable Scordo, M Hcristiana PA Unavailable Unavailable Scordo, M Christiana PA [...] T SAMRA DO Unavailable Unavailable Berry, E Estrelal Unavailable Unavailable Berry, E Estrella Unavailable Unavailable [...] Unavailable Unavailable Penny Redmond Unavailable JERROD, LEVY SHON PA Unavailable Unavailable [...] Unavailable Unavailable Jarad Vasquez MD Unavailable Unavailable Cuco VALDES Unavailable Unavailable Scordo, M Christiana PA Unavailable [...] M Christiana PA Unavailable Unavailable Scordo, M Christinaa PA Unavailable Unavailable Scordo, M Christiana PA [...] Unavailable Scordo, M Christiana PA Unavailable Unavailable Zayda KIM [...] Unavailable Zayda KIM MD Unavailable Unavailable Zayda IKM MD Unavailable Unavailable Zayda KIM MD Unavailable [...] Unavailable PATRICIA, D CARLYN DO Unavailable Unavailable Link, Jair [...] is protected by Article 27-F of the [facility] Public Health law. If you continue you may have access to information: Regarding HIV / AIDS; Provided by facilities licensed or operated by the [facility] Office of Mental Health; or Provided by the [facility] Office for People With Developmental Disabilities. If such information is present, then the following [facility] mandated warning applies: This information has [...] law may result in a fine or mcfp sentence or both. A general authorization for the release of medical or other information is NOT sufficient authorization for further disc losure. Encounters Encounter Providers Location Date Indications Data Source(s ) Outpatient Attender: Estrella Diaz 10/14/2020 09:20:00 AM EST [facility] ([facility]) Outpatient Attender: CARLYN PATRICIA DOAttender: CARLYNPineda KIM NP ER-LAB-PNP 09/19/2020 12:51:00 PM [facility] Emergency Attender: SHON GONG EMERGENCY ROOM-ER 09/11/2020 11:57:00 AM EST - 09/11/2020 12:35:00 PM [facility] Patient discharged. Extended Individual Psychotherapy - 45 min Attender: Eliza Redmond [facility] 09/04/2020 09:00:00 AM EST - 09/04/2020 09:00:00 AM EST [facility] ([facility]) Outpatient Attender: MACKENZIE LEON 09/04/2020 12:02:04 A M EST [facility] Attender: Penny Redmond 09/04/2020 12:00:00 AM EST [facility] ([facility]) [place] [address] [facility] [address] 09/03/2020 12:00:00 AM EST eCW1 ([facility]) Unknown [address] [facility] [address] 08/28/2020 12:00:00 AM EDT eCW1 ([facility]) Emergency Attender: JERRY Barajassultant: SAMRA SOLIMAN DO 08/25/2020 06:05:00 AM EDT - 08/25/2020 06:55:00 AM EDT [facility] Patient discharged. Outpatient Attender: HELENA VALDES 07/16/2020 11:00:00 AM [facility] Emergency Attender: DEXTER GONG 2019 05:29:00 PM EDT - 06/13/2020 05:59:00 PM EDT [facility] Patient discharged. [place] [address] [facility] [address] 05/21/2020 12:00:00 AM EDT eCW1 ([facility]) [place] [address] [facility] [address] 05/18/2020 12:00:00 AM EDT eCW1 ([facility]) [facility] [address] [facility] [address] 05/18/2020 12:00:00 AM EDT eCW1 ([facility]) Unknown [address] [facility] [address] 05/16/2020 12:00:00 AM EDT eCW1 ([facility]) Unknown [address] [facility] [address] 05/11/2020 12:00:00 AM EDT eCW1 ([facility]) Outpatient Attender: MACKENZIE LEON 04/07/2020 07:38:46 P M EDT [facility] Unknown [address] [facility] [address] 03/31/2020 12:00:00 AM EDT eCW1 ([facility]) [facility] Resident [address] [place] [phone] 03/26/2020 12:00:00 AM EDT eCW1 ([facility]) [facility] [address] [facility] [address] 03/20/2020 12:00:00 AM EDT eCW1 ([facility]) [facility] [address] [facility] [address] 03/18/2020 12:00:00 AM EDT eCW1 ([facility]) [facility] Resident [address] [place] [phone] 03/06/2020 12:00:00 AM EDT eCW1 ([facility]) [facility] Resident [address] [place] [phone] 02/27/2020 12:00:00 AM EDT eCW1 ([facility]) [facility] [place] [address] [facility] [place] [address] 02/20/2020 12:00:00 AM EDT eCW1 ([facility]) [facility] [address] [place] [address] [place] [address] 02/20/2020 12:00:00 AM EDT eCW1 ([facility]) [facility] Resident [address] [place] [phone] 02/12/2020 12:00:00 AM EDT eCW1 ([facility]) [facility] [address] [place] [address], [place] [address] 02/10/2020 12:00:00 AM EDT eCW1 ([facility]) [facility] [address] [place] [address] [place] [address] 02/10/2020 12:00:00 AM EDT eCW1 ([facility]) [facility] Resident [address] [place] [phone] 02/06/2020 12:00:00 AM EDT eCW1 ([facility]) [facility] [address] [place] [address], [place] [address] 01/31/2020 12:00:00 AM EDT eCW1 ([facility]) [facility] [address] [place] [address], [place] [address] 01/31/2020 12:00:00 AM EDT eCW1 ([facility]) [facility] [address] [place] [phone] 01/17/2020 12:00:00 AM EDT eCW1 ([facility]) Outpatient Attender: Jeramy Brooks tender: Jair Link PAConsultant: SAMRA CEBALLOS DO 12/31/2019 10:20:00 AM EST - 12/31/2019 11:2 0:00 AM EST [facility] [address] [place] [address] [place] [address] 12/24/2019 12:00:00 AM EST eCW1 ([facility]) Outpatient Attender: MACKENZIE KIM MD 12/03/2019 04:08:01 P M [facility] [place] [address] [facility] [address] 12/03/2019 12:00:00 AM EST eCW1 ([facility]) [facility] [place] [address] [facility] [address] 12/03/2019 12:00:00 AM EST eCW1 ([facility]) Outpatient Attender: Jair GONG 11/26 12:06:00 PM EST - 11/26/2019 12:06:00 PM [facility] Outpatient Attender: MACKENZIE KIM MD FP 11/25/2019 02:41:01 P M [facility] [place] [address] [facility] [address] 11/25/2019 12:00:00 AM EST eCW1 ([facility]) [facility] [address] [place] [address] 11/21/2019 12:00:00 AM EST eCW1 ([facility]) Outpatient Attender: MACKENZIE KIM MD FP 11/15/2019 03:28:00 P M [facility] Outpatient Attender: Christiana GONG 11/11 05:20:00 PM EST - 11/11/2019 05:20:00 PM [facility] Outpatient Attender: Christiana GONG [facility] 11/11 04:15:00 PM EST [facility] ([facility] Outpatient Attender: MACKENZIE KIM MD FP 11/08/2019 02:39:00 P M [facility] [place] [address] [facility] [address] 11/05/2019 12:00:00 AM EST eCW1 ([facility]) Outpatient Attender: Christiana GONG 11/04 04:32:00 PM EST - 11/04/2019 04:32:00 PM [facility] Outpatient Attender: Christiana GONG Family [facility] 11/04 03:45:00 PM EST [facility] ([facility]) Outpatient Attender: MACKENZIE KIM MD 11/04/2019 10:21:00 A [facility] Outpatient Attender: MACKENZIE KIM MD 10/31/2019 09:13:00 A [facility] [address] [facility] [address] 10/31/2019 12:00:00 AM EST eCW1 ([facility]) [facility] [address] [facility] [address] 10/10/2019 12:00:00 AM EST eCW1 ([facility]) [facility] [address] [facility] [address] 10/07/2019 12:00:00 AM EST eCW1 ([facility]) Outpatient Attender: MACKENZIE KIM MD 10/06/2019 12:00:03 P [facility] Outpatient Attender: MACKENZIE KIM MD 10/06/2019 12:00:03 P [facility] Outpatient Attender: MACKENZIE KIM MD 10/06/2019 11:46:01 A [facility] Outpatient Attender: MACKENZIE KIM MD 10/04/2019 04:21:00 P [facility] Outpatient Attender: MACKENZIE KIM MD 10/04/2019 02:08:01 P [facility] Outpatient Attender: MACKENZIE KIM MD 10/04/2019 02:07:00 P [facility] Outpatient Attender: MACKENZIE KIM MD 10/04/2019 01:50:00 P [facility] Outpatient Attender: MACKENZIE KIM MD 10/04/2019 01:48:01 P [facility] Outpatient Attender: MACKENZIE KIM MD 10/04/2019 01:45:01 P [facility] Outpatient Attender: MACKENZIE KIM MD 10/02/2019 10:32:01 A [facility] Medications Medication Brand Name Start Date Product Form Dose Route Admi nistrative Instructions Pharmacy Instructions Status Indications Reaction Description Data Source(s) 21 mg/24 hr 11/21/2020 12:00:00 AM EST patch 24 hour 28 APPLY 1 PATCH TO SKIN ONCE DAILY APPLY 1 PATCH TO SKIN ONCE DAILY SOLD: 11/22/2020 [facility] 24 HR Bupropion Hydrochloride 300 MG Extended Release Oral T ablet BUPROPION HCL 11/21/2020 12:00:00 AM EST tablet extended release 24 hr 5 TAKE ONE TABLET BY MOUTH EVERY DAY TAKE ONE TABLET BY MOUTH EVERY DAY SOLD: 11/22/2020 [facility] 600 mg 11/21/2020 12:00:00 AM EST tablet 15 TAKE ONE TABLET BY MOUTH THREE TIMES A DAY TAKE ONE TABLET BY MOUTH THREE TIMES A DAY SOLD: 11/22/2020 [facility] 24 HR Bupropion Hydrochloride 300 MG Extended Release Oral Tablet Bupropion Hydrochloride ER (XL) 10/26/2020 12:00:00 AM EST ORAL a ctive [facility] ([facility]) Sertraline 25 MG Oral Tablet Sertraline HCL 10/26/2020 12:00:00 AM EST ORAL active [facility] ([facility]) gabapentin 300 MG Oral Capsule Gabapentin 10/26/2020 12:00:00 AM EST ORAL active [facility] ([facility]) 21 mg/24 hr 10/14/2020 12:00:00 AM EST patch 24 hour 14 APPLY ONE PATCH TO THE SKIN EVERY DAY DIRECTED APPLY ONE PATCH TO THE SKIN EVERY DAY DIRECTED SOLD: 10/14/2020 [facility] 24 HR Nicotine 0.875 MG/HR Transdermal Patch Nicotine Transd ermal System Step 1 10/14/2020 12:00:00 AM EST active [facility] ([facility]) Buprenorphine 8 MG / Naloxone 2 MG Oral Strip Buprenor phine Hydrochloride/Naloxone Hydrochloride 10/14/2020 12:00:00 AM EST SUBLINGUAL active [facility] ([facility]) 8-2 mg 10/14/2020 12:00:00 [...] ONE TABLET BY MOUTH EVERY DAY IN SOLD: 09/26/2020 [facility] 8-2 mg 09/25/2020 12:00:00 AM EST film 30 PLACE THREE FILMS UNDER THE TONGUE EVERY DAY IN THE MORNING MAXIMUM DAILY DOSE = 3 PLACE THREE FILMS UNDER THE TONGUE EVERY DAY IN THE MORNING MAXIMUM DAILY DOSE = 3 SOLD: 09/26/2020 [facility] 600 mg 09/25/2020 12:00:00 AM EST [...] BY MOUTH TWICE A DAY - M AXIRAJATM DAILY DOSE = 2 SOLD: 09/04/2020 [facility] 8-2 mg 08/27/2020 12:00:00 AM EDT film [...] M AXIMUM DAILY DOSE = 2 SOLD: 07/01/2020 [facility] 1 mg 06/08/2020 12:00:00 AM EDT tablet 12 TAKE 1/2 TABLET BY MOUTH TWO TIMES A DAY NEEDED , MAXIMUM DAILY DOSE = 1 TABLET TAKE 1/2 TABLET BY MOUTH TWO TIMES A DAY NEEDED , MAXIMUM DAILY DOSE = 1 TABLET SOLD: 06/08/2020 [facility] 8-2 mg 06/03/2020 12:00:00 AM EDT [...] EDT 1.0 {tablet} active Clonazepam 0.5 MG W1 ([facility]) Clonazepam 0.5 MG Oral Tablet Clonazepam 0.5 MG 05/16/2020 12:00:00 AM EDT 1.0 {tablet} active Clonazepam 0.5 MG eCW1 ([facility]) Clonazepam 0.5 MG Oral Tablet Clonazepam 0.5 MG 05/16/2020 12:00:00 AM EDT 1.0 {tablet} active Clonazepam 0.5 MG eCW1 ([facility]) Clonazepam 0.5 MG Oral Tablet Clonazepam 0.5 MG 05/16/2020 12:00:00 AM EDT 1.0 {tablet} active Clonazepam 0.5 MG eCW1 ([facility]) Clonazepam 0.5 MG Oral Tablet Clonazepam 0.5 MG 05/16/2020 12:00:00 AM EDT 1.0 {tablet} active Clonazepam 0.5 MG eCW1 ([facility]) Clonazepam 0.5 MG Oral Tablet Clonazepam 0.5 MG 05/16/2020 12:00:00 AM EDT 1.0 {tablet} active Clonazepam 0.5 MG eCW1 ([facility]) 0.25 mg 05/12/2020 12:00:00 AM EDT tablet,disintegrating [address] ONE TABLET ON TONGUE AND ALLOW TO DISSOLVE 30 MINUTES BEFORE BEDTIME TWO TIMES DAILY - MAXIMUM DAILY DOSE = [address] ONE TABLET ON TONGUE AND ALLOW TO DISSOLVE 30 MINUTES BEFORE BEDTIME TWO TIMES DAILY - MAXIMUM DAILY DOSE = 2 TABLETS SOLD: 05/12/2020 [facility] 8-2 mg 05/07/2020 12:00:00 AM EDT film 70 DISSOLVE TWO AND ONE-HALF FILMS UNDER THE TONGUE ONCE DAILY MAXIMUM DAILY DOSE = 2 & 1/2 DISSOLVE TWO AND ONE- HALF FILMS UNDER THE TONGUE ONCE DAILY MAXIMUM DAILY DOSE = 2 & 1/2 SOLD: 05/07/2020 [facility] 600 mg 05/01/2020 12:00:00 AM EDT tablet 30 TAKE ONE TABLET BY MOUTH EVERY DAY TAKE ONE TABLET BY MOUTH EVERY DAY SOLD: 08/12/2020 [facility] 600 mg 05/01/2020 12:00:00 AM EDT tablet 30 TAKE ONE TABLET BY MOUTH EVERY DAY TAKE ONE TABLET BY MOUTH EVERY DAY SOLD: 05/01/2020 [facility] Clonazepam 0.25 MG Disintegrating Oral Tablet Clonazepam 0.2 5 MG 04/09/2020 12:00:00 AM EDT active Clonazep am 0.25 MG eCW1 ([facility]) 0.25 mg 04/09/2020 12:00:00 AM EDT tablet,disintegrating [address] ONE TABLET UNDER THE TONGUE AND ALLOW TO DISSOLVE , 30 MINUTES BEFORE BEDTIME TWO TIMES A DAY NEEDED MAXIMUM DAILY DOSE = 1 PLACE ONE TABLET UNDER THE TONGUE AND AL LOW TO DISSOLVE , 30 MINUTES BEFORE BEDTIME TWO TIMES A DAY NEEDED MAXIMUM DAILY DOSE = 1 SOLD: 04/13/2020 [facility] 8-2 mg 04/09/2020 12:00:00 AM [...] = 2 & 1/2 SOLD: 03/13/2020 [facility] venlafaxine 37.5 MG Oral Tablet VENLAFAXINE HCL 03/07/2020 12:00 :00 AM EDT tablet 7 TAKE ONE TABLET BY MOUTH EVERY D AY WITH FOOD TAKE ONE TABLET BY MOUTH EVERY DAY WITH FOOD SOLD: 03/11/2020 [facility] venlafaxine 75 MG Oral Tablet VENLAFAXINE HCL 03/07/2020 12:00:00 A M EDT tablet 30 TAKE ONE TABLET BY MOUTH EVERY DAY WITH FOOD TAKE ONE TABLET BY MOUTH EVERY DAY WITH FOOD SOLD: 03/11/2020 [facility] venlafaxine 37.5 MG Oral Tablet Venlafaxine HCl 37.5 MG Venl afaxine HCl 37.5 MG 03/06/2020 12:00:00 AM EDT 1.0 {tablet_with_food} active Venlafaxine HCl 37.5 MG eCW1 ([facility]) venlafaxine 37.5 MG Oral Tablet Venlafaxine HCl 37.5 MG Venl afaxine HCl 37.5 MG 03/06/2020 12:00:00 AM EDT 1.0 {tablet_with_food} active Venlafaxine HCl 37.5 MG eCW1 ([facility]) venlafaxine 75 MG Oral Tablet Venlafaxine HCl 75 MG Venlafax ine HCl 75 MG 03/06/2020 12:00:00 AM EDT 1.0 {tablet_with_food} active Venlafaxine HCl 75 MG eCW1 ([facility]) venlafaxine 37.5 MG Oral Tablet Venlafaxine HCl 37.5 MG Venl afaxine HCl 37.5 MG 03/06/2020 12:00:00 AM EDT 1.0 {tablet_with_food} active Venlafaxine HCl 37.5 MG eCW1 ([facility]) venlafaxine 75 MG Oral Tablet Venlafaxine HCl 75 MG Venlafax ine HCl 75 MG 03/06/2020 12:00:00 AM EDT 1.0 {tablet_with_food} active Venlafaxine HCl 75 MG eCW1 ([facility]) venlafaxine 75 MG Oral Tablet Venlafaxine HCl 75 MG Venlafax ine HCl 75 MG 03/06/2020 12:00:00 AM EDT 1.0 {tablet_with_food} active Venlafaxine HCl 75 MG eCW1 ([facility]) venlafaxine 75 MG Oral Tablet Venlafaxine HCl 75 MG Venlafax ine HCl 75 MG 03/06/2020 12:00:00 AM EDT active 1 tablet with food eCW1 ([facility]) venlafaxine 37.5 MG Oral Tablet Venlafaxine HCl 37.5 MG Venl afaxine HCl 37.5 MG 03/06/2020 12:00:00 AM EDT active 1 tablet with food eCW1 ([facility]) venlafaxine 37.5 MG Oral Tablet Venlafaxine HCl 37.5 MG Venl afaxine HCl 37.5 MG 03/06/2020 12:00:00 AM EDT 1.0 {tablet_with_food} active Venlafaxine HCl 37.5 MG eCW1 ([facility]) venlafaxine 37.5 MG Oral Tablet Venlafaxine HCl 37.5 MG Venl afaxine HCl 37.5 MG 03/06/2020 12:00:00 AM EDT 1.0 {tablet_with_food} active Venlafaxine HCl 37.5 MG eCW1 ([facility]) venlafaxine 75 MG Oral Tablet Venlafaxine HCl 75 MG Venlafax ine HCl 75 MG 03/06/2020 12:00:00 AM EDT 1.0 {tablet_with_food} active Venlafaxine HCl 75 MG eCW1 ([facility]) venlafaxine 75 MG Oral Tablet Venlafaxine HCl 75 MG Venlafax ine HCl 75 MG 03/06/2020 12:00:00 AM EDT 1.0 {tablet_with_food} active Venlafaxine HCl 75 MG eCW1 ([facility]) venlafaxine 37.5 MG Oral Tablet Venlafaxine HCl 37.5 MG Venl afaxine HCl 37.5 MG 03/06/2020 12:00:00 AM EDT 1.0 {tablet_with_food} active Venlafaxine HCl 37.5 MG eCW1 ([facility]) venlafaxine 75 MG Oral Tablet Venlafaxine HCl 75 MG Venlafax ine HCl 75 MG 03/06/2020 12:00:00 AM EDT 1.0 {tablet_with_food} active Venlafaxine HCl 75 MG eCW1 ([facility]) venlafaxine 75 MG Oral Tablet Venlafaxine HCl 75 MG Venlafax ine HCl 75 MG 03/06/2020 12:00:00 AM EDT 1.0 {tablet_with_food} active Venlafaxine HCl 75 MG eCW1 ([facility]) venlafaxine 37.5 MG Oral Tablet Venlafaxine HCl 37.5 MG Venl afaxine HCl 37.5 MG 03/06/2020 12:00:00 AM EDT 1.0 {tablet_with_food} active Venlafaxine HCl 37.5 MG eCW1 ([facility]) 600 mg 03/03/2020 12:00:00 AM EDT tablet [...] 12:00:00 AM EDT active 1 tablet eCW1 ([facility]) 150 mg 02/12/2020 12:00:00 AM EDT tablet [...] 12:00:00 AM EST active 1 tablet eCW1 ([facility]) Escitalopram 20 MG Oral Tablet ESCITALOPRAM OXALATE [...] DAILY DOSE = ONE TABLET SOLD: 11/22/2019 [facility] Escitalopram Oxalate 10 MG UNK 11/22/2019 12:00:00 AM EST active 2 tablet eCW1 ([facility]) 8-2 mg 11/14/2019 12:00:00 AM EST film 7 PLACE ONE FILM UNDER THE TONGUE EVERY DAY, MAXIMUM DAILY DOSE = [address] ONE FILM UNDER THE TONGUE EVERY DAY, MAXIMUM DAILY DOSE = 1 FILM SOLD: 11/14/2019 [facility] 200 mg 11/08/2019 12:00:00 AM EST capsule 30 TAKE ONE CAPSULE BY MOUTH EVERY DAY WITH FOOD TAKE ONE CAPSULE BY MOUTH EVERY DAY WITH FOOD SOLD: 11/08/2019 [facility] 8-2 mg 11/07/2019 12:00:00 AM EST film 7 PLACE ONE FILM UNDER THE TONGUE EVERY DAY, MAXIMUM DAILY DOSE = [address] ONE FILM UNDER THE TONGUE EVERY DAY, MAXIMUM DAILY DOSE = 1 FILM SOLD: 11/07/2019 [facility] 600 mg 11/05/2019 12:00:00 AM EST tablet 30 TAKE ONE TABLET BY MOUTH EVERY DAY TAKE ONE TABLET BY MOUTH EVERY DAY SOLD: 11/05/2019 [facility] Sofosbuvir-Velpatasvir 400-100 MG Sofosbuvir-Velpatasvir 400 -100 MG 11/05/2019 12:00:00 AM EST active 1 tablet eCW1 ([facility]) 4 mg 11/05/2019 12:00:00 AM EST tablet 14 TAKE 1 TABLET BY MOUTH UP TO TWO TIMES A DAY TAKE 1 TABLET BY MOUTH UP TO TWO TIMES A DAY SOLD: 11/05/2019 [facility] Ondansetron 4 MG Disintegrating Oral Tablet Ondansetron 4 MG 11/05/2019 12:00:00 AM EST active 1 tablet on the tongue and allow to dissolve eCW1 ([facility]) Sofosbuvir-Velpatasvir 400-100 MG UNK 11/05/2019 12:00:00 AM EST active 1 tablet eCW1 ([facility]) Ondansetron 4 MG UNK 11/05/2019 12:00:00 AM EST active 1 tablet on the tongue and allow to dissolve eCW1 ([facility]) gabapentin 600 MG Oral Tablet Gabapentin 600 MG Gabapentin 6 00 MG 11/05/2019 12:00:00 AM EST active 1 tablet eCW1 ([facility]) Ondansetron 4 MG Oral Tablet Ondansetron HCL 11/04/2019 12:00:[address] ORAL active [facility] ([facility]) 10 mg 11/01/2019 12:00:00 AM EST cartridge 336 INHALE 3 PUFFS DIRECTED EVERY 4 HOURS WHILE AWAKE NEEDED INHALE 3 PUFFS DIRECTED EVERY 4 HOURS WHILE AWAKE NEEDED SOLD: 11/04/2019 [facility] 4-1 mg 10/31/2019 12:00:00 AM EST [...] AM EST active as direc michaela eCW1 ([facility]) dalbavancin 20 MG/ML Injectable Solution [Dalvance] Da lvance 500 MG Dalvance 500 MG 10/07/2019 12:00:00 AM EST active as directed eCW1 ([facility]) celecoxib 200 MG Oral Capsule [Celebrex] Celebrex 200 MG Bonnie ebrex 200 MG 10/07/2019 12:00:00 AM EST active 1 capsule with food eCW1 ([facility]) Insurance Providers Payer name Policy type / Coverage type Policy ID Covered alliance party ID Covered alliance party's relationship to rubin Policy Rubin Plan Information [employer] [id number] SP [id number] [place] [id number] S [id number] [employer] MEDICAID [id number] S [id number] [employer] MEDICAID [id number] S [id number] [employer] MEDICAID [id number] S [id number] SELF PAY UNAVAILABLE S UNAVAILA BLE Managed [place] P [id number] S [id number] Medicaid S [id number] S [id number] [employer] [employer] MEDICAID [id number] S [id number] [place] [id number] SP [id number] [place] [facility] [id number] 18 C [id number] MEDICAID -PHYSICIAN [id number] 1 [id number] [facility] [place] [id number] S [id number] [place] [id number] SP [id number] UNK UNK [facility] UNK SP UN K MEDICAID [id number] SP [id number] UNHC COMMUNITY PLAN [facility] [id number] SP [id number] BCBS [place] [id number] FA2 [id number] [place] (STATE EMP) P [id number] C [id number] MEDICAID S [id number] MEDICAID -O/[id number] EMERGENCY ROOM [id number] 18 [id number] Self Pay P UNAVAILABLE S UNAVAILA BLE Medicaid P [id number] S [id number] UN[facility] [place] [id number] SP [id number] [facility] [id number] S [id number] [place] [id number] SP [id number] MEDICAID [id number] SP [id number] Medicaid P [id number] [facility] [place] S [id number] S [id number] Problems, Conditions, and Diagnoses Code Display Name Description Problem Type Effective Dates Data Source(s) F17.210 [id number] Cigarette nicotine dependence without com plication Problem 02/12/2020 12:00:00 AM EDT eCW1 ([facility]) F32.9 [id number] Depression, unspecified depression type P roblem 02/12/2020 12:00:00 AM EDT eCW1 ([facility]) F17.210 [id number] Cigarette nicotine dependence without com plication Problem 02/12/2020 12:00:00 AM EDT eCW1 ([facility]) F32.9 [id number] Depression, unspecified depression type P roblem 02/12/2020 12:00:00 AM EDT eCW1 ([facility]) B17.10 [id number] Acute hepatitis C virus infection without hepatic coma Problem 11/22/2019 12:00:00 AM EST eCW1 ([facility]) F41.9 [id number] Anxiety Problem 11/22/2019 12:00:00 AM ES T eCW1 ([facility]) B17.10 45802287 Acute hepatitis C virus infection without hepatic coma Problem 11/22/2019 12:00:00 AM EST eCW1 ([facility]) F41.9 92664608 Anxiety Problem 11/22/2019 12:00:00 AM ES T eCW1 ([facility]) B18.2 898283388 Chronic hepatitis C without hepatic coma Problem 11/05/2019 12:00:00 AM EST eCW1 ([facility]) F19.21 [id number] Drug addiction in remission Problem 11/05/2019 12:00:00 AM EST eCW1 ([facility]) B18.2 565820199 Chronic hepatitis C without hepatic coma Problem 11/05/2019 12:00:00 AM EST eCW1 ([facility]) F19.21 [id number] Drug addiction in remission Problem 11/05/2019 12:00:00 AM EST eCW1 ([facility]) Z86.14 120134996 Hx MRSA infection Problem 10/07/2019 12:00:0 0 AM EST eCW1 ([facility]) 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 Problem 10/07/2019 12: 00:00 AM EST eCW1 ([facility]) M46.46 238719728 Discitis of lumbar region Problem 10/07/2019 12:00:00 AM EST eCW1 ([facility]) Z86.14 716836931 Hx MRSA infection Problem 10/07/2019 12:00:0 0 AM EST eCW1 ([facility]) F15.20 62221373 Amphetamine addiction Problem 10/07/2019 12: 00:00 AM EST eCW1 ([facility]) M46.46 730487240 Discitis of lumbar region Problem 10/07/2019 12:00:00 AM EST eCW1 ([facility]) B19.20 14672128 Hepatitis C virus in fection without hepatic coma, unspecified chronicity Problem 10/07/2019 12:00:00 AM EST eCW1 (On license of [facility]) 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, in remission Psychoactive substance dependence in remission 10/06/2019 11:59:09 AM [facility] B19.20 Unspecified viral hepatitis C without hepatic coma Hep atitis C 10/06/2019 11:59:09 AM [facility] Z13.228 Encounter for screening for other metabo lic disorders Encounter for screening for other metabolic disorders 10/06/2019 11:59:09 AM [facility] V74.5 Screening examination for venereal disea se Screening examination for venereal disease 10/06/2019 11:59:09 AM [facility] M46.47 Discitis, unspecified, lumbosacral region Discit is of lumbosacral spine 10/06/2019 11:59:09 AM [facility] 724.2 Low back pain Low back pain 10/06/2019 11:44:12 AM [facility] F15.20 Other stimulant dependence, uncomplicate d OTHER STIMULANT DEPENDENCE, UNCOMPLICATED Diagnosis 09/19/2020 12:51:00 PM EST [facility] Z79.899 [facility] [place] [facility] ([facility] drug therapy [facility] (CURRENT) DRUG THERAPY Diagnosis 09/11/2020 11:57:00 AM [facility] F17.210 Nicotine dependence, cigarettes, uncompl icated NICOTINE DEPENDENCE, CIGARETTES, UNCOMPLICATED Diagnosis 09/11/2020 11:57:00 AM [facility] F41.9 Anxiety disorder, unspecified ANXIETY DISORDER, UNSPEC IFIED Diagnosis 09/11/2020 11:57:00 AM [facility] Z76.0 Encounter for issue of repeat prescripti on ENCOUNTER FOR ISSUE OF REPEAT PRESCRIPTION Diagnosis 09/11/2020 11:57:00 AM [facility] S92322 Nicotine dependence, cigarettes, uncompl icated Nicotine dependence, cigarettes, uncomplicated Diagnosis 08/25/2020 06:05:00 AM EDT [facility] 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 Diagnosis 08/25/2020 06:05:00 AM ED T [facility] 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 Diagnosis 08/25/2020 06:05:00 AM EDT [facility] V33986 Cutaneous abscess of left upper limb Cut aneous abscess of left upper limb Diagnosis 08/25/2020 06:05:00 AM EDT [facility] K04337 Furuncle of left upper limb Furuncle of left upper huerta b Diagnosis 08/25/2020 06:05:00 AM EDT [facility] F19.90 Other psychoactive substance use, unspec ified, uncomplicated OTHER PSYCHOACTIVE SUBSTANCE USE, UNSPECIFIED, UNCOMPLICATED Diagnosis 07/16/2020 11:00:00 AM EDT [facility] Z53.21 Procedure and treatment not carried out due to patient leaving prior to being seen by health care provider PROC/TRTMT NOT CRD OUT D/T PT LV BEF SEE N BY [facility] PROV Diagnosis 06/13/2020 05:58:[address] [facility] N5089 Other specified disorders of the male ge nital organs Other specified disorders of the male genital organs Diagnosis 12/31/2019 10:20:00 AM [facility] J069 Acute upper respiratory infection, unspe cified Acute upper respiratory infection, unspecified Diagnosis 11/26/2019 12:06:[address] [facility] R197 Diarrhea, unspecified Diarrhea, unspecified Diagnosis 11/11/2019 05:20:00 PM [facility] R1110 Vomiting, unspecified Vomiting, unspecified Diagnosis 11/04/2019 04:32:00 PM [facility] Surgeries/Procedures Procedure Description Date Indications Data Source(s) Extended Individual Psychotherapy - 45 min 09/04/2020 12:00:00 AM EST - 09/04/2020 12:00:00 AM EST [facility] ([facility]) Extended Individual Psychotherapy - 45 min 0 12:00:00 AM EST [facility] ([facility]) PHYSICIAN TELEPHONE EVALUATION 11-20 MIN 03/06/2020 12 :00:00 AM EDT eCW1 ([facility]) BEHAV CHNG SMOKING 3-10 MIN 02/12/2020 12:00:00 AM EDT eCW1 ([facility]) Results ID Date Data Source [id number] 11/12/2020 09:25:00 PM EST [facility] Name Value Range Interpretation Code Description Data Flory rce(s) Supporting Document(s) SARS-CoV-2 (COVID 19) NEGATIVE - SARS-CoV-2 (COVID19) [facility] This lab was ordered by [facility] a nd reported by [facility]. ID Date Data Source [id number] 10/03/2020 11:29:00 PM EST [facility] Name Value Range Interpretation Code Description Data Flory rce(s) Supporting Document(s) SARS coronavirus 2 RNA [Presence] in Res piratory specimen by REINALDO with probe detection [facility] This lab was ordered by [facility] a nd reported by [facility]. ID Date Data Source [id number] 09/23/2020 11:08:00 AM EST [facility] Performed at: [facility] [id number] Director: Felicita Del Toro MD, Phone: [phone] Name Value Range Interpretation Code Description Data Flory rce(s) Supporting Document(s) HIV 4TH GEN. Non Reactive [facility] ID Date Data Source [id number] 09/23/2020 11:08:00 AM EST [facility] Performed at: [facility] [address] [id number] Director: Felicita Del Toro MD, Phone: [phone] Name Value Range Interpretation Code Description Data Flory rce(s) Supporting Document(s) HEPATITIS C QNT HCV Not Detected IU/mL . [facility] TEST INFO: Comment . [facility] The quantitative range of this assay is 15 IU/mL to 100million IU/mL. ID Date Data Source [id number] 09/23/2020 11:08:00 AM EST [facility] Performed at: [address] [id number] Director: Felicita Del Toro MD, Phone: [phone] Name Value Range Interpretation Code Description Data Flory rce(s) Supporting Document(s) COMMENT: Comment . [facility] Strong reactive antibody screen (s/c rat io >10.9) isconsistent with past or present HCV infection. Follow-uptesting by HCV, Quantitative, Real time PCR (#[id number]) isrecommended to determine viral load/diagnosis of currentHCV infection. HCV AB >11.0 0.0-0.9 [facility] Result Units: s/co ratio ID Date Data Source [id number] 09/23/2020 11:08:00 AM EST [facility] Performed at: RN - [facility] [place] [id number] Director: Felicita Del Toro MD, Phone: [phone] Name Value Range Interpretation Code Description Data Flory rce(s) Supporting Document(s) HEP B CORE IgM Negative Negative [facility] l ID Date Data Source [id number] 09/23/2020 11:08:00 AM EST [facility] Performed at: RN [facility] [place] [id number] Director: Felicita Del Toro MD, Phone: [phone] Name Value Range Interpretation Code Description Data Flory rce(s) Supporting Document(s) HEP.A AB, IGM Negative Negative [facility] ID Date Data Source [id number] 09/19/2020 05:34:00 PM EST [facility] Name Value Range Interpretation Code Description Data Flory rce(s) Supporting Document(s) VITAMIN D 25 33 ng/mL 30-100 [facility] ID Date Data Source [id number] 09/19/2020 05:34:00 PM EST [facility] Name Value Range Interpretation Code Description Data Flory rce(s) Supporting Document(s) HEP C Reactive-Prelimin. Nonreactive [facility] The test result is interpreted as PRELIM INARY POSITIVE forHepatitis C antibodies.*Confirmatory testing will followConfirmatory results must be considered in making adiagnosis related to HCV infection* ID Date Data Source [id number] 09/19/2020 05:34:00 PM EST [facility] Name Value Range Interpretation Code Description Data Flory rce(s) Supporting Document(s) HBsAG NEGATIVE NEGATIVE [facility] ID Date Data Source [id number] 09/19/2020 05:34:00 PM EST [facility] Name Value Range Interpretation Code Description Data Flory rce(s) Supporting Document(s) SYPHILIS Nonreactive Nonreactive [facility] Result indicates nonreactive for syphili s T.pallidumantibodies. ID Date Data Source [id number] 09/19/2020 01:45:00 PM EST [facility] Name Value Range Interpretation Code Description Data Flory rce(s) Supporting Document(s) FT4 1.00 ng/dL 0.76-1.46 [facility] ID Date Data Source [id number] 09/19/2020 01:45:00 PM EST [facility] Name Value Range Interpretation Code Description Data Flory rce(s) Supporting Document(s) USTSH 2.99 uIU/mL 0.270-4.200 [facility] ID Date Data Source [id number] 09/19/2020 01:38:00 PM EST [facility] Name Value Range Interpretation Code Description Data Flory rce(s) Supporting Document(s) GLU 73 mg/dL 70-110 [facility] Patients taking Sulfasalazine may have f alsely depressedGlucose levels. Patients taking Sulfapyridine may havefalsely elevated Glucose levels. Patients should be drawnfor Glucose before the initial administration of eitherdrug. BUN 16 mg/dL 7-23 [facility] CRE 0.637 mg/dL 0.500-1.300 [facility] GFR > 60 mL/min [facility] CHLORIDE 103 mmol/L 99-110 [facility] NA 140 mmol/L 136-147 [facility] POTASSIUM 4.5 mmol/L 3.5-5.1 [facility] TCO2 33 mmol/L 20-33 [facility] ANION GAP 8.5 10.0-20.0 [facility] CA 9.0 mg/dL 8.3-10.7 [facility] ALKALINE PHOS 84 U/L 45-117 [facility] TP 7.4 g/dL 6.0-7.8 [facility] ALB 4.0 g/dL 3.5-5.0 [facility] ESRD Dialysis patient Albumin reference range: 2.9-4.4 g/dL GL 3.4 g/dL 2.3-3.5 [facility] A/G 1.2 1.0-2.5 [facility] T. BILIRUBIN 0.2 mg/dL 0.1-1.1 [facility] The Dimension [place] Total Bilirubin is n ot recommended forpatients undergoing treatment with eltrombopag (Promacta)due to the potential for falsely elevated results. ALTI 22 U/L 6-54 [facility] Patients taking Sulfasalazine and/or Sul fapyridine may havefalsely depressed ALT levels. Patients should be drawn forALT before the initial administration of either drug. AST 23 U/L 8-40 [facility] Patients taking Sulfasalazine and/or Sul fapyridine may havefalsely depressed AST levels. Patients should be drawn forAST before the initial administration of either drug. ID Date Data Source [id number] 09/19/2020 01:17:00 PM [facility] Name Value Range Interpretation Code Description Data Folry rce(s) Supporting Document(s) WBC 7.53 x10E3/uL 4.0-10.5 [facility] RBC 4.91 x10E6/uL 4.70-6.00 [facility] Hemoglobin 14.5 g/dL 14.0-18.0 [facility] Hematocrit 44.0 % 42.0-52.0 [facility] MCV 89.6 fL 81.0-99.0 [facility] MCH 29.5 pg 27.0-31.0 [facility] MCHC 33.0 g/dL 32.7-35.6 [facility] RDW 11.8 % 11.5-14.0 [facility] Platelet count 240 x10E3/uL 150-450 [facility] ital MPV 10.5 fl 6.9-9.5 [facility] Neutrophils 46.8 % 34-64 [facility] Lymphocytes 46.7 % 25-45 [facility] Monocytes 4.0 % 1.7-10.6 [facility] Eosinophils 1.6 % 0.4-7.0 [facility] Basophils 0.4 % 0.1-2.0 [facility] Imm. Gran. 0.5 % 0.1-2.0 [facility] Abs. Neutro. 3.52 x10E3/uL 1.2-7.6 [facility] Abs. Lymph. 3.52 x10E3/uL 1.0-3.5 [facility] Abs. Mellette. 0.30 x10E3/uL 0.1-1.0 [facility] Abs. Eosin. 0.12 x10E3/uL 0.1-0.7 [facility] Abs. Baso. 0.03 x10E3/uL 0.0-0.1 [facility] Abs. Imm. Gran. 0.04 x10E3/uL 0.0-0.1 [facility] ANRBC% 0 % 0 [facility] ID Date Data Source [id number] 09/14/2020 06:05:00 AM EST [facility] Patient: GILDA HAMEED [facility] t - [facility].VisitID: [id number] [place] [address] [phone], MRegistration Date/Time: 09/11/2020 11:38 Weight:70.3 kg (S). Height/Length:68 inches (S). BMI:23.6 PAST HISTORYProblems:History of drug dependence.Osteomyelitis of vertebra. (1 1/2 years ago). Additional Surgeries:Hernia Repair. (Left inguinal). Medications:Suboxone Sublingual (Film 8-2 mg) 2.5 strips, daily. Allergies:No Known Drug Allergy. FAMILY HISTORYNo significant family medical history. (Electronically signed by Shon Bates PAshwin 09/11/2020 13:17) Name Value Range Interpretation Code Description Data [facility] rce(s) Supporting Document(s) ID Date Data Source [id number] 09/11/2020 12:19:00 PM EST [facility] TSYSORDER [id number] Name Value Range Interpretation Code Description Data Flory rce(s) Supporting Document(s) URINE AMPHETAMINES POSITIVE <1000 ng/mL [facility] pital THC,URINE NEGATIVE <50 ng/mL [facility] MDMA NEGATIVE <500 ng/mL [facility] URINE BARBITURATES NEGATIVE <300 ng/mL [facility] ital PCP,URINE NEGATIVE <25 ng/mL [facility] PROPOXYPHENE NEGATIVE <300 ng/mL [facility] COCAINE, URINE NEGATIVE <300 ng/mL [facility] URINE,OPIATES NEGATIVE <300 ng/mL [facility] OXYCODONE URINE NEGATIVE <100 ng[facility] URINE,TCA NEGATIVE <1000 ng/mL [facility] IF A NEGATIVE RESULT IS OBTAINED AND ING ESTION OF TRICYCLICANTIDEPRESSANTS IS SUSPECTED, A SERUM SAMPLE SHOULD BEOBTAINED AND TESTED USING AN APPROPRIATE METHOD. URINE BENZODIAZEPINES NEGATIVE <300 ng/mL [facility]ital THESE TESTS ARE PERFORMED USING AN IMMU NOASSAY FOR THEQUALITATIVE DETERMINATION OF THE PRESENCE OF THE MAJORMETABOLITES OF DRUGS OF ABUSE. THESE TESTS ARE ONLY ASCREENING AND NOT CONFIRMATORY. CLINICAL CONSIDERATION ANDPROFESSIONAL JUDGMENT MUST BE APPLIED TO ANY DRUG OF ABUSETEST RESULT. ID Date Data Source [id number] 08/25/2020 06:05:00 AM EDT [facility] 1 OrderSheet [facility] Emergency Department [address] [place] [address] Phone #: ext- [phone] 08/25/2020 06:05 Patient: GILDA HAMEED Sex: M : 1990 Age: 30yWEIGHT:74.8 kg (S) HEIGHT:68 inches (S) BMI:25.1ALLERGIES: No Known Drug AllergyCHIEF COMPLAINT: boilDIAGNOSIS: Abscess, Drug abuseLAB ORDERSOrder Description Priority Entered Acknowledged InitialedCulture, Wound STAT 06:32 08/25/2020 06:32 Chad(Abscess) Jerry Ramires R.N., M.D.;DIAGNOSTIC STUDY ORDERSOrder Description Priority Entered Acknowledged InitialedMEDICATION/IV/DRIP/FLUID ORDERSOrder Description Priority Entered Acknowledged InitialedcefTRIAXone IM 06:31 08/25/2020 06:40 Deidrearagnty,1000 mg Jerry Ramires R.N., M.D.;Bactrim DS PO 1 06:31 08/25/2020 06:40 Chad,tab Jerry Ramires R.N., M.D.;GENERAL ORDERSOrder Description Priority Entered Acknowledged Initialed[Electronically signed by Roya Bonilla R.N. (06:55 08/25/2020)][Electronically signed by Jerry Ramires M.D. (06:59 08/25/2020)][Electronically locked by Roya Bonilla R.N. (06:55 08/25/2020)] Name Value Range Interpretation Code Description Data [facility] rce(s) Supporting Document(s) ID Date Data Source [id number] 08/25/2020 06:05:00 AM EDT [facility] 1 Medication Reconciliation Report [facility] Emergency Department [address] [place] [address] Phone #: ext- [phone] 08/25/2020 06:05 Patient: [...] Dispense 14 tablet. Refills: 0.Substitution permitted.Pharmacy - [facility] [address] [facility] ; [place], [place] [phone]. . -- Jerry Ramires M.D. Name Value Range Interpretation Code Description Data [facility]ory rce(s) Supporting Document(s) ID Date Data Source [id number] 08/25/2020 06:05:00 AM EDT [facility] 1 Medication Administration Record [facility] Emergency Department [address] [place] [address] Phone #: ext- [phone] 08/25/2020 06:05 Patient: GILDA HAMEED Sex: M : 1990 Age: 30yWeight: 74.8 kgHeight/Length: 68 inBMI: 25.1ALLERGIES: No Known Drug Allergy Date/Time Medication Administered Medication OrderedGiven CEFTRIAXONE [IM] cefTRIAXone IM 1000 mg06:40 08/25/2020 Dose: 1 gm Roya Jiménez, R.N.Given BACTRIM DS [PO] Bactrim DS PO 1 tab06:40 08/25/2020 (SULFAMETHOXAZOLE-TMP DS)Roya Bonilla, R.N. Dose: 1 tab PO Name Value Range Interpretation Code Description Data Flory rce(s) Supporting Document(s) ID Date Data Source [id number] 08/25/2020 06:05:00 AM EDT [facility] 1 General Instructions [facility] Emergency Department [address] [place] [address] Phone #: ext- [phone] 08/25/2020 06:05 Patient: [...] Dispense 14 tablet. Refills: 0.Substitution permitted.Pharmacy - [facility] - [address] [place] [phone]. .Follow-up:Return to the emergency department as needed. [...] ADDITIONAL INFORMATIONAbscess (Incision Drainage) 2 General Instructions [facility] Emergency Department [address] [place] [address] Phone #: ext- [phone] 08/25/2020 06:05 Patient: GILDA HAMEED Sex: M [...] local pain or swelling 3 General Instructions [facility] [address] [place] [address] Phone #: ext- [phone] 08/25/2020 06:05 Patient: GILDA HAMEED Sex: M : 1990 Age: 30y Continued pus draining from the wound 2 days after treatment Fever of 100.4F (38C) or higher, or as directed by your healthcare provider Boil returns when you are at home [phone] [employer]. [address] [place] [address]. All rights reserved. This information is not [...] job or your family Arrest, conviction, and mcfp sentence for possession of an illegal substance [...] IV drugs) [facility] [address] [place] [address] Phone #: ext- [phone] 08/25/2020 06:05 Patient: [...] of the resources below for help: National [place] on Alcoholism and Drug Dependence www.ncadd.org 677-672-6426 Narcotics Anonymous www.na.org 373-874-0106 National Alcohol and Substance Abuse Information Center (for referral to treatment programs) www.Statzup 538-673-4827Brqx 911Call 911 if any of the following occur: Seizure [...] anxiety, unable to sleep 5 General Instructions [facility] Emergency Department [address] [place] [address] Phone #: ext- [phone] 08/25/2020 06:05 Patient: GILDA HAMEED Sex: M : 1990 Age: 30y Unintended weight loss (more than 10 to 15 pounds over 3 months) Fever of 100.4F (38C) or higher, or as directed by your healthcare provider Shortness of breath Cough with colored sputum Redness, swelling, or tenderness at an injection site [phone] [employer]. [address] [place] [address], [place] [address]. All rights reserved. This information is not intended as asubstitute for professional medical care. Always follow your healthcare professional's instructions. You have been given the following additional information: Abscess, Incision And Drainage Drug Abuse(Electronically signed by Jerry Ramires M.D. 08/25/2020 06:59) Name Value Range Interpretation Code Description Data [facility] rce(s) Supporting Document(s) ID Date Data Source [id number] 08/25/2020 06:05:00 AM EDT [facility] 1 Clinical Report - Nurses [facility] Emergency Department [address] [place] [address] Phone #: ext- [phone] 08/25/2020 06:05 Patient: [...] Red swollen area noted to left forearm.).Treatment BOOM BOSS:None. --06:13 08/25/20 Roya Bonilla R.N.06:06 08/25/20. BP: 165/91. MAP: 115. HR: 114. RR: 18. O2 saturation: 99% on room air. Temp: 98.2 F.Pain level now: 05/08. --06:13 08/25/20 Roya Bonilla R.N.Weight: 74.8 kg stated. Height/Length: 68 inches Per Patient. BMI: 25.1. --06:08/25/20 Roya Bonilla R.N.MedicationsSuboxone Sublingual 8 mg, 2x a day. --06:07 08/25/20 Roya Bonilla R.N. Clonipine. --06:08/25/20 Roya Bonilla R.N.AllergiesNo Known Drug Allergy. --06:08/25/20 Roya Bonilla R.N.PROBLEMS:Osteomyelitis of vertebra. --06:08/25/20 Roya Bonilla R.N.ADDITIONAL SURGERIES:Hernia Repair. --06:08/25/20 Roya Bonilla R.N.HistoryPAST MEDICAL HX: Immunizations: up-to-date.SOCIAL [...] or CRE. 2 Clinical Report - Nurses [facility] Emergency Department [address] [place] [address] Phone #: ext- [phone] 08/25/2020 06:05 Patient: [...] assessment completed. No skin integrity risk identified. --06:13 08/25/20 Roya Bonilla R.N. Interventions Identification band on patient. To treatment room. --06:13 08/25/20 Roya Bonilla R.N.PHYSICAL ASSESSMENTAmbulatory to room.GENERAL / [...] verified and 3 Clinical Report - Nurses [facility] Emergency Department [address] [place] [address] Phone #: ext- [phone] 08/25/2020 06:05 Patient: GILDA HAMEED Sex: M : 1990 Age: 30y confirmed 5 rights. Information reviewed with patient. Verbalizes understanding. --06:40 08/25/20 Roya Bonilla R.N.DISPOSITION / DISCHARGE No learning barriers present. Discharge instructions provided and reviewed with the patient. Reviewed warnings. Reviewed medication(s). Treatments reviewed. Reviewed referrals. Patient verbalized understanding. Written instructions provided in [place] [employer]. The patient was discharged home and accompanied by inspector tester sorter. He left ambulatory and via private vehicle. Voice Over Artist driving. --06:55 08/25/20 Roya Bonilla R.N. 06:54 08/25/20. BP: 160/85. MAP: 110. HR: 101. RR: 18. O2 saturation: 98% on room air. Temp: 98.2 F. Pain level now: 610. --06:55 08/25/20 Roya Bonilla R.N.Locked/Released at 08/25/2020 06:55 by Roya Bonilla R.N. Name Value Range Interpretation Code Description Data [facility] rce(s) Supporting Document(s) ID Date Data Source [id number] 08/25/2020 06:05:00 AM EDT [facility] 1 Clinical Report - Physicians[facility] Emergency Department [address] [place] [address] Phone #: ext- [phone] 08/25/2020 06:05 Patient: [...] NOTES 2 Clinical Report - Physicians/Mid Levels [facility] Emergency Department [address] [place] [address] Phone #: ext- [phone] 08/25/2020 06:05 Patient: GILDA HAMEED Sex: M : 1990 Age: 30y The nursing notes have been reviewed with agreement regarding the chief complaint, HPI, ROS, PMH and patient medications and allergies.PHYSICAL EXAMVital Signs: 08/25/2020 06:06 BP: 165/91. MAP: 115. HR: 114. RR: 18. O2 saturation: 99% on room air.Temp: 98.2 F. Pain level now: 05/08. Have been reviewed. Oxygen saturation normal.Appearance: Alert. [...] or 3 Clinical Report - Physicians/Mid Levels [facility] Department [address] [place] [address] Phone #: ext- [phone] 08/25/2020 06:05 Patient: [...] tablet. Refills: 0. Substitution permitted. Pharmacy - [facility] - [address] [place] [address] ; [place], [place] [phone]. . Follow- up: Return to the emergency [...] rce(s) Supporting Document(s) ID Date Data Source [id number] 08/28/2020 02:05:00 PM EDT [facility] Name Value Range Interpretation Code Description Data [facility] rce(s) Supporting Document(s) CULTURE WOUND [facility] spital _CULTURE WOUND_$$[id number]$$[id number]$$[id number]$$[id number] DATE/TIME: 08/28/2020 11:06Culture: CULTURE WOUND Status: FinalIsolate 1 Streptococcus intermedius Flag: A . . . . . . .6Heavy growthSusceptibility not normally performed on this organism. Previous result entered on 08/27/2020 16:43 ET Microbiological testing to rule out the presence of possible pathogensis in progress. Previous result entered on 08/27/2020 06:13 ET No growth after 18-24 hours.Aerobic Bacterial Culture: [id number] intermedius Flag: AP1 Test performed by: Reggie MITCHELL #: [id number] [address] [id number] [facility] [id number] Director : Alverto Perez MD NPI #: -- Continued on next page --Patient: YOSEPH VO Order: [id number] Page 2Culture: CULTURE WOUND Status: Final ====[employer] Operator : 08/27/20.0738.XMT.SENT REF 08/27/20.1749.XMT.SENT REF 08/28/20.1405.XMT.SENT REF ID Date Data Source [id number] 01/01/2020 09:57:00 [place] [address] PHONE: [phone] FAX: [phone] Name .................. : YOSEPH Norwood Acct Number.................. : [id number] ROOM. ................. : MR Number ................... : [id number] Stay type ............. : O/P Discharge Date......... ... : 12/31/19 Admit Date ......... : 12/31/19 Admit Phys .................... : OSCAR STERLING Date of ....... : 1990 Family Phys ................... : CEBALLOS M Phone .................. : [phone] Age ................................ : 29 Film# .................. .:[id number] Sex ................................. : M Unsigned transcriptions are preliminary reports and do not represent a medical or legal document SCROTAL [id number] COMPLETE:12/31/19 11:00 KNB [id number] (REASON FOR TESTING: MASS SCROTAL ULTRASOUND: HISTORY: Mass. FINDINGS: The testicles are normal in size and echogenicity. No masses are seen. Normal blood flow is noted. The epididymal structures are intact. IMPRESSION: Normal examination. Electronically Reviewed and Signed By Vince Butler MD , 01/01/20 09:57, [facility] Transcribe Initials: CHENCHO , Transcribe Date: 12/31/19 22:13, Dictation Date: Copy for: OSCAR ALSTON via fax Copy for: [facility] REC Page 1 of 1 Name Value Range Interpretation Code Description Data Flory rce(s) Supporting Document(s) ID Date Data Source ERYTHROCYTE SEDIMENTATION RATE 10/10/2019 12:00:00 AM EST eC W1 ([facility]) Name Value Range Interpretation Code Description Data Flory rce(s) Supporting Document(s) 12 0-15 ERYTHROCYTE SEDIMENTATION RATE eCW1 ([facility]) ID Date Data Source C REACTIVE PROTEIN QUANTITATIV (At [facility]) 10/10/2019 12:00 :00 AM EST eCW1 ([facility]) Name Value Range Interpretation Code Description Data Flory rce(s) Supporting Document(s) < 0.30 0.00-0.30 C REACTIVE PROTEIN QUANTI TATIV eCW1 ([facility]) ID Date Data Source Comprehensive Metabolic Profile (CMP) 10/10/2019 12:00:00 AM EST eCW1 ([facility]) Name Value Range Interpretation Code Description Data Flory rce(s) Supporting Document(s) 12 7-18 BLOOD UREA NITROGEN eCW1 ([facility]) 100 70-100 GLUCOSE, FASTING eCW1 (On license of [facility]) 0.80 0.70-1.30 CREATININE FOR GFR eCW1 ([facility]) 4.1 3.5-5.1 POTASSIUM SERUM eCW1 ([facility]) 100 98-107 CHLORIDE LEVEL eCW1 ([facility]) 139 136-145 SODIUM LEVEL eCW1 ([facility]) > 60.0 >60 GLOMERULAR FILTRATION RATE eCW 1 ([facility]) 231 12-78 ALT/SGPT eCW1 ([facility]) 30 21-32 CARBON DIOXIDE LEVEL eCW1 ([facility]) 9.6 8.5-10.1 CALCIUM LEVEL eCW1 ([facility]) 126 7-37 AST/SGOT eCW1 ([facility]) 3.9 3.2-5.2 ALBUMIN eCW1 ([facility]) 149 45-117 ALKALINE PHOSPHATASE eCW1 ([facility]) 8.1 6.4-8.2 TOTAL PROTEIN eCW1 ([facility]) 0.3 0.2-1.0 BILIRUBIN,TOTAL eCW1 ([facility]) 0.93 1.00-1.93 ALBUMIN/GLOBULIN RATIO eCW1 ([facility]) ID Date Data Source CBC with Differential 10/10/2019 12:00:00 AM EST eCW1 ([facility]) Name Value Range Interpretation Code Description Data Flory rce(s) Supporting Document(s) 4.69 4.30-6.10 RED BLOOD COUNT eCW1 ([facility]) 7.2 4.0-10.0 WHITE BLOOD COUNT eCW1 ([facility]) 89.6 80.0-96.0 MEAN CORPUSCULAR VOLUME e CW1 ([facility]) 29.9 27.0-33.0 MEAN CORPUSCULAR HEMOGLOB IN eCW1 ([facility]) 42.0 42.0-52.0 HEMATOCRIT eCW1 ([facility]) 14.0 13.5-17.5 HEMOGLOBIN eCW1 ([facility]) 204 150-450 PLATELET COUNT, AUTOMATED eCW1 ([facility]) 13.1 11.5-14.5 RED CELL DISTRIBUTION WID TH eCW1 ([facility]) 33.3 32.0-36.5 MEAN CORPUSCULAR HGB CONC eCW1 ([facility]) 47.2 36.0-66.0 NEUTROPHILS % eCW1 ([facility]) 41.6 24.0-44.0 LYMPH % eCW1 ([facility]) 8.6 0.0-5.0 MONO % eCW1 ([facility]) 1.9 0.0-3.0 EOS % eCW1 ([facility]) 0.3 0.0-1.0 BASO % eCW1 ([facility]) 3.0 1.5-5.0 LYMPH # eCW1 ([facility]) 3.4 1.5-8.5 NEUTROPHILS # eCW1 ([facility]) 0.6 0.0-0.8 MONO # eCW1 ([facility]) 0.1 0.0-0.5 EOS # eCW1 ([facility]) 0.0 0.0-0.2 BASO # eCW1 ([facility]) ID Date Data Source [id number] 10/04/2019 01:54:21 PM [facility] Measurements & CalculationsHeight: 68 inches (5 ft. [...] your sexual partner travelled outside of the country recently? NoSmoking, Tobacco or Smoke Exposure StatusSmoke [...] past as well- [place] [facility]. Pt states it is not feeling any [...] during this visit, including review of any sbsm-ieo-danuohz medications, herbal therapies, and/or supplements.Allergy ReviewAllergy List [...] dysuria, urinary frequencyMusculoskeletal: + myalgias, arthralgiasNeuro: No MENDEZ, unilateral paresthesias, weaknessLympatics: No Lymph node swellingEndocrine: [...] & Plan Problems:Added: Low back pain (ICD-724.2) (MUR55-H14.5) Assessment: Instructions: Counseled patient on all diagnoses/ treatments. Return to clinic/ ER for any worsening symptoms or concernsMedication issuedScreening examination for venereal disease (ICD-V74.5) (KGT01-F06.3) Assessment: Instructions: Counseled patient on all diagnoses/ treatments. Return to clinic/ ER for any worsening symptoms or concernsLabs orderedEncounter for screening for other me tabolic disorders (UID11-H40.228) Assessment: Instructions: Counseled patient on all diagnoses/ treatments. Return to clinic/ ER for any worsening symptoms or concernsLabs orderedHepatitis C (ICD-070.70) (EKQ59-X99.20) Assessment: Instructions: Counseled patient on all diagnoses/ treatments. Return to clinic/ ER for any worsening symptoms or concernsLabs orderedAppt made with KatePsychoactive substance dependence in remission (ICD-304.93) (ICD10- F19.21) Assessment: Instructions: Counseled patient on all diagnoses/ treatments. Return to clinic/ ER for any worsening symptoms or concernsMH referralsDiscitis of lumbosacral spine (ICD-722.93) (DPD07-V80.47) Assessment: Instructions: Counseled patient on all diagnoses/ treatments. Return to clinic/ ER for any worsening symptoms or concernscont f/u with OrthoAssessed:Opioid dependence, in remission (ICD-304.03) (XGG83-V68.21) Assessment: Instructions: Counseled patient on all diagnoses/ [...] BACLOFEN 10 MG ORAL TABLET-1 tab every [id number] 600 MG ORAL TABLET-1 tab q4h prn for painSEROQUEL 200 MG ORAL TABLET-1 tab daily at niightRemoved:EFFEXOR XR 37.5 MG ORAL CAPSULE EXTENDED RELEASE 24 HOUR-One tablet by mouth every day, SUBOXONE 8- 2 MG SUBLINGUAL FILM-One and one half once daily. MDD 1 and 10/31. BRITTANY [id number]. Dx F11.21Allergies:No Known Allergies (updated 05/01/2018) Orders:Adult - Ofc Vst, EST, Level IV [CPT-21006] COMP METABOLIC PANEL [CPT-62883] CBC W/DIFF [CPT- 13738] HgBA1c [CPT-86009] LIPID PANEL [CPT-24565] TSH [CPT-86894] T-4 free [CPT- 21820] Vitamin D 250H Unspecified [CPT-07472] URINALYSIS [CPT-87634] Urine - Gonorrhea [CPT-94598] Urine - Chlamydia [CPT-15151] Ultrasound-Liver/Gallbladder [CPT-48986] HepA IgG [CPT-68659] HBsAg [CPT-27933] HEPATITIS B SURF ANTIBODY HBSAB [CPT-77300] HEPATITIS B CORE ANTIBODY HBCAB TOTAL [CPT-24513] Hepatitis C Viral Load [CPT-47179] HCV Genotype [CPT-72228] HCV Antibody To RNA Reflex Test [CPT-29017] HEPATITIS ANTIBODY HAAB TOTAL [CPT-19998] HIV Antibody [CPT-47823] RPR/VDRL [CPT-94154] Herpes Simplex Antibody [CPT-55592] Psychology Consult [CPT-04215] Telepsychiatry Consult [CPT-34760] Adult - Ofc Vst, NEW, Level IV [CPT-67806] Follow-Up Return to clinic: in 30 days [...] ever smoked [facility] ([facility]) Smoking 09/03/2020 12:00:00 AM EST Current Smoker completed Curre nt Smoker eCW1 ([facility]) Smoking 04/09/2020 12:00:00 AM EDT Current Smoker completed Curre nt Smoker eCW1 ([facility]) Smoking 04/09/2020 12:00:00 AM EDT Current Smoker completed Curre nt Smoker eCW1 ([facility]) Smoking 04/09/2020 12:00:00 AM EDT Current Smoker completed Curre nt Smoker eCW1 ([facility]) Smoking 04/09/2020 12:00:00 AM EDT Current Smoker completed Curre nt Smoker eCW1 ([facility]) Smoking 04/09/2020 12:00:00 AM EDT Current Smoker completed Curre nt Smoker eCW1 ([facility]) Smoking 04/09/2020 12:00:00 AM EDT Current Smoker completed Curre nt Smoker eCW1 ([facility]) Vital Signs ID Date Data Source UNK Name Value Range Interpretation Code Description Data Source(s) Body weight 163.00 [lb_av] 163.00 [lb_av] MEDEN T ([facility]) Body temperature 99.3 [degF] 99.3 [degF] MEDENT ([facility]) Respiratory rate 18 /min 18 /min MEDENT ( [facility]) Heart rate 70 /min 70 /min MEDENT ([facility]) Diastolic blood pressure 90 mm[Hg] 90 mm[Hg] MEDENT ([facility]) Systolic blood pressure 152 mm[Hg] 152 mm[Hg] M EDENT ([facility]) Body weight 163.00 [lb_av] 163.00 [lb_av] MEDEN T ([facility]) Heart rate 77 /min 77 /min MEDENT ([facility]) Diastolic blood pressure 85 mm[Hg] 85 mm[Hg] MEDENT ([facility]) Systolic blood pressure 128 mm[Hg] 128 mm[Hg] M EDENT ([facility]) Diastolic blood pressure 60 mm[Hg] 60 mm[Hg] eCW1 ([facility]) Systolic blood pressure 124 mm[Hg] 124 mm[Hg] e CW1 ([facility]) Body temperature 98.3 [degF] 98.3 [degF] eCW1 ( [facility]) Respiratory rate 18 /min 18 /min eCW1 ([facility]) Heart rate 66 /min 66 /min eCW1 ([facility]) Body mass index (BMI) [Ratio] 25.06 kg/m2 25.06 kg/m2 eCW1 ([facility]) Body height 68 [in_us] 68 [in_us] eCW1 (On license of [facility]) Body weight Measured 164.8 [lb_av] 164.8 [lb_av ] eCW1 ([facility]) Respiratory rate 18 /min 18 /min eCW1 ([facility]) Heart rate 66 /min 66 /min eCW1 ([facility]) Body mass index (BMI) [Ratio] 26.30 kg/m2 26.30 kg/m2 W1 ([facility]) Body height 68 [in_us] 68 [in_us] eCW1 (On license of [facility]) Body weight Measured 173 [lb_av] 173 [lb_av] eC W1 ([facility]) Diastolic blood pressure 76 mm[Hg] 76 mm[Hg] eCW1 ([facility]) Systolic blood pressure 136 mm[Hg] 136 mm[Hg] e CW1 ([facility]) Body temperature 98.3 [degF] 98.3 [degF] eCW1 ( [facility]) Body weight 79.834 kg 79.834 kg MEDENT ([facility]) Body weight 176.00 [lb_av] 176.00 [lb_av] MEDEN T ([facility]) Oxygen saturation in Arterial blood by Pulse oximetry 99 % 99 % MEDENT ([facility]) Respiratory rate 18 /min 18 /min MEDENT ( [facility]) Body temperature 99.1 [degF] 99.1 [degF] MEDENT ([facility]) Heart rate 77 /min 77 /min MEDENT ([facility]) Diastolic blood pressure 80 mm[Hg] 80 mm[Hg] MEDENT ([facility]) Systolic blood pressure 130 mm[Hg] 130 mm[Hg] M EDENT ([facility]) Diastolic blood pressure 80 mm[Hg] 80 mm[Hg] eCW1 ([facility]) Systolic blood pressure 130 mm[Hg] 130 mm[Hg] e CW1 ([facility]) Body temperature 98.4 [degF] 98.4 [degF] eCW1 ( [facility]) Respiratory rate 20 /min 20 /min eCW1 ([facility]) Heart rate 82 /min 82 /min eCW1 ([facility]) Body mass index (BMI) [Ratio] 26.76 kg/m2 26.76 kg/m2 eCW1 ([facility]) Body height 68 [in_us] 68 [in_us] eCW1 (On license of [facility]) Body weight Measured 176 [lb_av] 176 [lb_av] eC W1 ([facility]) Body weight 80.004 kg 80.004 kg MEDENT ([facility]) Body weight 176.38 [lb_av] 176.38 [lb_av] MEDEN T ([facility]) Oxygen saturation in Arterial blood by Pulse oximetry 97 % 97 % MEDENT ([facility]) Respiratory rate 16 /min 16 /min MEDENT ( [facility]) Body temperature 98.7 [degF] 98.7 [degF] MEDENT ([facility]) Heart rate 82 /min 82 /min MEDENT ([facility]) Diastolic blood pressure 70 mm[Hg] 70 mm[Hg] MEDENT ([facility]) Systolic blood pressure 112 mm[Hg] 112 mm[Hg] M EDENT ([facility]) Diastolic blood pressure 78 mm[Hg] 78 mm[Hg] eCW1 ([facility]) Systolic blood pressure 138 mm[Hg] 138 mm[Hg] e CW1 ([facility]) Body temperature 98.5 [degF] 98.5 [degF] W1 ( [facility]) Respiratory rate 20 /min 20 /min eCW1 ([facility]) Heart rate 96 /min 96 /min eCW1 ([facility]) Body mass index (BMI) [Ratio] 26.82 kg/m2 26.82 kg/m2 W1 ([facility]) Body height 68 [in_us] 68 [in_us] W1 (On license of [facility]) Body weight Measured 176.4 [lb_av] 176.4 [lb_av ] W1 ([facility]) Body weight 80.004 kg 80.004 kg MEDENT ([facility]) Body weight 176.38 [lb_av] 176.38 [lb_av] MEDEN T ([facility]) Oxygen saturation in Arterial blood by Pulse oximetry 97 % 97 % MEDENT ([facility]) Respiratory rate 18 /min 18 /min MEDENT ( [facility]) Body temperature 97.6 [degF] 97.6 [degF] MEDENT ([facility]) Heart rate 84 /min 84 /min MEDENT ([facility]) Diastolic blood pressure 79 mm[Hg] 79 mm[Hg] MEDENT ([facility]) Systolic blood pressure 129 mm[Hg] 129 mm[Hg] M EDENT ([facility]) Diastolic blood pressure 92 mm[Hg] 92 mm[Hg] eCW1 ([facility]) Systolic blood pressure 148 mm[Hg] 148 mm[Hg] e CW1 ([facility]) Body temperature 98.6 [degF] 98.6 [degF] eCW1 ( [facility]) Respiratory rate 18 /min 18 /min eCW1 ([facility]) Heart rate 125 /min 125 /min eCW1 ([facility]) Body mass index (BMI) [Ratio] 27.21 kg/m2 27.21 kg/m2 eCW1 ([facility]) Body height 68 [in_us] 68 [in_us] eCW1 (On license of [facility]) Body weight Measured 179 [lb_av] 179 [lb_av] eC W1 ([facility]) Patient Treatment Plan of Care Planned Activity Planned Date Details Description Data Source (s) Clonazepam 0.5 MG Oral Tablet 05/16/2020 12:00:00 AM EDT eCW1 ([facility]) Clonazepam 0.5 MG Oral Tablet 05/16/2020 12:00:00 AM EDT eCW1 ([facility]) Clonazepam 0.5 MG Oral Tablet 05/16/2020 12:00:00 AM EDT eCW1 ([facility]) Clonazepam 0.5 MG Oral Tablet 05/16/2020 12:00:00 AM EDT eCW1 ([facility]) Clonazepam 0.5 MG Oral Tablet 05/16/2020 12:00:00 AM EDT eCW1 ([facility]) Clonazepam 0.25 MG Disintegrating Oral Tablet 04/09/2020 12:00:00 A M EDT eCW1 ([facility]) venlafaxine 75 MG Oral Tablet 03/06/2020 12:00:00 AM EDT eCW1 ([facility]) venlafaxine 75 MG Oral Tablet 03/06/2020 12:00:00 AM EDT eCW1 ([facility]) venlafaxine 75 MG Oral Tablet 03/06/2020 12:00:00 AM EDT eCW1 ([facility]) venlafaxine 75 MG Oral Tablet 03/06/2020 12:00:00 AM EDT eCW1 ([facility]) venlafaxine 75 MG Oral Tablet 03/06/2020 12:00:00 AM EDT eCW1 ([facility]) venlafaxine 75 MG Oral Tablet 03/06/2020 12:00:00 AM EDT eCW1 ([facility]) venlafaxine 37.5 MG Oral Tablet 03/06/2020 12:00:00 AM EDT eCW1 ([facility]) venlafaxine 75 MG Oral Tablet 03/06/2020 12:00:00 AM EDT eCW1 ([facility]) 12 HR Bupropion Hydrochloride 150 MG Extended Release Oral Tablet [Wellbutrin] 02/12/2020 12:00:00 AM EDT eCW1 (On license of [facility]) Escitalopram 20 MG Oral Tablet 11/25/2019 12:00:00 AM EST eCW1 ([facility]) Escitalopram Oxalate 10 MG 11/22/2019 12:00:00 AM EST eCW1 ([facility]) gabapentin 600 MG Oral Tablet 11/05/2019 12:00:00 AM EST eCW1 ([facility]) Ondansetron 4 MG Disintegrating Oral Tablet 11/05/2019 12:00:00 AM EST eCW1 ([facility]) Sofosbuvir-Velpatasvir 400-100 MG 11/05/2019 12:00:00 AM EST eCW1 ([facility]) nabumetone 750 MG Oral Tablet 10/10/2019 12:00:00 AM EST eCW1 ([facility]) dalbavancin 20 MG/ML Injectable Solution [Dalvance] 10/07/20 19 12:00:00 AM EST eCW1 ([facility]) celecoxib 200 MG Oral Capsule [Celebrex] 10/07/2019 12:00:00 AM EST eCW1 ([facility])
[2020-11-28] MEDS ORDERED: NS 1,000 ML IV ONE (13:15)
[2020-11-28] MEDS ORDERED: KETOROLAC 30 MG/ML 1ML VIAL IV ONE (13:15)
--- OUTSIDE RECORDS SUMMARY | 2020-11-28 13:23 | CCD ---
Author Author [facility] Organization [facility] Address Unknown Phone Unavailable Care Team Providers Care Roll Forger Name Role Phone PATRICIA, L CARLYN BEAM SEALER Unavailable Unavailable PATRICIA, L CARLYN BEAM SEALER Unavailable Unavailable PATRICIA, L CARLYN BEAM SEALER Unavailable Unavailable PATRICIA, L CARLYN BEAM SEALER Unavailable Unavailable PATRICIA, L CARLYN BEAM SEALER Unavailable Unavailable PATRICIA, L CARLYN BEAM SEALER Unavailable Unavailable PATRICIA, L CARLYN BEAM SEALER Unavailable Unavailable PATRICIA, L CARLYN BEAM SEALER Unavailable Unavailable PATRICIA, L CARLYN BEAM SEALER Unavailable Unavailable PATRICIA, L CARLYN BEAM SEALER Unavailable Unavailable PATRICIA, L CARLYN BEAM SEALER Unavailable Unavailable PATRICIA, L CARLYN BEAM SEALER Unavailable Unavailable PATRICIA, L CARLYN BEAM SEALER Unavailable Unavailable PATRICIA, L CARLYN BEAM SEALER Unavailable Unavailable PATRICIA, L CARLYN BEAM SEALER Unavailable Unavailable PETROFF, DEXTER PA Unavailable Unavailable [...] M Christiana PA Unavailable Unavailable Scordo, M Crhistiana PA Unavailable Unavailable Scordo, M Christiana PA Unavailable Unavailable CEBALLOS, T SAMRA DO Unavailable Unavailable CEBALLOS, T SAMRA DO Unavailable Unavailable CEBALLOS, T SAMRA DO Unavailable Unavailable CEBALLOS, T SAMRA DO Unavailable Unavailable CEBALLOS, T SAMRA DO Unavailable Unavailable CEBALLOS, T SAMRA DO Unavailable Unavailable CEBALLOS, T SAMRA DO Unavailable Unavailable CEBALLOS, T SAMRA DO Unavailable Unavailable CEBALLOS, T SAMAR DO Unavailable Unavailable CEBALLOS, T SAMRA DO [...] is protected by Article 27-F of the [facility] Public Health law. If you continue you may have access to information: Regarding HIV / AIDS; Provided by facilities licensed or operated by the [facility] Office of Mental Health; or Provided by the [facility] Office for People With Developmental Disabilities. If such information is present, then the following [facility] mandated warning applies: This information has been [...] law may result in a fine or long-term sentence or both. A general authorization for the release of medical or other information is NOT sufficient authorization for further disc losure. Encounters Encounter Providers Location Date Indications Data Source(s ) Outpatient Attender: Estrella Diaz 10/14/2020 09:20:00 AM EST [facility] ([facility]) Outpatient Attender: CARLYN PATRICIA DOAttender: CARLYNPineda KIM NP ER-LAB-PNP 09/19/2020 12:51:00 PM [facility] Emergency Attender: SHON GONG EMERGENCY ROOM-ER 09/11/2020 11:57:00 AM EST - 09/11/2020 12:35:00 PM [facility] Patient discharged. Extended Individual Psychotherapy - 45 min Attender: Eliza Redmond [facility] 09/04/2020 09:00:00 AM EST - 09/04/2020 09:00:00 AM EST [facility] ([facility]) Outpatient Attender: MACKENZIE LEON 09/04/2020 12:02:04 A M EST [facility] Attender: Penny Redmond 09/04/2020 12:00:00 AM EST [facility] ([facility]) [place] [address] [facility] [address] 09/03/2020 12:00:00 AM EST eCW1 ([facility]) [place] [address] [facility] [address] 08/28/2020 12:00:00 AM EDT eCW1 ([facility]) Emergency Attender: JERRY Barajassultant: SAMRA SOLIMAN DO 08/25/2020 06:05:00 AM EDT - 08/25/2020 06:55:00 AM EDT [facility] Patient discharged. Outpatient Attender: HELENA VALDES 07/16/2020 11:00:00 AM [facility] Emergency Attender: DEXTER GONG 2019 05:29:00 PM EDT - 06/13/2020 05:59:00 PM EDT [facility] Patient discharged. [place] [address] [facility] [address] 05/21/2020 12:00:00 AM EDT eCW1 ([facility]) [place] [address] [facility] [address] 05/18/2020 12:00:00 AM EDT eCW1 ([facility]) [facility] [place] [address] [facility] [address] 05/18/2020 12:00:00 AM EDT eCW1 ([facility]) [place] [address] [facility] [address] 05/16/2020 12:00:00 AM EDT eCW1 ([facility]) [place] [address] [facility] [address] 05/11/2020 12:00:00 AM EDT eCW1 ([facility]) Outpatient Attender: MACKENZIE LEON 04/07/2020 07:38:46 P M EDT [facility] [place] [address] [facility] [address] 03/31/2020 12:00:00 AM EDT eCW1 ([facility]) [facility] GME Resident [address] [place] [address] 03/26/2020 12:00:00 AM EDT eCW1 ([facility]) [facility] [address] [facility] [address] 03/20/2020 12:00:00 AM EDT eCW1 ([facility]) [facility] [address] [facility] [address] 03/18/2020 12:00:00 AM EDT eCW1 ([facility]) [facility] GME Resident [address] [place] [address] 03/06/2020 12:00:00 AM EDT eCW1 ([facility]) [facility] GME Resident [address] [place] [address] 02/27/2020 12:00:00 AM EDT eCW1 ([facility]) [facility] [place] [address] [facility] [place] [address] 02/20/2020 12:00:00 AM EDT eCW1 ([facility]) [facility] [address] [place] [address] [place] [address] 02/20/2020 12:00:00 AM EDT eCW1 ([facility]) [facility] GME Resident [address] [place] [address] 02/12/2020 12:00:00 AM EDT eCW1 ([facility]) [facility] [address] [place] [address], [place] [address] 02/10/2020 12:00:00 AM EDT eCW1 ([facility]) [facility] [address] [place] [address] [place] [address] 02/10/2020 12:00:00 AM EDT eCW1 ([facility]) [facility] GME Resident [address] [place] [address] 02/06/2020 12:00:00 AM EDT eCW1 ([facility]) [facility] [address] [place] [address], [place] [address] 01/31/2020 12:00:00 AM EDT eCW1 ([facility]) [facility] [address] [place] [address], [place] [address] 01/31/2020 12:00:00 AM EDT eCW1 ([facility]) [facility] GME Resident [address] [place] [address] 01/17/2020 12:00:00 AM EDT eCW1 ([facility]) Outpatient Attender: Jeramy Brooks tender: Jair Link PAConsultant: SAMRA CEBALLOS DO 12/31/2019 10:20:00 AM EST - 12/31/2019 11:2 0:00 AM EST [facility] [address] [place] [address] [place] [address] 12/24/2019 12:00:00 AM EST eCW1 ([facility]) Outpatient Attender: MACKENZIE KIM MD 12/03/2019 04:08:01 P M [facility] [place] [address] [facility] [address] 12/03/2019 12:00:00 AM EST eCW1 ([facility]) [facility] [place] [address] [facility] [address] 12/03/2019 12:00:00 AM EST eCW1 ([facility]) Outpatient Attender: Jair GONG 11/26 12:06:00 PM EST - 11/26/2019 12:06:00 PM [facility] Outpatient Attender: MACKENZIE KIM MD FP 11/25/2019 02:41:01 P M [facility] [place] [address] [facility] [address] 11/25/2019 12:00:00 AM EST eCW1 ([facility]) [facility] GME Resident [address] [place] [address] 11/21/2019 12:00:00 AM EST eCW1 ([facility]) Outpatient Attender: MACKENZIE KIM MD FP 11/15/2019 03:28:00 P M [facility] Outpatient Attender: Christiana GONG 11/11 05:20:00 PM EST - 11/11/2019 05:20:00 PM [facility] Outpatient Attender: Christiana GONG [facility] 11/11 04:15:00 PM EST [facility] ([facility] Outpatient Attender: MACKENZIE KIM MD FP 11/08/2019 02:39:00 P M [facility] [place] [address] [facility] [address] 11/05/2019 12:00:00 AM EST eCW1 ([facility]) Outpatient Attender: Christiana GONG 11/04 04:32:00 PM EST - 11/04/2019 04:32:00 PM [facility] Outpatient Attender: Christiana GONG [facility] 11/04 03:45:00 PM EST [facility] ([facility]) Outpatient Attender: MACKENZIE KIM MD 11/04/2019 10:21:00 A [facility] Outpatient Attender: MACKENZIE KIM MD 10/31/2019 09:13:00 A [facility] [address] [facility] [address] 10/31/2019 12:00:00 AM EST [facility]CW1 [facility] [address] [facility] [address] 10/10/2019 12:00:00 AM EST eCW1 ([facility]) [facility] [address] [facility] [address] 10/07/2019 12:00:00 AM EST eCW1 ([facility]) Outpatient Attender: MACKENZIE KIM MD 10/06/2019 12:00:03 P [facility] Outpatient Attender: MACKENZIE KIM MD 10/06/2019 12:00:03 P [facility] Outpatient Attender: MACKENZIE KIM MD 10/06/2019 11:46:01 A [facility] Outpatient Attender: MACKENZIE KIM MD 10/04/2019 04:21:00 P [facility] Outpatient Attender: MACKENZIE KIM MD 10/04/2019 02:08:01 P [facility] Outpatient Attender: MACKENZIE KIM MD 10/04/2019 02:07:00 P [facility] Outpatient Attender: MACKENZIE KIM MD 10/04/2019 01:50:00 P [facility] Outpatient Attender: MACKENZIE KIM MD 10/04/2019 01:48:01 P [facility] Outpatient Attender: MACKENZIE KIM MD 10/04/2019 01:45:01 P [facility] Outpatient Attender: MACKENZIE KIM MD 10/02/2019 10:32:01 A [facility] Medications Medication Brand Name Start Date [...] 12:00:00 AM EST ORAL a ctive [facility] ([facility]) Sertraline 25 MG Oral Tablet Sertraline HCL 10/26/2020 12:00:00 AM EST ORAL active [facility] ([facility]) gabapentin 300 MG Oral Capsule Gabapentin 10/26/2020 12:00:00 AM EST ORAL active [facility] ([facility]) 21 mg/24 hr 10/14/2020 12:00:00 AM EST patch 24 hour 14 APPLY ONE PATCH TO THE SKIN EVERY DAY DIRECTED APPLY ONE PATCH TO THE SKIN EVERY DAY DIRECTED SOLD: 10/14/2020 [facility] 24 HR Nicotine 0.875 MG/HR Transdermal Patch Nicotine Transd ermal System Step 1 10/14/2020 12:00:00 AM EST active [facility] ([facility]) Buprenorphine 8 MG / Naloxone 2 MG Oral Strip Buprenor phine Hydrochloride/Naloxone Hydrochloride 10/14/2020 12:00:00 AM EST SUBLINGUAL active [facility] ([facility]) 8-2 mg 10/14/2020 12:00:00 [...] 1.0 {tablet} active Clonazepam 0.5 MG W1 ([facility]) Clonazepam 0.5 MG Oral Tablet Clonazepam 0.5 MG 05/16/2020 12:00:00 AM EDT 1.0 {tablet} active Clonazepam 0.5 MG eCW1 ([facility]) Clonazepam 0.5 MG Oral Tablet Clonazepam 0.5 MG 05/16/2020 12:00:00 AM EDT 1.0 {tablet} active Clonazepam 0.5 MG eCW1 ([facility]) Clonazepam 0.5 MG Oral Tablet Clonazepam 0.5 MG 05/16/2020 12:00:00 AM EDT 1.0 {tablet} active Clonazepam 0.5 MG eCW1 ([facility]) Clonazepam 0.5 MG Oral Tablet Clonazepam 0.5 MG 05/16/2020 12:00:00 AM EDT 1.0 {tablet} active Clonazepam 0.5 MG eCW1 ([facility]) Clonazepam 0.5 MG Oral Tablet Clonazepam 0.5 MG 05/16/2020 12:00:00 AM EDT 1.0 {tablet} active Clonazepam 0.5 MG eCW1 ([facility]) 0.25 mg 05/12/2020 12:00:00 AM EDT tablet,disintegrating [...] active Clonazep am 0.25 MG eCW1 ([facility]) 0.25 mg 04/09/2020 12:00:00 AM EDT tablet,disintegrating [...] active Venlafaxine HCl 37.5 MG eCW1 ([facility]) venlafaxine 37.5 MG Oral Tablet Venlafaxine HCl 37.5 MG Venl afaxine HCl 37.5 MG 03/06/2020 12:00:00 AM EDT 1.0 {tablet_with_food} active Venlafaxine HCl 37.5 MG eCW1 ([facility]) venlafaxine 75 MG Oral Tablet Venlafaxine HCl 75 MG Venlafax ine HCl 75 MG 03/06/2020 12:00:00 AM EDT 1.0 {tablet_with_food} active Venlafaxine HCl 75 MG eCW1 ([facility]) venlafaxine 37.5 MG Oral Tablet Venlafaxine HCl 37.5 MG Venl afaxine HCl 37.5 MG 03/06/2020 12:00:00 AM EDT 1.0 {tablet_with_food} active Venlafaxine HCl 37.5 MG eCW1 ([facility]) venlafaxine 75 MG Oral Tablet Venlafaxine HCl 75 MG Venlafax ine HCl 75 MG 03/06/2020 12:00:00 AM EDT 1.0 {tablet_with_food} active Venlafaxine HCl 75 MG eCW1 ([facility]) venlafaxine 75 MG Oral Tablet Venlafaxine HCl 75 MG Venlafax ine HCl 75 MG 03/06/2020 12:00:00 AM EDT 1.0 {tablet_with_food} active Venlafaxine HCl 75 MG eCW1 ([facility]) venlafaxine 75 MG Oral Tablet Venlafaxine HCl 75 MG Venlafax ine HCl 75 MG 03/06/2020 12:00:00 AM EDT active 1 tablet with food eCW1 ([facility]) venlafaxine 37.5 MG Oral Tablet Venlafaxine HCl 37.5 MG Venl afaxine HCl 37.5 MG 03/06/2020 12:00:00 AM EDT active 1 tablet with food eCW1 ([facility]) venlafaxine 37.5 MG Oral Tablet Venlafaxine HCl 37.5 MG Venl afaxine HCl 37.5 MG 03/06/2020 12:00:00 AM EDT 1.0 {tablet_with_food} active Venlafaxine HCl 37.5 MG eCW1 ([facility]) venlafaxine 37.5 MG Oral Tablet Venlafaxine HCl 37.5 MG Venl afaxine HCl 37.5 MG 03/06/2020 12:00:00 AM EDT 1.0 {tablet_with_food} active Venlafaxine HCl 37.5 MG eCW1 ([facility]) venlafaxine 75 MG Oral Tablet Venlafaxine HCl 75 MG Venlafax ine HCl 75 MG 03/06/2020 12:00:00 AM EDT 1.0 {tablet_with_food} active Venlafaxine HCl 75 MG eCW1 ([facility]) venlafaxine 75 MG Oral Tablet Venlafaxine HCl 75 MG Venlafax ine HCl 75 MG 03/06/2020 12:00:00 AM EDT 1.0 {tablet_with_food} active Venlafaxine HCl 75 MG eCW1 ([facility]) venlafaxine 37.5 MG Oral Tablet Venlafaxine HCl 37.5 MG Venl afaxine HCl 37.5 MG 03/06/2020 12:00:00 AM EDT 1.0 {tablet_with_food} active Venlafaxine HCl 37.5 MG eCW1 ([facility]) venlafaxine 75 MG Oral Tablet Venlafaxine HCl 75 MG Venlafax ine HCl 75 MG 03/06/2020 12:00:00 AM EDT 1.0 {tablet_with_food} active Venlafaxine HCl 75 MG eCW1 ([facility]) venlafaxine 75 MG Oral Tablet Venlafaxine HCl 75 MG Venlafax ine HCl 75 MG 03/06/2020 12:00:00 AM EDT 1.0 {tablet_with_food} active Venlafaxine HCl 75 MG eCW1 ([facility]) venlafaxine 37.5 MG Oral Tablet Venlafaxine HCl 37.5 MG Venl afaxine HCl 37.5 MG 03/06/2020 12:00:00 AM EDT 1.0 {tablet_with_food} active Venlafaxine HCl 37.5 MG eCW1 ([facility]) 600 mg 03/03/2020 12:00:00 AM EDT tablet [...] AM EDT active 1 tablet eCW1 ([facility]) 150 mg 02/12/2020 12:00:00 AM EDT tablet [...] AM EST active 1 tablet eCW1 ([facility]) Escitalopram 20 MG Oral Tablet ESCITALOPRAM OXALATE [...] DAILY DOSE = ONE TABLET SOLD: 11/22/2019 [facility] Escitalopram Oxalate 10 MG UNK 11/22/2019 12:00:00 AM EST active 2 tablet eCW1 ([facility]) 8-2 mg 11/14/2019 12:00:00 AM EST film [address]ACE ONE FILM UNDER THE TONGUE EVERY DAY, MAXIMUM DAILY DOSE = [address] ONE FILM UNDER THE TONGUE EVERY DAY, MAXIMUM DAILY DOSE = 1 FILM SOLD: 11/14/2019 [facility] 200 mg 11/08/2019 12:00:00 AM EST capsule 30 TAKE ONE CAPSULE BY MOUTH EVERY DAY WITH FOOD TAKE ONE CAPSULE BY MOUTH EVERY DAY WITH FOOD SOLD: 11/08/2019 [facility] 8-2 mg 11/07/2019 12:00:00 AM EST film 7 PLACE ONE FILM UNDER THE TONGUE EVERY DAY, MAXIMUM DAILY DOSE = [address] ONE FILM UNDER THE TONGUE EVERY DAY, MAXIMUM DAILY DOSE = 1 FILM SOLD: 11/07/2019 [facility] 600 mg 11/05/2019 12:00:00 AM EST tablet 30 TAKE ONE TABLET BY MOUTH EVERY DAY TAKE ONE TABLET BY MOUTH EVERY DAY SOLD: 11/05/2019 [facility] Sofosbuvir-Velpatasvir 400-100 MG Sofosbuvir-Velpatasvir 400 -100 MG 11/05/2019 12:00:00 AM EST active 1 tablet eCW1 ([facility]) 4 mg 11/05/2019 12:00:00 AM EST tablet 14 TAKE 1 TABLET BY MOUTH UP TO TWO TIMES A DAY TAKE 1 TABLET BY MOUTH UP TO TWO TIMES A DAY SOLD: 11/05/2019 [facility] Ondansetron 4 MG Disintegrating Oral Tablet Ondansetron 4 MG 11/05/2019 12:00:00 AM EST active 1 tablet on the tongue and allow to dissolve eCW1 ([facility]) Sofosbuvir-Velpatasvir 400-100 MG UNK 11/05/2019 12:00:00 AM EST active 1 tablet eCW1 ([facility]) Ondansetron 4 MG UNK 11/05/2019 12:00:00 AM EST active 1 tablet on the tongue and allow to dissolve eCW1 ([facility]) gabapentin 600 MG Oral Tablet Gabapentin 600 MG Gabapentin 6 00 MG 11/05/2019 12:00:00 AM EST active 1 tablet eCW1 ([facility]) Ondansetron 4 MG Oral Tablet Ondansetron HCL 11/04/2019 12:00:[address] ORAL active [facility] ([facility]) 10 mg 11/01/2019 12:00:00 AM EST [...] EST active as direc michaela eCW1 ([facility]) dalbavancin 20 MG/ML Injectable Solution [Dalvance] Da lvance 500 MG Dalvance 500 MG 10/07/2019 12:00:00 AM EST active as directed eCW1 ([facility]) celecoxib 200 MG Oral Capsule [Celebrex] Celebrex 200 MG Bonnie ebrex 200 MG 10/07/2019 12:00:00 AM EST active 1 capsule with food eCW1 ([facility]) Insurance Providers Payer name Policy type / Coverage type Policy ID Covered alliance party ID Covered alliance party's relationship to rubin Policy Rubin Plan Information FUENTES [id number] SP [id number] [employer] CARE ID O [id number] S [id number] [place] MEDICAID [id number] S 7 [id number] [employer] CARE MEDICAID [id number] S [id number] [place] CARE MEDICAID [id number] S [id number] SELF PAY UNAVAILABLE S [place] BLE Managed Care [place] P [id number] S [id number] Medicaid S [id number] S [id number] [place] CARE MEDICAID [id number] S [id number] [place] [id number] SP [id number] MEDICAID ID CLINIC [id number] MEDICAID -PHYSICIAN [id number] Managed Care [place] P [id number] S [id number] [place] [id number] SP [id number] UNK UNK [facility] UNK SP UN K MEDICAID [id number] SP [id number] UNHC COMMUNITY PLAN [facility] [id number] SP [id number] BCBS E[place]IRE [place] [id number] FA2 [id number] EMPIRE (STATE EMP) P [id number] C [id number] MEDICAID S [id number] S [id number] MEDICAID -O/[id number] EMERGENCY ROOM [id number] Self Pay P UNAVAILABLE S [place] BLE Medicaid P [id number] S [id number] UNHC COMMUNITY PLAN [facility] [id number] SP [id number] [employer] CARE [id number] S [id number] [place] [id number] SP [id number] MEDICAID [id number] SP [id number] Medicaid P [id number] S [id number] Managed Care [place] S [id number] S [id number] Problems, Conditions, and Diagnoses Code Display Name Description Problem Type Effective Dates Data Source(s) F17.210 15347878 Cigarette nicotine dependence without com plication Problem 02/12/2020 12:00:00 AM EDT eCW1 ([facility]) F32.9 73929356 Depression, unspecified depression type P roblem 02/12/2020 12:00:00 AM EDT eCW1 ([facility]) F17.210 08574980 Cigarette nicotine dependence without com plication Problem 02/12/2020 12:00:00 AM EDT eCW1 ([facility]) F32.9 12203507 Depression, unspecified depression type P roblem 02/12/2020 12:00:00 AM EDT eCW1 ([facility]) B17.10 04366576 Acute hepatitis C virus infection without hepatic coma Problem 11/22/2019 12:00:00 AM EST eCW1 ([facility]) F41.9 64136571 Anxiety Problem 11/22/2019 12:00:00 AM ES T eCW1 ([facility]) B17.10 04050682 Acute hepatitis C virus infection without hepatic coma Problem 11/22/2019 12:00:00 AM EST eCW1 ([facility]) F41.9 08937281 Anxiety Problem 11/22/2019 12:00:00 AM ES T eCW1 ([facility]) B18.2 742113438 Chronic hepatitis C without hepatic coma Problem 11/05/2019 12:00:00 AM EST eCW1 ([facility]) F19.21 1743999940311 Drug addiction in remission Problem 11/05/2019 12:00:00 AM EST eCW1 ([facility]) B18.2 078812495 Chronic hepatitis C without hepatic coma Problem 11/05/2019 12:00:00 AM EST eCW1 ([facility]) F19.21 7490801433947 Drug addiction in remission Problem 11/05/2019 12:00:00 AM EST eCW1 ([facility]) Z86.14 700190902 Hx MRSA infection Problem 10/07/2019 12:00:0 0 AM EST eCW1 ([facility]) F15.20 33341975 Amphetamine addiction Problem 10/07/2019 12: 00:00 AM EST eCW1 ([facility]) M46.46 158876797 Discitis of lumbar region Problem 10/07/2019 12:00:00 AM EST eCW1 ([facility]) Z86.14 229995082 Hx MRSA infection Problem 10/07/2019 12:00:0 0 AM EST eCW1 ([facility]) F15.20 67511751 Amphetamine addiction Problem 10/07/2019 12: 00:00 AM EST eCW1 ([facility]) M46.46 427318562 Discitis of lumbar region Problem 10/07/2019 12:00:00 AM EST eCW1 ([facility]) B19.20 48384555 Hepatitis C virus in fection without hepatic coma, unspecified chronicity Problem 10/07/2019 12:00:00 AM EST eCW1 ([facility]) 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, in remission Psychoactive substance dependence in remission 10/06/2019 11:59:09 AM [facility] B19.20 Unspecified viral hepatitis C without hepatic coma Hep atitis C 10/06/2019 11:59:09 AM [facility] Z13.228 Encounter for screening for other metabo lic disorders Encounter for screening for other metabolic disorders 10/06/2019 11:59:09 AM [facility] V74.5 Screening examination for venereal disea se Screening examination for venereal disease 10/06/2019 11:59:09 AM [facility] M46.47 Discitis, unspecified, lumbosacral region Discit is of lumbosacral spine 10/06/2019 11:59:09 AM [facility] 724.2 Low back pain Low back pain 10/06/2019 11:44:12 AM [facility] F15.20 Other stimulant dependence, uncomplicate d OTHER STIMULANT DEPENDENCE, UNCOMPLICATED Diagnosis 09/19/2020 12:51:00 PM EST [facility] Z79.899 Other jail (current) drug therapy [facility] [employer] (CURRENT) DRUG THERAPY Diagnosis 09/11/2020 11:57:00 AM [facility] F17.210 Nicotine dependence, cigarettes, uncompl icated NICOTINE DEPENDENCE, CIGARETTES, UNCOMPLICATED Diagnosis 09/11/2020 11:57:00 AM [facility] F41.9 Anxiety disorder, unspecified ANXIETY DISORDER, UNSPEC IFIED Diagnosis 09/11/2020 11:57:00 AM [facility] Z76.0 Encounter for issue of repeat prescripti on ENCOUNTER FOR ISSUE OF REPEAT PRESCRIPTION Diagnosis 09/11/2020 11:57:00 AM [facility] X44185 Nicotine dependence, cigarettes, uncompl icated Nicotine dependence, cigarettes, uncomplicated Diagnosis 08/25/2020 06:05:00 AM EDT [facility] Q71692 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 Diagnosis 08/25/2020 06:05:00 AM ED T [facility] [id number] Other stimulant abuse with stimulant-ind uced anxiety disorder Other stimulant abuse with stimulant-induced anxiety disorder Diagnosis 08/25/2020 06:05:00 AM EDT [facility] S46998 Cutaneous abscess of left upper limb Cut aneous abscess of left upper limb Diagnosis 08/25/2020 06:05:00 AM EDT [facility] K63797 Furuncle of left upper limb Furuncle of left upper huerta b Diagnosis 08/25/2020 06:05:00 AM EDT [facility] F19.90 Other psychoactive substance use, unspec ified, uncomplicated OTHER PSYCHOACTIVE SUBSTANCE USE, UNSPECIFIED, UNCOMPLICATED Diagnosis 07/16/2020 11:00:00 AM EDT [facility] Z53.21 Procedure and treatment not carried out due to patient leaving prior to being seen by health care provider PROC/TRTMT NOT CRD OUT D/T PT LV BEF SEE N BY [facility] CARE PROV Diagnosis 06/13/2020 05:58:00 PM EDT [facility] N5089 Other specified disorders of the male ge nital organs Other specified disorders of the male genital organs Diagnosis 12/31/2019 10:20:00 AM [facility] J069 Acute upper respiratory infection, unspe cified Acute upper respiratory infection, unspecified Diagnosis 11/26/2019 12:06:[address] [facility] R197 Diarrhea, unspecified Diarrhea, unspecified Diagnosis 11/11/2019 05:20:00 PM [facility] R1110 Vomiting, unspecified Vomiting, unspecified Diagnosis 11/04/2019 04:32:00 PM [facility] Surgeries/Procedures Procedure Description Date Indications Data Source(s) Extended Individual Psychotherapy - 45 min 09/04/2020 12:00:00 AM EST - 09/04/2020 12:00:00 AM EST [facility] ([facility]) Extended Individual Psychotherapy - 45 min 0 12:00:00 AM EST [facility] ([facility]) PHYSICIAN TELEPHONE EVALUATION 11-20 MIN 03/06/2020 12 :00:00 AM EDT eCW1 ([facility]) BEHAV CHNG SMOKING 3-10 MIN 02/12/2020 12:00:00 AM EDT eCW1 ([facility]) Results ID Date Data Source [id number] 11/12/2020 09:25:00 PM EST [facility] Name Value Range Interpretation Code Description Data Flory rce(s) Supporting Document(s) SARS-CoV-2 (COVID 19) NEGATIVE - SARS-CoV-2 (COVID19) [facility] This lab was ordered by [facility] a nd reported by [facility]. ID Date Data Source [id number] 10/03/2020 11:29:00 PM EST [facility] Name Value Range Interpretation Code Description Data Flory rce(s) Supporting Document(s) SARS coronavirus 2 RNA [Presence] in Res piratory specimen by REINALDO with probe detection [facility] This lab was ordered by [facility] a nd reported by [facility]. ID Date Data Source [id number] 09/23/2020 11:08:00 AM EST [facility] Performed at: [facility] [address] [id number] Director: Felicita Del Toro MD, Phone: [phone] Name Value Range Interpretation Code Description Data Flory rce(s) Supporting Document(s) HIV 4TH GEN. Non [facility]active [facility] Date Data Source [id number] 09/23/2020 11:08:00 AM EST [facility] Performed at: [facility] [address] [id number] Director: Felicita Del Toro MD, Phone: [phone] Name Value Range Interpretation Code Description Data Flory rce(s) Supporting Document(s) HEPATITIS C QNT HCV Not Detected IU/mL . [facility] TEST INFO: Comment . [facility] The quantitative range of this assay is 15 IU/mL to 100million IU/mL. ID Date Data Source [id number] 09/23/2020 11:08:00 AM EST [facility] Performed at: [address] [id number] Director: Felicita Del Toro MD, Phone: [phone] Name Value Range Interpretation Code Description Data Flory rce(s) Supporting Document(s) COMMENT: Comment . [facility] Strong reactive antibody screen (s/c rat io >10.9) isconsistent with past or present HCV infection. Follow-uptesting by HCV, Quantitative, Real time PCR (#[id number]) isrecommended to determine viral load/diagnosis of currentHCV infection. HCV AB >11.0 0.0-0.9 [facility] INFCE Result Units: s/co ratio ID Date Data Source [id number] 09/23/2020 11:08:00 AM EST [facility] Performed at: RN - [facility] [place] [id number] Director: Felicita Del Toro MD, Phone: [phone] Name Value Range Interpretation Code Description Data Flory rce(s) Supporting Document(s) HEP B CORE IgM Negative Negative [facility] l ID Date Data Source [id number] 09/23/2020 11:08:00 AM EST [facility] Performed at: RN [facility] [place] [id number] Director: Felicita Del Toro MD, Phone: [phone] Name Value Range Interpretation Code Description Data Flory rce(s) Supporting Document(s) HEP.A AB, IGM Negative Negative [facility] ID Date Data Source [id number] 09/19/2020 05:34:00 PM EST [facility] Name Value Range Interpretation Code Description Data Flory rce(s) Supporting Document(s) VITAMIN D 25 33 ng/mL 30-100 [facility] ID Date Data Source [id number] 09/19/2020 05:34:00 PM EST [facility] Name Value Range Interpretation Code Description Data Flory rce(s) Supporting Document(s) HEP C Reactive-Prelimin. Nonreactive [facility] The test result is interpreted as PRELIM INARY POSITIVE forHepatitis C antibodies.*Confirmatory testing will followConfirmatory results must be considered in making adiagnosis related to HCV infection* ID Date Data Source [id number] 09/19/2020 05:34:00 PM EST [facility] Name Value Range Interpretation Code Description Data Flory rce(s) Supporting Document(s) HBsAG NEGATIVE NEGATIVE [facility] ID Date Data Source [id number] 09/19/2020 05:34:00 PM EST [facility] Name Value Range Interpretation Code Description Data Flory rce(s) Supporting Document(s) SYPHILIS Nonreactive Nonreactive [facility] Result indicates nonreactive for syphili s T.pallidumantibodies. ID Date Data Source [id number] 09/19/2020 01:45:00 PM EST [facility] Name Value Range Interpretation Code Description Data Flory rce(s) Supporting Document(s) FT4 1.00 ng/dL 0.76-1.46 [facility] ID Date Data Source [id number] 09/19/2020 01:45:00 PM EST [facility] Name Value Range Interpretation Code Description Data Flory rce(s) Supporting Document(s) USTSH 2.99 uIU/mL 0.270-4.200 [facility] ID Date Data Source [id number] 09/19/2020 01:38:00 PM EST [facility] Name Value Range Interpretation Code Description Data Flory rce(s) Supporting Document(s) GLU 73 mg/dL 70-110 [facility] Patients taking Sulfasalazine may have f alsely depressedGlucose levels. Patients taking Sulfapyridine may havefalsely elevated Glucose levels. Patients should be drawnfor Glucose before the initial administration of eitherdrug. BUN 16 mg/dL 7-23 [facility] CRE 0.637 mg/dL 0.500-1.300 [facility] GFR > 60 mL/min [facility] CHLORIDE 103 mmol/L 99-110 [facility] NA 140 mmol/L 136-147 [facility] POTASSIUM 4.5 mmol/L 3.5-5.1 [facility] TCO2 33 mmol/L 20-33 [facility] ANION GAP 8.5 10.0-20.0 [facility] CA 9.0 mg/dL 8.3-10.7 [facility] ALKALINE PHOS 84 U/L 45-117 [facility] TP 7.4 g/dL 6.0-7.8 [facility] ALB 4.0 g/dL 3.5-5.0 [facility] ESRD Dialysis patient Albumin reference range: 2.9-4.4 g/dL GL 3.4 g/dL 2.3-3.5 [facility] A/G 1.2 1.0-2.5 [facility] T. BILIRUBIN 0.2 mg/dL 0.1-1.1 [facility] The Dimension Amma Total Bilirubin is n ot recommended forpatients undergoing treatment with eltrombopag (Promacta)due to the potential for falsely elevated results. ALTI 22 U/L 6-54 [facility] Patients taking Sulfasalazine and/or Sul fapyridine may havefalsely depressed ALT levels. Patients should be drawn forALT before the initial administration of either drug. AST 23 U/L 8-40 [facility] Patients taking Sulfasalazine and/or Sul fapyridine may havefalsely depressed AST levels. Patients should be drawn forAST before the initial administration of either drug. ID Date Data Source [id number] 09/19/2020 01:17:00 PM [facility] Name Value Range Interpretation Code Description Data Flory rce(s) Supporting Document(s) WBC 7.53 x10E3/uL 4.0-10.5 [facility] RBC 4.91 x10E6/uL 4.70-6.00 [facility] Hemoglobin 14.5 g/dL 14.0-18.0 [facility] Hematocrit 44.0 % 42.0-52.0 [facility] MCV 89.6 fL 81.0-99.0 [facility] MCH 29.5 pg 27.0-31.0 [facility] MCHC 33.0 g/dL 32.7-35.6 [facility] RDW 11.8 % 11.5-14.0 [facility] Platelet count 240 x10E3/uL 150-450 [facility] ital MPV 10.5 fl 6.9-9.5 [facility] Neutrophils 46.8 % 34-64 [facility] Lymphocytes 46.7 % 25-45 [facility] Monocytes 4.0 % 1.7-10.6 [facility] Eosinophils 1.6 % 0.4-7.0 [facility] Basophils 0.4 % 0.1-2.0 [facility] Imm. Gran. 0.5 % 0.1-2.0 [facility] Abs. Neutro. 3.52 x10E3/uL 1.2-7.6 [facility] Abs. Lymph. 3.52 x10E3/uL 1.0-3.5 [facility] Abs. Baker. 0.30 x10E3/uL 0.1-1.0 [facility] Abs. Eosin. 0.12 x10E3/uL 0.1-0.7 [facility] Abs. Baso. 0.03 x10E3/uL 0.0-0.1 [facility] Abs. Imm. Gran. 0.04 x10E3/uL 0.0-0.1 [facility] ANRBC% 0 % 0 [facility] ID Date Data Source [id number] 09/14/2020 06:05:00 AM EST [facility] Patient: GILDA HAMEED [facility].VisitID: [id number] [place] [address] [phone], MRegistration Date/Time: 09/11/2020 11:38 Weight:70.3 kg (S). Height/Length:68 inches (S). BMI:23.6 PAST HISTORYProblems:History of drug dependence.Osteomyelitis of vertebra. (1 1/2 years ago). Additional Surgeries:Hernia Repair. (Left inguinal). Medications:Suboxone Sublingual (Film 8-2 mg) 2.5 strips, daily. Allergies:No Known Drug Allergy. FAMILY HISTORYNo significant family medical history. (Electronically signed by Shon Bates PAshwin 09/11/2020 13:17) Name Value Range Interpretation Code Description Data [facility] rce(s) Supporting Document(s) ID Date Data Source [id number] 09/11/2020 12:19:00 PM EST [facility] TSYSORDER [id number] Name Value Range Interpretation Code Description Data Flory rce(s) Supporting Document(s) URINE AMPHETAMINES POSITIVE <1000 ng/mL [facility] THC,URINE NEGATIVE <50 ng/mL [facility] MDMA NEGATIVE <500 ng/mL [facility] URINE BARBITURATES NEGATIVE <300 ng/mL [facility] ital PCP,URINE NEGATIVE <25 ng/mL [facility] PROPOXYPHENE NEGATIVE <300 ng/mL [facility] COCAINE, URINE NEGATIVE <300 ng/mL [facility] URINE,OPIATES NEGATIVE <300 ng/mL [facility] OXYCODONE URINE NEGATIVE <100 ng/mL [facility] URINE,TCA NEGATIVE <1000 ng/mL [facility] IF A NEGATIVE RESULT IS OBTAINED AND ING ESTION OF TRICYCLICANTIDEPRESSANTS IS SUSPECTED, A SERUM SAMPLE SHOULD BEOBTAINED AND TESTED USING AN APPROPRIATE METHOD. URINE BENZODIAZEPINES NEGATIVE <300 ng/mL [facility] THESE TESTS ARE PERFORMED USING AN IMMU NOASSAY FOR THEQUALITATIVE DETERMINATION OF THE PRESENCE OF THE MAJORMETABOLITES OF DRUGS OF ABUSE. THESE TESTS ARE ONLY ASCREENING AND NOT CONFIRMATORY. CLINICAL CONSIDERATION ANDPROFESSIONAL JUDGMENT MUST BE APPLIED TO ANY DRUG OF ABUSETEST RESULT. ID Date Data Source [id number] 08/25/2020 06:05:00 AM EDT [facility] 1 OrderSheet [facility] Emergency Department [address] [place] [address] Phone #: ext- [phone] 08/25/2020 06:05 Patient: [...] rce(s) Supporting Document(s) ID Date Data Source [id number] 08/25/2020 06:05:00 AM EDT [facility] 1 Medication Reconciliation Report [facility] Emergency Department [address] [place] [address] Phone #: ext- [phone] 08/25/2020 06:05 Patient: [...] Dispense 14 tablet. Refills: 0.Substitution permitted.Pharmacy - [facility] - [address] ; [place], [place] [phone]. . -- Jerry Ramires M.D. Name Value Range Interpretation Code Description Data Flory rce(s) Supporting Document(s) ID Date Data Source [id number] 08/25/2020 06:05:00 AM EDT [facility] 1 Medication Administration Record [facility] Emergency Department [address] [place] [address] Phone #: ext- [phone] 08/25/2020 06:05 Patient: [...] rce(s) Supporting Document(s) ID Date Data Source [id number] 08/25/2020 06:05:00 AM EDT [facility] 1 General Instructions [facility] Emergency Department [address] [place] [address] Phone #: ext- [phone] 08/25/2020 06:05 Patient: [...] Dispense 14 tablet. Refills: 0.Substitution permitted.Pharmacy - [facility] - [address] [place] [phone]. .Follow-up:Return to the emergency department as needed. [...] ADDITIONAL INFORMATIONAbscess (Incision Drainage) 2 General Instructions [facility] Emergency Department [address] [place] [address] Phone #: ext- [phone] 08/25/2020 06:05 Patient: GILDA HAMEED Sex: M [...] local pain or swelling 3 General Instructions [facility] Emergency Department [address] [place] [address] Phone #: ext- [phone] 08/25/2020 06:05 Patient: GILDA HAMEED Sex: M : 1990 Age: 30y Continued pus draining from the wound 2 days after treatment Fever of 100.4F (38C) or higher, or as directed by your healthcare provider Boil returns when you are at home [phone] [employer]. [address] [place] [address]. All rights reserved. This information is not [...] job or your family Arrest, conviction, and long-term sentence for possession of an illegal substance [...] IV drugs) [facility] 4 General Instructions [facility] Emergency Department [address] [place] [address] Phone #: ext- [phone] 08/25/2020 06:05 Patient: [...] of the resources below for help: National [place] on Alcoholism and Drug Dependence www.ncadd.org 935-186-4666 Narcotics Anonymous www.na.org 310-699-0149 National Alcohol and Substance Abuse Information Center (for referral to treatment programs) www.[employer] 891-035-9964Avkn 911Call 911 if any of the following [...] anxiety, unable to sleep 5 General Instructions [facility] Emergency Department [address] [place] [address] Phone #: ext- [phone] 08/25/2020 06:05 Patient: GILDA HAMEED Sex: M : 1990 Age: 30y Unintended weight loss (more than 10 to 15 pounds over 3 months) Fever of 100.4F (38C) or higher, or as directed by your healthcare provider Shortness of breath Cough with colored sputum Redness, swelling, or tenderness at an injection site 9640-4836 [employer]. [address] [place] [address], [place] [address]. All rights reserved. This information is not intended as asubstitute for professional medical care. Always follow your healthcare professional's instructions. You have been given the following additional information: Abscess, Incision And Drainage Drug Abuse(Electronically signed by Jerry Ramires M.D. 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 --06:13 08/25/20 Roya Bonilla R.N.06:06 08/25/20. BP: [...] or CRE. 2 Clinical Report - Nurses [facility] Emergency Department [address] [place] [address] Phone #: ext- [phone] 08/25/2020 06:05 Patient: [...] verified and 3 Clinical Report - Nurses [facility] Emergency Department [address] [place] [address] Phone #: ext- [phone] 08/25/2020 06:05 Patient: GILDA HAMEED Sex: M : 1990 Age: 30y confirmed 5 rights. Information reviewed with patient. Verbalizes understanding. --06:40 08/25/20 Roya Bonilla R.N.DISPOSITION / DISCHARGE No learning barriers present. Discharge instructions provided and reviewed with the patient. Reviewed warnings. Reviewed medication(s). Treatments reviewed. Reviewed referrals. Patient verbalized understanding. Written instructions provided in Dominican. The patient was discharged home and accompanied by nuclear officer. He left ambulatory and via private vehicle. 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 --06:55 08/25/20 Roya Bonilla R.N. 06:54 08/25/20. BP: 160/85. MAP: 110. HR: 101. RR: 18. O2 saturation: 98% on room air. Temp: 98.2 F. Pain level now: 610. --06:55 08/25/20 Roya Bonilla R.N.Locked/Released at 08/25/2020 06:55 by Roya Bonilla R.N. Name Value Range Interpretation Code Description Data [facility]ory rce(s) Supporting Document(s) ID Date Data Source [id number] 08/25/2020 06:05:00 AM EDT [facility] 1 Clinical Report - Physicians/Mid Levels [facility] Emergency Department [address] [place] [address] Phone #: ext- [phone] 08/25/2020 06:05 Patient: [...] NOTES 2 Clinical Report - Physicians/Mid Levels [facility] Emergency Department [address] [place] [address] Phone #: ext- [phone] 08/25/2020 06:05 Patient: [...] or 3 Clinical Report - Physicians/Mid Levels [facility] Emergency Department [address] [place] [address] Phone #: ext- [phone] 08/25/2020 06:05 Patient: [...] tablet. Refills: 0. Substitution permitted. Pharmacy - [facility] - [address] [place] [address] ; [place], [place] [phone]. . Follow- up: Return to the emergency [...] rce(s) Supporting Document(s) ID Date Data Source [id number] 08/28/2020 02:05:00 PM EDT [facility] Name Value Range Interpretation Code Description Data [facility] rce(s) Supporting Document(s) CULTURE WOUND [facility] spital _CULTURE WOUND_$$[id number]$$[id number]$$[id number]$$[id number]$$[id number]$$[id number] DATE/TIME: 08/28/2020 11:06Culture: CULTURE WOUND Status: FinalIsolate 1 Streptococcus intermedius Flag: A . . . . . . .6Heavy growthSusceptibility not normally performed on this organism. Previous result entered on 08/27/2020 16:43 ET Microbiological testing to rule out the presence of possible pathogensis in progress. Previous result entered on 08/27/2020 06:13 ET No growth after 18-24 hours.Aerobic Bacterial Culture: H5Zgouvnwqryans intermedius Flag: AP1 Test performed by: Reggie MITCHELL #: [id number] [address] [id number] [facility] [id number] Director : Alverto Perez MD NPI #: -- Continued on next page --Patient: YOSEPH VO Order: [id number] Page 2Culture: CULTURE WOUND Status: Final ====Registry Np : 08/27/20.0738.XMT.SENT REF 08/27/20.1749.XMT.SENT REF 08/28/20.1405.XMT.SENT REF ID Date Data Source [id number] 01/01/2020 09:57:00 [place] [address] PHONE: [phone] FAX: [phone] Name .................. : YOSEPH Norwood Acct Number.................. : [id number] ROOM. ................. : MR Number ................... : [id number] Stay type ............. : O/P Discharge Date......... ... : 12/31/19 Admit Date ......... : 12/31/19 Admit Phys .................... : OSCAR STERLING Date of ....... : 1990 Family Phys ................... : CEBALLOS M Phone .................. : [phone] Age ................................ : 29 Film# .................. .:[id number] Sex ................................. : M Unsigned transcriptions are preliminary reports and do not represent a medical or legal document SCROTAL [id number] COMPLETE:12/31/19 11:00 KNB [id number] (REASON FOR TESTING: MASS SCROTAL ULTRASOUND: HISTORY: Mass. FINDINGS: The testicles are normal in size and echogenicity. No masses are seen. Normal blood flow is noted. The epididymal structures are intact. IMPRESSION: Normal examination. Electronically Reviewed and Signed By Vince Butler MD , 01/01/20 09:57, [facility] Transcribe Initials: CHENCHO , Transcribe Date: 12/31/19 22:13, Dictation Date: Copy for: OSCAR ALSTON via fax Copy for: [facility] REC Page 1 of 1 Name Value Range Interpretation Code Description Data [facility] rce(s) Supporting Document(s) ID Date Data Source ERYTHROCYTE SEDIMENTATION RATE 10/10/2019 12:00:00 AM EST eC W1 ([facility]) Name Value Range Interpretation Code Description Data [facility] rce(s) Supporting Document(s) 12 0-15 ERYTHROCYTE SEDIMENTATION RATE eCW1 ([facility]) ID Date Data Source C REACTIVE PROTEIN QUANTITATIV (At [facility]) 10/10/2019 12:00 :00 AM EST eCW1 ([facility]) Name Value Range Interpretation Code Description Data [facility] rce(s) Supporting Document(s) < 0.30 0.00-0.30 C REACTIVE PROTEIN QUANTI TATIV eCW1 ([facility]) ID Date Data Source Comprehensive Metabolic Profile (CMP) 10/10/2019 12:00:00 AM EST eCW1 ([facility]) Name Value Range Interpretation Code Description Data [facility] rce(s) Supporting Document(s) 12 7-18 BLOOD UREA NITROGEN eCW1 ([facility]) 100 70-100 GLUCOSE, FASTING eCW1 (Count includes the [facility]) 0.80 0.70-1.30 CREATININE FOR GFR eCW1 ([facility]) 4.1 3.5-5.1 POTASSIUM SERUM eCW1 ([facility]) 100 98-107 CHLORIDE LEVEL eCW1 ([facility]) 139 136-145 SODIUM LEVEL eCW1 (Critical access hospital) > 60.0 >60 GLOMERULAR FILTRATION RATE eCW 1 ([facility]) 231 12-78 ALT/SGPT eCW1 ([facility]) 30 21-32 CARBON DIOXIDE LEVEL eCW1 ([facility]) 9.6 8.5-10.1 CALCIUM LEVEL eCW1 ([facility]) 126 7-37 AST/SGOT eCW1 ([facility]) 3.9 3.2-5.2 ALBUMIN eCW1 ([facility]) 149 45-117 ALKALINE PHOSPHATASE eCW1 ([facility]) 8.1 6.4-8.2 TOTAL PROTEIN eCW1 ([facility]) 0.3 0.2-1.0 BILIRUBIN,TOTAL eCW1 ([facility]) 0.93 1.00-1.93 ALBUMIN/GLOBULIN RATIO eCW1 ([facility]) ID Date Data Source CBC with Differential 10/10/2019 12:00:00 AM EST eCW1 ([facility]) Name Value Range Interpretation Code Description Data Flory rce(s) Supporting Document(s) 4.69 4.30-6.10 RED BLOOD COUNT eCW1 ([facility]) 7.2 4.0-10.0 WHITE BLOOD COUNT eCW1 ([facility]) 89.6 80.0-96.0 MEAN CORPUSCULAR VOLUME e CW1 ([facility]) 29.9 27.0-33.0 MEAN CORPUSCULAR HEMOGLOB IN eCW1 ([facility]) 42.0 42.0-52.0 HEMATOCRIT eCW1 ([facility]) 14.0 13.5-17.5 HEMOGLOBIN eCW1 ([facility]) 204 150-450 PLATELET COUNT, AUTOMATED eCW1 ([facility]) 13.1 11.5-14.5 RED CELL DISTRIBUTION WID TH eCW1 ([facility]) 33.3 32.0-36.5 MEAN CORPUSCULAR HGB CONC eCW1 ([facility]) 47.2 36.0-66.0 NEUTROPHILS % eCW1 ([facility]) 41.6 24.0-44.0 LYMPH % eCW1 ([facility]) 8.6 0.0-5.0 MONO % eCW1 ([facility]) 1.9 0.0-3.0 EOS % eCW1 ([facility]) 0.3 0.0-1.0 BASO % eCW1 ([facility]) 3.0 1.5-5.0 LYMPH # eCW1 ([facility]) 3.4 1.5-8.5 NEUTROPHILS # eCW1 ([facility]) 0.6 0.0-0.8 MONO # eCW1 ([facility]) 0.1 0.0-0.5 EOS # eCW1 ([facility]) 0.0 0.0-0.2 BASO # eCW1 ([facility]) ID Date Data Source [id number] 10/04/2019 01:54:21 PM [facility] Measurements & CalculationsHeight: 68 inches (5 ft. [...] past as well- took these while in long-term. Pt states it is not feeling any [...] during this visit, including review of any smlq-yad-vhxsdkc medications, herbal therapies, and/or supplements.Allergy ReviewAllergy List [...] & Plan Problems:Added: Low back pain (ICD-724.2) (IWT83-H72.5) Assessment: Instructions: Counseled patient on all diagnoses/ treatments. Return to clinic/ ER for any worsening symptoms or concernsMedication issuedScreening examination for venereal disease (ICD-V74.5) (BBM31-F52.3) Assessment: Instructions: Counseled patient on all diagnoses/ treatments. Return to clinic/ ER for any worsening symptoms or concernsLabs orderedEncounter for screening for other me tabolic disorders (RIX10-C19.228) Assessment: Instructions: Counseled patient on all diagnoses/ treatments. Return to clinic/ ER for any worsening symptoms or concernsLabs orderedHepatitis C (ICD-070.70) (HUY21-C38.20) Assessment: Instructions: Counseled patient on all diagnoses/ treatments. Return to clinic/ ER for any worsening symptoms or concernsLabs orderedAppt made with KatePsychoactive substance dependence in remission (ICD-304.93) (ICD10- F19.21) Assessment: Instructions: Counseled patient on all diagnoses/ treatments. Return to clinic/ ER for any worsening symptoms or concernsMH referralsDiscitis of lumbosacral spine (ICD-722.93) (RCY81-A98.47) Assessment: Instructions: Counseled patient on all diagnoses/ treatments. Return to clinic/ ER for any worsening symptoms or concernscont f/u with OrthoAssessed:Opioid dependence, in remission (ICD-304.03) (YBY60-N58.21) Assessment: Instructions: Counseled patient on all diagnoses/ [...] BACLOFEN 10 MG ORAL TABLET-1 tab every [id number] 600 MG ORAL TABLET-1 tab q4h prn for painSEROQUEL 200 MG ORAL TABLET-1 tab daily at niightRemoved:EFFEXOR XR 37.5 MG ORAL CAPSULE EXTENDED RELEASE 24 HOUR-One tablet by mouth every day, SUBOXONE 8- 2 MG SUBLINGUAL FILM-One and one half once daily. MDD 1 and 10/31. BRITTANY [id number]. Dx F11.21Allergies:No Known Allergies (updated 05/01/2018) Orders:Adult - Ofc Vst, EST, Level IV [CPT-08373] COMP METABOLIC PANEL [CPT-19257] CBC W/DIFF [CPT- 42359] HgBA1c [CPT-66936] LIPID PANEL [CPT-30239] TSH [CPT-40993] T-4 free [CPT- 47756] Vitamin D 250H Unspecified [CPT-46587] URINALYSIS [CPT-48382] Urine - Gonorrhea [CPT-51374] Urine - Chlamydia [CPT-62262] Ultrasound-Liver/Gallbladder [CPT-63582] HepA IgG [CPT-57367] HBsAg [CPT-56457] HEPATITIS B SURF ANTIBODY HBSAB [CPT-10142] HEPATITIS B CORE ANTIBODY HBCAB TOTAL [CPT-66895] Hepatitis C Viral Load [CPT-15197] HCV Genotype [CPT-71505] HCV Antibody To RNA Reflex Test [CPT-14745] HEPATITIS ANTIBODY HAAB TOTAL [CPT-81401] HIV Antibody [CPT-26096] RPR/VDRL [CPT-07969] Herpes Simplex Antibody [CPT-06110] Psychology Consult [CPT-36899] Telepsychiatry Consult [CPT-58022] Adult - Ofc Vst, NEW, Level IV [CPT-11609] Follow-Up Return to clinic: in 30 days [...] ever smoked [facility] ([facility]) Smoking 09/03/2020 12:00:00 AM EST Current Smoker completed Curre nt Smoker eCW1 ([facility]) Smoking 04/09/2020 12:00:00 AM EDT Current Smoker completed Curre nt Smoker eCW1 ([facility]) Smoking 04/09/2020 12:00:00 AM EDT Current Smoker completed Curre nt Smoker eCW1 ([facility]) Smoking 04/09/2020 12:00:00 AM EDT Current Smoker completed Curre nt Smoker eCW1 ([facility]) Smoking 04/09/2020 12:00:00 AM EDT Current Smoker completed Curre nt Smoker eCW1 ([facility]) Smoking 04/09/2020 12:00:00 AM EDT Current Smoker completed Curre nt Smoker eCW1 ([facility]) Smoking 04/09/2020 12:00:00 AM EDT Current Smoker completed Curre nt Smoker eCW1 ([facility]) Vital Signs ID Date Data Source UNK Name Value Range Interpretation Code Description Data Source(s) Body weight 163.00 [lb_av] 163.00 [lb_av] MEDEN T ([facility]) Body temperature 99.3 [degF] 99.3 [degF] MEDENT ([facility]) Respiratory rate 18 /min 18 /min MEDENT ( [facility]) Heart rate 70 /min 70 /min MEDENT ([facility]) Diastolic blood pressure 90 mm[Hg] 90 mm[Hg] MEDENT ([facility]) Systolic blood pressure 152 mm[Hg] 152 mm[Hg] M EDENT ([facility]) Body weight 163.00 [lb_av] 163.00 [lb_av] MEDEN T ([facility]) Heart rate 77 /min 77 /min MEDENT ([facility]) Diastolic blood pressure 85 mm[Hg] 85 mm[Hg] MEDENT ([facility]) Systolic blood pressure 128 mm[Hg] 128 mm[Hg] M EDENT ([facility]) Diastolic blood pressure 60 mm[Hg] 60 mm[Hg] eCW1 ([facility]) Systolic blood pressure 124 mm[Hg] 124 mm[Hg] e CW1 ([facility]) Body temperature 98.3 [degF] 98.3 [degF] eCW1 ( [facility]) Respiratory rate 18 /min 18 /min eCW1 ([facility]) Heart rate 66 /min 66 /min eCW1 ([facility]) Body mass index (BMI) [Ratio] 25.06 kg/m2 25.06 kg/m2 eCW1 ([facility]) Body height 68 [in_us] 68 [in_us] eCW1 ([facility] includes the [facility]) Body weight Measured 164.8 [lb_av] 164.8 [lb_av ] eCW1 ([facility]) Respiratory rate 18 /min 18 /min eCW1 ([facility]) Heart rate 66 /min 66 /min eCW1 ([facility]) Body mass index (BMI) [Ratio] 26.30 kg/m2 26.30 kg/m2 W1 ([facility]) Body height 68 [in_us] 68 [in_us] eCW1 ([facility] includes the [facility]) Body weight Measured 173 [lb_av] 173 [lb_av] eC W1 ([facility]) Diastolic blood pressure 76 mm[Hg] 76 mm[Hg] eCW1 ([facility]) Systolic blood pressure 136 mm[Hg] 136 mm[Hg] e CW1 ([facility]) Body temperature 98.3 [degF] 98.3 [degF] eCW1 ( [facility]) Body weight 79.834 kg 79.834 kg MEDENT ([facility]) Body weight 176.00 [lb_av] 176.00 [lb_av] MEDEN T ([facility]) Oxygen saturation in Arterial blood by Pulse oximetry 99 % 99 % MEDENT ([facility]) Respiratory rate 18 /min 18 /min MEDENT ( [facility]) Body temperature 99.1 [degF] 99.1 [degF] MEDENT ([facility]) Heart rate 77 /min 77 /min MEDENT ([facility]) Diastolic blood pressure 80 mm[Hg] 80 mm[Hg] MEDENT ([facility]) Systolic blood pressure 130 mm[Hg] 130 mm[Hg] M EDENT ([facility]) Diastolic blood pressure 80 mm[Hg] 80 mm[Hg] eCW1 ([facility]) Systolic blood pressure 130 mm[Hg] 130 mm[Hg] e CW1 ([facility]) Body temperature 98.4 [degF] 98.4 [degF] eCW1 ( [facility]) Respiratory rate 20 /min 20 /min eCW1 ([facility]) Heart rate 82 /min 82 /min eCW1 ([facility]) Body mass index (BMI) [Ratio] 26.76 kg/m2 26.76 kg/m2 eCW1 ([facility]) Body height 68 [in_us] 68 [in_us] eCW1 (Count includes the [facility]) Body weight Measured 176 [lb_av] 176 [lb_av] eC W1 ([facility]) Body weight 80.004 kg 80.004 kg MEDENT ([facility]) Body weight 176.38 [lb_av] 176.38 [lb_av] MEDEN T ([facility]) Oxygen saturation in Arterial blood by Pulse oximetry 97 % 97 % MEDENT ([facility]) Respiratory rate 16 /min 16 /min MEDENT ( [facility]) Body temperature 98.7 [degF] 98.7 [degF] MEDENT ([facility]) Heart rate 82 /min 82 /min MEDENT ([facility]) Diastolic blood pressure 70 mm[Hg] 70 mm[Hg] MEDENT ([facility]) Systolic blood pressure 112 mm[Hg] 112 mm[Hg] M EDENT ([facility]) Diastolic blood pressure 78 mm[Hg] 78 mm[Hg] eCW1 ([facility]) Systolic blood pressure 138 mm[Hg] 138 mm[Hg] e CW1 ([facility]) Body temperature 98.5 [degF] 98.5 [degF] W1 ( [facility]) Respiratory rate 20 /min 20 /min eCW1 ([facility]) Heart rate 96 /min 96 /min eCW1 ([facility]) Body mass index (BMI) [Ratio] 26.82 kg/m2 26.82 kg/m2 W1 ([facility]) Body height 68 [in_us] 68 [in_us] W1 (Count includes the [facility]) Body weight Measured 176.4 [lb_av] 176.4 [lb_av ] W1 ([facility]) Body weight 80.004 kg 80.004 kg MEDENT ([facility]) Body weight 176.38 [lb_av] 176.38 [lb_av] MEDEN T ([facility]) Oxygen saturation in Arterial blood by Pulse oximetry 97 % 97 % MEDENT ([facility]) Respiratory rate 18 /min 18 /min MEDENT ( [facility]) Body temperature 97.6 [degF] 97.6 [degF] MEDENT ([facility]) Heart rate 84 /min 84 /min MEDENT ([facility]) Diastolic blood pressure 79 mm[Hg] 79 mm[Hg] MEDENT ([facility]) Systolic blood pressure 129 mm[Hg] 129 mm[Hg] M EDENT ([facility]) Diastolic blood pressure 92 mm[Hg] 92 mm[Hg] eCW1 ([facility]) Systolic blood pressure 148 mm[Hg] 148 mm[Hg] e CW1 ([facility]) Body temperature 98.6 [degF] 98.6 [degF] eCW1 ( [facility]) Respiratory rate 18 /min 18 /min eCW1 ([facility]) Heart rate 125 /min 125 /min eCW1 ([facility]) Body mass index (BMI) [Ratio] 27.21 kg/m2 27.21 kg/m2 eCW1 ([facility]) Body height 68 [in_us] 68 [in_us] eCW1 (Count includes the [facility]) Body weight Measured 179 [lb_av] 179 [lb_av] eC W1 ([facility]) Patient Treatment Plan of Care Planned Activity Planned Date Details Description Data Source (s) Clonazepam 0.5 MG Oral Tablet 05/16/2020 12:00:00 AM EDT eCW1 ([facility]) Clonazepam 0.5 MG Oral Tablet 05/16/2020 12:00:00 AM EDT eCW1 ([facility]) Clonazepam 0.5 MG Oral Tablet 05/16/2020 12:00:00 AM EDT eCW1 ([facility]) Clonazepam 0.5 MG Oral Tablet 05/16/2020 12:00:00 AM EDT eCW1 ([facility]) Clonazepam 0.5 MG Oral Tablet 05/16/2020 12:00:00 AM EDT eCW1 ([facility]) Clonazepam 0.25 MG Disintegrating Oral Tablet 04/09/2020 12:00:00 A M EDT eCW1 ([facility]) venlafaxine 75 MG Oral Tablet 03/06/2020 12:00:00 AM EDT eCW1 ([facility]) venlafaxine 75 MG Oral Tablet 03/06/2020 12:00:00 AM EDT eCW1 ([facility]) venlafaxine 75 MG Oral Tablet 03/06/2020 12:00:00 AM EDT eCW1 ([facility]) venlafaxine 75 MG Oral Tablet 03/06/2020 12:00:00 AM EDT eCW1 ([facility]) venlafaxine 75 MG Oral Tablet 03/06/2020 12:00:00 AM EDT eCW1 ([facility]) venlafaxine 75 MG Oral Tablet 03/06/2020 12:00:00 AM EDT eCW1 ([facility]) venlafaxine 37.5 MG Oral Tablet 03/06/2020 12:00:00 AM EDT eCW1 ([facility]) venlafaxine 75 MG Oral Tablet 03/06/2020 12:00:00 AM EDT eCW1 ([facility]) 12 HR Bupropion Hydrochloride 150 MG Extended Release Oral Tablet [Wellbutrin] 02/12/2020 12:00:00 AM EDT eCW1 (Count includes the [facility]) Escitalopram 20 MG Oral Tablet 11/25/2019 12:00:00 AM EST eCW1 ([facility]) Escitalopram Oxalate 10 MG 11/22/2019 12:00:00 AM EST eCW1 ([facility]) gabapentin 600 MG Oral Tablet 11/05/2019 12:00:00 AM EST eCW1 ([facility]) Ondansetron 4 MG Disintegrating Oral Tablet 11/05/2019 12:00:00 AM EST eCW1 ([facility]) Sofosbuvir-Velpatasvir 400-100 MG 11/05/2019 12:00:00 AM EST eCW1 ([facility]) nabumetone 750 MG Oral Tablet 10/10/2019 12:00:00 AM EST eCW1 ([facility]) dalbavancin 20 MG/ML Injectable Solution [Dalvance] 10/07/20 19 12:00:00 AM EST eCW1 ([facility]) celecoxib 200 MG Oral Capsule [Celebrex] 10/07/2019 12:00:00 AM EST eCW1 ([facility])
[2020-11-28 13:44] LABS: BASO % 0.4 % (0.0-1.0); HEMATOCRIT 45.5 % (42.0-52.0); HEMOGLOBIN 14.9 g/dl (13.5-17.5); LYMPH # 2.5 10^3/uL (1.5-5.0); LYMPH % 30.4 % (24.0-44.0); MEAN CORPUSCULAR HEMOGLOBIN 29.4 pg (27.0-33.0); MEAN CORPUSCULAR HGB CONC 32.7 g/dl (32.0-36.5); MEAN CORPUSCULAR VOLUME 89.7 fl (80.0-96.0); MONO # 0.3 10^3/uL (0.0-0.8); MONO % 3.9 % (0.0-5.0); NEUTROPHILS # 5.3 10^3/uL (1.5-8.5); NEUTROPHILS % 65.1 % (36.0-66.0); PLATELET COUNT, AUTOMATED 454 10^3/uL (150-450); RED BLOOD COUNT 5.07 10^6/uL (4.30-6.10); WHITE BLOOD COUNT 8.1 10^3/uL (4.0-10.0)
[2020-11-28 14:06] LABS: ERYTHROCYTE SEDIMENTATION RATE 35 mm/hr (0-15)
[2020-11-28 14:08] LABS: ALBUMIN 3.8 GM/DL (3.2-5.2); ALT/SGPT 19 U/L (12-78); AMPHETAMINES LEVEL URINE POSITIVE (NEGATIVE); BARBITURATES URINE NEGATIVE (NEGATIVE); BENZODIAZEPINES URINE NEGATIVE (NEGATIVE); BILIRUBIN,DIRECT < 0.1 MG/DL (0.0-0.2); BILIRUBIN,TOTAL 0.2 MG/DL (0.2-1.0); C REACTIVE PROTEIN QUANTITATIV 0.51 MG/DL (0.00-0.30); CANNABINOIDS URINE POSITIVE (NEGATIVE); COCAINE METABOLITE URINE NEGATIVE (NEGATIVE); METHADONE URINE NEGATIVE (NEGATIVE); OPIATES URINE NEGATIVE (NEGATIVE); PHENCYCLIDINE URINE NEGATIVE (NEGATIVE)
[2020-11-28] MEDS ORDERED: diazePAM 10MG/2ML SYRINGE (J3360 PER 5MG) IV ONE (14:30)
[2020-11-28] MEDS ORDERED: GABAPENTIN 300 MG CAP PO ONE (14:30)
[2020-11-28] MEDS ORDERED: LIDOCAINE 5% (LIDODERM) PATCH TD ONE (16:45)
--- NOTE | 2020-11-28 17:04 | REPVR ---
PROCEDURE INFORMATION: Exam: MR Lumbar Spine Without Contrast. Exam date and time: 11/28/2020 4:35 PM Age: 30 years old Clinical indication: Lumbago and other: HX osteomyelitis/inc pain; Patient HX: PT states he fell today and is having worsening pain. TECHNIQUE: Imaging protocol: Multiplanar magnetic resonance images of the lumbar spine without intravenous contrast. COMPARISON: MRI-LS SPINE W/O FOLL WITH CON 11/12/2020 6:37 PM FINDINGS: Vertebrae: There is chronic bilateral L4 spondylolysis. No acute fracture. Vertebral bodies maintain their height. Spinal cord: The lower thoracic spinal cord, conus and cauda equina are normal. L1-L2: No significant disc disease. No significant spinal canal stenosis. No neural foraminal stenosis. L2-L3: No significant disc disease. No significant spinal canal stenosis. No neural foraminal stenosis. L3-L4: No significant disc disease. No significant spinal canal stenosis. No neural foraminal stenosis. L4-L5: On the prior scan there was disc edema which is no longer seen. There is persistent disc space narrowing. There is persistent edema within the adjacent endplates and vertebral bodies. This has not progressed. No progressive endplate erosion identified. There is mild paraspinous edema on axial images unchanged from prior scan. No evidence of paraspinous or epidural abscess. There is grade 1 spondylolisthesis secondary to bilateral L4 spondylolysis. On the prior scan there was edema surrounding the left facet joint which is not visible on the current study. There is foraminal stenosis more severe on the right. L5-S1: No significant disc disease. No significant spinal canal stenosis. No neural foraminal stenosis. Soft tissues: See above IMPRESSION: L4-L5 discitis and osteomyelitis with resolution of edema within the disc space and surrounding the left facet since the prior scan. Associated bone marrow edema within L4 and L5 is unchanged. No progressive endplate erosion. Paraspinous edema is unchanged. No paraspinous or epidural abscess. Electronically signed by: Rusty Correa On 11/28/2020 17:03:55 PM
[2020-11-28] MEDS ORDERED: DALBAVANCIN 1,500 MG in D5W 250 ML IV ONE (18:00)
[2020-11-28] MEDS ORDERED: GABA600T4 PO (19:03)
[2020-11-28] MEDS ORDERED: LIDO5DIS41 TD (19:03)
[2020-11-28 19:26] VITALS: BP 119/59
[2020-11-28] MEDS ORDERED: **NOTE PATIENT COMMENT** MISC XX SCH (21:00)
--- NOTE | 2020-11-29 12:46 | ED PDOC ---
Post-Departure Follow-Up mri ls spine faxed to dr caputo and dr ohara for Kelsy Moncada MD Nov 29, 2020 12:46
== END 2020-11-28 19:56 | disposition home or self-care (01) ==
LOC: M ED 12:33
DX: M46.26 Osteomyelitis of vertebra, lumbar region (principal); F19.10 Other psychoactive substance abuse, uncomplicated; R56.9 Unspecified convulsions; F41.9 Anxiety disorder, unspecified; F32.9 Major depressive disorder, single episode, unspecified; F23 Brief psychotic disorder; F17.200 Nicotine dependence, unspecified, uncomplicated; F12.10 Cannabis abuse, uncomplicated; Z79.899 Other long term (current) drug therapy
CPT/HCPCS: 72148; 80047; 80076; 80307; 81001; 83605; 85025; 85652; 86140; 87040; 96361; 96365; 96375; 99284; J0875; J1885; J3360

== ENCOUNTER 2020-12-05 15:51 | Emergency (ER) | payer OTHER ==
[~2020-12-05] VITALS: Ht 172.7 cm; Wt 170.0 kg
[~2020-12-05 15:51] MED LIST changes: +LIDO5DIS41 TD
--- NOTE | 2020-12-05 16:31 | REP ---
INDICATION: c/o pain. COMPARISON: 06/06/2019. TECHNIQUE: CT BRAIN PERFORMED IN THE AXIAL PLANE. CORONAL RECONSTRUCTION IMAGES ARE PERFORMED. FINDINGS: THE VENTRICLES ARE NORMAL IN SIZE AND POSITION. THERE IS NO MIDLINE SHIFT OR MASS EFFECT. JIMENEZ-WHITE DIFFERENTIATION IS WELL MAINTAINED. THERE IS NO ACUTE INTRACRANIAL HEMORRHAGE OR EXTRA-AXIAL FLUID COLLECTION. BONE WINDOW EXAMINATION IS UNREMARKABLE. VISUALIZED MASTOID AIR CELLS AND PARANASAL SINUSES ARE CLEAR. IMPRESSION: NEGATIVE NONCONTRAST CT BRAIN. <Electronically signed by Ricardo Jimenez > 12/05/20 1420
--- NOTE | 2020-12-05 16:41 | REP ---
INDICATION: c/o pain. COMPARISON: MRI 11/28/2020. TECHNIQUE: Axial images of the lumbar spine performed with sagittal and coronal reconstruction images. FINDINGS: Once again there is evidence of spondylolysis of L4 with mild anterior grade 1 spondylolisthesis of L4 on L5. There is again significant narrowing of the L4-5 disc space with erosive changes at the inferior endplate of L4 and superior endplate of L5. There is moderate destruction of the superior endplate of L5 especially anteriorly, likely the result of prior discitis and osteomyelitis. Sclerotic changes are seen of a moderate degree in the inferior L4 and superior L5 vertebral bodies. Remaining lumbar vertebral bodies are unremarkable in appearance, as are the remaining lumbar disc spaces. There is mild disc bulging at L4-5 with no other abnormality seen in the spinal canal. IMPRESSION: No definite acute findings and no definite change compared to the prior MRI of 11/28/2020. Spondylolysis again noted at L4 with mild anterior grade 1 spondylolisthesis of L4 on L5. Destructive and post infectious arthritic change at the L4-5 disc space from prior diskitis and osteomyelitis as discussed above. <Electronically signed by Ricardo Jimenez > 12/05/20 [id number]
[2020-12-05 16:56] VITALS: BP 141/78
--- NOTE | 2020-12-06 06:41 | ED PDOC ---
Post-Departure Follow-Up ct ls spine needs fu. obtain pcp name and fax. if no pcp refer to [facility] and fax. also refer to [facility] and fax. Kelsy Moncada MD Dec 06, 2020 06:41
== END 2020-12-05 16:58 | disposition home or self-care (01) ==
LOC: EDBD 15:51 → M ED 15:51
DX: M54.5 Low back pain (principal); F17.200 Nicotine dependence, unspecified, uncomplicated; F19.10 Other psychoactive substance abuse, uncomplicated; M43.06 Spondylolysis, lumbar region; Z79.899 Other long term (current) drug therapy

== ENCOUNTER 2021-01-06 06:37 | Emergency (ER) | payer OTHER ==
[~2021-01-06] VITALS: Ht 172.7 cm; Wt 76.5 kg
[~2021-01-06 06:37] MED LIST changes: +BUPR150T12 PO; -BUPR150T4 PO
[2021-01-06 07:53] LABS: BASO % 0.3 % (0.0-1.0); EOS # 0.1 10^3/uL (0.0-0.5); EOS % 1.6 % (0.0-3.0); HEMATOCRIT 41.6 % (42.0-52.0); HEMOGLOBIN 14.1 g/dl (13.5-17.5); LYMPH % 43.8 % (24.0-44.0); MEAN CORPUSCULAR HEMOGLOBIN 30.2 pg (27.0-33.0); MEAN CORPUSCULAR HGB CONC 33.9 g/dl (32.0-36.5); MEAN CORPUSCULAR VOLUME 89.1 fl (80.0-96.0); MONO # 0.5 10^3/uL (0.0-0.8); MONO % 7.6 % (2.0-8.0); NEUTROPHILS # 3.2 10^3/uL (1.5-8.5); NEUTROPHILS % 46.6 % (36.0-66.0); PLATELET COUNT, AUTOMATED 208 10^3/uL (150-450); RED BLOOD COUNT 4.67 10^6/uL (4.30-6.10); WHITE BLOOD COUNT 6.9 10^3/uL (4.0-10.0)
[2021-01-06] MEDS ORDERED: KETOROLAC 30 MG/ML 1ML VIAL IM ONE (08:10)
[2021-01-06] MEDS ORDERED: CYCLOBENZAPRINE 10MG TABLET PO ONE (08:10)
[2021-01-06 08:14] LABS: BLOOD UREA NITROGEN 18 MG/DL (7-18); C REACTIVE PROTEIN QUANTITATIV 0.66 MG/DL (0.00-0.30); CALCIUM LEVEL 8.5 MG/DL (8.5-10.1); CARBON DIOXIDE LEVEL 30 MEQ/L (21-32); CHLORIDE LEVEL 109 MEQ/L (98-107); CREATININE FOR GFR 0.81 MG/DL (0.70-1.30); GLOMERULAR FILTRATION RATE > 60.0 (>60); GLUCOSE, FASTING 99 MG/DL (70-100); POTASSIUM SERUM 3.8 MEQ/L (3.5-5.1); SODIUM LEVEL 142 MEQ/L (136-145)
[2021-01-06 09:04] LABS: ERYTHROCYTE SEDIMENTATION RATE 8 mm/hr (0-15)
[2021-01-06] MEDS ORDERED: CYCL5TAB PO (09:45)
[2021-01-06] MEDS ORDERED: KETO10TAB PO (09:45)
[2021-01-06 11:09] VITALS: BP 126/68
== END 2021-01-06 11:10 | disposition home or self-care (01) ==
LOC: M ED 06:37
DX: M54.9 Dorsalgia, unspecified (principal); F19.10 Other psychoactive substance abuse, uncomplicated; F17.200 Nicotine dependence, unspecified, uncomplicated
CPT/HCPCS: 80048; 85025; 85652; 86140; 96372; 99283; J1885

== ENCOUNTER 2021-01-06 18:44 | Emergency (ER) | payer OTHER ==
[~2021-01-06] VITALS: Ht 172.7 cm; Wt 78.4 kg
[~2021-01-06 18:44] MED LIST changes: +CYCL5TAB PO; +KETO10TAB PO
[2021-01-06] MEDS ORDERED: NS 1,000 ML IV ONE (19:25)
[2021-01-06 19:53] LABS: BASO % 0.3 % (0.0-1.0); EOS # 0.1 10^3/uL (0.0-0.5); EOS % 2.4 % (0.0-3.0); HEMOGLOBIN 14.1 g/dl (13.5-17.5); LYMPH % 50.7 % (24.0-44.0); MEAN CORPUSCULAR HEMOGLOBIN 30.5 pg (27.0-33.0); MEAN CORPUSCULAR HGB CONC 33.6 g/dl (32.0-36.5); MEAN CORPUSCULAR VOLUME 90.9 fl (80.0-96.0); MONO # 0.5 10^3/uL (0.0-0.8); MONO % 8.3 % (2.0-8.0); NEUTROPHILS # 2.3 10^3/uL (1.5-8.5); NEUTROPHILS % 38.1 % (36.0-66.0); PLATELET COUNT, AUTOMATED 214 10^3/uL (150-450); RED BLOOD COUNT 4.62 10^6/uL (4.30-6.10); WHITE BLOOD COUNT 5.9 10^3/uL (4.0-10.0)
[2021-01-06 20:12] LABS: ERYTHROCYTE SEDIMENTATION RATE 12 mm/hr (0-15)
[2021-01-06 20:20] LABS: ALBUMIN 3.7 GM/DL (3.2-5.2); ALT/SGPT 34 U/L (12-78); BILIRUBIN,DIRECT < 0.1 MG/DL (0.0-0.2); BILIRUBIN,TOTAL 0.1 MG/DL (0.2-1.0); C REACTIVE PROTEIN QUANTITATIV 0.68 MG/DL (0.00-0.30); TOTAL PROTEIN 6.7 GM/DL (6.4-8.2)
[2021-01-06 20:43] LABS: AMPHETAMINES LEVEL URINE NEGATIVE (NEGATIVE); BARBITURATES URINE NEGATIVE (NEGATIVE); BENZODIAZEPINES URINE NEGATIVE (NEGATIVE); CANNABINOIDS URINE POSITIVE (NEGATIVE); COCAINE METABOLITE URINE NEGATIVE (NEGATIVE); METHADONE URINE NEGATIVE (NEGATIVE); OPIATES URINE NEGATIVE (NEGATIVE); PHENCYCLIDINE URINE NEGATIVE (NEGATIVE)
--- NOTE | 2021-01-06 20:58 | REPVR ---
PROCEDURE INFORMATION: Exam: MR Lumbar Spine Without Contrast Exam date and time: 01/06/2021 8:13 PM Age: 30 years old Clinical indication: Low back pain; Patient HX: HX osteomyelitis/inc pain/numbness in legs TECHNIQUE: Imaging protocol: Multiplanar magnetic resonance images of the lumbar spine without intravenous contrast. COMPARISON: MRI-Spine, L.S. without con 11/28/2020 4:08 PM FINDINGS: Vertebrae: Chronic bilateral L4 spondylolysis. No acute fracture. Grade 1 anterolisthesis of L4 over L5. Spinal cord: Normal signal. No cord compression. L1-L2: No significant disc disease. No significant spinal canal stenosis. No neural foraminal stenosis. L2-L3: No significant disc disease. No significant spinal canal stenosis. No neural foraminal stenosis. L3-L4: No significant disc disease. No significant spinal canal stenosis. No neural foraminal stenosis. L4-L5: Persistent disc space narrowing. Edema of adjacent vertebral bodies. No disc space edema. No evidence of paraspinous or epidural abscess. Severe bilateral neural foraminal narrowing. L5-S1: No significant disc disease. No significant spinal canal stenosis. No neural foraminal stenosis. Soft tissues: Unremarkable. IMPRESSION: Improving L4-L5 discitis osteomyelitis. Persistent bone marrow edema involving the L4 and L5. No endplate erosions. No paraspinous fluid collections or abscess. Electronically signed by: Waylon Lyon On 01/06/2021 20:58:46 PM
[2021-01-07] MEDS ORDERED: ACETAMINOPHEN 500 MG TAB PO ONE (00:10)
[2021-01-07 00:21] VITALS: BP 139/81
--- NOTE | 2021-01-08 08:11 | ED PDOC ---
Post-Departure Follow-Up mri ls spine faxed to dr caputo for fu Kelsy Moncada MD Jan 08, 2021 08:11
== END 2021-01-07 00:29 | disposition home or self-care (01) ==
LOC: M ED 18:44
DX: M54.5 Low back pain (principal); M86.9 Osteomyelitis, unspecified; F17.200 Nicotine dependence, unspecified, uncomplicated; F15.10 Other stimulant abuse, uncomplicated

== ENCOUNTER 2021-01-11 01:12 | Emergency (ER) | payer OTHER ==
[~2021-01-11] VITALS: Ht 165.1 cm; Wt 63.6 kg
[2021-01-11] MEDS ORDERED: LORazepam 2 MG TAB PO STA (01:40)
[2021-01-11] MEDS ORDERED: HALOPERIDOL 5MG/ML VIAL (J1630 PER 1) IM STA (02:56)
[2021-01-11] MEDS ORDERED: LORazepam 2 MG/ML VIAL IM STA (02:56)
[2021-01-11] MEDS ORDERED: diphenhydrAMINE 50MG/ML VIAL (J1200) IM STA (03:00)
[2021-01-11 03:06] LABS: HEMATOCRIT 46.6 % (42.0-52.0); HEMOGLOBIN 15.7 g/dl (13.5-17.5); MEAN CORPUSCULAR HEMOGLOBIN 30.2 pg (27.0-33.0); MEAN CORPUSCULAR HGB CONC 33.7 g/dl (32.0-36.5); MEAN CORPUSCULAR VOLUME 89.6 fl (80.0-96.0); PLATELET COUNT, AUTOMATED 315 10^3/uL (150-450); WHITE BLOOD COUNT 15.6 10^3/uL (4.0-10.0)
[2021-01-11 03:50] LABS: ACETAMINOPHEN LEVEL < 2.0 UG/ML (10.0-30.0); ALBUMIN 4.6 GM/DL (3.2-5.2); ALT/SGPT 40 U/L (12-78); BILIRUBIN,DIRECT 0.2 MG/DL (0.0-0.2); BILIRUBIN,TOTAL 0.6 MG/DL (0.2-1.0); BLOOD UREA NITROGEN 20 MG/DL (7-18); CALCIUM LEVEL 9.7 MG/DL (8.5-10.1); CARBON DIOXIDE LEVEL 32 MEQ/L (21-32); CHLORIDE LEVEL 99 MEQ/L (98-107); CREATININE FOR GFR 0.85 MG/DL (0.70-1.30); ETHYL ALCOHOL (ETHANOL) < 0.003 % (0.000-0.010); GLOMERULAR FILTRATION RATE > 60.0 (>60); GLUCOSE, FASTING 87 MG/DL (70-100); POTASSIUM SERUM 3.8 MEQ/L (3.5-5.1); SALICYLATE LEVEL < 1.7 MG/DL (5.0-30.0); SODIUM LEVEL 139 MEQ/L (136-145); TOTAL PROTEIN 8.4 GM/DL (6.4-8.2)
[2021-01-11 09:52] LABS: AMPHETAMINES LEVEL URINE POSITIVE (NEGATIVE); BARBITURATES URINE NEGATIVE (NEGATIVE); BENZODIAZEPINES URINE NEGATIVE (NEGATIVE); CANNABINOIDS URINE NEGATIVE (NEGATIVE); COCAINE METABOLITE URINE NEGATIVE (NEGATIVE); METHADONE URINE NEGATIVE (NEGATIVE); OPIATES URINE NEGATIVE (NEGATIVE); PHENCYCLIDINE URINE NEGATIVE (NEGATIVE)
[2021-01-11 09:56] VITALS: BP 132/60
== END 2021-01-11 10:01 | disposition home or self-care (01) ==
LOC: M ED 01:12
DX: F15.159 Other stimulant abuse with stimulant-induced psychotic disorder, unspecified (principal); Z78.1 Physical restraint status; Z79.899 Other long term (current) drug therapy
CPT/HCPCS: 36415; 80048; 80076; 80143; 80307; 82077; 84443; 85027; 96372; 99284; J1200; J1630; J2060

== ENCOUNTER 2021-01-15 19:39 | Emergency (ER) | payer OTHER ==
[~2021-01-15] VITALS: Ht 172.7 cm; Wt 165.0 kg
[2021-01-15 20:42] VITALS: BP 140/76
== END 2021-01-15 20:44 | disposition home or self-care (01) ==
LOC: M ED 19:39
DX: Z77.098 Contact with and (suspected) exposure to other hazardous, chiefly nonmedicinal, chemicals (principal); R56.9 Unspecified convulsions; F19.10 Other psychoactive substance abuse, uncomplicated; F17.210 Nicotine dependence, cigarettes, uncomplicated

== ENCOUNTER → 2021-07-27 | Outpatient (CLI) | payer MEDICAID, OTHER ==
[~2021-07-27] MED LIST changes: +BACTDSTA PO; -SULF1TAB93 PO
--- NOTE | 2021-07-28 09:14 | ECGEPIP ---
[facility] Test Date: 2021-07-27 Pat Name: GILDA HAMEED Department: Room: - Gender: Male Concrete Mason: KEV : 1990 Requested By: Ricardo Brown Order Number: [id number] Reading MD: Geoffrey Johnson Measurements Intervals [place] Rate: 58 P: 28 MS: 162 QRS: 36 QRSD: 76 T: 26 QT: 384 QTc: 376 Interpretive Statements Sinus bradycardia Otherwise within normal limits. Decreased heart rate compared with 09/08/2019. Electronically Signed on 07-28-2021 9:14:03 EDT by Geoffrey Johnson
== END ==
LOC: M EKG 11:24
PROVIDERS: ATTEND Family Medicine
DX: F11.20 Opioid dependence, uncomplicated (principal)

== ENCOUNTER → 2021-07-27 | Outpatient (CLI) | payer OTHER ==
[2021-07-27 13:19] LABS: HEMATOCRIT 41.8 % (42.0-52.0); HEMOGLOBIN 13.8 g/dl (13.5-17.5); MEAN CORPUSCULAR VOLUME 90.9 fl (80.0-96.0); PLATELET COUNT, AUTOMATED 163 10^3/uL (150-450); WHITE BLOOD COUNT 7.9 10^3/uL (4.0-10.0)
[2021-07-27 13:56] LABS: ALBUMIN 3.3 GM/DL (3.2-5.2); ALT/SGPT 59 U/L (12-78); BILIRUBIN,TOTAL 0.5 MG/DL (0.2-1.0); BLOOD UREA NITROGEN 12 MG/DL (7-18); CALCIUM LEVEL 8.3 MG/DL (8.5-10.1); CARBON DIOXIDE LEVEL 33 MEQ/L (21-32); CHLORIDE LEVEL 103 MEQ/L (98-107); CREATININE FOR GFR 0.67 MG/DL (0.70-1.30); GLOMERULAR FILTRATION RATE > 60.0 (>60); GLUCOSE, FASTING 111 MG/DL (70-100); POTASSIUM SERUM 4.1 MEQ/L (3.5-5.1); SODIUM LEVEL 139 MEQ/L (136-145); TOTAL PROTEIN 6.5 GM/DL (6.4-8.2)
[2021-07-27 14:12] LABS: HEPATITIS B SURFACE ANTIGEN NEGATIVE (NEGATIVE)
[2021-07-27 14:41] LABS: HIV 1&2 SCREEN CENTAUR NEGATIVE (NEGATIVE)
[2021-07-27 14:56] LABS: HEPATITIS C VIRUS ABY INDEX > 11.0 INDEX (<0.8)
[2021-07-27 15:17] LABS: GC DNA AMPLIFICATION NEGATIVE (NEGATIVE)
== END ==
LOC: M PLALAB 09:55
PROVIDERS: ATTEND Family Medicine
DX: F11.10 Opioid abuse, uncomplicated (principal)

== ENCOUNTER → 2022-04-07 | Outpatient (CLI) | payer MEDICAID | LOC: M RAD 11:08 | PROVIDERS: ATTEND Physician Assistant Medical | DX: R10.11 Right upper quadrant pain (principal) ==

== ENCOUNTER 2022-04-17 02:20 | Emergency (ER) | payer MEDICAID ==
[~2022-04-17] VITALS: Ht 172.7 cm; Wt 75.1 kg
[2022-04-17 02:21] VITALS: BP 135/73
[2022-04-17] MEDS ORDERED: SUBO8MIS SL (02:41)
[2022-04-17] MEDS ORDERED: PANTOPRAZOLE 40MG VIAL IV ONE (07:35)
[2022-04-17] MEDS ORDERED: NS 1,000 ML IV ONE (07:35)
[2022-04-17 07:59] LABS: BASO % 0.2 % (0.0-1.0); EOS # 0.1 10^3/uL (0.0-0.5); EOS % 1.5 % (0.0-3.0); HEMATOCRIT 39.3 % (42.0-52.0); HEMOGLOBIN 13.7 g/dl (13.5-17.5); LYMPH # 1.6 10^3/uL (1.5-5.0); LYMPH % 35.2 % (24.0-44.0); MEAN CORPUSCULAR HEMOGLOBIN 30.5 pg (27.0-33.0); MEAN CORPUSCULAR HGB CONC 34.9 g/dl (32.0-36.5); MEAN CORPUSCULAR VOLUME 87.5 fl (80.0-96.0); MONO # 0.7 10^3/uL (0.0-0.8); MONO % 15.9 % (2.0-8.0); NEUTROPHILS # 2.2 10^3/uL (1.5-8.5); PLATELET COUNT, AUTOMATED 144 10^3/uL (150-450); RED BLOOD COUNT 4.49 10^6/uL (4.30-6.10); WHITE BLOOD COUNT 4.6 10^3/uL (4.0-10.0)
[2022-04-17] MEDS ORDERED: KETOROLAC 30 MG/ML 1ML VIAL IV ONE (08:00)
[2022-04-17] MEDS ORDERED: ISOVUE-370 76% 100ML VIAL As Ordered ONE (08:16)
[2022-04-17 08:33] LABS: ALBUMIN 3.6 GM/DL (3.2-5.2); BILIRUBIN,DIRECT 0.2 MG/DL (0.0-0.2); BILIRUBIN,TOTAL 0.6 MG/DL (0.2-1.0); TOTAL PROTEIN 6.3 GM/DL (6.4-8.2)
[2022-04-17 09:17] LABS: AMPHETAMINES LEVEL URINE POSITIVE (NEGATIVE); BARBITURATES URINE NEGATIVE (NEGATIVE); BENZODIAZEPINES URINE NEGATIVE (NEGATIVE); CANNABINOIDS URINE POSITIVE (NEGATIVE); COCAINE METABOLITE URINE NEGATIVE (NEGATIVE); METHADONE URINE NEGATIVE (NEGATIVE); OPIATES URINE NEGATIVE (NEGATIVE); PHENCYCLIDINE URINE NEGATIVE (NEGATIVE)
[2022-04-17] MEDS ORDERED: OMEP-173 PO (09:25)
[2022-04-17] MEDS ORDERED: CEPH500C PO (09:31)
== END 2022-04-17 09:55 | disposition home or self-care (01) ==
LOC: M ED 02:20
DX: K29.00 Acute gastritis without bleeding (principal); R10.84 Generalized abdominal pain; R07.89 Other chest pain; M43.16 Spondylolisthesis, lumbar region; L60.0 Ingrowing nail; S50.12XA Contusion of left forearm, initial encounter; F19.10 Other psychoactive substance abuse, uncomplicated; Z87.39 Personal history of other diseases of the musculoskeletal system and connective tissue; F17.200 Nicotine dependence, unspecified, uncomplicated; Z79.899 Other long term (current) drug therapy
CPT/HCPCS: 72131; 74177; 80047; 80076; 80307; 83690; 85025; 93005; 96361; 96374; 96375; 99284; C9113; J1885; Q9967

== ENCOUNTER 2022-04-18 23:22 | Emergency (ER) | payer MEDICAID ==
[~2022-04-18] VITALS: Ht 172.7 cm; Wt 76.8 kg
[~2022-04-18 23:22] MED LIST changes: +CEPH500C PO; +OMEP-173 PO
[2022-04-18 23:43] VITALS: BP 145/64
== END 2022-04-19 01:50 | disposition left against medical advice (07) ==
LOC: EDBD 23:22 → M ED 23:22
DX: Z53.21 Procedure and treatment not carried out due to patient leaving prior to being seen by health care provider (principal)

== ENCOUNTER 2022-04-22 06:19 | Inpatient (IN) | payer MEDICAID ==
[~2022-04-22] VITALS: Ht 172.7 cm; Wt 75.0 kg
[2022-04-22 07:31] LABS: HEMOGLOBIN 13.9 g/dl (13.5-17.5); MEAN CORPUSCULAR HEMOGLOBIN 30.8 pg (27.0-33.0); MEAN CORPUSCULAR HGB CONC 34.8 g/dl (32.0-36.5); MEAN CORPUSCULAR VOLUME 88.5 fl (80.0-96.0); PLATELET COUNT, AUTOMATED 226 10^3/uL (150-450); RED BLOOD COUNT 4.52 10^6/uL (4.30-6.10); WHITE BLOOD COUNT 5.8 10^3/uL (4.0-10.0)
[2022-04-22 07:44] LABS: RSV AMPLIFICATION NEGATIVE (NEGATIVE)
[2022-04-22 08:05] LABS: ALBUMIN 3.2 GM/DL (3.2-5.2); ALT/SGPT 45 U/L (12-78); BILIRUBIN,DIRECT 0.1 MG/DL (0.0-0.2); BILIRUBIN,TOTAL 0.3 MG/DL (0.2-1.0); BLOOD UREA NITROGEN 19 MG/DL (7-18); CALCIUM LEVEL 8.1 MG/DL (8.5-10.1); CARBON DIOXIDE LEVEL 31 MEQ/L (21-32); CHLORIDE LEVEL 105 MEQ/L (98-107); ETHYL ALCOHOL (ETHANOL) < 0.003 % (0.000-0.010); GLOMERULAR FILTRATION RATE > 60.0 (>60); GLUCOSE, FASTING 129 MG/DL (70-100); POTASSIUM SERUM 4.2 MEQ/L (3.5-5.1); SODIUM LEVEL 142 MEQ/L (136-145); TOTAL PROTEIN 6.3 GM/DL (6.4-8.2)
[2022-04-22 08:06] LABS: SALICYLATE LEVEL < 1.7 MG/DL (5.0-30.0); THYROID STIMULATING HORMONE < 0.005 uIU/ML (0.358-3.740)
[2022-04-22 08:19] LABS: AMPHETAMINES LEVEL URINE POSITIVE (NEGATIVE); BARBITURATES URINE NEGATIVE (NEGATIVE); BENZODIAZEPINES URINE NEGATIVE (NEGATIVE); CANNABINOIDS URINE POSITIVE (NEGATIVE); COCAINE METABOLITE URINE NEGATIVE (NEGATIVE); METHADONE URINE NEGATIVE (NEGATIVE); OPIATES URINE POSITIVE (NEGATIVE); PHENCYCLIDINE URINE NEGATIVE (NEGATIVE)
[2022-04-22 10:43] LABS: ACETAMINOPHEN LEVEL < 2.0 UG/ML (0.0-30.0)
[2022-04-22] MEDS ORDERED: DALBAVANCIN 1,500 MG in D5W 250 ML IV ONE (11:05)
[2022-04-22] MEDS ORDERED: HOME MED LIST COMPLETE! XX SCH (21:40)
[2022-04-23] MEDS: BUPRENORPHINE/NALOXONE 8-2MG SUBLINGUAL TABLET(SUBOXONE) SL SCH (08:48)
[2022-04-23] MEDS ORDERED: LORazepam 2 MG TAB PO STA (18:23)
[2022-04-24] MEDS: BUPRENORPHINE/NALOXONE 8-2MG SUBLINGUAL TABLET(SUBOXONE) SL SCH (09:15)
[2022-04-24] MEDS: LORazepam 2 MG TAB PO PRN ×2 (11:06→18:54)
[2022-04-24] MEDS ORDERED: diphenhydrAMINE 50MG CAP PO ONE (21:35)
[2022-04-25] MEDS: NICOTINE 21MG/24HR 1 EA TRANSDERMAL TD SCH (09:00)
[2022-04-25] MEDS: BUPRENORPHINE/NALOXONE 8-2MG SUBLINGUAL TABLET(SUBOXONE) SL SCH (09:21)
[2022-04-25] MEDS: LORazepam 2 MG TAB PO PRN (12:33)
[2022-04-25] MEDS ORDERED: diphenhydrAMINE 25MG CAP PO PRN (14:55)
[2022-04-25] MEDS ORDERED: traZODone 50 MG TAB PO PRN (14:55)
[2022-04-25] MEDS ORDERED: MAALOX 30 ML SUSP *UDC PO PRN (14:55)
[2022-04-25] MEDS ORDERED: OLANZapine ORAL DISINTEGRATING TAB 5MG PO PRN (14:55)
[2022-04-25] MEDS ORDERED: ACETAMINOPHEN TAB 650MG DOSE (2X325MG) PO PRN (14:55)
[2022-04-25] MEDS ORDERED: MOM 30ML SUSPENSION UDC PO PRN (14:55)
[2022-04-25] MEDS ORDERED: NICOTINE 21MG/24HR 1 EA TRANSDERMAL TD ONE (21:55)
[2022-04-26 06:46] VITALS: BP 129/58
[2022-04-26] MEDS: BUPRENORPHINE/NALOXONE 8-2MG SUBLINGUAL TABLET(SUBOXONE) SL SCH (08:24)
[2022-04-26] MEDS: NICOTINE 21MG/24HR 1 EA TRANSDERMAL TD SCH ×2 (08:25→20:23)
[2022-04-26] MEDS: OLANZapine 5 MG TAB PO SCH ×2 (09:00→20:21)
[2022-04-26 19:08] VITALS: BP 134/65
[2022-04-27 06:00] VITALS: BP 121/57
[2022-04-27] MEDS: NICOTINE 21MG/24HR 1 EA TRANSDERMAL TD SCH (08:31)
[2022-04-27] MEDS: OLANZapine 5 MG TAB PO SCH ×2 (08:31→21:00)
[2022-04-27] MEDS: BUPRENORPHINE/NALOXONE 8-2MG SUBLINGUAL TABLET(SUBOXONE) SL SCH (08:31)
[2022-04-27] MEDS: CEPHALEXIN 500 MG CAP PO SCH (21:00)
[2022-04-27] MEDS: MUPIROCIN 2% OINT 22 GM TUBE TOP SCH (21:00)
[2022-04-28 06:54] VITALS: BP 103/51
[2022-04-28] MEDS: BUPRENORPHINE/NALOXONE 8-2MG SUBLINGUAL TABLET(SUBOXONE) SL SCH (08:13)
[2022-04-28] MEDS: NICOTINE 21MG/24HR 1 EA TRANSDERMAL TD SCH (08:14)
[2022-04-28] MEDS: MUPIROCIN 2% OINT 22 GM TUBE TOP SCH ×3 (08:14→20:43)
[2022-04-28] MEDS: CEPHALEXIN 500 MG CAP PO SCH ×3 (08:14→20:42)
[2022-04-28] MEDS: OLANZapine 5 MG TAB PO SCH ×2 (08:14→20:42)
[2022-04-29 06:37] VITALS: BP 118/57
[2022-04-29] MEDS: NICOTINE 21MG/24HR 1 EA TRANSDERMAL TD SCH (08:19)
[2022-04-29] MEDS: MUPIROCIN 2% OINT 22 GM TUBE TOP SCH ×3 (08:19→20:27)
[2022-04-29] MEDS: OLANZapine 5 MG TAB PO SCH (08:24)
[2022-04-29] MEDS: CEPHALEXIN 500 MG CAP PO SCH ×3 (08:24→20:27)
[2022-04-29] MEDS: BUPRENORPHINE/NALOXONE 8-2MG SUBLINGUAL TABLET(SUBOXONE) SL SCH (08:24)
[2022-04-29] MEDS: MULTIVITAMINS/MINERALS THERAP 1 TAB PO SCH (13:07)
[2022-04-29 18:00] VITALS: BP 139/63
[2022-04-29] MEDS: OLANZapine 10 MG TAB PO SCH (20:27)
[2022-04-29] MEDS ORDERED: BENZTROPINE 1 MG TAB PO PRN (21:00)
[2022-04-30] MEDS: BUPRENORPHINE/NALOXONE 8-2MG SUBLINGUAL TABLET(SUBOXONE) SL SCH (08:03)
[2022-04-30] MEDS: MULTIVITAMINS/MINERALS THERAP 1 TAB PO SCH (08:04)
[2022-04-30] MEDS: NICOTINE 21MG/24HR 1 EA TRANSDERMAL TD SCH (08:04)
[2022-04-30] MEDS: MUPIROCIN 2% OINT 22 GM TUBE TOP SCH ×3 (08:04→20:46)
[2022-04-30] MEDS: OLANZapine 5 MG TAB PO SCH (08:04)
[2022-04-30] MEDS: CEPHALEXIN 500 MG CAP PO SCH ×3 (08:05→20:46)
[2022-04-30] MEDS: OLANZapine 10 MG TAB PO SCH (20:46)
[2022-05-01 06:00] VITALS: BP 136/84
[2022-05-01] MEDS: MULTIVITAMINS/MINERALS THERAP 1 TAB PO SCH (08:03)
[2022-05-01] MEDS: BUPRENORPHINE/NALOXONE 8-2MG SUBLINGUAL TABLET(SUBOXONE) SL SCH (08:03)
[2022-05-01] MEDS: OLANZapine 5 MG TAB PO SCH (08:03)
[2022-05-01] MEDS: CEPHALEXIN 500 MG CAP PO SCH ×3 (08:03→21:00)
[2022-05-01] MEDS: NICOTINE 21MG/24HR 1 EA TRANSDERMAL TD SCH (08:06)
[2022-05-01] MEDS: MUPIROCIN 2% OINT 22 GM TUBE TOP SCH ×3 (09:00→21:00)
[2022-05-01] MEDS: hydrOXYzine 50 MG TAB PO PRN ×2 (15:41→20:59)
[2022-05-01 16:17] VITALS: BP 136/63
[2022-05-01] MEDS: OLANZapine 10 MG TAB PO SCH (21:00)
[2022-05-02] MEDS ORDERED: UNRESOLVED CLARIFICATION ENTRY XX SCH (00:01)
[2022-05-02 07:05] VITALS: BP 116/56
[2022-05-02] MEDS: MUPIROCIN 2% OINT 22 GM TUBE TOP SCH ×3 (08:13→20:10)
[2022-05-02] MEDS: CEPHALEXIN 500 MG CAP PO SCH ×3 (08:14→20:10)
[2022-05-02] MEDS: OLANZapine 5 MG TAB PO SCH (08:14)
[2022-05-02] MEDS: BUPRENORPHINE/NALOXONE 8-2MG SUBLINGUAL TABLET(SUBOXONE) SL SCH (08:16)
[2022-05-02] MEDS: MULTIVITAMINS/MINERALS THERAP 1 TAB PO SCH (08:16)
[2022-05-02] MEDS: hydrOXYzine 50 MG TAB PO PRN ×3 (08:16→20:09)
[2022-05-02] MEDS: NICOTINE 21MG/24HR 1 EA TRANSDERMAL TD SCH (08:17)
[2022-05-02] MEDS: OLANZapine 10 MG TAB PO SCH (20:10)
[2022-05-03 06:59] VITALS: BP 113/55
[2022-05-03] MEDS: BUPRENORPHINE/NALOXONE 8-2MG SUBLINGUAL TABLET(SUBOXONE) SL SCH (07:52)
[2022-05-03] MEDS: MULTIVITAMINS/MINERALS THERAP 1 TAB PO SCH (07:52)
[2022-05-03] MEDS: NICOTINE 21MG/24HR 1 EA TRANSDERMAL TD SCH (07:52)
[2022-05-03] MEDS: hydrOXYzine 50 MG TAB PO PRN (07:52)
[2022-05-03] MEDS: CEPHALEXIN 500 MG CAP PO SCH ×3 (07:53→21:00)
[2022-05-03] MEDS: OLANZapine 5 MG TAB PO SCH (07:53)
[2022-05-03] MEDS: MUPIROCIN 2% OINT 22 GM TUBE TOP SCH ×3 (07:54→21:00)
[2022-05-03] MEDS ORDERED: PALIPERIDONE 3 MG ER TAB (INVEGA) PO SCH (09:00)
[2022-05-03] MEDS: risperiDONE 1 MG TAB PO SCH ×2 (14:39→21:00)
[2022-05-04 06:53] VITALS: BP 123/58
[2022-05-04] MEDS: MULTIVITAMINS/MINERALS THERAP 1 TAB PO SCH (08:02)
[2022-05-04] MEDS: BUPRENORPHINE/NALOXONE 8-2MG SUBLINGUAL TABLET(SUBOXONE) SL SCH (08:02)
[2022-05-04] MEDS: NICOTINE 21MG/24HR 1 EA TRANSDERMAL TD SCH (08:03)
[2022-05-04] MEDS: CEPHALEXIN 500 MG CAP PO SCH ×3 (08:04→21:00)
[2022-05-04] MEDS: MUPIROCIN 2% OINT 22 GM TUBE TOP SCH ×3 (08:04→21:00)
[2022-05-04] MEDS: risperiDONE 1 MG TAB PO SCH ×2 (08:04→21:00)
[2022-05-04] MEDS: buPROPion **XL** TABLET 150MG (WELLBUTRIN XL) PO SCH (11:04)
[2022-05-05] MEDS: MUPIROCIN 2% OINT 22 GM TUBE TOP SCH ×3 (07:57→20:50)
[2022-05-05] MEDS: risperiDONE 1 MG TAB PO SCH ×2 (07:57→20:50)
[2022-05-05] MEDS: CEPHALEXIN 500 MG CAP PO SCH (07:58)
[2022-05-05] MEDS: NICOTINE 21MG/24HR 1 EA TRANSDERMAL TD SCH (08:01)
[2022-05-05] MEDS: MULTIVITAMINS/MINERALS THERAP 1 TAB PO SCH (08:02)
[2022-05-05] MEDS: BUPRENORPHINE/NALOXONE 8-2MG SUBLINGUAL TABLET(SUBOXONE) SL SCH (08:02)
[2022-05-05] MEDS: buPROPion **XL** TABLET 150MG (WELLBUTRIN XL) PO SCH (08:02)
[2022-05-06] MEDS: risperiDONE 1 MG TAB PO SCH ×2 (08:02→21:00)
[2022-05-06] MEDS: MUPIROCIN 2% OINT 22 GM TUBE TOP SCH ×3 (08:02→21:00)
[2022-05-06] MEDS: buPROPion **XL** TABLET 150MG (WELLBUTRIN XL) PO SCH (08:03)
[2022-05-06] MEDS: NICOTINE 21MG/24HR 1 EA TRANSDERMAL TD SCH (08:03)
[2022-05-06] MEDS: MULTIVITAMINS/MINERALS THERAP 1 TAB PO SCH (08:03)
[2022-05-06] MEDS: BUPRENORPHINE/NALOXONE 8-2MG SUBLINGUAL TABLET(SUBOXONE) SL SCH (08:40)
[2022-05-07] MEDS: BUPRENORPHINE/NALOXONE 8-2MG SUBLINGUAL TABLET(SUBOXONE) SL SCH (08:00)
[2022-05-07] MEDS: NICOTINE 21MG/24HR 1 EA TRANSDERMAL TD SCH (08:00)
[2022-05-07] MEDS: buPROPion **XL** TABLET 150MG (WELLBUTRIN XL) PO SCH (08:01)
[2022-05-07] MEDS: MULTIVITAMINS/MINERALS THERAP 1 TAB PO SCH (08:01)
[2022-05-07] MEDS: MUPIROCIN 2% OINT 22 GM TUBE TOP SCH ×3 (08:03→21:00)
[2022-05-07] MEDS: risperiDONE 1 MG TAB PO SCH ×2 (08:03→21:00)
[2022-05-08] MEDS: buPROPion **XL** TABLET 150MG (WELLBUTRIN XL) PO SCH (08:13)
[2022-05-08] MEDS: MULTIVITAMINS/MINERALS THERAP 1 TAB PO SCH (08:13)
[2022-05-08] MEDS: BUPRENORPHINE/NALOXONE 8-2MG SUBLINGUAL TABLET(SUBOXONE) SL SCH (08:13)
[2022-05-08] MEDS: MUPIROCIN 2% OINT 22 GM TUBE TOP SCH ×3 (08:15→21:00)
[2022-05-08] MEDS: risperiDONE 1 MG TAB PO SCH ×2 (08:15→21:00)
[2022-05-08] MEDS: NICOTINE 21MG/24HR 1 EA TRANSDERMAL TD SCH (08:15)
[2022-05-08] MEDS: hydrOXYzine 50 MG TAB PO PRN (21:10)
[2022-05-09] MEDS: NICOTINE 21MG/24HR 1 EA TRANSDERMAL TD SCH (07:46)
[2022-05-09] MEDS: MUPIROCIN 2% OINT 22 GM TUBE TOP SCH (07:47)
[2022-05-09] MEDS: risperiDONE 1 MG TAB PO SCH (07:47)
[2022-05-09] MEDS: MULTIVITAMINS/MINERALS THERAP 1 TAB PO SCH (07:49)
[2022-05-09] MEDS: buPROPion **XL** TABLET 150MG (WELLBUTRIN XL) PO SCH (07:49)
[2022-05-09] MEDS: BUPRENORPHINE/NALOXONE 8-2MG SUBLINGUAL TABLET(SUBOXONE) SL SCH (07:49)
[2022-05-09] MEDS ORDERED: TRAZ-252 PO (08:05)
[2022-05-09] MEDS ORDERED: HYDR50TA70 PO (08:05)
[2022-05-09] MEDS ORDERED: BUPR150T12 PO (08:05)
== END 2022-05-09 09:48 | DRG 751 ==
LOC: M ED 06:19 → EEVIPCON 04-25 14:53 → M ED INP 04-25 14:53 → M PSY 04-25 16:47
PROVIDERS: ADMIT Psychiatry & Neurology Psychiatry; ATTEND Psychiatry & Neurology Psychiatry
DX: F29 Unspecified psychosis not due to a substance or known physiological condition (principal); B19.20 Unspecified viral hepatitis C without hepatic coma; G47.00 Insomnia, unspecified; F32.A Depression, unspecified; F41.9 Anxiety disorder, unspecified; Z79.899 Other long term (current) drug therapy; F19.90 Other psychoactive substance use, unspecified, uncomplicated; D63.8 Anemia in other chronic diseases classified elsewhere; F17.210 Nicotine dependence, cigarettes, uncomplicated; Z59.00 Homelessness unspecified; Z20.822 Contact with and (suspected) exposure to COVID-19; R45.851 Suicidal ideations

== ENCOUNTER 2024-05-18 11:23 | Emergency (ER) | payer MEDICAID ==
[~2024-05-18] VITALS: Ht 170.2 cm; Wt 61.7 kg
[~2024-05-18 11:23] MED LIST changes: +BUPR-597 PO; -BUPR300T92 PO; +TRAZ-252 PO
[2024-05-18] MEDS ORDERED: CEPH500C PO (12:22)
[2024-05-18 12:36] VITALS: BP 113/57; TEMP 97.2; O2SAT 98
== END 2024-05-18 13:08 | disposition home or self-care (01) ==
LOC: M ED 11:23
DX: L03.032 Cellulitis of left toe (principal); L03.031 Cellulitis of right toe; L66.2 Folliculitis decalvans; F17.210 Nicotine dependence, cigarettes, uncomplicated; F19.10 Other psychoactive substance abuse, uncomplicated; Z79.2 Long term (current) use of antibiotics; Z79.899 Other long term (current) drug therapy

== ENCOUNTER 2024-05-21 14:46 | Emergency (ER) | payer MEDICAID ==
[~2024-05-21] VITALS: Ht 167.6 cm; Wt 62.5 kg
[2024-05-21] MEDS: ETOMIDATE INJ 20MG/10ML VIAL IV STA (15:00)
[2024-05-21] MEDS: SUCCINYLCHOLINE INJ 200MG/10ML VIAL IV STA (15:00)
[2024-05-21] MEDS ORDERED: PROPOFOL 1,000 MG/100 ML VIAL As Ordered ONE (15:08)
[2024-05-21 15:09] LABS: BASO % 0.2 % (0.0-1.0); EOS % 0.3 % (0.0-3.0); HEMATOCRIT 36.3 % (42.0-52.0); HEMOGLOBIN 12.4 g/dl (13.5-17.5); LYMPH # 1.1 10^3/uL (1.5-5.0); LYMPH % 9.3 % (24.0-44.0); MEAN CORPUSCULAR HEMOGLOBIN 30.3 pg (27.0-33.0); MEAN CORPUSCULAR HGB CONC 34.2 g/dl (32.0-36.5); MEAN CORPUSCULAR VOLUME 88.8 fl (80.0-96.0); MONO # 0.4 10^3/uL (0.0-0.8); MONO % 3.3 % (2.0-8.0); NEUTROPHILS # 10.3 10^3/uL (1.5-8.5); NEUTROPHILS % 84.9 % (36.0-66.0); PLATELET COUNT, AUTOMATED 196 10^3/uL (150-450); RED BLOOD COUNT 4.09 10^6/uL (4.30-6.10); WHITE BLOOD COUNT 12.1 10^3/uL (4.0-10.0)
[2024-05-21] MEDS ORDERED: ISOVUE-370 76% 100ML VIAL As Ordered ONE (15:16)
[2024-05-21] MEDS: propofoL 1,000 MG in IV 1 EA IV SCH (15:16)
[2024-05-21] MEDS: LIDOCAINE 2% 5ML JELLY UROJET TOP ONE (15:16)
[2024-05-21] MEDS: BOOSTRIX VACCINE (TETANUS/DIPHTH/ACEL. PERTUSSIS) 0.5ML SYR IM.IMMUN ONE (15:20)
[2024-05-21 15:27] LABS: INR 1.35; PARTIAL THROMBOPLASTIN TIME 28.8 SECONDS (24.8-34.2); PROTHROMBIN TIME 16.2 SECONDS (12.5-14.5)
[2024-05-21] MEDS ORDERED: MIDAZOLAM INJ 2MG/2ML VIAL As Ordered ONE (15:28)
[2024-05-21] MEDS: VECURONIUM BROMIDE 10MG VIAL IV ONE (15:30)
[2024-05-21] MEDS: NS 1,000 ML IV ONE (15:32)
[2024-05-21] MEDS: MIDAZOLAM 100MG/100ML-0.9%NACL 100 MG in IV 1 EA IV SCH (15:33)
[2024-05-21 15:35] LABS: ETHYL ALCOHOL (ETHANOL) < 0.003 % (0.000-0.010); LIPASE 47 U/L (12-53)
[2024-05-21 15:36] LABS: AMYLASE 38 U/L (30-118); CK-MB VALUE MASS 27.8 NG/ML (<3.6)
[2024-05-21] MEDS: MIDAZOLAM INJ 2MG/2ML VIAL IV STA (15:36)
[2024-05-21 15:37] LABS: ALBUMIN 4.2 G/DL (3.2-5.2); ALKALINE PHOSPHATASE 90 U/L (46-116); ALT/SGPT 182 U/L (7.0-40); AST/SGOT 314 U/L (<34); BILIRUBIN,DIRECT 0.2 MG/DL (<0.4); BILIRUBIN,TOTAL 0.8 MG/DL (0.3-1.2); TOTAL PROTEIN 6.9 G/DL (5.7-8.2)
[2024-05-21 15:46] LABS: ABG BASE EXCESS 2.9 (-2.0-2.0); ABG HCO3 26.9 MMOL/L (22.0-26.0); ABG O2 SATURATION 98.4 % (95.0-99.0); ABG PARTIAL PRESSURE CO2 38.8 mmHg (35.0-45.0); ABG PARTIAL PRESSURE O2 144.5 mmHg (75.0-100.0); ABG STANDARD HCO3 27.1 MMOL/L. (22.0-26.0); ABG pH (ARTERIAL) 7.458 UNITS (7.350-7.450)
[2024-05-21 15:47] LABS: VENOUS BASE EXCESS 2.6 (-2.0-2.0); VENOUS HCO3 27.2 MMOL/L (23.0-27.0); VENOUS PARTIAL PRESSURE O2 173.9 mmHg (30.0-50.0); VENOUS PH 7.429 UNITS (7.330-7.430); VENOUS STANDARD HCO3 26.8 MMOL/L; VENOUS TOTAL CO2 28.5 MMOL/L (24.0-28.0)
[2024-05-21 15:58] LABS: CPK CREATINE PHOSPHOKINASE 2849 U/L (46-171); MB/CK RELATIVE INDEX 0.97 (< OR =4)
[2024-05-21 15:59] LABS: APPEARANCE, URINE HAZY (CLEAR); BACTERIA, URINE AUTO 1+ (NEGATIVE); BILIRUBIN, URINE AUTO 1+ (NEGATIVE); BLOOD, URINE BLOOD 3+ (NEGATIVE); COLOR, URINE AMBER (YELLOW); GLUCOSE, URINE (UA) AUTO NEGATIVE (NEGATIVE); KETONE, URINE AUTO TRACE mg/dL (NEGATIVE); LEUKOCYTE ESTERASE, URINE AUTO NEGATIVE (NEGATIVE); MUCUS, URINE SMALL (NEGATIVE); NITRITE, URINE AUTO NEGATIVE (NEGATIVE); PROTEIN, URINE AUTO 3+ mg/dL (NEGATIVE); RBC, URINE AUTO TNTC /HPF (0-3); SQUAMOUS EPITHELIAL CELL UR AU 0 /HPF (0-6); WBC, URINE AUTO 11 /HPF (0-3)
[2024-05-21 16:23] LABS: BARBITURATES URINE NEGATIVE (NEGATIVE); BENZODIAZEPINES URINE NEGATIVE (NEGATIVE); COCAINE METABOLITE URINE NEGATIVE (NEGATIVE); METHADONE URINE NEGATIVE (NEGATIVE); OPIATES URINE NEGATIVE (NEGATIVE); PHENCYCLIDINE URINE NEGATIVE (NEGATIVE)
[2024-05-21 16:25] LABS: AMPHETAMINES LEVEL URINE POSITIVE (NEGATIVE); CANNABINOIDS URINE POSITIVE (NEGATIVE)
[2024-05-21] MEDS ORDERED: FENTANYL DRIP LOCK BOX KEY 1 EACH XX PRN (16:30)
[2024-05-21] MEDS ORDERED: fentaNYL 100 MCG/2 ML INJECTION As Ordered ONE (16:32)
[2024-05-21] MEDS: fentaNYL 100 MCG/2 ML INJECTION IV ONE (16:38)
[2024-05-21] MEDS: fentaNYL CITRATE/NaCl 1,000 MCG in IV 1 EA IV SCH (16:39)
[2024-05-21] MEDS: ceFAZolin SOD 2 GM in IV 1 EA IV ONE (17:28)
[2024-05-21] MEDS: NS 1,000 ML IV SCH (17:29)
[2024-05-21 18:15] VITALS: BP 117/74; O2SAT 100
== END 2024-05-21 18:23 | disposition short-term general hospital (02) ==
LOC: M ED 14:46 → EDBD 14:46 → M ED 18:23
DX: S82.871A Displaced pilon fracture of right tibia, initial encounter for closed fracture (principal); S92.062A Displaced intraarticular fracture of left calcaneus, initial encounter for closed fracture; S92.001A Unspecified fracture of right calcaneus, initial encounter for closed fracture; S32.020A Wedge compression fracture of second lumbar vertebra, initial encounter for closed fracture; S32.019A Unspecified fracture of first lumbar vertebra, initial encounter for closed fracture; S22.080A Wedge compression fracture of T11-T12 vertebra, initial encounter for closed fracture; S22.43XA Multiple fractures of ribs, bilateral, initial encounter for closed fracture; Y92.410 Unspecified street and highway as the place of occurrence of the external cause; Y93.9 Activity, unspecified; Y99.9 Unspecified external cause status; W13.1XXA Fall from, out of or through bridge, initial encounter; F19.10 Other psychoactive substance abuse, uncomplicated
CPT/HCPCS: 36600; 51702; 70450; 71045; 71260; 72125; 72128; 72131; 72170; 73610; 73650; 74177; 80047; 80076; 80307; 81001; 82077; 82150; 82550; 82553; 82803; 83605; 83690; 84484; 85025; 85610; 85730; 86850; 86900; 86901; 90471; 90715; 93041; 94760; 96365; 96366; 96374; 96375; 99291; 99292; J0330; J0690; J2250; J3010; Q9967

== ENCOUNTER 2024-07-26 14:17 | Emergency (ER) | payer MEDICAID, OTHER ==
[~2024-07-26] VITALS: Ht 172.7 cm; Wt 65.9 kg
[~2024-07-26 14:17] MED LIST changes: +GABA-1490 PO; -GABA600T4 PO
[2024-07-26] MEDS: KETOROLAC 30 MG/ML 1ML VIAL IV ONE (15:42)
[2024-07-26] MEDS: NS 1,000 ML IV ONE (15:43)
[2024-07-26 15:54] LABS: BASO % 0.5 % (0.0-1.0); EOS # 0.3 10^3/uL (0.0-0.5); EOS % 4.6 % (0.0-3.0); HEMATOCRIT 35.1 % (42.0-52.0); HEMOGLOBIN 11.3 g/dl (13.5-17.5); LYMPH # 2.3 10^3/uL (1.5-5.0); LYMPH % 38.6 % (24.0-44.0); MEAN CORPUSCULAR HEMOGLOBIN 28.2 pg (27.0-33.0); MEAN CORPUSCULAR HGB CONC 32.2 g/dl (32.0-36.5); MEAN CORPUSCULAR VOLUME 87.5 fl (80.0-96.0); MONO # 0.3 10^3/uL (0.0-0.8); MONO % 4.7 % (2.0-8.0); NEUTROPHILS # 3.1 10^3/uL (1.5-8.5); NEUTROPHILS % 51.4 % (36.0-66.0); PLATELET COUNT, AUTOMATED 255 10^3/uL (150-450); RED BLOOD COUNT 4.01 10^6/uL (4.30-6.10); WHITE BLOOD COUNT 5.9 10^3/uL (4.0-10.0)
[2024-07-26 16:29] LABS: BLOOD UREA NITROGEN 10 MG/DL (9-23); CALCIUM LEVEL 9.3 MG/DL (8.5-10.1); CARBON DIOXIDE LEVEL 30 MMOL/L (20-31); CHLORIDE LEVEL 103 MMOL/L (98-107); CREATININE FOR GFR 0.61 MG/DL (0.70-1.30); GLOMERULAR FILTRATION RATE > 60.0 (>60); GLUCOSE, FASTING 83 MG/DL (60-100); MAGNESIUM LEVEL 1.7 MG/DL (1.8-2.4); POTASSIUM SERUM 3.8 MMOL/L (3.5-5.1); SODIUM LEVEL 137 MMOL/L (136-145)
[2024-07-26] MEDS: PIPERACILLIN/TAZOBACTAM SOD 4.5 GM in D5W MINI-BAG PLUS 50 ML IV ONE (18:51)
[2024-07-26] MEDS: ACETAMINOPHEN *IV* 1,000 MG in IV 1 EA IV ONE (20:06)
[2024-07-26] MEDS ORDERED: HYDR50TA70 PO (20:32)
[2024-07-26] MEDS ORDERED: BUPR150T12 PO (20:32)
[2024-07-26] MEDS ORDERED: GABA-284 PO (20:32)
[2024-07-26] MEDS ORDERED: SENN-186 PO (20:32)
[2024-07-26] MEDS ORDERED: HOME MED LIST COMPLETE! XX SCH (20:35)
[2024-07-26] MEDS: diazePAM 10MG/2ML SYRINGE IV ONE (21:57)
[2024-07-26 22:13] VITALS: BP 111/62; TEMP 97.9; O2SAT 97
== END 2024-07-26 22:20 | disposition short-term general hospital (02) ==
LOC: M ED 14:17 → EDBD 14:17 → M ED 22:20
DX: M86.172 Other acute osteomyelitis, left ankle and foot (principal); M86.171 Other acute osteomyelitis, right ankle and foot; Z79.899 Other long term (current) drug therapy
CPT/HCPCS: 73700; 80048; 83735; 85025; 86140; 87040; 96361; 96365; 96374; 96375; 99284; J0131; J1885; J2543; J3360

== ENCOUNTER 2024-09-27 13:18 | Emergency (ER) | payer OTHER ==
[~2024-09-27] VITALS: Ht 175.3 cm; Wt 65.8 kg
[~2024-09-27 13:18] MED LIST changes: -CYCL5TAB PO; +CYCL5TAB4 PO; +GABA-1172 PO; -GABA-282 PO; +GABA-284 PO; +SENN-186 PO
[2024-09-27 16:41] LABS: BASO % 0.6 % (0.0-1.0); EOS # 0.1 10^3/uL (0.0-0.5); EOS % 2.1 % (0.0-3.0); HEMATOCRIT 36.3 % (42.0-52.0); HEMOGLOBIN 11.9 g/dl (13.5-17.5); LYMPH # 2.2 10^3/uL (1.5-5.0); LYMPH % 42.1 % (24.0-44.0); MEAN CORPUSCULAR HEMOGLOBIN 27.5 pg (27.0-33.0); MEAN CORPUSCULAR HGB CONC 32.8 g/dl (32.0-36.5); MEAN CORPUSCULAR VOLUME 83.8 fl (80.0-96.0); MONO # 0.5 10^3/uL (0.0-0.8); MONO % 9.2 % (2.0-8.0); NEUTROPHILS # 2.4 10^3/uL (1.5-8.5); NEUTROPHILS % 45.8 % (36.0-66.0); PLATELET COUNT, AUTOMATED 271 10^3/uL (150-450); RED BLOOD COUNT 4.33 10^6/uL (4.30-6.10); WHITE BLOOD COUNT 5.2 10^3/uL (4.0-10.0)
[2024-09-27 16:54] LABS: ERYTHROCYTE SEDIMENTATION RATE 52 mm/hr (0-15)
[2024-09-27 17:14] LABS: BLOOD UREA NITROGEN 16 MG/DL (9-23); CALCIUM LEVEL 9.2 MG/DL (8.5-10.1); CARBON DIOXIDE LEVEL 27 MMOL/L (20-31); CHLORIDE LEVEL 105 MMOL/L (98-107); GLOMERULAR FILTRATION RATE > 60.0 (>60); GLUCOSE, FASTING 89 MG/DL (60-100); POTASSIUM SERUM 3.9 MMOL/L (3.5-5.1); SODIUM LEVEL 139 MMOL/L (136-145)
[2024-09-27] MEDS ORDERED: ISOVUE-370 76% 100ML VIAL As Ordered ONE (17:34)
[2024-09-27] MEDS: ONDANSETRON 4MG ORAL DISINTEGRATING TAB PO ONE (18:10)
[2024-09-27] MEDS ORDERED: IBUPROFEN 600MG TAB PO ONE (20:50)
[2024-09-27] MEDS: KETOROLAC 30 MG/ML 1ML VIAL IV ONE (21:12)
[2024-09-27] MEDS: ACETAMINOPHEN 325 MG TAB PO ONE (21:13)
[2024-09-27] MEDS ORDERED: HOME MED LIST COMPLETE! XX SCH (21:45)
[2024-09-27 21:53] LABS: PROCALCITONIN <0.04 ng/ml
[2024-09-27 22:00] LABS: HEPATITIS B SURFACE ANTIGEN NEGATIVE (NEGATIVE)
[2024-09-27 22:13] LABS: HIV 1&2 SCREEN NEGATIVE (NEGATIVE)
[2024-09-27 22:22] LABS: HEPATITIS B CORE ANTIBODY IGM NEGATIVE (NEGATIVE)
[2024-09-27 22:24] LABS: HEPATITIS C VIRUS ABY INDEX > 11.00 INDEX (<0.8)
[2024-09-27 22:26] VITALS: BP 129/84; TEMP 97.6; O2SAT 100
[2024-10-01 11:17] LABS: HCV RNA QUANTITATION <15 NOT DETECTED IU/mL (NOT DETECTED); HCV RNA log10 <1.18 NOT DETECTED Log IU/mL (NOT DETECTED)
== END 2024-09-27 23:14 | disposition home or self-care (01) ==
LOC: EDBD 13:18 → M ED 13:18
DX: M25.571 Pain in right ankle and joints of right foot (principal); M25.572 Pain in left ankle and joints of left foot; F19.10 Other psychoactive substance abuse, uncomplicated; F41.9 Anxiety disorder, unspecified; F32.A Depression, unspecified; Z79.899 Other long term (current) drug therapy
CPT/HCPCS: 73610; 73701; 80048; 80074; 84145; 85025; 85652; 86140; 87040; 87389; 87522; 96374; 99284; J1885; Q9967

== ENCOUNTER 2024-09-28 17:05 | Emergency (ER) | payer OTHER ==
[~2024-09-28] VITALS: Ht 175.3 cm; Wt 68.2 kg
[2024-09-28 17:18] VITALS: BP 112/64; TEMP 96.7; O2SAT 92
== END 2024-09-28 18:14 | disposition home or self-care (01) ==
LOC: M ED 17:05
DX: F43.0 Acute stress reaction (principal); M25.571 Pain in right ankle and joints of right foot; M25.572 Pain in left ankle and joints of left foot; F17.210 Nicotine dependence, cigarettes, uncomplicated; F19.10 Other psychoactive substance abuse, uncomplicated; Z79.899 Other long term (current) drug therapy

== ENCOUNTER → 2024-11-25 | Outpatient (REF) | payer OTHER, MEDICAID ==
[2024-11-25 14:33] LABS: BASO % 0.3 % (0.0-1.0); EOS # 0.1 10^3/uL (0.0-0.5); HEMATOCRIT 41.7 % (42.0-52.0); HEMOGLOBIN 13.4 g/dl (13.5-17.5); LYMPH # 2.2 10^3/uL (1.5-5.0); LYMPH % 35.4 % (24.0-44.0); MEAN CORPUSCULAR HGB CONC 32.1 g/dl (32.0-36.5); MEAN CORPUSCULAR VOLUME 87.1 fl (80.0-96.0); MONO # 0.5 10^3/uL (0.0-0.8); MONO % 7.5 % (2.0-8.0); NEUTROPHILS # 3.3 10^3/uL (1.5-8.5); NEUTROPHILS % 54.6 % (36.0-66.0); PLATELET COUNT, AUTOMATED 249 10^3/uL (150-450); RED BLOOD COUNT 4.79 10^6/uL (4.30-6.10); WHITE BLOOD COUNT 6.1 10^3/uL (4.0-10.0)
[2024-11-25 15:09] LABS: FREE T4 1.16 NG/DL (0.89-1.76); THYROID STIMULATING HORMONE 4.018 uIU/ML (0.55-4.78)
[2024-11-25 15:13] LABS: ALKALINE PHOSPHATASE 103 U/L (40-129); ALT/SGPT 12 U/L (7.0-40); AST/SGOT 15 U/L (<34); BILIRUBIN,TOTAL 0.4 MG/DL (0.3-1.2); BLOOD UREA NITROGEN 17 MG/DL (9-23); CALCIUM LEVEL 9.5 MG/DL (8.5-10.1); CARBON DIOXIDE LEVEL 30 MMOL/L (20-31); CHLORIDE LEVEL 102 MMOL/L (98-107); CHOLESTEROL LEVEL 204 MG/DL (<200); CHOLESTEROL RISK RATIO 3.93 (<5); CREATININE FOR GFR 0.55 MG/DL (0.70-1.30); GLOMERULAR FILTRATION RATE > 60.0 (>60); GLUCOSE, FASTING 94 MG/DL (60-100); HDL CHOLESTEROL 51.8 MG/DL (>40); NON-HDL-C 152.2 MG/DL; POTASSIUM SERUM 4.7 MMOL/L (3.5-5.1); SODIUM LEVEL 140 MMOL/L (136-145); TOTAL PROTEIN 7.6 G/DL (5.7-8.2); TRIGLYCERIDES LEVEL 76 MG/DL (<150)
[2024-11-25 15:21] LABS: HEPATITIS B SURFACE ANTIGEN NEGATIVE (NEGATIVE)
[2024-11-25 15:34] LABS: HIV 1&2 SCREEN NEGATIVE (NEGATIVE)
== END ==
LOC: M LAB REF 12:42
PROVIDERS: ATTEND Family Medicine Addiction Medicine
DX: B19.20 Unspecified viral hepatitis C without hepatic coma (principal)

== ENCOUNTER 2024-11-28 21:34 | Inpatient (IN) | payer MEDICAID, OTHER ==
[~2024-11-28] VITALS: Ht 170.2 cm; Wt 74.2 kg
[2024-11-28 22:53] LABS: HEMATOCRIT 39.1 % (42.0-52.0); HEMOGLOBIN 13.2 g/dl (13.5-17.5); MEAN CORPUSCULAR HEMOGLOBIN 28.3 pg (27.0-33.0); MEAN CORPUSCULAR HGB CONC 33.8 g/dl (32.0-36.5); MEAN CORPUSCULAR VOLUME 83.7 fl (80.0-96.0); PLATELET COUNT, AUTOMATED 261 10^3/uL (150-450); RED BLOOD COUNT 4.67 10^6/uL (4.30-6.10); WHITE BLOOD COUNT 10.2 10^3/uL (4.0-10.0)
[2024-11-28 23:13] LABS: BARBITURATES URINE NEGATIVE (NEGATIVE); BENZODIAZEPINES URINE NEGATIVE (NEGATIVE); COCAINE METABOLITE URINE NEGATIVE (NEGATIVE)
[2024-11-28 23:14] LABS: METHADONE URINE NEGATIVE (NEGATIVE); OPIATES URINE NEGATIVE (NEGATIVE); PHENCYCLIDINE URINE NEGATIVE (NEGATIVE)
[2024-11-28 23:15] LABS: ETHYL ALCOHOL (ETHANOL) < 0.003 % (0.000-0.010)
[2024-11-28 23:17] LABS: SALICYLATE LEVEL < 3.0 MG/DL (<30)
[2024-11-28 23:18] LABS: ALBUMIN 4.2 G/DL (3.2-5.2); ALKALINE PHOSPHATASE 119 U/L (40-129); ALT/SGPT 15 U/L (7.0-40); AST/SGOT 40 U/L (<34); BILIRUBIN,DIRECT 0.2 MG/DL (<0.4); BILIRUBIN,TOTAL 0.7 MG/DL (0.3-1.2); BLOOD UREA NITROGEN 20 MG/DL (9-23); CALCIUM LEVEL 9.1 MG/DL (8.5-10.1); CARBON DIOXIDE LEVEL 26 MMOL/L (20-31); CHLORIDE LEVEL 100 MMOL/L (98-107); GLOMERULAR FILTRATION RATE > 60.0 (>60); GLUCOSE, FASTING 94 MG/DL (60-100); POTASSIUM SERUM 4.3 MMOL/L (3.5-5.1); SODIUM LEVEL 139 MMOL/L (136-145); TOTAL PROTEIN 7.8 G/DL (5.7-8.2)
[2024-11-28 23:20] LABS: THYROID STIMULATING HORMONE 1.517 uIU/ML (0.55-4.78)
[2024-11-28 23:26] LABS: AMPHETAMINES LEVEL URINE POSITIVE (NEGATIVE); CANNABINOIDS URINE POSITIVE (NEGATIVE)
[2024-11-29] MEDS: GABAPENTIN 400MG CAP PO ONE (01:35)
[2024-11-29] MEDS: diazePAM 10MG/2ML SYRINGE IM ONE (01:36)
[2024-11-29] MEDS ORDERED: MAALOX 30 ML SUSP *UDC PO PRN (03:05)
[2024-11-29] MEDS ORDERED: MOM 30ML SUSPENSION UDC PO PRN (03:05)
[2024-11-29] MEDS ORDERED: diphenhydrAMINE 25MG CAP PO PRN (03:05)
[2024-11-29] MEDS ORDERED: ACETAMINOPHEN 325 MG TAB PO PRN (03:05)
[2024-11-29] MEDS: traZODone 50 MG TAB PO PRN (04:14)
[2024-11-29 06:07] VITALS: BP 136/90; TEMP 98.4; O2SAT 97
[2024-11-29] MEDS: NICOTINE 14 MG/24 HR TRANSDERMAL TD SCH (08:10)
[2024-11-29] MEDS: LORazepam 1 MG TAB PO PRN (08:16)
[2024-11-29] MEDS: OLANZapine ORAL DISINTEGRATING TAB 5MG PO PRN (08:16)
[2024-11-29] MEDS: IBUPROFEN 400MG TAB PO PRN (08:16)
[2024-11-29] MEDS ORDERED: HOME MED LIST COMPLETE! XX SCH (09:45)
[2024-11-29] MEDS: BUPRENORPHINE/NALOXONE 8-2MG SUBLINGUAL TABLET(SUBOXONE) SL SCH ×2 (10:39→14:11)
[2024-11-29] MEDS ORDERED: BUPRENORPHINE/NALOXONE 8-2MG SUBLINGUAL TABLET(SUBOXONE) SL SCH ×2 (11:00→21:00)
[2024-11-29] MEDS ORDERED: SENNA 8.6 MG TAB (SENOKOT) PO PRN (11:25)
[2024-11-29] MEDS: buPROPion **XL** TABLET 150MG (WELLBUTRIN XL) PO SCH (14:11)
[2024-11-29] MEDS: GABAPENTIN 400MG CAP PO SCH (15:50)
[2024-11-29 16:21] VITALS: BP 132/71; TEMP 98; O2SAT 96
[2024-11-29] MEDS: OLANZapine 5 MG TAB PO SCH (20:35)
[2024-11-30] MEDS: FLUZONE VACCINE TRIVALENT PF(2024-25) 0.5ML SYRINGE IM.IMMUN ONE (08:00)
[2024-11-30] MEDS ORDERED: BUPRENORPHINE/NALOXONE 8-2MG SUBLINGUAL TABLET(SUBOXONE) SL SCH (09:00)
[2024-12-01 06:49] VITALS: BP 115/58; TEMP 99.3; O2SAT 99
[2024-12-02 07:05] VITALS: BP 114/55; TEMP 97.9; O2SAT 100
[2024-12-02] MEDS ORDERED: OLAN1TAB16 PO (10:51)
[2024-12-02] MEDS: BUPRENORPHINE/NALOXONE 8-2MG SUBLINGUAL TABLET(SUBOXONE) SL ONE (13:02)
== END 2024-12-02 14:01 | disposition home or self-care (01) | DRG 751 ==
LOC: M ED 21:34 → M ED INP 11-29 03:04 → EEVIPCON 11-29 03:04 → M PSY 11-29 03:47
PROVIDERS: ADMIT Psychiatry & Neurology Neurology; ATTEND Psychiatry & Neurology Psychiatry
DX: F29 Unspecified psychosis not due to a substance or known physiological condition (principal); R45.851 Suicidal ideations; Z81.1 Family history of alcohol abuse and dependence; Z59.01 Sheltered homelessness; Z56.0 Unemployment, unspecified; F15.159 Other stimulant abuse with stimulant-induced psychotic disorder, unspecified; F17.200 Nicotine dependence, unspecified, uncomplicated; F11.10 Opioid abuse, uncomplicated

== ENCOUNTER 2024-12-29 15:51 | Emergency (ER) | payer MEDICAID, OTHER ==
[~2024-12-29] VITALS: Ht 172.7 cm; Wt 73.3 kg
[~2024-12-29 15:51] MED LIST changes: +OLAN1TAB16 PO
[2024-12-29] MEDS: ACETAMINOPHEN 325 MG TAB PO ONE (17:04)
[2024-12-29] MEDS: LIDOCAINE 4% CREAM 5GM (LMX4) TOP ONE (17:05)
[2024-12-29 17:12] LABS: BASO % 0.2 % (0.0-1.0); EOS # 0.1 10^3/uL (0.0-0.5); EOS % 2.4 % (0.0-3.0); HEMATOCRIT 36.2 % (42.0-52.0); HEMOGLOBIN 11.9 g/dl (13.5-17.5); LYMPH # 1.4 10^3/uL (1.5-5.0); LYMPH % 28.7 % (24.0-44.0); MEAN CORPUSCULAR HEMOGLOBIN 28.2 pg (27.0-33.0); MEAN CORPUSCULAR HGB CONC 32.9 g/dl (32.0-36.5); MEAN CORPUSCULAR VOLUME 85.8 fl (80.0-96.0); MONO # 0.3 10^3/uL (0.0-0.8); NEUTROPHILS # 3.1 10^3/uL (1.5-8.5); NEUTROPHILS % 62.1 % (36.0-66.0); PLATELET COUNT, AUTOMATED 157 10^3/uL (150-450); RED BLOOD COUNT 4.22 10^6/uL (4.30-6.10)
[2024-12-29 17:35] LABS: BLOOD UREA NITROGEN 10 MG/DL (9-23); CALCIUM LEVEL 8.8 MG/DL (8.5-10.1); CARBON DIOXIDE LEVEL 29 MMOL/L (20-31); CHLORIDE LEVEL 106 MMOL/L (98-107); CREATININE FOR GFR 0.46 MG/DL (0.70-1.30); GLOMERULAR FILTRATION RATE > 60.0 (>60); GLUCOSE, FASTING 102 MG/DL (60-100); POTASSIUM SERUM 3.9 MMOL/L (3.5-5.1); SODIUM LEVEL 143 MMOL/L (136-145)
[2024-12-29 18:06] VITALS: BP 116/56; TEMP 98.4; O2SAT 97
[2024-12-29] MEDS: KETOROLAC 60MG 2ML VIAL IM ONE (18:06)
== END 2024-12-29 19:04 | disposition home or self-care (01) ==
LOC: M ED 15:51
DX: R22.43 Localized swelling, mass and lump, lower limb, bilateral (principal); Z79.899 Other long term (current) drug therapy; F17.200 Nicotine dependence, unspecified, uncomplicated; Z98.890 Other specified postprocedural states
CPT/HCPCS: 73600; 80048; 85025; 96372; 99283; J1885